=== PATIENT | female | born 1960 | race Caucasian/White ===

== ENCOUNTER 2016-04-23 07:37 | Inpatient (IN) | payer OTHER ==
[2016-04-17 15:25] VITALS: BMI 41.0
[2016-04-23] VITALS (10 sets, daily range): BP systolic 97–140; BP diastolic 61–83; PULSE 82–99; TEMP 36.5–37.1; O2SAT 93–97; Ht 167.6 cm; Wt 117.1 kg
[~2016-04-23] VITALS: Ht 167.6 cm; Wt 117.1 kg
[~2016-04-23 07:37] MED LIST: ALBINS NEB; ALBUAER19 INH; AMIT100T2 PO; BENZ-57 PO; CLINDAMYCIN IV 900 MG in DEXTROSE 5% ADD-VANTAGE 100ML 100 ML IV SCH; DEXAMETHASONE SOD INJ 4 MG/ML VIAL ONE; ESCI1TAB10 PO; FENTANYL CITRATE INJ 50 MCG/1 ML 2 ML VIAL ONE; GLYCOPYRROLATE INJ 0.2 MG/ML VIAL ONE; IPRASOL4 INH; LACTATED RINGER'S 1000ML 1,000 ML IV SCH; LIDOCAINE HCL 2% 2 ML VIAL (20MG/ML) ONE; LISI-788 PO; LORA-741 PO; MIDAZOLAM HCL 1 MG/ML 2ML VIAL ONE; NEOSTIGMINE METHYLSULFATE 5 MG/5 ML SYR ONE; ONDA8TAB6 PO; ONDANSETRON INJ 2 MG/ML 2 ML VIAL ONE; PROPOFOL IV EMULSION 10 MG/ML 20 ML VIAL IV ONE; ROCURONIUM BROMIDE 10 MG/ML 5 ML VIAL ONE; SULF800T23 PO; SYMIN160 INH
[2016-04-23] MEDS ORDERED: FENTANYL CITRATE INJ 50 MCG/1 ML 2 ML VIAL IV PRN (08:00)
[2016-04-23] MEDS ORDERED: SCOPOLAMINE 1.5 MG TDSY TD SCH (08:00)
[2016-04-23] MEDS ORDERED: ONDANSETRON INJ 2 MG/ML 2 ML VIAL IV PRN (08:00)
[2016-04-23] MEDS ORDERED: ATROPINE SULFATE 0.1 MG/ML 5ML SYR IV PRN (08:00)
[2016-04-23] MEDS ORDERED: HYDROmorphone INJ 1 MG/ML SYR IV PRN (08:00)
[2016-04-23] MEDS: CHECK SCOPOLAMINE PATCH PLACEMENT SCH ×2 (08:00→16:30)
[2016-04-23] MEDS ORDERED: EpHEDrine SULFATE INJ 50 MG/ML AMP IV PRN (08:00)
[2016-04-23] MEDS ORDERED: FENTANYL CITRATE INJ 50 MCG/1 ML 2 ML VIAL ONE ×2 (10:31→13:31)
[2016-04-23] MEDS ORDERED: MIDAZOLAM HCL 1 MG/ML 2ML VIAL ONE (10:31)
[2016-04-23] MEDS ORDERED: SCOPOLAMINE 1.5 MG TDSY TD ONE (10:38)
[2016-04-23] MEDS ORDERED: REMIFENTANIL 1 MG VIAL IV ONE (10:47)
[2016-04-23] MEDS ORDERED: ACETAMINOPHEN 1000 MG/100 ML IV IV ONE (10:47)
[2016-04-23] MEDS ORDERED: PROPOFOL IV EMULSION 10 MG/ML 100 ML VIAL IV ONE (10:47)
[2016-04-23] MEDS ORDERED: SUCCINYLCHOLINE CHLORIDE 20 MG/ML 10 ML VIAL IV ONE (11:59)
[2016-04-23] MEDS ORDERED: GLYCOPYRROLATE INJ 0.2 MG/ML VIAL ONE (11:59)
[2016-04-23] MEDS ORDERED: ALBUTEROL HFA INHALER 8.5 GM INH ONE (11:59)
[2016-04-23] MEDS ORDERED: NEOSTIGMINE METHYLSULFATE 5 MG/5 ML SYR ONE (11:59)
[2016-04-23] MEDS ORDERED: METOCLOPRAMIDE HCL INJ 5 MG/ML 2 ML VIAL ONE (11:59)
[2016-04-23] MEDS ORDERED: DiphenhydrAMINE HCL 50 MG/ML VIAL ONE (11:59)
[2016-04-23] MEDS ORDERED: ONDANSETRON INJ 2 MG/ML 2 ML VIAL ONE (11:59)
[2016-04-23] MEDS ORDERED: PHENYLEPHRINE HCL INJ 10 MG/ML VIAL ONE (12:09)
[2016-04-23] MEDS ORDERED: EpHEDrine SULFATE 50MG/5ML SYR ONE (12:13)
[2016-04-23] MEDS ORDERED: BUPIVACAINE 0.5 % 5 MG/1 ML MPF 30ML VIAL IV ONE (13:13)
[2016-04-23] MEDS ORDERED: LACTATED RINGER'S 1000ML 1,000 ML IV SCH (13:20)
--- NOTE | 2016-04-23 13:20 | [facility] Operative Report ---
Operative Report Operative Date Apr 23, 2016. Pre-Operative Diagnosis Left breast cancer Post-Operative Diagnosis same Procedure(s) Performed Left Mastectomy with sentinel LN bx Surgeon Dr Mccormick Hot Kettle Tender Surgeon(s) Chraly Brizuela PA-C Estimated Blood Loss 30 ML Findings SLN frozen sect negative Specimens A.Left breast -long silk tissue le lateral sent to lab fresh additional Lt breast tissue SLN Drains # 15 Rd SHAKEEL to bulb Anesthesia gen Complication(s) None Disposition Recovery Room / PACU I attest to the content of the Intraoperative Record and any orders documented therein. Any exceptions are noted below.
[2016-04-23] MEDS ORDERED: HYDROCODONE/ACETAMOPHEN 5/325MG TAB PO PRN (13:30)
[2016-04-23] MEDS ORDERED: ALBUTEROL HFA 8 GM INHALER INH PRN (13:30)
[2016-04-23] MEDS ORDERED: ALBUTEROL 0.083% NEBU SOLN 3 ML VIAL INH PRN (13:30)
[2016-04-23] MEDS ORDERED: LORAZEPAM INJ 0.5 MG in SYRINGE 0.25 ML IV PRN (13:30)
[2016-04-23] MEDS ORDERED: LORAZEPAM INJ 0.5 MG in SYRINGE 0.75 ML IV PRN (13:30)
[2016-04-23] MEDS ORDERED: CIPR-255 PO (13:34)
[2016-04-23] MEDS ORDERED: HYDR-5688 PO (13:34)
[2016-04-23] MEDS ORDERED: IV FLUIDS COMPLETED PRN (13:45)
--- NOTE | 2016-04-23 13:51 | DIAGNOSTIC IMAGING REPORT ---
LYMPHOSCINTIGRAPHY CLINICAL HISTORY: Left breast cancer. PROCEDURE: Using standard sterile technique, 4 intradermal periareolar and one deep injection of 0.5 mCi of Lymphoseek was placed in the left breast. The patient tolerated the procedure well. There were no immediate complications. The patient was subsequently transported to the surgical suite. No imaging was obtained at the referring physician's request. IMPRESSION: Injection of 0.5 mCi of Lymphoseek in the left breast. Electronically signed by: Kt Paulino M.D. 04/23/2016 1:49 PM Dictated Date/Time: 04/23/2016 1:49 PM
--- NOTE | 2016-04-23 13:54 | Anesthesiology Progress Note ---
Anesthesia Post Op Note Date & Time Apr 23, 2016 at 13:54 Vital Signs Pain Intensity: 5 Vital Signs Past 12 Hours Date Time Temp Pulse Resp B/P Pulse Ox O2 Delivery O2 Flow Rate FiO2 04/23/16 13:45 99 16 127/84 99 Nasal Cannula 2 04/23/16 13:35 92 16 122/73 99 Mask 10 04/23/16 13:25 99 16 131/62 99 Mask 10 04/23/16 13:24 36.4 101 16 103/76 98 Mask 10 04/23/16 08:03 36.5 99 18 140/83 97 Room Air Notes Mental Status: alert / awake / arousable, participated in evaluation Pt Amnestic to Procedure: Yes Nausea / Vomiting: adequately controlled Pain: adequately controlled Airway Patency, RR, SpO2: stable & adequate BP & HR: stable & adequate Hydration State: stable & adequate Anesthetic Complications: no major complications apparent
[2016-04-23] MEDS ORDERED: CLINDAMYCIN 600 MG/54 ML D5W IV SCH (14:00)
--- NOTE | 2016-04-23 14:33 | OPERATIVE REPORT ---
DATE OF OPERATION: 04/23/2016 NAME OF OPERATION: Left mastectomy with sentinel lymph node biopsy. PREOPERATIVE DIAGNOSIS: Left breast cancer. POSTOPERATIVE DIAGNOSIS: Same. STAFF SURGEON: Dr. Ean Mccormick. ANESTHESIA: General. MESSAGE BROKER DEVELOPER: Reid Jama PA-C DESCRIPTION OF PROCEDURE: The patient was brought into the operating room and placed on the operating table in the supine position. Her left arm was extended onto an arm board. A roll was placed beneath her shoulder. Her left breast and axilla were prepped and draped in the usual fashion. Using the Neoprobe, I was able to localize the area of activity in the left axilla. 0.5% plain Marcaine was used to anesthetize the skin incisions. An incision was made in the left axilla, carrying dissection down deeply into the axilla, identifying the nerve, sending it for frozen section. During the frozen section, we did perform the left mastectomy. Frozen section did come back negative. The mastectomy was performed by making an incision above and below the areola from medial to lateral from the sternum to the axilla and then the breast tissue was dissected away from the subcutaneous tissue both superiorly and inferiorly, creating superior and inferior chest wall skin flaps. The breast tissue was then dissected away from the pectoralis major muscle to the axilla, ligating vessels using 2-0 chromic catgut suture and 2-0 silk suture. The breast was then marked with a long silk suture lateral. The wounds were irrigated with saline solution. A 15 round Barron-Quintanilla drain placed into the axilla and secured using 3-0 nylon suture. The axilla was closed by reapproximating the deep tissue using 2-0 plain catgut suture and then the skin using 4-0 nylon suture. The chest wall incision was closed using subcutaneous 3-0 Vicryl suture and then medially a 4-0 subcuticular Monocryl and laterally 4-0 Prolene sutures. Steri-Strips and dressings were applied. The patient was transferred to recovery room in stable condition. I attest to the content of the Intraoperative Record and any orders documented therein. Any exceptio ns are noted below.
[2016-04-23] MEDS: HYDROmorphone INJ 1 MG/ML SYR IV PRN ×2 (15:04→18:24)
[2016-04-23] MEDS: CLINDAMYCIN IV 600 MG in DEXTROSE 5% ADD-VANTAGE 50ML 50 ML IV SCH (19:17)
[2016-04-23] MEDS: LORAZEPAM 0.5 MG TAB PO PRN (20:51)
[2016-04-23] MEDS: AMITRIPTYLINE HCL 100 MG TAB PO SCH (20:52)
[2016-04-23] MEDS: BUDESONIDE/FORMOTEROL FUMARATE 160/4.5 60 PUFFS/INHALER INH SCH (20:54)
[2016-04-24] VITALS (18 sets, daily range): BP systolic 94–147; BP diastolic 61–81; PULSE 96–120; TEMP 36.4–36.7; O2SAT 94–98
[2016-04-24] MEDS: CHECK SCOPOLAMINE PATCH PLACEMENT SCH ×3 (00:07→16:46)
[2016-04-24] MEDS: HYDROCODONE/ACETAMOPHEN 5/325MG TAB PO PRN ×2 (00:10→04:27)
[2016-04-24] MEDS: HYDROmorphone INJ 1 MG/ML SYR IV PRN ×2 (02:47→20:26)
[2016-04-24] MEDS: LORAZEPAM 0.5 MG TAB PO PRN ×2 (03:26→21:20)
[2016-04-24] MEDS: CLINDAMYCIN IV 600 MG in DEXTROSE 5% ADD-VANTAGE 50ML 50 ML IV SCH ×2 (03:55→12:59)
[2016-04-24] MEDS: ONDANSETRON INJ 2 MG/ML 2 ML VIAL IV PRN ×3 (05:52→17:33)
--- NOTE | 2016-04-24 06:12 | Surgery Progress Note ---
Surgery Progress Note Date of Service Apr 24, 2016. Subjective Post OP Day: 1 mild distress, nausea after pain med bloody drainage and Lt chest swelling Objective Vital Signs: Date Time Temp Pulse Resp B/P Pulse Ox O2 Delivery O2 Flow Rate FiO2 04/24/16 04:00 36.7 108 20 117/75 96 Nasal Cannula 2.0 04/24/16 00:05 Room Air 04/23/16 22:50 36.9 99 18 133/70 93 Nasal Cannula 2.0 04/23/16 20:50 37.1 98 18 110/68 94 Room Air 04/23/16 18:07 82 18 103/61 94 Nasal Cannula 2.0 04/23/16 16:36 82 18 114/71 94 Room Air 04/23/16 16:30 94 Room Air 04/23/16 15:35 82 18 97/63 04/23/16 15:01 36.8 82 16 104/66 94 2.0 04/23/16 14:46 Nasal Cannula 2.0 04/23/16 14:45 Nasal Cannula 2.0 04/23/16 14:28 36.8 87 20 123/81 04/23/16 14:10 Nasal Cannula 2.0 04/23/16 14:10 36.8 87 20 123/81 94 Nasal Cannula 2.0 04/23/16 13:55 36.5 86 16 112/81 99 Nasal Cannula 2 04/23/16 13:45 99 16 127/84 99 Nasal Cannula 2 04/23/16 13:35 92 16 122/73 99 Mask 10 04/23/16 13:25 99 16 131/62 99 Mask 10 04/23/16 13:24 36.4 101 16 103/76 98 Mask 10 04/23/16 08:03 36.5 99 18 140/83 97 Room Air Physical Exam: SHAKEEL drainage (85 cc bloody) General Appearance: + mild distress Respiratory/Chest: no respiratory distress Incision(s): drainage, hematoma, ecchymosis Laboratory Results: Results Past 24 Hours Test 04/23/16 08:19 04/24/16 05:33 Range/Units Bedside Glucose 107 70-90 mg/dl Assessment & Plan 04/24/16- s/p Lt mastectomy w/ sentinel lymph node bx- hematoma Lt chest wall w/ ecchymosis. will need to take pt to OR for evacuation of hematoma. Discussed with . check labs, Type and cross
[2016-04-24] MEDS ORDERED: NEOSTIGMINE METHYLSULFATE 5 MG/5 ML SYR ONE (06:20)
[2016-04-24] MEDS ORDERED: ONDANSETRON INJ 2 MG/ML 2 ML VIAL ONE (06:20)
[2016-04-24] MEDS ORDERED: SUCCINYLCHOLINE CHLORIDE 20 MG/ML 10 ML VIAL IV ONE (06:20)
[2016-04-24] MEDS ORDERED: EpHEDrine SULFATE INJ 50 MG/ML AMP ONE (06:20)
[2016-04-24] MEDS ORDERED: LIDOCAINE HCL 2% 2 ML VIAL (20MG/ML) ONE (06:20)
[2016-04-24] MEDS ORDERED: GLYCOPYRROLATE INJ 0.2 MG/ML VIAL ONE (06:20)
[2016-04-24] MEDS ORDERED: PROPOFOL IV EMULSION 10 MG/ML 20 ML VIAL IV ONE (06:20)
[2016-04-24] MEDS ORDERED: ROCURONIUM BROMIDE 10 MG/ML 5 ML VIAL ONE (06:20)
[2016-04-24] MEDS ORDERED: PHENYLEPHRINE HCL INJ 10 MG/ML VIAL ONE (06:20)
[2016-04-24] MEDS ORDERED: DEXAMETHASONE SOD INJ 4 MG/ML VIAL ONE (06:20)
[2016-04-24] MEDS ORDERED: FENTANYL CITRATE INJ 50 MCG/1 ML 2 ML VIAL ONE (06:21)
[2016-04-24] MEDS ORDERED: MIDAZOLAM HCL 1 MG/ML 2ML VIAL ONE (06:21)
[2016-04-24] MEDS ORDERED: PROPOFOL IV EMULSION 10 MG/ML 100 ML VIAL IV ONE (06:40)
[2016-04-24] MEDS ORDERED: METOCLOPRAMIDE HCL INJ 5 MG/ML 2 ML VIAL ONE (07:17)
[2016-04-24] MEDS ORDERED: CEFOXITIN 2 GM IRRIG ONE (07:49)
[2016-04-24] MEDS ORDERED: THROMBIN 20000 UNIT TOP ONE (07:51)
--- NOTE | 2016-04-24 08:15 | Anesthesiology Progress Note ---
Anesthesia Post Op Note Date & Time Apr 24, 2016 at 08:13 Vital Signs Pain Intensity: 9.0 Vital Signs Past 12 Hours Date Time Temp Pulse Resp B/P Pulse Ox O2 Delivery O2 Flow Rate FiO2 04/24/16 06:48 108 18 97 Nasal Cannula 2.0 04/24/16 06:09 36.6 120 24 102/71 98 Nasal Cannula 2.0 04/24/16 04:00 36.7 108 20 117/75 96 Nasal Cannula 2.0 04/24/16 00:05 Room Air 04/23/16 22:50 36.9 99 18 133/70 93 Nasal Cannula 2.0 04/23/16 20:50 37.1 98 18 110/68 94 Room Air Notes Mental Status: alert / awake / arousable, participated in evaluation Pt Amnestic to Procedure: Yes Nausea / Vomiting: adequately controlled Pain: adequately controlled Airway Patency, RR, SpO2: stable & adequate BP & HR: stable & adequate Hydration State: stable & adequate Anesthetic Complications: no major complications apparent Returning to OR today for surgical evacuation of chest wall hematoma.
--- NOTE | 2016-04-24 08:45 | [facility] Operative Report ---
Operative Report Operative Date Apr 24, 2016. Pre-Operative Diagnosis Left Chest Wound Hematoma Post-Operative Diagnosis same Procedure(s) Performed evacuation Lt chest wall hematoma, suture ligation bleeding sites Surgeon Dr. Ean Mccormick Veterinarian Surgeon(s) Reid Jama PA-c Estimated Blood Loss 750 ml of clot and EBL of 50 ml Findings no overt bleeding site- some slightly oozing sites- oversewn Specimens None per surgeon Drains # 15 Rd SHAKEEL to bulb, #19 Rd SHAKEEL to wound Anesthesia gen Complication(s) None Disposition Recovery Room / PACU I attest to the content of the Intraoperative Record and any orders documented therein. Any exceptions are noted below.
[2016-04-24] MEDS ORDERED: LABETALOL HCL IV 5 MG/ML 20ML ONE (08:54)
[2016-04-24] MEDS ORDERED: EpHEDrine SULFATE INJ 50 MG/ML AMP IV PRN (09:00)
[2016-04-24] MEDS ORDERED: LABETALOL HCL IV 5 MG/ML 20ML IV PRN (09:00)
[2016-04-24] MEDS ORDERED: FENTANYL CITRATE INJ 50 MCG/1 ML 2 ML VIAL IV PRN (09:00)
[2016-04-24] MEDS ORDERED: MEPERIDINE HCL 25 MG/ML CARP IV PRN (09:00)
[2016-04-24] MEDS ORDERED: ATROPINE SULFATE 0.1 MG/ML 5ML SYR IV PRN (09:00)
[2016-04-24] MEDS ORDERED: LISINOPRIL/HCTZ 20/25MG TAB PO SCH (09:00)
[2016-04-24] MEDS ORDERED: HYDROmorphone INJ 1 MG/ML SYR IV PRN (09:00)
[2016-04-24] MEDS ORDERED: ONDANSETRON INJ 2 MG/ML 2 ML VIAL IV PRN (09:00)
--- NOTE | 2016-04-24 09:02 | OPERATIVE REPORT ---
DATE OF OPERATION: 04/24/2016 PREOPERATIVE DIAGNOSIS: Left chest wound hematoma. POSTOPERATIVE DIAGNOSIS: Same. NAME OF OPERATION: Evacuation of left chest wound hematoma and suture ligation of bleeding sites. STAFF SURGEON: Dr. Mccormick. ENGRAVER TIRE MOLD: Parth Jama PA-C. PROCEDURE: The patient was brought in the operating room and placed on the operating table in supine position. Her left chest and axilla were prepped and draped in usual fashion. Steri-Strips and sutures were removed. The wounds were opened. The axillary wound and the chest wound were opened. The patient had a large hematoma approximately 750 mL of blood which was relatively easily evacuated and then the site irrigated and then we examined the tissue. We did not find any significantly actively bleeding sites, just some slightly oozing sites which were oversewn with suture. After careful evaluation we placed a 19 round Barron-Quintanilla drain and a 15 round Barron-Quintanilla drain into the chest wound, secured to the skin using 3-0 nylon suture. We did use some thrombin in the wound. We actually closed the wound with subcutaneous 3-0 Vicryl and then interrupted 4-0 nylon sutures. The one drain continue to have some slight oozing and accumulation, therefore I reopened the wound, examined for bleeding sites. There were really no significantly active bleeding sites. Two to 3 sites were again oversewn and then the wound closed again using subcutaneous 3-0 Vicryl suture and 4-0 nylon for the skin. Dressing applied and patient transferred to recovery room in stable condition. Estimated blood loss was probably 50 mL in addition to the 750 mL hematoma. I attest to the content of the Intraoperative Record and any orders documented therein. Any exceptio ns are noted below.
--- NOTE | 2016-04-24 09:37 | Anesthesiology Progress Note ---
Anesthesia Post Op Note Date & Time Apr 24, 2016 at 09:36 Vital Signs Pain Intensity: 0 Vital Signs Past 12 Hours Date Time Temp Pulse Resp B/P Pulse Ox O2 Delivery O2 Flow Rate FiO2 04/24/16 09:30 106 16 119/79 100 Mask 10 04/24/16 09:20 95 16 127/91 100 Mask 10 04/24/16 09:10 93 16 115/81 100 Mask 10 04/24/16 09:00 89 18 118/70 98 Mask 10 04/24/16 08:50 36.0 90 20 114/78 98 Mask 10 04/24/16 06:48 108 18 97 Nasal Cannula 2.0 04/24/16 06:09 36.6 120 24 102/71 98 Nasal Cannula 2.0 04/24/16 04:00 36.7 108 20 117/75 96 Nasal Cannula 2.0 04/24/16 00:05 Room Air 04/23/16 22:50 36.9 99 18 133/70 93 Nasal Cannula 2.0 Notes Mental Status: alert / awake / arousable, participated in evaluation Pt Amnestic to Procedure: Yes Nausea / Vomiting: adequately controlled Pain: adequately controlled Airway Patency, RR, SpO2: stable & adequate BP & HR: stable & adequate Hydration State: stable & adequate Anesthetic Complications: no major complications apparent
[2016-04-24] MEDS ORDERED: SODIUM CHLORIDE 0.9% IV SCH (09:45)
[2016-04-24] MEDS ORDERED: DESMOPRESSIN ACETATE IV SCH (09:45)
[2016-04-24 09:53] LABS: MEAN CELL VOLUME 88.4 fL (80-100); MEAN CORPUSCULAR HEMOGLOBIN 30.3 pg (25-34); MEAN PLATELET VOLUME 9.3 fL (7.4-10.4); PLATELET COUNT 269 K/uL (130-400); RED BLOOD COUNT 2.94 M/uL (4.2-5.4); WHITE BLOOD COUNT 11.58 K/uL (4.8-10.8)
[2016-04-24 09:56] LABS: MEAN CORPUSCULAR HGB CONC 34.2 g/dl (32-36)
[2016-04-24 10:06] LABS: PARTIAL THROMBOPLASTIN RATIO 0.7; PROTHROMBIN TIME (PATIENT) 10.6 SECONDS (9.0-12.0)
[2016-04-24 10:18] LABS: BUN/CREATININE RATIO 9.7 (10-20); CALCIUM 9.1 mg/dl (8.5-10.1); CREATININE 1.3 mg/dl (0.60-1.20); POTASSIUM 4.7 mmol/L (3.5-5.1)
[2016-04-24] MEDS ORDERED: LORAZEPAM INJ 0.5 MG in SYRINGE 0.25 ML IV PRN (10:45)
[2016-04-24] MEDS: LACTATED RINGER'S 1000ML 1,000 ML IV SCH ×2 (11:14→22:20)
[2016-04-24] MEDS: ESCITALOPRAM OXALATE 20 MG TAB PO SCH (12:03)
--- NOTE | 2016-04-24 14:11 | Medical Consult ---
Consultation Date of Consultation: Apr 24, 2016. Attending Physician: Ean Mccormick M.D. History of Present Illness Ms. Martinez is a 55 y/o female with PMHx of Asthma/COPD, IRVIN, HLD, and Breast CA S /P L Mastectomy with LN Bx who developed an hematoma and is S/P drainage. Hospitalists consulted for medical management. Does have Asthma/COPD and uses as needed inhalers and Symbicort. Denies home O2 needs. Also reports snoring but has not completed studies for confirmation of IRVIN and does not utilize CPAP/ BiPAP or O2. Quit smoking in September 2015. She is reporting minimal pain currently and is passing flatus. Past Medical/Surgical History Medical Problems: (1) Atypical chest pain Status: Acute (2) Effusion, left knee Status: Acute (3) Infected insect bite Status: Acute (4) Popliteal cyst Status: Acute Family History Patient reports no known family medical history. Social History Smoking Status: Former Smoker Smokeless Tobacco Use: No Alcohol Use: none Housing Status: lives with family Allergies Coded Allergies: Penicillins (Verified Allergy, Unknown, Hives, 04/23/16) Promethazine (Verified Allergy, Unknown, Shakiness, 04/23/16) Ranitidine (Verified Allergy, Unknown, Shakiness, 04/23/16) Current Inpatient Medications Current Inpatient Medications Medications (Trade) Dose Ordered Sig/Rob Route Start Time Stop Time Status Last Admin Dose Admin Miscellaneous (Remove Transderm-Scop Patch) 1.5 ea Q48H N/A 04/25/16 08:00 04/25/16 08:01 Miscellaneous Information (Check Scopolamine Patch Placement) 1 ea QS N/A 04/23/16 08:00 05/23/16 07:59 04/24/16 10:28 1 EA Albuterol (Ventolin Hfa Inhaler) 2 puffs Q4H PRN INH 04/23/16 13:30 05/23/16 13:29 Albuterol Sulfate (Ventolin 0.083% 2.5MG/3ML Neb) 2.5 mg Q6H PRN INH 04/23/16 13:30 05/23/16 13:29 Amitriptyline HCl (Elavil Tab) 100 mg HS PO 04/23/16 21:00 05/23/16 20:59 04/23/16 20:52 100 MG Budesonide/ Formoterol Fumarate (Symbicort 160/ 4.5 Inh) 2 puffs BID INH 04/23/16 21:00 05/23/16 20:59 Escitalopram Oxalate (Lexapro Tab) 20 mg QAM PO 04/24/16 09:00 05/24/16 08:59 04/24/16 12:03 20 MG HCTZ/Lisinopril (Prinzide 20-25MG Tab) 1 tab QAM PO 04/24/16 09:00 05/24/16 08:59 Future Hold Lorazepam (Ativan Tab) 0.5 mg TID PRN PO 04/23/16 13:30 05/23/16 13:29 04/24/16 03:26 0.5 MG Hydromorphone HCl (Dilaudid Inj) 0.5 mg Q3H PRN IV 04/23/16 13:30 05/07/16 13:29 Hydromorphone HCl (Dilaudid Inj) 1 mg Q3H PRN IV 04/23/16 13:30 05/07/16 13:29 04/24/16 02:47 1 MG Ondansetron HCl (Zofran Inj) 4 mg Q6H PRN IV 04/23/16 13:30 05/23/16 13:29 04/24/16 10:39 4 MG Miscellaneous 1 ea 1 ea PRN PRN N/A 04/23/16 13:45 04/23/17 13:44 Clindamycin Phosphate/Dextrose (Cleocin Iv/ Dextrose Add-[place] 50ML) 54 ml @ 108 mls/hr Q8H IV 04/23/16 20:00 04/24/16 19:59 04/24/16 03:55 108 MLS/HR Fentanyl Citrate (Fentanyl Inj) 50 mcg Q5M PRN IV 04/24/16 09:00 04/24/16 14:00 04/24/16 09:56 50 MCG Hydromorphone HCl (Dilaudid Inj) 0.5 mg Q5M PRN IV 04/24/16 09:00 04/24/16 14:00 Meperidine HCl (Demerol Inj) 25 mg Q5M PRN IV 04/24/16 09:00 04/24/16 14:00 Ondansetron HCl (Zofran Inj) 4 mg ONE PRN IV 04/24/16 09:00 04/24/16 14:00 Labetalol HCl (Normodyne IV) 5 mg Q5M PRN IV 04/24/16 09:00 04/24/16 14:00 Ephedrine Sulfate (EpHEDrine SULFATE INJ) 5 mg Q5M PRN IV 04/24/16 09:00 04/24/16 14:00 Atropine Sulfate 0.5 mg 0.5 mg Q1M PRN IV 04/24/16 09:00 04/24/16 14:00 Lactated Ringer's (Lr 1000ml) 1,000 ml @ 75 mls/hr [id number] IV 04/24/16 09:00 05/24/16 08:59 04/24/16 11:14 75 MLS/HR Oxycodone/ Acetaminophen (Percocet 5-325MG Tab) 1 tab Q4H PRN PO 04/24/16 09:00 05/08/16 08:59 Oxycodone/ Acetaminophen (Percocet 5-325MG Tab) 2 tab Q4H PRN PO 04/24/16 09:00 05/08/16 08:59 Ondansetron HCl 4 mg 4 mg Q3HWA PRN IV 04/24/16 10:45 05/24/16 10:44 Lorazepam 0.5 mg/ Syringe 0.5 ml @ 0.5 mls/min Q6 PRN IV 04/24/16 10:45 05/24/16 10:44 Lorazepam/Syringe (Ativan Inj/ Syringe) 0.5 ml @ 0.5 mls/min HS PRN IV 04/24/16 10:45 05/24/16 10:44 Review of Systems Constitutional: No chills, No fever Eyes: No worsening of vision ENT: No nasal symptoms, No sore throat Respiratory: No cough, No shortness of breath Cardiovascular: + chest pain (minimal at site of L Mastectomy) Abdomen: No constipation, No diarrhea, No nausea, No pain, No vomiting Musculoskeletal: No calf pain, No swelling Genitourinary - Female: No dysuria Neurologic: No weakness Integumentary: No rash Physical Exam Date Time Temp Pulse Resp B/P Pulse Ox O2 Delivery O2 Flow Rate FiO2 04/24/16 13:00 36.5 100 22 117/72 98 Nasal Cannula 2.0 04/24/16 13:00 100 22 117/72 98 Nasal Cannula 2.0 04/24/16 12:00 98 Room Air 2.0 04/24/16 12:00 108 17 134/74 98 Nasal Cannula 2.0 04/24/16 11:43 36.4 108 17 147/80 97 Nasal Cannula 2.0 04/24/16 11:30 105 22 96 04/24/16 11:15 103 20 94 Nasal Cannula 04/24/16 11:10 105/75 Nasal Cannula 04/24/16 11:00 Nasal Cannula 2.0 04/24/16 10:45 101 22 95 Nasal Cannula 04/24/16 10:44 102 21 101/61 96 Nasal Cannula 04/24/16 10:34 103 36 94/66 96 Nasal Cannula 04/24/16 10:30 36.5 101 17 106/71 97 Nasal Cannula 2.0 04/24/16 10:15 102 16 97/68 95 Nasal Cannula 2 04/24/16 10:00 97 16 95/75 97 Nasal Cannula 2 04/24/16 09:40 100 16 109/70 97 Nasal Cannula 2 04/24/16 09:30 36.4 106 16 119/79 100 Mask 10 04/24/16 09:20 95 16 127/91 100 Mask 10 04/24/16 09:10 93 16 115/81 100 Mask 10 04/24/16 09:00 89 18 118/70 98 Mask 10 04/24/16 08:50 36.0 90 20 114/78 98 Mask 10 04/24/16 06:48 108 18 97 Nasal Cannula 2.0 04/24/16 06:09 36.6 120 24 102/71 98 Nasal Cannula 2.0 04/24/16 04:00 36.7 108 20 117/75 96 Nasal Cannula 2.0 04/24/16 00:05 Room Air 04/23/16 22:50 36.9 99 18 133/70 93 Nasal Cannula 2.0 04/23/16 20:50 37.1 98 18 110/68 94 Room Air 04/23/16 18:07 82 18 103/61 94 Nasal Cannula 2.0 04/23/16 16:36 82 18 114/71 94 Room Air 04/23/16 16:30 94 Room Air 04/23/16 15:35 82 18 97/63 04/23/16 15:01 36.8 82 16 104/66 94 2.0 04/23/16 14:46 Nasal Cannula 2.0 04/23/16 14:45 Nasal Cannula 2.0 04/23/16 14:28 36.8 87 20 123/81 04/23/16 14:10 Nasal Cannula 2.0 04/23/16 14:10 36.8 87 20 123/81 94 Nasal Cannula 2.0 04/23/16 13:55 36.5 86 16 112/81 99 Nasal Cannula 2 04/23/16 13:45 99 16 127/84 99 Nasal Cannula 2 General Appearance: WD/WN, no apparent distress, + obese Head: normocephalic, atraumatic Eyes: sclerae normal ENT: hearing grossly normal Neck: supple, no JVD, trachea midline Respiratory/Chest: lungs clear, normal breath sounds, no respiratory distress, no accessory muscle use, + pertinent finding (L mastectomy dressing that is clean/dry/intact; SHAKEEL drains x 2 draining dark red blood) Cardiovascular: regular rate, rhythm, no gallop, no murmur Abdomen/GI: normal bowel sounds, non tender, soft Back: normal inspection, no CVA tenderness Extremities/Musculoskelatal: no calf tenderness Neurologic/Psych: alert, oriented x 3 Skin: normal color, warm/dry Laboratory Results Last 24 Hours Test 04/24/16 09:30 04/24/16 09:47 Bedside Glucose 156 mg/dl White Blood Count 11.58 K/uL Red Blood Count 2.94 M/uL Hemoglobin 8.9 g/dL Hematocrit 26.0 % Mean Corpuscular Volume 88.4 fL Mean Corpuscular Hemoglobin 30.3 pg Mean Corpuscular Hemoglobin Concent 34.2 g/dl RDW Standard Deviation 46.3 fL RDW Coefficient of Variation 14.3 % Platelet Count 269 K/uL Mean Platelet Volume 9.3 fL Prothrombin Time 10.6 SECONDS Prothromb Time International Ratio 1.0 Activated Partial Thromboplast Time 19.2 SECONDS Partial Thromboplastin Ratio 0.7 Sodium Level 132 mmol/L Potassium Level 4.7 mmol/L Chloride Level 99 mmol/L Carbon Dioxide Level 21 mmol/L Anion Gap 12.0 mmol/L Blood Urea Nitrogen 13 mg/dl Creatinine 1.30 mg/dl Est Creatinine Clear Calc Drug Dose 61.4 ml/min Estimated GFR () 52.7 Estimated GFR (Non- 45.5 BUN/Creatinine Ratio 9.7 Random Glucose 140 mg/dl Calcium Level 9.1 mg/dl Assessment & Plan Ms. Martinez is a 55 y/o female with PMHx of Asthma/COPD, IRVIN, HLD, and Breast CA S /P L Mastectomy with LN Bx who developed an hematoma and is S/P drainage. Breast CA S/P L Mastectomy with LN Bx with Hematoma: S/P Hematoma Evacuation - Per primary team - Dr. Mccormick Possible KALE: - Cr at 1.3 with recent labs reveal possible baseline however previous labs were WNL in October - Hydration Hyponatremia: - LR at 75 mL/hr daily Asthma/COPD: - Ventolin PRN - Symbicort 2 puffs BID HTN: - Will hold HCTZ/Lisinopril Disposition: - D/C per primary with possible HHS Attending Attestation: Pt seen/examined, chart reviewed, and care plan d/w NIALL [place]. I agree with the wilson components of her consultation documentation as outlined. 55yo female who underwent left mastectomy yesterday for breast ca by Dr. Mccormick and then developed hematoma at the operative site. Developed acute blood loss anemia 2nd to this and was taken back to the OR today for evacuation of the hematoma. I saw the patient post-op and she c/o pain at the operative site but denied sob , orthopnea, abd pain, chest pain. She denied any prior history of bleeding disorder. PMH, PSH, allergies, meds, sochx, famhx, ros - reviewed vitals - tachy but BP normal, O2 sats nl, RR nl gen - obese, NAD mouth - MMM neck - no JVD heart - tachy, s1, s2 lungs - CTA b/l, scant dry rales bases abd - soft, NT, ND, BS+ chest wall - large dressing in place on left; drain in place on left; swelling noted to left upper chest near the axillae ext - no edema labs - 04/24/16 15:22 04/24/16 09:47 Test 04/24/16 09:47 04/24/16 15:22 04/24/16 20:20 Prothrombin Time 10.6 SECONDS (9.0-12.0) Prothromb Time International Ratio 1.0 (0.9-1.1) Activated Partial Thromboplast Time 19.2 SECONDS (21.0-31.0) Partial Thromboplastin Ratio 0.7 Anion Gap 12.0 mmol/L (3-11) Est Creatinine Clear Calc Drug Dose 61.4 ml/min Estimated GFR () 52.7 Estimated GFR (Non- 45.5 BUN/Creatinine Ratio 9.7 (10-20) Calcium Level 9.1 mg/dl (8.5-10.1) Red Blood Count 2.67 M/uL (4.2-5.4) Mean Corpuscular Volume 90.3 fL (80-100) Mean Corpuscular Hemoglobin 30.7 pg (25-34) Mean Corpuscular Hemoglobin Concent 34.0 g/dl (32-36) RDW Standard Deviation 48.0 fL (36.4-46.3) RDW Coefficient of Variation 14.5 % (11.5-14.5) Mean Platelet Volume 9.0 fL (7.4-10.4) Bedside Glucose 143 mg/dl (70-90) Date/Time Source Procedure Growth Status 04/24/16 14:35 Nasal MRSA DNA Surveillance Screen - Final Specimen Negative for MRSA by DNA Probe Complete A/P: 1. acute blood loss anemia 2nd to chest wall hematoma / post-op hematoma in setting of mastectomy 2. hyponatremia 3. acute kidney injury vs CKD - to be determined 4. COPD 5. previous tobacco dependence recommend - recheck H/H tonight if Hb is <7.5 would Tx 2 units PRBCs in light of tachycardia and significant H/ H drop (baseline Hb 13.8) repeat BMP in am due to hyponatremia cont IVF Faye VIERA MD
[2016-04-24 15:34] LABS: HEMATOCRIT 24.1 % (37-47); MEAN CELL VOLUME 90.3 fL (80-100); MEAN CORPUSCULAR HEMOGLOBIN 30.7 pg (25-34); PLATELET COUNT 274 K/uL (130-400); RED BLOOD COUNT 2.67 M/uL (4.2-5.4); WHITE BLOOD COUNT 10.61 K/uL (4.8-10.8)
[2016-04-24] MEDS: HYDROmorphone INJ 0.5 MG/0.5 ML SYR IV PRN (15:39)
[2016-04-24] MEDS: BUDESONIDE/FORMOTEROL FUMARATE 160/4.5 60 PUFFS/INHALER INH SCH (21:17)
[2016-04-24] MEDS: AMITRIPTYLINE HCL 100 MG TAB PO SCH (21:17)
[2016-04-24 23:09] LABS: CALCIUM 8.5 mg/dl (8.5-10.1); POTASSIUM 4.1 mmol/L (3.5-5.1)
[2016-04-25] VITALS (17 sets, daily range): BP systolic 101–143; BP diastolic 65–95; PULSE 80–101; TEMP 36.4–36.9; O2SAT 95–100
[2016-04-25] MEDS: OXYCODONE/ACETAMINOPHEN 5-325 TAB PO PRN ×4 (00:14→23:40)
--- NOTE | 2016-04-25 00:14 | Progress Note ---
Progress Note RESIDENT NIGHT COVERAGE NOTE Called that Hb 7.6 Discussed w/Dr Madrid that if Hb was <7.5, would transfuse Discussed with patient, offered watching / waiting until AM to see or starting transfusion overnight, which may make her feel better as she felt tired anyway She elected to go ahead with transfusion Discussed risks/benefits/alternatives, all questions answered Consent form signed and placed on ICU paralegal secretary's desk Will repeat CBC/ BMP in AM
[2016-04-25] MEDS: ONDANSETRON INJ 2 MG/ML 2 ML VIAL IV PRN ×5 (00:17→23:41)
--- NOTE | 2016-04-25 06:08 | Surgery Progress Note ---
Surgery Progress Note Date of Service Apr 25, 2016. Subjective No nausea, No vomiting feeling better- RBCs transfusing, good urine output serosanguinous drainage vitals stable, HR normal Objective Vital Signs: Date Time Temp Pulse Resp B/P Pulse Ox O2 Delivery O2 Flow Rate FiO2 04/25/16 04:58 36.8 86 20 143/86 99 2.0 04/25/16 04:58 36.8 82 16 143/86 96 2.0 04/25/16 04:28 36.7 92 16 118/95 97 2.0 04/25/16 04:13 36.8 90 16 119/87 98 2.0 04/25/16 04:00 98 Nasal Cannula 2.0 04/25/16 03:18 36.8 82 16 122/76 96 2.0 04/25/16 03:18 36.8 86 16 114/85 99 2.0 04/25/16 02:18 36.8 93 20 131/81 96 2.0 04/25/16 01:48 36.6 92 20 129/83 97 3.0 04/25/16 01:33 36.9 96 16 107/76 96 2.0 04/24/16 23:59 98 Nasal Cannula 2.0 04/24/16 23:59 36.7 96 20 137/81 97 Nasal Cannula 2.0 04/24/16 20:20 36.6 98 16 122/77 97 Nasal Cannula 04/24/16 20:00 98 Nasal Cannula 2.0 04/24/16 16:07 98 Room Air 2.0 04/24/16 16:00 36.6 101 22 111/73 98 Nasal Cannula 2.0 04/24/16 16:00 36.6 100 24 111/73 98 Nasal Cannula 2.0 04/24/16 13:00 36.5 100 22 117/72 98 Nasal Cannula 2.0 04/24/16 13:00 100 22 117/72 98 Nasal Cannula 2.0 04/24/16 12:00 98 Room Air 2.0 04/24/16 12:00 108 17 134/74 98 Nasal Cannula 2.0 04/24/16 11:43 36.4 108 17 147/80 97 Nasal Cannula 2.0 04/24/16 11:30 105 22 96 04/24/16 11:15 103 20 94 Nasal Cannula 04/24/16 11:10 105/75 Nasal Cannula 04/24/16 11:00 Nasal Cannula 2.0 04/24/16 10:45 101 22 95 Nasal Cannula 04/24/16 10:44 102 21 101/61 96 Nasal Cannula 04/24/16 10:34 103 36 94/66 96 Nasal Cannula 04/24/16 10:30 36.5 101 17 106/71 97 Nasal Cannula 2.0 04/24/16 10:15 102 16 97/68 95 Nasal Cannula 2 04/24/16 10:00 97 16 95/75 97 Nasal Cannula 2 04/24/16 09:40 100 16 109/70 97 Nasal Cannula 2 04/24/16 09:30 36.4 106 16 119/79 100 Mask 10 04/24/16 09:20 95 16 127/91 100 Mask 10 04/24/16 09:10 93 16 115/81 100 Mask 10 04/24/16 09:00 89 18 118/70 98 Mask 10 04/24/16 08:50 36.0 90 20 114/78 98 Mask 10 04/24/16 06:48 108 18 97 Nasal Cannula 2.0 04/24/16 06:09 36.6 120 24 102/71 98 Nasal Cannula 2.0 General Appearance: no apparent distress Respiratory/Chest: no respiratory distress Cardiovascular: regular rate, rhythm Incision(s): dry, intact (dressing dry- no evidence of hematoma) Laboratory Results: Results Past 24 Hours Test 04/24/16 09:30 04/24/16 09:47 04/24/16 15:22 04/24/16 16:09 Range/Units Bedside Glucose 156 145 70-90 mg/dl White Blood Count 11.58 10.61 4.8-10.8 K/uL Red Blood Count 2.94 2.67 4.2-5.4 M/uL Hemoglobin 8.9 8.2 12.0-16.0 g/dL Hematocrit 26.0 24.1 37-47 % Mean Corpuscular Volume 88.4 90.3 80-100 fL Mean Corpuscular Hemoglobin 30.3 30.7 25-34 pg Mean Corpuscular Hemoglobin Concent 34.2 34.0 32-36 g/dl RDW Standard Deviation 46.3 48.0 36.4-46.3 fL RDW Coefficient of Variation 14.3 14.5 11.5-14.5 % Platelet Count 269 274 130-400 K/uL Mean Platelet Volume 9.3 9.0 7.4-10.4 fL Prothrombin Time 10.6 9.0-12.0 SECONDS Prothromb Time International Ratio 1.0 0.9-1.1 Activated Partial Thromboplast Time 19.2 21.0-31.0 SECONDS Partial Thromboplastin Ratio 0.7 Sodium Level 132 136-145 mmol/L Potassium Level 4.7 3.5-5.1 mmol/L Chloride Level 99 98-107 mmol/L Carbon Dioxide Level 21 21-32 mmol/L Anion Gap 12.0 3-11 mmol/L Blood Urea Nitrogen 13 7-18 mg/dl Creatinine 1.30 0.60-1.20 mg/dl Est Creatinine Clear Calc Drug Dose 61.4 ml/min Estimated GFR () 52.7 Estimated GFR (Non- 45.5 BUN/Creatinine Ratio 9.7 10-20 Random Glucose 140 70-99 mg/dl Calcium Level 9.1 8.5-10.1 mg/dl Test 04/24/16 20:20 04/24/16 22:28 04/25/16 04:44 Range/Units Bedside Glucose 143 70-90 mg/dl Hemoglobin 7.6 12.0-16.0 g/dL Sodium Level 130 136-145 mmol/L Potassium Level 4.1 3.5-5.1 mmol/L Chloride Level 93 98-107 mmol/L Carbon Dioxide Level 27 21-32 mmol/L Anion Gap 10.0 3-11 mmol/L Blood Urea Nitrogen 16 7-18 mg/dl Creatinine 1.00 0.60-1.20 mg/dl Est Creatinine Clear Calc Drug Dose 79.8 ml/min Estimated GFR () 72.4 Estimated GFR (Non- 62.5 BUN/Creatinine Ratio 16.0 10-20 Random Glucose 124 70-99 mg/dl Calcium Level 8.5 8.5-10.1 mg/dl Microbiology Results 04/24/16 MRSA DNA Surveillance Screen - Final, Complete Specimen Negative for MRSA by DNA Probe Assessment & Plan 04/25/16- evacuation of Lg hematoma yesterday, diffuse sites of oozing- some concern for platelet fn PT/PTT ok, gave dose of DDAVP yest- drainage more serous. Hb to 7.6 - rec 1 u RBCs monitor H/H- mobilize pt- stop LR IV and d/c laura. cont PCU status 04/24/16- s/p Lt mastectomy w/ sentinel lymph node bx- hematoma Lt chest wall w/ ecchymosis. will need to take pt to OR for evacuation of hematoma. Discussed with . check labs, Type and cross 04/24/16- s/p Lt mastectomy w/ sentinel lymph node bx- hematoma Lt chest wall w/ ecchymosis. will need to take pt to OR for evacuation of hematoma. Discussed with . check labs, Type and cross
[2016-04-25] MEDS ORDERED: DESMOPRESSIN ACETATE IV SCH (06:30)
[2016-04-25] MEDS ORDERED: SODIUM CHLORIDE 0.9% IV SCH (06:30)
[2016-04-25] MEDS: CHECK SCOPOLAMINE PATCH PLACEMENT SCH ×3 (08:43→16:00)
[2016-04-25] MEDS: BUDESONIDE/FORMOTEROL FUMARATE 160/4.5 60 PUFFS/INHALER INH SCH ×2 (08:44→20:42)
[2016-04-25] MEDS: ESCITALOPRAM OXALATE 20 MG TAB PO SCH (09:12)
[2016-04-25] MEDS ORDERED: DiphenhydrAMINE INJ 25 MG in SYRINGE 0 ML IV STA (09:28)
[2016-04-25] MEDS ORDERED: DiphenhydrAMINE HCL 50 MG/ML VIAL IV SCH (09:30)
[2016-04-25] MEDS ORDERED: DEXAMETHASONE INJ 8 MG in SYRINGE 0 ML IV ONE (09:45)
[2016-04-25] MEDS: ALBUT/IPRATROP 3MG/0.5MG NEB 3 ML VIAL INH SCH ×4 (10:02→19:24)
[2016-04-25] MEDS ORDERED: PANTOprazole SOD 40 MG TAB PO ONE (10:15)
[2016-04-25 10:35] LABS: BASO % 0.4 %; BASO ABS # 0.04 K/uL (0-0.2); COMPLETE YES; EOS % 0.2 %; HEMATOCRIT 26.6 % (37-47); IG% 0.9 %; LYMPH ABS # 3.14 K/uL (1.2-3.4); MEAN CELL VOLUME 88.1 fL (80-100); MEAN CORPUSCULAR HEMOGLOBIN 29.8 pg (25-34); MEAN CORPUSCULAR HGB CONC 33.8 g/dl (32-36); MONO % 8.7 %; NEUT % 59.8 %; PLATELET COUNT 198 K/uL (130-400); RED BLOOD COUNT 3.02 M/uL (4.2-5.4); WHITE BLOOD COUNT 10.46 K/uL (4.8-10.8)
[2016-04-25 11:05] LABS: BUN/CREATININE RATIO 17.3 (10-20); CALCIUM 8.2 mg/dl (8.5-10.1); CREATININE 0.88 mg/dl (0.60-1.20)
[2016-04-25] MEDS ORDERED: ALBUTEROL 0.083% NEBU SOLN 3 ML VIAL INH PRN (11:30)
[2016-04-25] MEDS: HYDROmorphone INJ 0.5 MG/0.5 ML SYR IV PRN (11:41)
--- NOTE | 2016-04-25 15:54 | Progress Note ---
Subjective Date of Service: Apr 25, 2016. (Moriah Carlisle PA-C) Subjective Pt evaluation today including: conversation w/ patient, physical exam, chart review, lab review, review of inpatient medication list Patient seen and evaluated. Transfused PRBCs. Reaction to DDVAP Had facial flushing and tongue swelling with wheezing. Reports pain at surgical site is well controlled. Denies SOB or weakness. Says she feels better since transfusion. Verbalizes no further complaints. (Moriah Carlisle PA-C) Problem List Medical Problems: (1) Atypical chest pain Status: Acute (2) Effusion, left knee Status: Acute (3) Infected insect bite Status: Acute (4) Popliteal cyst Status: Acute (Moriah Carlisle PA-C) Review of Systems Constitutional: No chills, No fever Respiratory: + wheezing, No shortness of breath Cardiac: No chest pain Abdomen: No nausea, No pain, No vomiting Musculoskeletal: + swelling (bilateral lower extremities), No calf pain Female : No dysuria Endo: No fatigue Skin: + problem reported (facial flushing (improving)) (Moriah Carlisle PA-C ) Medications Current Inpatient Medications Medications (Trade) Dose Ordered Sig/Rob Route Start Time Stop Time Status Last Admin Dose Admin Miscellaneous Information (Check Scopolamine Patch Placement) 1 ea QS N/A 04/23/16 08:00 05/23/16 07:59 04/25/16 08:43 1 EA Albuterol (Ventolin Hfa Inhaler) 2 puffs Q4H PRN INH 04/23/16 13:30 05/23/16 13:29 Amitriptyline HCl (Elavil Tab) 100 mg HS PO 04/23/16 21:00 05/23/16 20:59 04/24/16 21:17 100 MG Budesonide/ Formoterol Fumarate (Symbicort 160/ 4.5 Inh) 2 puffs BID INH 04/23/16 21:00 05/23/16 20:59 04/25/16 08:44 2 PUFFS Escitalopram Oxalate (Lexapro Tab) 20 mg QAM PO 04/24/16 09:00 05/24/16 08:59 04/25/16 09:12 20 MG HCTZ/Lisinopril (Prinzide 20-25MG Tab) 1 tab QAM PO 04/24/16 09:00 05/24/16 08:59 Future Hold Lorazepam (Ativan Tab) 0.5 mg TID PRN PO 04/23/16 13:30 05/23/16 13:29 04/24/16 21:20 0.5 MG Hydromorphone HCl (Dilaudid Inj) 0.5 mg Q3H PRN IV 04/23/16 13:30 05/07/16 13:29 04/25/16 11:41 0.5 MG Hydromorphone HCl (Dilaudid Inj) 1 mg Q3H PRN IV 04/23/16 13:30 05/07/16 13:29 04/24/16 20:26 1 MG Ondansetron HCl (Zofran Inj) 4 mg Q6H PRN IV 04/23/16 13:30 05/23/16 13:29 04/25/16 08:19 4 MG Miscellaneous (Iv Fluids Completed) 1 ea PRN PRN N/A 04/23/16 13:45 04/23/17 13:44 Oxycodone/ Acetaminophen (Percocet 5-325MG Tab) 1 tab Q4H PRN PO 04/24/16 09:00 05/08/16 08:59 04/25/16 08:19 1 TAB Oxycodone/ Acetaminophen (Percocet 5-325MG Tab) 2 tab Q4H PRN PO 04/24/16 09:00 05/08/16 08:59 04/25/16 12:53 2 TAB Ondansetron HCl 4 mg 4 mg Q3HWA PRN IV 04/24/16 10:45 05/24/16 10:44 04/25/16 11:40 4 MG Lorazepam 0.5 mg/ Syringe 0.5 ml @ 0.5 mls/min Q6 PRN IV 04/24/16 10:45 05/24/16 10:44 Lorazepam/Syringe (Ativan Inj/ Syringe) 0.5 ml @ 0.5 mls/min HS PRN IV 04/24/16 10:45 05/24/16 10:44 Albuterol Sulfate (Ventolin 0.083% 2.5MG/3ML Neb) 2.5 mg Q2H PRN INH 04/25/16 11:30 05/25/16 11:29 Albuterol/ Ipratropium 3 ml 3 ml QIDR INH 04/25/16 10:00 05/25/16 09:59 04/25/16 15:13 3 ML Dexamethasone Sodium Phosphate/ Syringe (Decadron Inj/ Syringe) 1.5 ml @ 1 mls/min Q6H IV 04/25/16 16:00 05/25/16 15:59 Pantoprazole Sodium (Protonix Tab) 40 mg QAM PO 04/26/16 09:00 05/26/16 08:59 Diphenhydramine HCl (Benadryl Cap) 25 mg Q6H PO 04/25/16 15:30 04/26/16 09:31 (Moriah Carlisle, APRIL) Objective Vital Signs Date Time Temp Pulse Resp B/P Pulse Ox O2 Delivery O2 Flow Rate FiO2 04/25/16 15:13 98 20 95 Nasal Cannula 2.0 04/25/16 12:00 36.5 101 22 117/73 100 Nasal Cannula 2.0 04/25/16 12:00 98 Nasal Cannula 2.0 04/25/16 10:03 97 17 98 Nasal Cannula 2.0 04/25/16 08:00 36.6 100 18 101/65 95 Nasal Cannula 2.0 04/25/16 08:00 98 Nasal Cannula 2.0 04/25/16 05:58 36.9 80 16 120/92 98 2.0 04/25/16 04:58 36.8 86 20 143/86 99 2.0 04/25/16 04:58 36.8 82 16 143/86 96 2.0 04/25/16 04:28 36.7 92 16 118/95 97 2.0 04/25/16 04:13 36.8 90 16 119/87 98 2.0 04/25/16 04:00 98 Nasal Cannula 2.0 04/25/16 03:18 36.8 82 16 122/76 96 2.0 04/25/16 03:18 36.8 86 16 114/85 99 2.0 04/25/16 02:18 36.8 93 20 131/81 96 2.0 04/25/16 01:48 36.6 92 20 129/83 97 3.0 04/25/16 01:33 36.9 96 16 107/76 96 2.0 04/24/16 23:59 98 Nasal Cannula 2.0 04/24/16 23:59 36.7 96 20 137/81 97 Nasal Cannula 2.0 04/24/16 20:20 36.6 98 16 122/77 97 Nasal Cannula 04/24/16 20:00 98 Nasal Cannula 2.0 04/24/16 16:07 98 Room Air 2.0 04/24/16 16:00 36.6 101 22 111/73 98 Nasal Cannula 2.0 04/24/16 16:00 36.6 100 24 111/73 98 Nasal Cannula 2.0 (Moriah Carlisle, PA-C) Physical Exam General Appearance: WD/WN, no apparent distress Eyes: sclerae normal ENT: hearing grossly normal, pharynx normal (no noted edema of tongue to airway ) Neck: supple, no JVD, trachea midline Respiratory/Chest: no respiratory distress, no accessory muscle use, + wheezing (scattered wheeze), + pertinent finding (surgical dressing to L anterior chest that is clean/dry/intact; SHAKEEL drain x 2 serosang drainage) Cardiovascular: regular rate, rhythm, no gallop, no murmur Abdomen: normal bowel sounds, non tender, soft Extremities: no calf tenderness Neurologic/Psychiatric: alert Skin: warm/dry, + pertinent finding (mild facial and neck flushing) (Moriah Carlisle, PA-C) Laboratory Results Last 24 Hours Test 04/24/16 16:09 04/24/16 20:20 04/24/16 22:28 04/25/16 10:27 Bedside Glucose 145 mg/dl 143 mg/dl Hemoglobin 7.6 g/dL 9.0 g/dL Sodium Level 130 mmol/L 129 mmol/L Potassium Level 4.1 mmol/L 4.0 mmol/L Chloride Level 93 mmol/L 94 mmol/L Carbon Dioxide Level 27 mmol/L 26 mmol/L Anion Gap 10.0 mmol/L 9.0 mmol/L Blood Urea Nitrogen 16 mg/dl 15 mg/dl Creatinine 1.00 mg/dl 0.88 mg/dl Est Creatinine Clear Calc Drug Dose 79.8 ml/min 90.6 ml/min Estimated GFR () 72.4 84.5 Estimated GFR (Non- 62.5 72.9 BUN/Creatinine Ratio 16.0 17.3 Random Glucose 124 mg/dl 129 mg/dl Calcium Level 8.5 mg/dl 8.2 mg/dl White Blood Count 10.46 K/uL Red Blood Count 3.02 M/uL Hematocrit 26.6 % Mean Corpuscular Volume 88.1 fL Mean Corpuscular Hemoglobin 29.8 pg Mean Corpuscular Hemoglobin Concent 33.8 g/dl Platelet Count 198 K/uL Mean Platelet Volume 9.0 fL Neutrophils (%) (Auto) 59.8 % Lymphocytes (%) (Auto) 30.0 % Monocytes (%) (Auto) 8.7 % Eosinophils (%) (Auto) 0.2 % Basophils (%) (Auto) 0.4 % Neutrophils # (Auto) 6.26 K/uL Lymphocytes # (Auto) 3.14 K/uL Monocytes # (Auto) 0.91 K/uL Eosinophils # (Auto) 0.02 K/uL Basophils # (Auto) 0.04 K/uL RDW Standard Deviation 47.7 fL RDW Coefficient of Variation 14.8 % Immature Granulocyte % (Auto) 0.9 % Immature Granulocyte # (Auto) 0.09 K/uL Test 04/25/16 11:24 Bedside Glucose 144 mg/dl (Moriah Carlisle, PA-C) Assessment and Plan Ms. Martinez is a 55 y/o female with PMHx of Asthma/COPD, IRVIN, HLD, and Breast CA S /P L Mastectomy with LN Bx who developed an hematoma and is S/P drainage. Breast CA S/P L Mastectomy with LN Bx with Hematoma: S/P Hematoma Evacuation - Per primary team - Dr. Mccormick Possible KALE: - Cr WNL on morning labs - may be element of dehydration Acute Blood Loss Anemia: Transfused PRBCs 04/25 - Repeat H&H at 9.0 & 26.6 - Continue to monitor Reaction to DDVAP: - Benadryl - Dexamethasone 6 mg IV Q6H - Duonebs for wheezing Hyponatremia: - IVFs have been D/C'd in hopes Na will correct itself - Repeat BMP this afternoon to further evaluate Na - Na at 127 - Fluid restriction of 1200 mLs - will evaluate in AM allowing 24 hours since fluids D/C'd will implement further intervention pending AM labs Asthma/COPD: - Ventolin PRN - Symbicort 2 puffs BID HTN: - Will hold HCTZ/Lisinopril - BPs have been adequate Disposition: - D/C per primary with possible HHS (Moriah Carlisle, PAYifanC) Attending Attestation: Pt seen/examined, chart reviewed, care plan d/w PA Moriah Carlisle. I agree w/ the wilson components of her documentation. Please see my separate note for additional information. John Madrid MD (John Madrid MD)
[2016-04-25 16:31] LABS: BUN/CREATININE RATIO 15.4 (10-20); CALCIUM 8.4 mg/dl (8.5-10.1); CREATININE 0.92 mg/dl (0.60-1.20); POTASSIUM 4.6 mmol/L (3.5-5.1)
[2016-04-25] MEDS: DEXAMETHASONE INJ 6 MG in SYRINGE 0 ML IV SCH ×2 (17:14→22:03)
[2016-04-25] MEDS: HYDROmorphone INJ 1 MG/ML SYR IV PRN ×2 (17:27→21:36)
[2016-04-25] MEDS: AMITRIPTYLINE HCL 100 MG TAB PO SCH (20:42)
[2016-04-25] MEDS ORDERED: NURSING VERBAL MED ORDER ONE (23:45)
[2016-04-26] VITALS (10 sets, daily range): BP systolic 101–141; BP diastolic 63–84; PULSE 62–93; TEMP 36.4–36.7; O2SAT 91–100
[2016-04-26] MEDS: HYDROmorphone INJ 1 MG/ML SYR IV PRN ×4 (02:26→18:51)
[2016-04-26] MEDS: DEXAMETHASONE INJ 6 MG in SYRINGE 0 ML IV SCH ×3 (04:36→20:51)
--- NOTE | 2016-04-26 05:32 | Progress Note ---
Subjective Date of Service: Apr 25, 2016. Subjective Pt evaluation today including: conversation w/ patient, physical exam, chart review, lab review, conversation w/ interventional sale consultant (surgery), review of inpatient medication list Pain: sore throat, throat swelling, left upper chest at op site PO Intake: tolerated breakfast despite throat issues Voiding: no voiding problems tele stable overnight received 2 units of PRBCs overnight without apparent incident she received 2 doses of DDAVP overnight/this am about 1 hour after receiving the 2nd dose of DDAVP she developed facial erythema /rash, tongue felt thick, and throat felt like it was swollen she mentions sore throat and mild dysphagia she now also has some shortness of breath and wheezing denies nausea, emesis, abd pain +flatus Problem List Medical Problems: (1) Atypical chest pain Status: Acute (2) Effusion, left knee Status: Acute (3) Infected insect bite Status: Acute (4) Popliteal cyst Status: Acute Review of Systems ENT: + see HPI, + sore throat Respiratory: + cough, + shortness of breath, + wheezing Cardiac: No chest pain Breast: + breast pain Abdomen: No GI bleeding, No nausea, No pain, No vomiting Objective Vital Signs Date Time Temp Pulse Resp B/P Pulse Ox O2 Delivery O2 Flow Rate FiO2 04/25/16 08:00 36.6 100 18 101/65 95 Nasal Cannula 2.0 04/25/16 05:58 36.9 80 16 120/92 98 2.0 04/25/16 04:58 36.8 86 20 143/86 99 2.0 04/25/16 04:58 36.8 82 16 143/86 96 2.0 04/25/16 04:28 36.7 92 16 118/95 97 2.0 04/25/16 04:13 36.8 90 16 119/87 98 2.0 04/25/16 04:00 98 Nasal Cannula 2.0 04/25/16 03:18 36.8 82 16 122/76 96 2.0 04/25/16 03:18 36.8 86 16 114/85 99 2.0 04/25/16 02:18 36.8 93 20 131/81 96 2.0 04/25/16 01:48 36.6 92 20 129/83 97 3.0 04/25/16 01:33 36.9 96 16 107/76 96 2.0 04/24/16 23:59 98 Nasal Cannula 2.0 04/24/16 23:59 36.7 96 20 137/81 97 Nasal Cannula 2.0 04/24/16 20:20 36.6 98 16 122/77 97 Nasal Cannula 04/24/16 20:00 98 Nasal Cannula 2.0 04/24/16 16:07 98 Room Air 2.0 04/24/16 16:00 36.6 101 22 111/73 98 Nasal Cannula 2.0 04/24/16 16:00 36.6 100 24 111/73 98 Nasal Cannula 2.0 04/24/16 13:00 36.5 100 22 117/72 98 Nasal Cannula 2.0 04/24/16 13:00 100 22 117/72 98 Nasal Cannula 2.0 04/24/16 12:00 98 Room Air 2.0 04/24/16 12:00 108 17 134/74 98 Nasal Cannula 2.0 04/24/16 11:43 36.4 108 17 147/80 97 Nasal Cannula 2.0 04/24/16 11:30 105 22 96 04/24/16 11:15 103 20 94 Nasal Cannula 04/24/16 11:10 105/75 Nasal Cannula 04/24/16 11:00 Nasal Cannula 2.0 04/24/16 10:45 101 22 95 Nasal Cannula 04/24/16 10:44 102 21 101/61 96 Nasal Cannula 04/24/16 10:34 103 36 94/66 96 Nasal Cannula 04/24/16 10:30 36.5 101 17 106/71 97 Nasal Cannula 2.0 04/24/16 10:15 102 16 97/68 95 Nasal Cannula 2 04/24/16 10:00 97 16 95/75 97 Nasal Cannula 2 Physical Exam General Appearance: no apparent distress ENT: + pertinent finding (mild posterior pharyngeal swelling; tongue appears relatively normal) Neck: no JVD Respiratory/Chest: no respiratory distress, no accessory muscle use, + wheezing (b/l) Cardiovascular: regular rate, rhythm, no gallop, no murmur Abdomen: normal bowel sounds, non tender, soft, no organomegaly Extremities: no pedal edema Neurologic/Psychiatric: alert, oriented x 3 Skin: + rash (erythema over face and upper back ), + pertinent finding (large dressing over left upper chest, drain in place; mild swelling of soft tissues noted) Laboratory Results Last 24 Hours Test 04/24/16 15:22 04/24/16 16:09 04/24/16 20:20 04/24/16 22:28 White Blood Count 10.61 K/uL Red Blood Count 2.67 M/uL Hemoglobin 8.2 g/dL 7.6 g/dL Hematocrit 24.1 % Mean Corpuscular Volume 90.3 fL Mean Corpuscular Hemoglobin 30.7 pg Mean Corpuscular Hemoglobin Concent 34.0 g/dl RDW Standard Deviation 48.0 fL RDW Coefficient of Variation 14.5 % Platelet Count 274 K/uL Mean Platelet Volume 9.0 fL Bedside Glucose 145 mg/dl 143 mg/dl Sodium Level 130 mmol/L Potassium Level 4.1 mmol/L Chloride Level 93 mmol/L Carbon Dioxide Level 27 mmol/L Anion Gap 10.0 mmol/L Blood Urea Nitrogen 16 mg/dl Creatinine 1.00 mg/dl Est Creatinine Clear Calc Drug Dose 79.8 ml/min Estimated GFR () 72.4 Estimated GFR (Non- 62.5 BUN/Creatinine Ratio 16.0 Random Glucose 124 mg/dl Calcium Level 8.5 mg/dl Test 04/25/16 04:44 Assessment and Plan 55yo female with: 1. acute blood loss anemia 2nd to chest wall hematoma / post-op hematoma in setting of mastectomy - s/p 2 units PRBCs overnight with improved H/H. Repeat CBC in am. I don't think her current respiratory issues is due to TRALI. I don't think she is in pulmonary edema from the blood either. 2. hyponatremia - worse, s/p DDAVP. Stop fluids. Fluid restrict to 1200cc/ day. Salt tab. Serial Na checks for stability. 3. acute kidney injury - resolved 4. COPD - with probable exacerbation; schedule nebs, incentive ezra, and decadron q6h. 5. previous tobacco dependence 6. suspected allergic reaction to DDAVP - decadron q6h, benadryl q6h, nebs q6h , follow carefully. 7. morbid obesity 8. DVT proph - SCDs 9. breast cancer on left s/p mastectomy - defer management to primary surgery team will continue to follow Continued [facility] stay due to: multiple IV medications needed, other (apparent allergic reaction, acute blood loss anemia )
[2016-04-26 06:14] LABS: BASO % 0.1 %; BASO ABS # 0.01 K/uL (0-0.2); COMPLETE YES; HEMATOCRIT 25.8 % (37-47); IG% 0.9 %; LYMPH % 13.6 %; LYMPH ABS # 1.51 K/uL (1.2-3.4); MEAN CELL VOLUME 87.2 fL (80-100); MEAN CORPUSCULAR HEMOGLOBIN 30.7 pg (25-34); MEAN CORPUSCULAR HGB CONC 35.3 g/dl (32-36); MEAN PLATELET VOLUME 9.2 fL (7.4-10.4); MONO % 3.4 %; PLATELET COUNT 244 K/uL (130-400); RED BLOOD COUNT 2.96 M/uL (4.2-5.4); WHITE BLOOD COUNT 11.07 K/uL (4.8-10.8)
[2016-04-26] MEDS ORDERED: MINERAL OIL 30 ML UDC PO ONE (06:15)
--- NOTE | 2016-04-26 06:16 | Surgery Progress Note ---
Surgery Progress Note Date of Service Apr 26, 2016. Subjective + flatus, No bowel movement, No nausea, No vomiting pt sleeping, comfortable- abd distention- rec Miralax drains serous fluid, has not walked except to bathroom Objective Vital Signs: Date Time Temp Pulse Resp B/P Pulse Ox O2 Delivery O2 Flow Rate FiO2 04/26/16 04:00 Nasal Cannula 2.0 04/26/16 03:54 36.7 85 18 102/72 95 2.0 04/26/16 00:00 Nasal Cannula 2.0 04/26/16 00:00 36.6 88 18 136/82 95 2.0 04/25/16 20:11 36.4 93 18 120/72 95 Room Air 04/25/16 20:00 97 Nasal Cannula 2.0 04/25/16 19:24 90 20 96 Nasal Cannula 2.0 04/25/16 16:00 36.6 97 17 129/69 97 Nasal Cannula 2.0 04/25/16 16:00 98 Nasal Cannula 2.0 04/25/16 15:13 98 20 95 Nasal Cannula 2.0 04/25/16 12:00 36.5 101 22 117/73 100 Nasal Cannula 2.0 04/25/16 12:00 98 Nasal Cannula 2.0 04/25/16 10:03 97 17 98 Nasal Cannula 2.0 04/25/16 08:00 36.6 100 18 101/65 95 Nasal Cannula 2.0 04/25/16 08:00 98 Nasal Cannula 2.0 Physical Exam: SHAKEEL drainage (serous) General Appearance: no apparent distress Respiratory/Chest: no respiratory distress Abdomen: + distended (some bowel sounds) Incision(s): intact (minimal drainage) Laboratory Results: Results Past 24 Hours Test 04/25/16 10:27 04/25/16 11:24 04/25/16 15:51 04/26/16 05:35 Range/Units White Blood Count 10.46 4.8-10.8 K/uL Red Blood Count 3.02 4.2-5.4 M/uL Hemoglobin 9.0 12.0-16.0 g/dL Hematocrit 26.6 37-47 % Mean Corpuscular Volume 88.1 80-100 fL Mean Corpuscular Hemoglobin 29.8 25-34 pg Mean Corpuscular Hemoglobin Concent 33.8 32-36 g/dl Platelet Count 198 130-400 K/uL Mean Platelet Volume 9.0 7.4-10.4 fL Neutrophils (%) (Auto) 59.8 % Lymphocytes (%) (Auto) 30.0 % Monocytes (%) (Auto) 8.7 % Eosinophils (%) (Auto) 0.2 % Basophils (%) (Auto) 0.4 % Neutrophils # (Auto) 6.26 1.4-6.5 K/uL Lymphocytes # (Auto) 3.14 1.2-3.4 K/uL Monocytes # (Auto) 0.91 0.11-0.59 K/uL Eosinophils # (Auto) 0.02 0-0.5 K/uL Basophils # (Auto) 0.04 0-0.2 K/uL RDW Standard Deviation 47.7 36.4-46.3 fL RDW Coefficient of Variation 14.8 11.5-14.5 % Immature Granulocyte % (Auto) 0.9 % Immature Granulocyte # (Auto) 0.09 0.00-0.02 K/uL Sodium Level 129 127 136-145 mmol/L Potassium Level 4.0 4.6 3.5-5.1 mmol/L Chloride Level 94 91 98-107 mmol/L Carbon Dioxide Level 26 26 21-32 mmol/L Anion Gap 9.0 10.0 3-11 mmol/L Blood Urea Nitrogen 15 14 7-18 mg/dl Creatinine 0.88 0.92 0.60-1.20 mg/dl Est Creatinine Clear Calc Drug Dose 90.6 86.7 ml/min Estimated GFR () 84.5 80.1 Estimated GFR (Non- 72.9 69.1 BUN/Creatinine Ratio 17.3 15.4 10-20 Random Glucose 129 151 70-99 mg/dl Calcium Level 8.2 8.4 8.5-10.1 mg/dl Bedside Glucose 144 70-90 mg/dl Assessment & Plan 04/26/16- poor mobility, PT consult- must walk, Miralax, Sen S ordered. Wound care continues. I think she will need 2-3 more days in hospital. To regular floor soon. check am labs 04/25/16- evacuation of Lg hematoma yesterday, diffuse sites of oozing- some concern for platelet fn PT/PTT ok, gave dose of DDAVP yest- drainage more serous. Hb to 7.6 - rec 1 u RBCs monitor H/H- mobilize pt- stop LR IV and d/c laura. cont PCU status 04/24/16- s/p Lt mastectomy w/ sentinel lymph node bx- hematoma Lt chest wall w/ ecchymosis. will need to take pt to OR for evacuation of hematoma. Discussed with . check labs, Type and cross 04/25/16- evacuation of Lg hematoma yesterday, diffuse sites of oozing- some concern for platelet fn PT/PTT ok, gave dose of DDAVP yest- drainage more serous. Hb to 7.6 - rec 1 u RBCs monitor H/H- mobilize pt- stop LR IV and d/c laura. cont PCU status 04/24/16- s/p Lt mastectomy w/ sentinel lymph node bx- hematoma Lt chest wall w/ ecchymosis. will need to take pt to OR for evacuation of hematoma. Discussed with . check labs, Type and cross
[2016-04-26 06:42] LABS: BUN/CREATININE RATIO 18.1 (10-20); CALCIUM 8.6 mg/dl (8.5-10.1); CREATININE 0.74 mg/dl (0.60-1.20); POTASSIUM 4.7 mmol/L (3.5-5.1)
--- NOTE | 2016-04-26 07:01 | DIAGNOSTIC IMAGING REPORT ---
ABDOMEN 2 VIEWS CLINICAL HISTORY: Abdominal distention COMPARISON STUDY: No previous studies for comparison. FINDINGS: There is scattered stool throughout the colon. No free air is visualized. There is no pathologic bowel dilatation. There are surgical clips within the right upper quadrant consistent with a prior cholecystectomy. The examination is limited due to the patient's large body habitus and portable technique. No free air is visualized on the decubitus view. IMPRESSION: No evidence of bowel obstruction. No evidence of free air. Electronically signed by: Jacob Welch M.D. 04/26/2016 6:59 AM Dictated Date/Time: 04/26/2016 6:58 AM
[2016-04-26] MEDS ORDERED: BISACODYL 10 MG SUPP PR ONE (07:15)
[2016-04-26] MEDS: ALBUT/IPRATROP 3MG/0.5MG NEB 3 ML VIAL INH SCH (07:22)
[2016-04-26] MEDS: BUDESONIDE/FORMOTEROL FUMARATE 160/4.5 60 PUFFS/INHALER INH SCH ×2 (07:54→20:50)
[2016-04-26] MEDS: ESCITALOPRAM OXALATE 20 MG TAB PO SCH (07:55)
[2016-04-26] MEDS: PANTOprazole SOD 40 MG TAB PO SCH (07:55)
[2016-04-26] MEDS: DOCUSATE SODIUM/SENNA 50/8.6MG TAB PO SCH ×2 (07:56→20:51)
[2016-04-26] MEDS: SODIUM CHLORIDE 1 GM TAB PO SCH ×2 (07:56→20:52)
[2016-04-26] MEDS ORDERED: POLYETHYLENE (MIRALAX) 17 GM PACK ONE (07:57)
[2016-04-26] MEDS: POLYETHYLENE (MIRALAX) 17 GM PACK PO SCH ×2 (08:00→20:52)
[2016-04-26 08:44] LABS: MAGNESIUM 2.1 mg/dl (1.8-2.4); PHOSPHORUS 2.7 mg/dl (2.5-4.9)
[2016-04-26] MEDS ORDERED: CLINDAMYCIN IV 600 MG in DEXTROSE 5% ADD-VANTAGE 50ML 50 ML IV ONE (09:00)
[2016-04-26] MEDS ORDERED: FUROSEMIDE 20 MG TAB PO STA (10:45)
--- NOTE | 2016-04-26 11:28 | Progress Note ---
Subjective Date of Service: Apr 26, 2016. (Moriah Carlisle PA-C) Subjective Pt evaluation today including: conversation w/ patient, physical exam, chart review, lab review, review of studies, review of inpatient medication list Patient seen and evaluated. Abdominal distention and discomfort overnight. Abd XR without evidence of obstruction but noted stool. No further wheezing noted per patient and no complaints of throat or tongue swelling. Na continues to stay low and will implement fluid restriction and use salt tablets C/O pruritus but given Benadryl during visit. C/O increased lower extremity swelling above baseline. (Moriah Carlisle PA-C) Problem List Medical Problems: (1) Atypical chest pain Status: Acute (2) Effusion, left knee Status: Acute (3) Infected insect bite Status: Acute (4) Popliteal cyst Status: Acute (Moriah Carlisle PA-C) Review of Systems Constitutional: No chills, No fever ENT: No sore throat, No trouble swallowing Respiratory: No shortness of breath, No wheezing Cardiac: + chest pain (surgical site - L chest) Abdomen: + problem reported (bloating), No nausea, No pain, No vomiting Musculoskeletal: + swelling (pedal edema), No calf pain Female : + problem reported (retention - resolved), No dysuria Endo: No fatigue Skin: + itch (back) (Moriah Carlisle PA-C) Medications Current Inpatient Medications Medications (Trade) Dose Ordered Sig/Rob Route Start Time Stop Time Status Last Admin Dose Admin Albuterol (Ventolin Hfa Inhaler) 2 puffs Q4H PRN INH 04/23/16 13:30 05/23/16 13:29 Amitriptyline HCl (Elavil Tab) 100 mg HS PO 04/23/16 21:00 05/23/16 20:59 04/25/16 20:42 100 MG Budesonide/ Formoterol Fumarate (Symbicort 160/ 4.5 Inh) 2 puffs BID INH 04/23/16 21:00 05/23/16 20:59 04/26/16 07:54 2 PUFFS Escitalopram Oxalate (Lexapro Tab) 20 mg QAM PO 04/24/16 09:00 05/24/16 08:59 04/26/16 07:55 20 MG HCTZ/Lisinopril (Prinzide 20-25MG Tab) 1 tab QAM PO 04/24/16 09:00 05/24/16 08:59 Future Hold Lorazepam (Ativan Tab) 0.5 mg TID PRN PO 04/23/16 13:30 05/23/16 13:29 04/24/16 21:20 0.5 MG Hydromorphone HCl (Dilaudid Inj) 0.5 mg Q3H PRN IV 04/23/16 13:30 05/07/16 13:29 04/25/16 11:41 0.5 MG Hydromorphone HCl (Dilaudid Inj) 1 mg Q3H PRN IV 04/23/16 13:30 05/07/16 13:29 04/26/16 07:50 1 MG Miscellaneous (Iv Fluids Completed) 1 ea PRN PRN N/A 04/23/16 13:45 04/23/17 13:44 Oxycodone/ Acetaminophen (Percocet 5-325MG Tab) 1 tab Q4H PRN PO 04/24/16 09:00 05/08/16 08:59 04/25/16 08:19 1 TAB Oxycodone/ Acetaminophen (Percocet 5-325MG Tab) 2 tab Q4H PRN PO 04/24/16 09:00 05/08/16 08:59 04/25/16 23:40 2 TAB Ondansetron HCl 4 mg 4 mg Q3HWA PRN IV 04/24/16 10:45 05/24/16 10:44 04/25/16 23:41 4 MG Lorazepam 0.5 mg/ Syringe 0.5 ml @ 0.5 mls/min Q6 PRN IV 04/24/16 10:45 05/24/16 10:44 Lorazepam/Syringe (Ativan Inj/ Syringe) 0.5 ml @ 0.5 mls/min HS PRN IV 04/24/16 10:45 05/24/16 10:44 Albuterol Sulfate (Ventolin 0.083% 2.5MG/3ML Neb) 2.5 mg Q2H PRN INH 04/25/16 11:30 05/25/16 11:29 Albuterol/ Ipratropium 3 ml 3 ml QIDR INH 04/25/16 10:00 05/25/16 09:59 04/26/16 07:22 3 ML Dexamethasone Sodium Phosphate/ Syringe (Decadron Inj/ Syringe) 1.5 ml @ 1 mls/min Q6H IV 04/25/16 16:00 05/25/16 15:59 04/26/16 10:21 1 MLS/MIN Pantoprazole Sodium (Protonix Tab) 40 mg QAM PO 04/26/16 09:00 05/26/16 08:59 04/26/16 07:55 40 MG Polyethylene (Miralax Powder Packet) 17 gm BID PO 04/26/16 09:00 05/26/16 08:59 04/26/16 08:00 17 GM Senna/Docusate Sodium (Senokot S Tab) 1 tab BID PO 04/26/16 09:00 05/26/16 08:59 04/26/16 07:56 1 TAB Sodium Chloride 1 gm 1 gm BID PO 04/26/16 09:00 05/26/16 08:59 04/26/16 07:56 1 GM Clindamycin Phosphate/Dextrose (Cleocin Iv/ Dextrose Add-Laurens 50ML) 54 ml @ 100 mls/hr Q8H IV 04/26/16 16:00 05/06/16 23:59 (Moriah Carlisle, YOSEPHC) Objective Vital Signs Date Time Temp Pulse Resp B/P Pulse Ox O2 Delivery O2 Flow Rate FiO2 04/26/16 04:00 Nasal Cannula 2.0 04/26/16 03:54 36.7 85 18 102/72 95 2.0 04/26/16 00:00 Nasal Cannula 2.0 04/26/16 00:00 36.6 88 18 136/82 95 2.0 04/25/16 20:11 36.4 93 18 120/72 95 Room Air 04/25/16 20:00 97 Nasal Cannula 2.0 04/25/16 19:24 90 20 96 Nasal Cannula 2.0 04/25/16 16:00 36.6 97 17 129/69 97 Nasal Cannula 2.0 04/25/16 16:00 98 Nasal Cannula 2.0 04/25/16 15:13 98 20 95 Nasal Cannula 2.0 04/25/16 12:00 36.5 101 22 117/73 100 Nasal Cannula 2.0 04/25/16 12:00 98 Nasal Cannula 2.0 04/25/16 10:03 97 17 98 Nasal Cannula 2.0 04/25/16 08:00 36.6 100 18 101/65 95 Nasal Cannula 2.0 04/25/16 08:00 98 Nasal Cannula 2.0 (Moriah Carlisle PA-C) Physical Exam General Appearance: WD/WN, no apparent distress, + obese Eyes: sclerae normal ENT: hearing grossly normal Neck: supple, no JVD, trachea midline Respiratory/Chest: lungs clear, normal breath sounds, no respiratory distress, no accessory muscle use Cardiovascular: regular rate, rhythm, no gallop, no murmur Abdomen: normal bowel sounds, non tender, soft Extremities: no calf tenderness, + pedal edema (bilateral non-pitting of dorsum of foot; trace non-pitting edema of lower extremities bilat) Neurologic/Psychiatric: alert, oriented x 3 Skin: normal color (Moriah Carlisle, NIALL-C) Laboratory Results Last 24 Hours Test 04/25/16 10:27 04/25/16 11:24 04/25/16 15:51 04/26/16 05:35 White Blood Count 10.46 K/uL 11.07 K/uL Red Blood Count 3.02 M/uL 2.96 M/uL Hemoglobin 9.0 g/dL 9.1 g/dL Hematocrit 26.6 % 25.8 % Mean Corpuscular Volume 88.1 fL 87.2 fL Mean Corpuscular Hemoglobin 29.8 pg 30.7 pg Mean Corpuscular Hemoglobin Concent 33.8 g/dl 35.3 g/dl Platelet Count 198 K/uL 244 K/uL Mean Platelet Volume 9.0 fL 9.2 fL Neutrophils (%) (Auto) 59.8 % 82.0 % Lymphocytes (%) (Auto) 30.0 % 13.6 % Monocytes (%) (Auto) 8.7 % 3.4 % Eosinophils (%) (Auto) 0.2 % 0.0 % Basophils (%) (Auto) 0.4 % 0.1 % Neutrophils # (Auto) 6.26 K/uL 9.07 K/uL Lymphocytes # (Auto) 3.14 K/uL 1.51 K/uL Monocytes # (Auto) 0.91 K/uL 0.38 K/uL Eosinophils # (Auto) 0.02 K/uL 0.00 K/uL Basophils # (Auto) 0.04 K/uL 0.01 K/uL RDW Standard Deviation 47.7 fL 46.5 fL RDW Coefficient of Variation 14.8 % 14.6 % Immature Granulocyte % (Auto) 0.9 % 0.9 % Immature Granulocyte # (Auto) 0.09 K/uL 0.10 K/uL Sodium Level 129 mmol/L 127 mmol/L 124 mmol/L Potassium Level 4.0 mmol/L 4.6 mmol/L 4.7 mmol/L Chloride Level 94 mmol/L 91 mmol/L 89 mmol/L Carbon Dioxide Level 26 mmol/L 26 mmol/L 25 mmol/L Anion Gap 9.0 mmol/L 10.0 mmol/L 10.0 mmol/L Blood Urea Nitrogen 15 mg/dl 14 mg/dl 13 mg/dl Creatinine 0.88 mg/dl 0.92 mg/dl 0.74 mg/dl Est Creatinine Clear Calc Drug Dose 90.6 ml/min 86.7 ml/min 107.8 ml/min Estimated GFR () 84.5 80.1 104.2 Estimated GFR (Non- 72.9 69.1 89.9 BUN/Creatinine Ratio 17.3 15.4 18.1 Random Glucose 129 mg/dl 151 mg/dl 125 mg/dl Calcium Level 8.2 mg/dl 8.4 mg/dl 8.6 mg/dl Bedside Glucose 144 mg/dl Test 04/26/16 07:07 (Moriah Carlisle, PAYifanC) Assessment and Plan Ms. Martinez is a 55 y/o female with PMHx of Asthma/COPD, IRVIN, HLD, and Breast CA S /P L Mastectomy with LN Bx who developed an hematoma and is S/P drainage. Breast CA S/P L Mastectomy with LN Bx with Hematoma: S/P Hematoma Evacuation - Per primary team - Dr. Mccormick - meets admission criteria and observation status needs adjusted Possible KALE: RESOLVED - Continue monitoring in setting of fluid restriction Acute Blood Loss Anemia: Transfused PRBCs 04/25 - Repeat H&Hs stable - Continue to monitor Reaction to DDVAP: - Benadryl - Dexamethasone 6 mg IV BID - Duonebs for wheezing PRN Hyponatremia: Serum Osm (259); Urine Osm (734); Random Urine Na (66) - Probable results of DDAVP - continue 1200 mL fluid restriction - Lasix 40 mg po x 1 dose and salt tabs BID - help remove free water and will expect Na to correct - BMP in afternoon - continue to monitor Asthma/COPD: - Ventolin PRN - Symbicort 2 puffs BID HTN: - Will hold HCTZ/Lisinopril - BPs have been adequate Disposition: - D/C per primary with [facility] - PT Evaluation Continued [facility] stay due to: multiple IV medications needed, other (apparent allergic reaction, acute blood loss anemia ) (Moriah Carlisle, PAYifanC) Attending Attestation: Pt seen/examined, chart reviewed, care plan d/w NIALL Carlisle. I agree w/ the wilson components of her documentation. Feels better today. Less sob. Less facial rash and sore throat. Swallowing is fine. Ambulating. VSS, afebrile, o2 sats nl in RA gen - NAD, looks better mouth - MMM neck - no JVD heart - RRR, s1, s2 lungs - scattered end-exp wheeze, no rales abd - soft, obese ext - 1+ edema b/l chest - left chest wall dressing intact; mild swelling of chest wall noted Na 124 Cr normal Hb ~9 A/P: 55yo female with: 1. acute blood loss anemia 2nd to chest wall hematoma / post-op hematoma in setting of mastectomy - s/p 2 units PRBCs; stable H/H since. Repeat CBC in am. 2. hyponatremia - iatrogenic "SIADH" like state due to DDAVP. Fluid restrict to 1200cc/day. Salt tabs BID. Serial Na checks for stability. 3. acute kidney injury - resolved 4. COPD - with probable exacerbation, but improving; incentive ezra, and decadron but wean to q12h. 5. previous tobacco dependence 6. suspected allergic reaction to DDAVP - improving w/ steroids. 7. morbid obesity - BMI 43 8. DVT proph - SCDs 9. breast cancer on left s/p mastectomy - defer management to primary surgery team PT, OT consults Meets criteria for admission status due to hyponatremia. Will make sure primary team is aware. John Madrid MD (John Madrid MD)
[2016-04-26] MEDS ORDERED: ALBUT/IPRATROP 3MG/0.5MG NEB 3 ML VIAL INH PRN (12:00)
[2016-04-26] MEDS: CLINDAMYCIN IV 600 MG in DEXTROSE 5% ADD-VANTAGE 50ML 50 ML IV SCH ×2 (16:13→23:23)
[2016-04-26] MEDS: LORAZEPAM 0.5 MG TAB PO PRN (16:19)
[2016-04-26 17:48] LABS: BUN/CREATININE RATIO 16.8 (10-20); CALCIUM 8.5 mg/dl (8.5-10.1); CREATININE 0.95 mg/dl (0.60-1.20); POTASSIUM 4.4 mmol/L (3.5-5.1)
[2016-04-26] MEDS ORDERED: FUROSEMIDE 40 MG TAB PO ONE (18:30)
[2016-04-26] MEDS: AMITRIPTYLINE HCL 100 MG TAB PO SCH (20:51)
[2016-04-27] VITALS (8 sets, daily range): BP systolic 101–143; BP diastolic 51–86; PULSE 84–99; TEMP 36.4–36.7; O2SAT 91–97
[2016-04-27] MEDS: HYDROmorphone INJ 1 MG/ML SYR IV PRN (02:35)
[2016-04-27] MEDS: ONDANSETRON INJ 2 MG/ML 2 ML VIAL IV PRN ×3 (02:35→17:39)
--- NOTE | 2016-04-27 06:18 | Surgery Progress Note ---
Surgery Progress Note Date of Service Apr 27, 2016. Subjective good response to lasix, resting comfortably walking some Objective Vital Signs: Date Time Temp Pulse Resp B/P Pulse Ox O2 Delivery O2 Flow Rate FiO2 04/27/16 04:00 Room Air 04/27/16 02:56 36.5 99 20 143/82 97 Room Air 04/27/16 00:00 Room Air 04/26/16 23:34 36.7 89 18 120/77 94 Room Air 04/26/16 20:00 Room Air 04/26/16 19:56 36.5 92 16 134/84 95 Room Air 04/26/16 16:00 36.4 93 16 123/78 91 Room Air 04/26/16 16:00 95 Room Air 04/26/16 12:00 36.4 92 20 101/63 91 Room Air 04/26/16 12:00 95 Room Air 04/26/16 10:51 92 100 04/26/16 08:00 95 Room Air 04/26/16 07:44 36.5 92 18 141/78 95 Nasal Cannula 2.0 04/26/16 07:22 62 20 96 Nasal Cannula 2.0 Physical Exam: SHAKEEL drainage (serous) General Appearance: no apparent distress Respiratory/Chest: no respiratory distress Incision(s): intact (minimal drainage) Laboratory Results: Results Past 24 Hours Test 04/26/16 07:30 04/26/16 07:55 04/26/16 12:06 04/26/16 16:25 Range/Units Bedside Glucose 134 166 145 70-90 mg/dl Osmolality 259 280-300 mOsm/kg Test 04/26/16 17:05 04/26/16 20:42 04/26/16 23:05 04/27/16 04:44 Range/Units Sodium Level 123 124 136-145 mmol/L Potassium Level 4.4 3.5-5.1 mmol/L Chloride Level 89 98-107 mmol/L Carbon Dioxide Level 25 21-32 mmol/L Anion Gap 9.0 3-11 mmol/L Blood Urea Nitrogen 16 7-18 mg/dl Creatinine 0.95 0.60-1.20 mg/dl Est Creatinine Clear Calc Drug Dose 87.1 ml/min Estimated GFR () 77.1 Estimated GFR (Non- 66.5 BUN/Creatinine Ratio 16.8 10-20 Random Glucose 133 70-99 mg/dl Calcium Level 8.5 8.5-10.1 mg/dl Bedside Glucose 166 70-90 mg/dl Assessment & Plan 04/27/16- mobility improving, low sodium, rec lasix w/ good response, drainage expected to reg floor if ok w/ medicine, 1-2 more days in hospital. cont stool softeners 04/26/16- poor mobility, PT consult- must walk, Miralax, Sen S ordered. Wound care continues. I think she will need 2-3 more days in hospital. To regular floor soon. check am labs 04/25/16- evacuation of Lg hematoma yesterday, diffuse sites of oozing- some concern for platelet fn PT/PTT ok, gave dose of DDAVP yest- drainage more serous. Hb to 7.6 - rec 1 u RBCs monitor H/H- mobilize pt- stop LR IV and d/c laura. cont PCU status 04/24/16- s/p Lt mastectomy w/ sentinel lymph node bx- hematoma Lt chest wall w/ ecchymosis. will need to take pt to OR for evacuation of hematoma. Discussed with . check labs, Type and cross 04/26/16- poor mobility, PT consult- must walk, Miralax, Sen S ordered. Wound care continues. I think she will need 2-3 more days in hospital. To regular floor soon. check am labs 04/25/16- evacuation of Lg hematoma yesterday, diffuse sites of oozing- some concern for platelet fn PT/PTT ok, gave dose of DDAVP yest- drainage more serous. Hb to 7.6 - rec 1 u RBCs monitor H/H- mobilize pt- stop LR IV and d/c laura. cont PCU status 04/24/16- s/p Lt mastectomy w/ sentinel lymph node bx- hematoma Lt chest wall w/ ecchymosis. will need to take pt to OR for evacuation of hematoma. Discussed with . check labs, Type and cross
[2016-04-27 07:44] LABS: HEMATOCRIT 27.8 % (37-47); MEAN CELL VOLUME 87.4 fL (80-100); MEAN CORPUSCULAR HEMOGLOBIN 30.2 pg (25-34); MEAN CORPUSCULAR HGB CONC 34.5 g/dl (32-36); PLATELET COUNT 288 K/uL (130-400); RED BLOOD COUNT 3.18 M/uL (4.2-5.4); WHITE BLOOD COUNT 11.36 K/uL (4.8-10.8)
[2016-04-27 08:14] LABS: CALCIUM 8.8 mg/dl (8.5-10.1); CREATININE 0.96 mg/dl (0.60-1.20); POTASSIUM 4.1 mmol/L (3.5-5.1)
[2016-04-27] MEDS: CLINDAMYCIN IV 600 MG in DEXTROSE 5% ADD-VANTAGE 50ML 50 ML IV SCH ×3 (08:43→23:40)
[2016-04-27] MEDS: BUDESONIDE/FORMOTEROL FUMARATE 160/4.5 60 PUFFS/INHALER INH SCH ×2 (08:43→20:51)
[2016-04-27] MEDS: DEXAMETHASONE INJ 6 MG in SYRINGE 0 ML IV SCH (08:50)
[2016-04-27] MEDS: DOCUSATE SODIUM/SENNA 50/8.6MG TAB PO SCH ×2 (08:51→20:52)
[2016-04-27] MEDS: OXYCODONE/ACETAMINOPHEN 5-325 TAB PO PRN ×3 (08:51→21:35)
[2016-04-27] MEDS: SODIUM CHLORIDE 1 GM TAB PO SCH ×2 (08:51→20:52)
[2016-04-27] MEDS: ESCITALOPRAM OXALATE 20 MG TAB PO SCH (08:52)
[2016-04-27] MEDS: POLYETHYLENE (MIRALAX) 17 GM PACK PO SCH ×2 (08:52→20:52)
[2016-04-27] MEDS: PANTOprazole SOD 40 MG TAB PO SCH (08:56)
[2016-04-27] MEDS ORDERED: OXYC-57 PO (10:54)
[2016-04-27] MEDS ORDERED: ONDA4TAB46 PO (10:54)
--- NOTE | 2016-04-27 11:01 | Discharge Instructions ---
Discharge Instructions Admission Reason for Admission: Left Breast Cancer W/Hosp Loc & Lymph Inj Discharge Discharge Diagnosis / Problem: lt breast cancer, hematoma Lt chest wound Discharge Goals Goal(s): Decrease discomfort, Improve function, Improve disease control Activity Recommendations Activity Limitations: as noted below Lifting Limitations: no more than 10 pounds Exercise/Sports Limitations: until after follow-up appointment May Resume Sexual Activity: when tolerated Shower/Bathe: tomorrow Driving or Machine Use: one week SPECIAL CARE INSTRUCTIONS: * Cover incisions and change daily for comfort/drainage. * Empty drain 2-3 times per day and record. avoid constipation- may use Senokot S and Miralax twice daily as directed on the package * May use ibuprofen for pain as tolerated. * Expect some swelling and bruising. Call your doctor if: * Temperature above 101 degrees * Pain not relieved by pain medicine ordered * There is increased drainage or redness from any incision * You have any unanswered questions or concerns [phone]. FOLLOW UP VISIT: If not already scheduled, please call the office for a follow-up visit. next - drain check/ removal and wound check OFFICE PHONE NUMBER: Dr. Mccormick Office . Current Hospital Diet Patient's current hospital diet: Diabetes Type 2 Diet Discharge Diet Recommended Diet: Regular Diet Procedures Procedures Performed: Evacuation of Left Chest Wound Hematoma Pending Studies Studies pending at discharge: no Laboratory Results Hemoglobin A1c Test 04/06/16 09:26 Range/Units Estimated Average Glucose 128 mg/dl Hemoglobin A1c 6.1 H 4.5-5.6 % Lipid Panel Test 04/06/16 09:26 Range/Units Triglycerides Level 235 H 0-150 mg/dl Cholesterol Level 222 H 0-200 mg/dl HDL Cholesterol 46 mg/dl Cholesterol/HDL Ratio 4.8 LDL Cholesterol, Calculated 129 mg/dl Medical Emergencies . Who to Call and When: Medical Emergencies: If at any time you feel your situation is an emergency, please call 911 immediately. . Non-Emergent Contact Non-Emergency issues call your: Surgeon . "Provider Documentation" section prepared by Ean Mccormick. VTE Core Measure Inpt VTE Proph given/why not?: SCD's
--- NOTE | 2016-04-27 11:54 | Hospitalist Progress Note ---
Hospitalist Progress Note Date of Service Apr 27, 2016. (Seda Mcneal ., APRIL) Subjective Pt evaluation today including: conversation w/ patient, physical exam, chart review, lab review, review of inpatient medication list Patient states she is feeling well. Pain is well controlled. She is eating and drinking OK. She admits to some dizziness when changing positions quickly. She has been out of bed and showered this morning without significant difficulty. SOB has improved. Patient denies any fever, chills, sweats, vision changes, CP, palpitations, edema, SOB, wheezing, cough, abdominal pain, nausea, vomiting, diarrhea, urinary symptoms, melena, numbness/tingling, weakness, muscle/joint pain, anxiety/depression, active bleeding, or new skin discoloration/changes. (Seda Mcneal ., YOSEPHC) Medications Current Inpatient Medications Medications (Trade) Dose Ordered Sig/Rob Route Start Time Stop Time Status Last Admin Dose Admin Albuterol (Ventolin Hfa Inhaler) 2 puffs Q4H PRN INH 04/23/16 13:30 05/23/16 13:29 Amitriptyline HCl (Elavil Tab) 100 mg HS PO 04/23/16 21:00 05/23/16 20:59 04/26/16 20:51 100 MG Budesonide/ Formoterol Fumarate (Symbicort 160/ 4.5 Inh) 2 puffs BID INH 04/23/16 21:00 05/23/16 20:59 04/27/16 08:43 2 PUFFS Escitalopram Oxalate (Lexapro Tab) 20 mg QAM PO 04/24/16 09:00 05/24/16 08:59 04/27/16 08:52 20 MG HCTZ/Lisinopril (Prinzide 20-25MG Tab) 1 tab QAM PO 04/24/16 09:00 05/24/16 08:59 Future Hold Lorazepam (Ativan Tab) 0.5 mg TID PRN PO 04/23/16 13:30 05/23/16 13:29 04/26/16 16:19 0.5 MG Hydromorphone HCl (Dilaudid Inj) 0.5 mg Q3H PRN IV 04/23/16 13:30 05/07/16 13:29 04/25/16 11:41 0.5 MG Miscellaneous (Iv Fluids Completed) 1 ea PRN PRN N/A 04/23/16 13:45 04/23/17 13:44 Oxycodone/ Acetaminophen (Percocet 5-325MG Tab) 1 tab Q4H PRN PO 04/24/16 09:00 05/08/16 08:59 04/25/16 08:19 1 TAB Oxycodone/ Acetaminophen (Percocet 5-325MG Tab) 2 tab Q4H PRN PO 04/24/16 09:00 05/08/16 08:59 04/27/16 08:51 2 TAB Ondansetron HCl 4 mg 4 mg Q3HWA PRN IV 04/24/16 10:45 05/24/16 10:44 04/27/16 08:50 4 MG Lorazepam 0.5 mg/ Syringe 0.5 ml @ 0.5 mls/min Q6 PRN IV 04/24/16 10:45 05/24/16 10:44 Lorazepam/Syringe (Ativan Inj/ Syringe) 0.5 ml @ 0.5 mls/min HS PRN IV 04/24/16 10:45 05/24/16 10:44 Albuterol Sulfate (Ventolin 0.083% 2.5MG/3ML Neb) 2.5 mg Q2H PRN INH 04/25/16 11:30 05/25/16 11:29 Pantoprazole Sodium (Protonix Tab) 40 mg QAM PO 04/26/16 09:00 05/26/16 08:59 04/27/16 08:56 40 MG Polyethylene (Miralax Powder Packet) 17 gm BID PO 04/26/16 09:00 05/26/16 08:59 04/27/16 08:52 17 GM Senna/Docusate Sodium (Senokot S Tab) 1 tab BID PO 04/26/16 09:00 05/26/16 08:59 04/27/16 08:51 1 TAB Sodium Chloride 1 gm 1 gm BID PO 04/26/16 09:00 05/26/16 08:59 04/27/16 08:51 1 GM Clindamycin Phosphate 600 mg/ Dextrose 54 ml @ 100 mls/hr Q8H IV 04/26/16 16:00 05/06/16 23:59 04/27/16 08:43 100 MLS/HR Dexamethasone Sodium Phosphate/ Syringe (Decadron Inj/ Syringe) 1.5 ml @ 1 mls/min BID IV 04/26/16 21:00 05/26/16 20:59 04/27/16 08:50 1 MLS/MIN Albuterol/ Ipratropium (Duoneb) 3 ml Q2H PRN INH 04/26/16 12:00 05/26/16 11:59 (Seda Mcneal, NIALL-C) Objective Vital Signs Date Time Temp Pulse Resp B/P Pulse Ox O2 Delivery O2 Flow Rate FiO2 04/27/16 07:08 36.4 84 19 129/85 91 Room Air 04/27/16 04:00 Room Air 04/27/16 02:56 36.5 99 20 143/82 97 Room Air 04/27/16 00:00 Room Air 04/26/16 23:34 36.7 89 18 120/77 94 Room Air 04/26/16 20:00 Room Air 04/26/16 19:56 36.5 92 16 134/84 95 Room Air 04/26/16 16:00 36.4 93 16 123/78 91 Room Air 04/26/16 16:00 95 Room Air 04/26/16 12:00 36.4 92 20 101/63 91 Room Air 04/26/16 12:00 95 Room Air 04/26/16 10:51 92 100 04/26/16 08:00 95 Room Air (Seda Mcneal, NIALL-C) Physical Exam General Appearance: no apparent distress, + obese Eyes: normal inspection, PERRL ENT: hearing grossly normal Neck: supple Respiratory/Chest: lungs clear, no respiratory distress, no accessory muscle use, + decreased breath sounds (throughout lung perez ), + pertinent finding ( drains present, patent ) Cardiovascular: regular rate, rhythm, no edema Abdomen: normal bowel sounds, non tender, soft Extremities: normal inspection Neurologic/Psychiatric: alert, normal mood/affect, oriented x 3 Skin: normal color, warm/dry, no rash (Seda Mcneal, NIALL-C) Laboratory Results Last 24 Hours Test 04/26/16 07:55 04/26/16 12:06 04/26/16 16:25 04/26/16 17:05 Osmolality 259 mOsm/kg Bedside Glucose 166 mg/dl 145 mg/dl Sodium Level 123 mmol/L Potassium Level 4.4 mmol/L Chloride Level 89 mmol/L Carbon Dioxide Level 25 mmol/L Anion Gap 9.0 mmol/L Blood Urea Nitrogen 16 mg/dl Creatinine 0.95 mg/dl Est Creatinine Clear Calc Drug Dose 87.1 ml/min Estimated GFR () 77.1 Estimated GFR (Non- 66.5 BUN/Creatinine Ratio 16.8 Random Glucose 133 mg/dl Calcium Level 8.5 mg/dl Test 04/26/16 20:42 04/26/16 23:05 04/27/16 07:08 04/27/16 07:24 Bedside Glucose 166 mg/dl 143 mg/dl Sodium Level 124 mmol/L White Blood Count 11.36 K/uL Red Blood Count 3.18 M/uL Hemoglobin 9.6 g/dL Hematocrit 27.8 % Mean Corpuscular Volume 87.4 fL Mean Corpuscular Hemoglobin 30.2 pg Mean Corpuscular Hemoglobin Concent 34.5 g/dl RDW Standard Deviation 46.7 fL RDW Coefficient of Variation 14.7 % Platelet Count 288 K/uL Mean Platelet Volume 9.0 fL Nucleated RBC Absolute Count (auto) 0.06 K/uL Nucleated Red Blood Cells % 0.5 % (Seda Mcneal, PA-C) Assessment and Plan Ms. Martinez is a 55 y/o female with PMHx of Asthma/COPD, IRVIN, HLD, and Breast CA S /P L Mastectomy with LN Bx who developed an hematoma and is S/P drainage. Breast CA S/P L Mastectomy with LN Bx with Hematoma: S/P Hematoma Evacuation - Per primary team - Dr. Mccormick Possible KALE: RESOLVED - Continue monitoring in setting of fluid restriction Acute Blood Loss Anemia: Transfused 2 units PRBCs 04/25 - Surgery evaluated and evacuated 800 ml hematoma on 04/24--> received DDAVP - H&Hs stable - Continue to monitor Reaction to DDVAP: - Benadryl - Dexamethasone 6 mg IV BID -- d/c on 04/27 - Duonebs for wheezing PRN Hyponatremia: Serum Osm (259); Urine Osm (734); Random Urine Na (66) - Probable results of DDAVP - continue 1200 mL fluid restriction - Lasix 40 mg po x 1 dose and salt tabs BID - help remove free water and will expect Na to correct -- Good result with IV Lasix, will give additional IV Lasix 40 mg x1 on 04/27 - BMP in afternoon - continue to monitor - Recheck urine osm and Na Asthma/COPD: - Ventolin PRN - Symbicort 2 puffs BID - Incentive spirometer - IV Decadron - d/c on 04/27. Start 40 mg Prednisone PO daily HTN: - Will hold HCTZ/Lisinopril - BPs have been adequate DVT prophylaxis: - SCDs Disposition: - D/C per primary with [facility] - PT Evaluation (Seda Mcneal ., PALisa) Attending Attestation: Pt seen/examined, chart reviewed, care plan d/w NIALL Mcneal. I agree w/ the wilson components of her documentation. Pt feeling very good today. +flatus and stool. Denies sob/payton. Ambulating and eating well. VSS, afebrile, o2 sats nl gen - NAD mouth - MMM neck - no JVD heart - RRR, s1, s2 lungs - scattered end-exp wheeze once again, no rales, minimally decreased BS bases abd - soft, obese ext - trace edema b/l chest - left chest wall dressing intact; mild swelling of chest wall noted Na 127 Cr normal Hb 9.6 A/P: 55yo female with: 1. acute blood loss anemia 2nd to chest wall hematoma / post-op hematoma in setting of mastectomy - s/p 2 units PRBCs; stable H/H since. 2. hyponatremia - iatrogenic "SIADH" like state due to DDAVP. Improved. Cont to fluid restrict to 1200cc/day. Salt tabs BID. Serial Na checks for stability. Lasix 40mg x 1 again today to induce free water diuresis. 3. acute kidney injury - resolved 4. COPD - with probable exacerbation, but improving. stop IV decadron. place on prednisone and wean. 5. previous tobacco dependence 6. suspected allergic reaction to DDAVP - resolved. 7. morbid obesity - BMI 43 8. DVT proph - SCDs 9. breast cancer on left s/p mastectomy - defer management to primary surgery team progressing nicely defer dispo planning to Dr. Jace Madrid MD (John Madrid MD)
[2016-04-27] MEDS: AMITRIPTYLINE HCL 100 MG TAB PO SCH (20:51)
[2016-04-27] MEDS: LORAZEPAM 0.5 MG TAB PO PRN (21:01)
[2016-04-28 03:35] VITALS: BP 123/77; PULSE 91; TEMP 36.5; O2SAT 95
[2016-04-28 06:21] LABS: HEMATOCRIT 29.6 % (37-47); MEAN CELL VOLUME 89.7 fL (80-100); MEAN CORPUSCULAR HEMOGLOBIN 30.3 pg (25-34); MEAN CORPUSCULAR HGB CONC 33.8 g/dl (32-36); PLATELET COUNT 317 K/uL (130-400); WHITE BLOOD COUNT 10.86 K/uL (4.8-10.8)
[2016-04-28 07:08] LABS: BUN/CREATININE RATIO 15.1 (10-20); CALCIUM 9.1 mg/dl (8.5-10.1); CREATININE 0.95 mg/dl (0.60-1.20); MAGNESIUM 2.6 mg/dl (1.8-2.4); POTASSIUM 3.8 mmol/L (3.5-5.1)
[2016-04-28 07:59] VITALS: BP 118/78; PULSE 97; TEMP 36.5; O2SAT 92
[2016-04-28] MEDS: CLINDAMYCIN IV 600 MG in DEXTROSE 5% ADD-VANTAGE 50ML 50 ML IV SCH (08:07)
[2016-04-28] MEDS: OXYCODONE/ACETAMINOPHEN 5-325 TAB PO PRN (08:16)
[2016-04-28] MEDS: LORAZEPAM 0.5 MG TAB PO PRN (08:16)
[2016-04-28] MEDS: ONDANSETRON INJ 2 MG/ML 2 ML VIAL IV PRN (08:17)
--- NOTE | 2016-04-28 08:20 | DISCHARGE SUMMARY ---
PRINCIPAL DIAGNOSIS: Left breast cancer. OTHER DIAGNOSIS: Left chest wound hematoma. PROCEDURES: The patient underwent left mastectomy with sentinel lymph node biopsy and also evacuation of hematoma from left chest wound. HISTORY OF PRESENT ILLNESS: The patient is a 55-year-old female with a biopsy proven left breast cancer, brought into the hospital for mastectomy with sentinel lymph node biopsy. The patient was brought into the hospital on 04/23/2016 where she underwent left mastectomy with sentinel lymph node biopsy which she did tolerate very well. Postoperatively, initially she did well but overnight did develop a relatively large hematoma which was felt necessary to be evacuated. She was taken urgently to the operating room on 04/24/2016 where she underwent evacuation of left chest wound hematoma with drain placement. The patient was kept in the PCU postoperatively for monitoring and IV medication. She did progress relatively well, although her mobility was somewhat limited and she did have somewhat of an ileus postoperatively. She did slowly progress and was felt stable for discharge on 04/28/2016 to be followed in the surgical clinic within 1 week. She was followed very closely by the hospitalist team during her hospitalization.
[2016-04-28] MEDS ORDERED: FUROSEMIDE 40 MG TAB PO ONE (09:00)
[2016-04-28] MEDS ORDERED: POTASSIUM CHLORIDE 10 MEQ TABCR PO ONE (09:00)
[2016-04-28] MEDS ORDERED: FUROSEMIDE INJ 40 MG in SYRINGE 0 ML IV ONE (09:00)
[2016-04-28] MEDS ORDERED: PRED10TA PO (09:45)
[2016-04-28] MEDS ORDERED: FURO-85 PO (09:45)
[2016-04-28] MEDS ORDERED: MCRK20 PO (09:46)
[2016-04-28] MEDS: BUDESONIDE/FORMOTEROL FUMARATE 160/4.5 60 PUFFS/INHALER INH SCH (09:47)
[2016-04-28] MEDS ORDERED: FRRS300 PO (09:47)
[2016-04-28] MEDS: ESCITALOPRAM OXALATE 20 MG TAB PO SCH (09:48)
[2016-04-28] MEDS: PANTOprazole SOD 40 MG TAB PO SCH (09:48)
[2016-04-28] MEDS: POLYETHYLENE (MIRALAX) 17 GM PACK PO SCH (09:48)
[2016-04-28] MEDS: DOCUSATE SODIUM/SENNA 50/8.6MG TAB PO SCH (09:49)
[2016-04-28 10:37] VITALS: BP 118/78; PULSE 97; TEMP 36.5; O2SAT 92
--- NOTE | 2016-04-28 19:41 | Progress Note ---
Subjective Date of Service: Apr 28, 2016. Subjective Pt evaluation today including: conversation w/ patient, physical exam, chart review, lab review, conversation w/ weight loss sales consultant (gen surg), review of inpatient medication list Pain: denies PO Intake: normal Voiding: no voiding problems Pt feels very good. Has been readied for discharge by gen surgery. Minimal cough. Denies dyspnea on exertion. LE Edema is improved. Eating well. +flatus +stool no chest pain Problem List Medical Problems: (1) Atypical chest pain Status: Acute (2) Effusion, left knee Status: Acute (3) Infected insect bite Status: Acute (4) Popliteal cyst Status: Acute Objective Vital Signs Date Time Temp Pulse Resp B/P Pulse Ox O2 Delivery O2 Flow Rate FiO2 04/28/16 10:37 36.5 97 16 92 Room Air 04/28/16 08:10 Room Air 04/28/16 07:59 36.5 97 16 118/78 92 Room Air 04/28/16 03:35 36.5 91 18 123/77 95 Room Air 04/27/16 23:51 36.7 92 18 133/85 93 Room Air 04/27/16 20:00 94 Room Air 04/27/16 19:49 36.7 97 18 101/51 94 Room Air Physical Exam General Appearance: no apparent distress ENT: pharynx normal Neck: no JVD Respiratory/Chest: no respiratory distress, no accessory muscle use, + wheezing (scant end-exp wheeze) Cardiovascular: regular rate, rhythm, no gallop, no murmur Abdomen: normal bowel sounds, non tender, soft, no organomegaly Extremities: no pedal edema Neurologic/Psychiatric: alert, oriented x 3 Skin: + pertinent finding (swelling over left upper chest is much better; dressing in place ) Laboratory Results Last 24 Hours Test 04/27/16 20:07 04/28/16 06:03 04/28/16 07:38 Bedside Glucose 178 mg/dl 96 mg/dl White Blood Count 10.86 K/uL Red Blood Count 3.30 M/uL Hemoglobin 10.0 g/dL Hematocrit 29.6 % Mean Corpuscular Volume 89.7 fL Mean Corpuscular Hemoglobin 30.3 pg Mean Corpuscular Hemoglobin Concent 33.8 g/dl RDW Standard Deviation 49.3 fL RDW Coefficient of Variation 15.3 % Platelet Count 317 K/uL Mean Platelet Volume 9.0 fL Nucleated RBC Absolute Count (auto) 0.12 K/uL Nucleated Red Blood Cells % 1.1 % Sodium Level 137 mmol/L Potassium Level 3.8 mmol/L Chloride Level 101 mmol/L Carbon Dioxide Level 28 mmol/L Anion Gap 8.0 mmol/L Blood Urea Nitrogen 14 mg/dl Creatinine 0.95 mg/dl Est Creatinine Clear Calc Drug Dose 86.8 ml/min Estimated GFR () 77.1 Estimated GFR (Non- 66.5 BUN/Creatinine Ratio 15.1 Random Glucose 90 mg/dl Calcium Level 9.1 mg/dl Magnesium Level 2.6 mg/dl Assessment and Plan 55yo female with: 1. acute blood loss anemia 2nd to chest wall hematoma / post-op hematoma in setting of mastectomy - s/p 2 units PRBCs; stable H/H since. H/H again today stable. Recommend - ferrous sulfate 325mg BID x 1 month, possibly slightly longer. 2. hyponatremia - resolved. Lasix 20mg daily for a few more days as she is still fluid balance +. She follows up with her PCP on Saturday; BMP can be rechecked, and whether to cont lasix at that time can be decided. 3. acute kidney injury - resolved 4. COPD with mild exacerbation - 3 more days of prednisone wean then stop. B- agonist prn. 5. previous tobacco dependence 6. suspected allergic reaction to DDAVP - resolved. DDAVP added to allergy list. 7. morbid obesity - BMI 43 8. DVT proph - SCDs 9. breast cancer on left s/p mastectomy - defer management to surgery & heme/ onc 10. HTN - stop the HCTZ given her normal BP without it and the fact we are sending her on lasix. f/u on Saturday with PCP for BP, etc ok for d/c home from medical standpoint Thank you for allowing us to be a part of her medical care. Discharge planning: home
[2016-05-17] MEDS ORDERED: MOME200A INH (11:21)
[2016-05-17] MEDS ORDERED: IPRA1AER2 INH (11:21)
[2016-05-17] MEDS ORDERED: OXYC-57 PO (11:22)
== END 2016-04-28 11:03 | disposition home or self-care (01) | DRG 580 ==
LOC: ENRESERVDT → ENRESERVTM → C.ACU 07:37 → C.MSW 13:26 → C.MSICU 04-24 08:47 → C.MED 04-25 16:30 → OBSVTOIN 04-26 11:21
PROVIDERS: ADMIT Surgery; ATTEND Surgery
PROC: 07B60ZX Excision of Left Axillary Lymphatic, Open Approach, Diagnostic (ICD-10-PCS; principal; 2016-04-23 11:00)
PROC: 0HTU0ZZ Resection of Left Breast, Open Approach (ICD-10-PCS; principal; 2016-04-23 11:00)
PROC: 0H95X0Z Drainage of Chest Skin with Drainage Device, External Approach (ICD-10-PCS; 2016-04-24)
DX: C50.912 Malignant neoplasm of unspecified site of left female breast (principal); L76.22 Postprocedural hemorrhage of skin and subcutaneous tissue following other procedure; D62 Acute posthemorrhagic anemia; E87.1 Hypo-osmolality and hyponatremia; N17.9 Acute kidney failure, unspecified; J44.1 Chronic obstructive pulmonary disease with (acute) exacerbation; Z68.41 Body mass index [BMI] 40.0-44.9, adult; Y83.8 Other surgical procedures as the cause of abnormal reaction of the patient, or of later complication, without mention of misadventure at the time of the procedure; T38.895A Adverse effect of other hormones and synthetic substitutes, initial encounter; I10 Essential (primary) hypertension; F32.9 Major depressive disorder, single episode, unspecified; E66.01 Morbid (severe) obesity due to excess calories; Z87.891 Personal history of nicotine dependence; Z79.899 Other long term (current) drug therapy; Z88.0 Allergy status to penicillin; Z88.8 Allergy status to other drugs, medicaments and biological substances; Z80.3 Family history of malignant neoplasm of breast; Z82.49 Family history of ischemic heart disease and other diseases of the circulatory system; Z83.79 Family history of other diseases of the digestive system; Z84.1 Family history of disorders of kidney and ureter

== ENCOUNTER → 2016-05-02 | Outpatient (CLI) | payer OTHER ==
[~2016-05-02] MED LIST changes: +CIPR-255 PO; -CLINDAMYCIN IV 900 MG in DEXTROSE 5% ADD-VANTAGE 100ML 100 ML IV SCH; -DEXAMETHASONE SOD INJ 4 MG/ML VIAL ONE; -FENTANYL CITRATE INJ 50 MCG/1 ML 2 ML VIAL ONE; +FRRS300 PO; +FURO-85 PO; -GLYCOPYRROLATE INJ 0.2 MG/ML VIAL ONE; +IPRA1AER2 INH; -IPRASOL4 INH; -LACTATED RINGER'S 1000ML 1,000 ML IV SCH; -LIDOCAINE HCL 2% 2 ML VIAL (20MG/ML) ONE; -LISI-788 PO; +MCRK20 PO; -MIDAZOLAM HCL 1 MG/ML 2ML VIAL ONE; +MOME200A INH; -NEOSTIGMINE METHYLSULFATE 5 MG/5 ML SYR ONE; +ONDA4TAB46 PO; -ONDANSETRON INJ 2 MG/ML 2 ML VIAL ONE; +OXYC-57 PO; +OXYC1TAB3 PO; +PRED10TA PO; -PROPOFOL IV EMULSION 10 MG/ML 20 ML VIAL IV ONE; -ROCURONIUM BROMIDE 10 MG/ML 5 ML VIAL ONE
--- NOTE | 2016-05-02 09:46 | DIAGNOSTIC IMAGING REPORT ---
PET/CT SKULL-THIGH CLINICAL HISTORY: BREAST CANCER COMPARISON STUDY: No previous studies for comparison. FINDINGS: The patient was injected with 14.3 mCi of F 18 labeled FDG. Uptake within the neck is felt to be physiologic. Uptake within the thorax is felt to be physiologic. Increased activity in the region the right shoulder is felt to be related to muscular activity. There is no pathologic axillary, mediastinal, or hilar activity. Minimal increased activity within the left chest wall is felt to be postsurgical. There is no pathologic lung activity. Within the abdomen and pelvis, there is no pathologic hepatic or adrenal activity. There is no pathologic belinda activity. There is physiologic urinary tract and bowel activity. There is air within the bladder. This may be iatrogenic. Clinical correlation in this regard is advocated. There is mild hepatic steatosis. There is no pathologic skeletal activity. There is a non-FDG avid 4 mm sclerotic lesion within the T6 vertebra. This statistically represents a bone island. The gallbladder surgically absent. IMPRESSION: 1. No evidence of FDG avid metastatic disease 2. 4 mm sclerotic lesion within the T6 vertebra. This is not FDG avid, and likely represents a bone island Electronically signed by: Jacob Welch M.D. 05/02/2016 9:44 AM Dictated Date/Time: 05/02/2016 9:36 AM
== END | disposition home or self-care (01) ==
LOC: C.PET 07:26
PROVIDERS: ATTEND Internal Medicine Hematology & Oncology
DX: C50.919 Malignant neoplasm of unspecified site of unspecified female breast (principal)

== ENCOUNTER 2016-05-12 19:47 | Emergency (ER) | payer OTHER ==
[~2016-05-12] VITALS: Ht 167.6 cm; Wt 114.0 kg
[~2016-05-12 19:47] MED LIST changes: -IPRA1AER2 INH; -MOME200A INH; -OXYC1TAB3 PO
[2016-05-12 19:53] VITALS: TEMP 37; Ht 167.6 cm; Wt 114.0 kg
[2016-05-12] MEDS ORDERED: SODIUM CHLORIDE 0.9% 1000ML 1,000 ML IV STA ×2 (20:41)
[2016-05-12] MEDS ORDERED: ONDANSETRON 8 MG/54 ML D5W IV STA (20:41)
[2016-05-12] MEDS: HYDROmorphone INJ 1 MG/ML SYR IV PRN ×2 (20:50→21:44)
[2016-05-12 20:57] LABS: BUN/CREATININE RATIO 5.8 (10-20); CALCIUM 9.1 mg/dl (8.5-10.1); CREATININE 1.2 mg/dl (0.60-1.20); POTASSIUM 4.3 mmol/L (3.5-5.1)
[2016-05-12] MEDS ORDERED: OPTIRAY 320 IV PRN (21:00)
[2016-05-12 21:15] LABS: ALKALINE PHOSPHATASE 79 U/L (45-117); ALT/SGPT 55 U/L (12-78); AST/SGOT 36 U/L (15-37)
[2016-05-12 21:27] LABS: BASO % 0.7 %; BASO ABS # 0.03 K/uL (0-0.2); COMPLETE YES; EOS % 0.5 %; HEMATOCRIT 33.9 % (37-47); IG% 0.2 %; LYMPH ABS # 1.02 K/uL (1.2-3.4); MEAN CELL VOLUME 93.4 fL (80-100); MEAN CORPUSCULAR HEMOGLOBIN 31.1 pg (25-34); MEAN CORPUSCULAR HGB CONC 33.3 g/dl (32-36); MEAN PLATELET VOLUME 8.8 fL (7.4-10.4); MONO % 8.5 %; NEUT % 66.1 %; PLATELET COUNT 266 K/uL (130-400); RED BLOOD COUNT 3.63 M/uL (4.2-5.4); WHITE BLOOD COUNT 4.25 K/uL (4.8-10.8)
--- NOTE | 2016-05-12 21:35 | DIAGNOSTIC IMAGING REPORT ---
CHEST ONE VIEW PORTABLE CLINICAL HISTORY: left chest pain, recent mastectomy dyspnea COMPARISON STUDY: 10/31/2015 FINDINGS: The bones soft tissues and hemidiaphragms are normal. The cardiomediastinal silhouette is normal. The lungs are clear. The pulmonary vasculature is normal. IMPRESSION: Negative chest. Electronically signed by: Ronan Esteban M.D. 05/12/2016 9:34 PM Dictated Date/Time: 05/12/2016 9:33 PM
--- NOTE | 2016-05-12 22:20 | DIAGNOSTIC IMAGING REPORT ---
CHEST CTA for PULMONARY ARTERIES CT DOSE: 620.65 mGy.cm HISTORY: Chest pain left chest pain TECHNIQUE: Multiaxial CT images of the chest were performed following the intravenous administration of contrast to evaluate the pulmonary arteries. Maximal intensity projection images were also obtained. COMPARISON STUDY: None. FINDINGS: No evidence for cardiac enlargement. Pulmonary vasculature enhances appropriately. There are no filling defects. The thoracic aorta is normal in course and caliber. There has been a left mastectomy. A circumferential breast expansion device is present. There is a trace amount of surrounding infiltrative change within the subcutaneous fat postprocedural. Limited evaluation the upper abdomen is unremarkable. His although is made of a fracture of the left 10th rib left midaxillary line showing evidence for nonunion. There are moderate degenerative changes of the thoracic spine. IMPRESSION: 1. Study is negative for pulmonary embolus. 2. Operative changes consistent with a left mastectomy and placement of a left breast expansion device. 3. Lungs are considered clear. 4. 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 Moderate degenerative changes thoracic spine. Electronically signed by: Ronan Esteban M.D. 05/12/2016 10:19 PM Dictated Date/Time: 05/12/2016 10:14 PM
[2016-05-12] MEDS ORDERED: PROCHLORPERAZINE 5 MG/ML 2 ML VIAL IV STA (22:36)
[2016-05-12] MEDS ORDERED: HYDROmorphone INJ 0.5 MG/0.5 ML SYR IV STA (22:36)
[2016-05-12] MEDS ORDERED: KETOROLAC TROMETHAMINE 30 MG/ML VIAL IV STA (22:36)
[2016-05-13] MEDS ORDERED: OXYCODONE IR HOME PACK PO ONE
[2016-05-13] MEDS ORDERED: OXYC1TAB3 PO (00:10)
[2016-05-13 00:21] VITALS: BP 117/84; PULSE 98; O2SAT 93
--- NOTE | 2016-05-13 02:57 | EMERGENCY ROOM VISIT NOTE ---
History Report prepared by Jim: Damaris Muir Under the Supervision of: Dr. Ervin Turk M.D. First contact with patient: 20:31 Chief Complaint: PAIN (GENERALIZED) Stated Complaint: MASECTOMY WEEKS AGO,SWOLLEN L SIDE, PAIN History of Present Illness The patient is a 55 year old female who presents to the Emergency Room with complaints of worsening left sided pain at surgical site beginning a few days prior to arrival. The patient states that April 23, 2015 she had a mastectomy performed by Dr. Mccormick. She ran out of pain medication two days ago. Today the patient began to experience vomiting episodes and shortness of breath. She states that this pain does not feel related to the surgery. The patient still has her drain in place. Pt denies LOC, headache, fevers, chills, diaphoresis, visual changes, neck pain, breathing difficulties, abdominal pain, back pain, melena, hematochezia, urinary symptoms, numbness, weakness, lymphadenopathy, rash, or other complaints. 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 A total of ten systems were reviewed and were otherwise negative. Past Medical & Surgical Medical Problems: (1) Breast cancer (2) Syncope Family History Patient reports no known family medical history. Social History Smoking Status: Former Smoker Housing Status: lives with family Current/Historical Medications Scheduled Amitriptyline Hcl (Elavil), 100 MG PO HS Budesonide/Formoterol Fumarate (Symbicort 160/4.5 Inhaler ), 2 PUFFS INH BID Ciprofloxacin Hcl (Cipro), 1 TAB PO BID Escitalopram Oxalate (Lexapro), 20 MG PO QAM Ferrous Sulfate (Ferrous Sulfate), 325 MG PO BID Furosemide (Lasix), 20 MG PO QAM Potassium Chloride (Klor-Con M20), 20 MEQ PO QAM Scheduled PRN Albuterol Inhaler (Ventolin Inhaler), 1 PUFF INH Q4H PRN for Asthma Symptoms Albuterol Sulf (Albuterol Sulfate), 1 VIAL NEB Q6H PRN for SOB/Wheezing Benzonatate (Tessalon Perles), 200 MG PO TID PRN for Cough Lorazepam (Ativan), 0.5 MG PO TID PRN for Anxiety Ondansetron Hcl (Zofran), 8 MG PO Q8 PRN for Nausea Oxycodone Ir (Roxicodone Ir), 1-2 TAB PO Q4H PRN for Pain Allergies Coded Allergies: Penicillins (Verified Allergy, Unknown, Hives, 05/12/16) Promethazine (Verified Allergy, Unknown, Shakiness, 05/12/16) Ranitidine (Verified Allergy, Unknown, Shakiness, 05/12/16) Uncoded Allergies: ddvap (Allergy, Severe, SHORTNESS OF BREATH, 04/25/16) Thoat/tongue swelling, facial flushing Physical Exam Vital Signs Date Time Temp Pulse Resp B/P Pulse Ox O2 Delivery O2 Flow Rate FiO2 05/13/16 00:21 98 20 117/84 93 05/12/16 23:33 96 16 104/84 96 Room Air 05/12/16 22:14 98 16 137/83 97 Nasal Cannula 2.0 05/12/16 21:44 99 20 146/82 96 Nasal Cannula 2.0 05/12/16 19:53 37.0 116 24 159/104 98 Room Air Physical Exam GENERAL: Awake, alert, well-appearing, in no distress HENT: Normocephalic, atraumatic. Oropharynx unremarkable. EYES: Normal conjunctiva. Sclera non-icteric. NECK: Supple. No nuchal rigidity. FROM. No JVD. RESPIRATORY: Clear to auscultation. CARDIAC: Regular rate, normal rhythm. Extremities warm and well perfused. Pulses equal. ABDOMEN: Soft, non-distended. No tenderness to palpation. No rebound or guarding. No masses. RECTAL: Deferred. MUSCULOSKELETAL: Surgical line on left chest appears intact, dry, no redness or drainage. Zero drainage in SHAKEEL drain. The back is symmetrical on inspection without obvious abnormality. There is no CVA tenderness to palpation. No joint edema. LOWER EXTREMITIES: Calves are equal size bilaterally and non-tender. No edema. No discoloration. NEURO: Normal sensorium. No sensory or motor deficits noted. SKIN: No rash or jaundice noted. Medical Decision & Procedures ER Provider Diagnostic Interpretation: X ray results as stated below per my interpretation and radiologist interpretation. Other radiology results as stated below per my review and radiologist interpretation CHEST ONE VIEW PORTABLE CLINICAL HISTORY: left chest pain, recent mastectomy dyspnea COMPARISON STUDY: 10/31/2015 FINDINGS: The bones soft tissues and hemidiaphragms are normal. The cardiomediastinal silhouette is normal. The lungs are clear. The pulmonary vasculature is normal. IMPRESSION: Negative chest. Electronically signed by: Ronan Esteban M.D. 05/12/2016 9:34 PM Dictated Date/Time: 05/12/2016 9:33 PM CHEST CTA for PULMONARY ARTERIES CT DOSE: 620.65 mGy.cm HISTORY: Chest pain left chest pain TECHNIQUE: Multiaxial CT images of the chest were performed following the intravenous administration of contrast to evaluate the pulmonary arteries. Maximal intensity projection images were also obtained. COMPARISON STUDY: None. FINDINGS: No evidence for cardiac enlargement. Pulmonary vasculature enhances appropriately. There are no filling defects. The thoracic aorta is normal in course and caliber. There has been a left mastectomy. A circumferential breast expansion device is present. There is a trace amount of surrounding infiltrative change within the subcutaneous fat postprocedural. Limited evaluation the upper abdomen is unremarkable. His although is made of a fracture of the left 10th rib left midaxillary line showing evidence for nonunion. There are moderate degenerative changes of the thoracic spine. IMPRESSION: 1. Study is negative for pulmonary embolus. 2. Operative changes consistent with a left mastectomy and placement of a left breast expansion device. 3. Lungs are considered clear. 4. 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 Moderate degenerative changes thoracic spine. Electronically signed by: Ronan Esteban M.D. 05/12/2016 10:19 PM Dictated Date/Time: 05/12/2016 10:14 PM Laboratory Results 05/12/16 21:16 Red Blood Count 3.63, Mean Corpuscular Volume 93.4, Mean Corpuscular Hemoglobin 31.1, Mean Corpuscular Hemoglobin Concent 33.3, Mean Platelet Volume 8.8, Neutrophils (%) (Auto) 66.1, Lymphocytes (%) (Auto) 24.0, Monocytes (%) (Auto) 8.5, Eosinophils (%) (Auto) 0.5, Basophils (%) (Auto) 0.7, Neutrophils # (Auto) 2.81, Lymphocytes # (Auto) 1.02, Monocytes # (Auto) 0.36, Eosinophils # (Auto) 0.02, Basophils # (Auto) 0.03 05/12/16 20:26 Test 05/12/16 20:26 05/12/16 21:16 05/12/16 23:04 Anion Gap 8.0 mmol/L (3-11) Est Creatinine Clear Calc Drug Dose 66.3 ml/min Estimated GFR () 58.1 Estimated GFR (Non- 50.1 BUN/Creatinine Ratio 5.8 (10-20) Calcium Level 9.1 mg/dl (8.5-10.1) Total Bilirubin 0.4 mg/dl (0.2-1) Direct Bilirubin mg/dl (0-0.2) Aspartate Amino Transf (AST/SGOT) 36 U/L (15-37) Alanine Aminotransferase (ALT/SGPT) 55 U/L (12-78) Alkaline Phosphatase 79 U/L (45-117) Total Creatine Kinase 94 U/L (26-192) Creatine Kinase MB 0.9 ng/ml (0.5-3.6) Creatine Kinase MB Ratio 1.0 (0-3.0) Total Protein 7.4 gm/dl (6.4-8.2) Albumin 3.4 gm/dl (3.4-5.0) Lipase 359 U/L (73-393) Chemistry Specimen Hemolysis White Blood Count 4.25 K/uL (4.8-10.8) Red Blood Count 3.63 M/uL (4.2-5.4) Hemoglobin 11.3 g/dL (12.0-16.0) Hematocrit 33.9 % (37-47) Mean Corpuscular Volume 93.4 fL (80-100) Mean Corpuscular Hemoglobin 31.1 pg (25-34) Mean Corpuscular Hemoglobin Concent 33.3 g/dl (32-36) Platelet Count 266 K/uL (130-400) Mean Platelet Volume 8.8 fL (7.4-10.4) Neutrophils (%) (Auto) 66.1 % Lymphocytes (%) (Auto) 24.0 % Monocytes (%) (Auto) 8.5 % Eosinophils (%) (Auto) 0.5 % Basophils (%) (Auto) 0.7 % Neutrophils # (Auto) 2.81 K/uL (1.4-6.5) Lymphocytes # (Auto) 1.02 K/uL (1.2-3.4) Monocytes # (Auto) 0.36 K/uL (0.11-0.59) Eosinophils # (Auto) 0.02 K/uL (0-0.5) Basophils # (Auto) 0.03 K/uL (0-0.2) RDW Standard Deviation 54.8 fL (36.4-46.3) RDW Coefficient of Variation 16.0 % (11.5-14.5) Immature Granulocyte % (Auto) 0.2 % Immature Granulocyte # (Auto) 0.01 K/uL (0.00-0.02) Troponin I < 0.015 ng/ml (0-0.045) Laboratory results reviewed by me Medications Administered Medications (Trade) Dose Ordered Sig/Rob Route Start Time Stop Time Status Last Admin Dose Admin Sodium Chloride 1,000 ml @ 999 mls/hr Q1H1M STAT IV 05/12/16 20:41 05/12/16 21:41 DC 05/12/16 20:56 999 MLS/HR Sodium Chloride (Nss 1000ml) 1,000 ml @ 125 mls/hr Q8H STAT IV 05/12/16 20:41 05/13/16 01:15 DC 05/12/16 20:57 125 MLS/HR Hydromorphone HCl (Dilaudid Inj) 1 mg Q15M PRN IV 05/12/16 20:45 05/12/16 22:39 DC 05/12/16 21:44 1 MG Ondansetron HCl (Zofran 8mg Iv) 8 mg NOW STAT IV 05/12/16 20:41 05/12/16 20:43 DC 05/12/16 20:49 8 MG Ketorolac Tromethamine (Toradol Inj) 10 mg NOW STAT IV 05/12/16 22:36 05/12/16 22:39 DC 05/12/16 22:56 10 MG Prochlorperazine Edisylate (Compazine Inj) 5 mg NOW STAT IV 05/12/16 22:36 05/12/16 22:39 DC 05/12/16 23:09 5 MG Hydromorphone HCl (Dilaudid Inj) 0.5 mg NOW STAT IV 05/12/16 22:36 05/12/16 22:39 DC 05/12/16 22:55 0.5 MG Oxycodone HCl (Roxicodone Immediate Rel 5MG Home Pack) 1 homepack UD ONCE PO 05/13/16 00:00 05/13/16 00:01 DC 05/13/16 00:20 1 HOMEPACK ECG Indication: other (significant pain) Rate (beats per minute): 102 Rhythm: sinus tachycardia Findings: no acute ischemic change, no ectopy Change: ECG #2: NSR, 97, no ectopy, no acute ischemic changes. ED Course 2039: The patient was evaluated in room B11. A complete history and physical exam was performed. 2040: Zofran 8 mg IV, Sodium Chloride 1,000 ml @ 125 mls/hr IV, Sodium Chloride 1,000 ml @ 999 mls/hr IV, Dilaudid Inj 1 mg IV. 2233: I reevaluated the patient. She is feeling better but still has some nausea and pain. She would like more pain medication. I discussed her rib fracture results. She admits to falling off a chair the other day. 2235: Dilaudid Inj 0.5 mg IV, Compazine Inj 5 mg IV, Toradol Inj 10 mg IV. 5: I reevaluated the patient. She is feeling much better. I discussed her going home with pain medication. 0000: Roxicodone Immediate Rel 5 mg Home Pack 1 homepack PO. 0002: I reevaluated the patient. Discussed results and discharge instructions: she verbalized understanding and agreement. The patient is ready for discharge. Medical Decision Triage Nursing notes reviewed. The patient's presentation and history were concerning for chest pain post surgery. Etiologies such as wound problem, infection, cardiac ischemia, aortic dissection , pulmonary embolism, pneumonia, pneumothorax, musculoskeletal, infections, gastrointestinal, as well as others were entertained. The patient was evaluated. She was uncomfortable. She had nausea and vomiting. The patient was hydrated. She was given Zofran and Dilaudid. On reassessment she was feeling better with this. She still had some pain and requested additional medication and nausea medicine. Patient was given Compazine and Toradol. She was also given a half dose of Dilaudid. The patient felt much better on reassessment. Her CBC showed a mild anemia. No leukocytosis. Chemistry panel, LFTs, lipase and cardiac markers were negative. Her ECG was negative. On CT imaging there was no PE or pneumonia. The patient had a 10th rib fracture. When I discussed this with her she noted that she had fallen onto that side while standing on a chair. She neglected to mention this on the initial history. The patient had a repeat troponin and ECG that were performed. These were negative. Given the type of pain further evaluation and management was felt to be appropriate as an outpatient. She has an appointment the day after tomorrow with her surgeon. I did ask her to follow -up with her PCP as well. If she worsens in any way she will come back to the Emergency Room. I did give her a home pack of oxycodone as well as a small prescription for the same to get her through until she can see her surgeon on Saturday. She worsens in any way she will be brought back to the Emergency Room for reevaluation.I gave my usual and customary discussion regarding this issue. By the evaluation outlined above other emergent etiologies such as those listed in the differential, as well as others, were deemed relatively unlikely. The patient and were informed about the findings as listed above. All questions were answered and they were pleased with the treatment. Return instructions were outlined and the patient was discharged in stable condition. The patient was referred to her surgeon and PCP for follow-up this week for a recheck of the current condition. The chart was completed utilizing [employer] Speech voice recognition software. Grammatical errors, random word insertions, pronoun errors, and incomplete sentences are an occasional consequence of this system due to software limitations, ambient noise, and hardware issues. Any formal questions or concerns about the content, text, or information contained within the body of this dictation should be directly addressed to the physician for clarification. [place] Drug Monitoring Program Search Results: patient reviewed within database, no issues identified Drug Monitoring Findings: Scripts noted. Impression Primary Impression: Left sided chest pain Additional Impressions: Left rib fracture Vomiting Breast cancer Departure Information Dispostion Home / Self-Care Prescriptions Oxycodone Ir (Roxicodone Ir) 5 Mg Tab 1-2 TAB PO Q4H Y for Pain, #15 TAB Prov: Ervin Turk MD 05/13/16 Referrals Perla Carmen DO (PCP) Forms HOME CARE DOCUMENTATION FORM, IMPORTANT VISIT INFORMATION, WORK / SCHOOL INSTRUCTIONS Patient Instructions My [facility] [employer] Additional Instructions CHEST PAIN INSTRUCTIONS: DO NOT drive, drink alcohol, operate machinery, or perform dangerous activities today. You were given medications in the ER that can affect your ability to safely function or operate a vehicle. Oxycodone (OxyIR) 5mg: Take 1-2 pills every four hours for breakthrough pain. Avoid alcohol, operating machinery or dangerous equipment, working on ladders or roofs, DRIVING, or situations where being under the influence may be dangerous. It is recommended to use an [id number] stool softener such as Colace, 100mg twice daily while taking this medication to avoid constipation. Ibuprofen(Motrin, Advil) may be used for fever or pain. Use 600mg every six hours as needed. Take with food. Avoid using more than 2400mg in a 24 hour period. Do not use 2400mg per day for more than three consecutive days without physician direction. Prolonged inappropriate use can lead to stomach upset or ulcers. (AND/OR) Acetaminophen(Tylenol) may be used for fever or pain. Use 1000mg every six hours as needed. Avoid using more than 4000mg in a 24 hour period. Rest and drink plenty of fluids as tolerated. Continue current medications. Avoid strenuous activities and anything that worsens your pain. Resume normal activities once your symptoms resolve. Return to the ER immediately for worsening or persistent chest pain, wound problems, redness of the skin, abdominal pain, vomiting, fevers, chest pains, difficulty breathing, worsening of your condition, or as needed. Follow up with your surgeon on Saturday as scheduled for a recheck of your current condition. Problem Qualifiers
[2016-05-17] MEDS ORDERED: IPRA1AER2 INH (11:21)
[2016-05-17] MEDS ORDERED: MOME200A INH (11:21)
[2016-05-17] MEDS ORDERED: OXYC-57 PO (11:22)
== END 2016-05-13 00:24 | disposition home or self-care (01) ==
LOC: C.EDB 19:49
DX: S22.32XA Fracture of one rib, left side, initial encounter for closed fracture (principal); W07.XXXA Fall from chair, initial encounter; R07.89 Other chest pain; R11.10 Vomiting, unspecified; Z85.3 Personal history of malignant neoplasm of breast; Z90.12 Acquired absence of left breast and nipple; Z87.891 Personal history of nicotine dependence; Z79.899 Other long term (current) drug therapy; Z88.0 Allergy status to penicillin; Z88.8 Allergy status to other drugs, medicaments and biological substances

== ENCOUNTER → 2016-08-29 | Outpatient (CLI) | payer OTHER ==
[~2016-08-29] MED LIST changes: -BENZ-57 PO; -CIPR-255 PO; -FRRS300 PO; +IPRA1AER2 INH; +MOME200A INH; -ONDA4TAB46 PO; -PRED10TA PO; -SULF800T23 PO; -SYMIN160 INH
[2016-08-29 17:44] LABS: BASO % 0.4 %; BASO ABS # 0.03 K/uL (0-0.2); COMPLETE YES; EOS % 0.6 %; HEMATOCRIT 44.9 % (37-47); IG% 0.1 %; LYMPH % 31.3 %; LYMPH ABS # 2.24 K/uL (1.2-3.4); MEAN CELL VOLUME 88.6 fL (80-100); MEAN CORPUSCULAR HGB CONC 32.7 g/dl (32-36); MEAN PLATELET VOLUME 9.8 fL (7.4-10.4); MONO % 8.1 %; NEUT % 59.5 %; PLATELET COUNT 332 K/uL (130-400); RED BLOOD COUNT 5.07 M/uL (4.2-5.4); WHITE BLOOD COUNT 7.15 K/uL (4.8-10.8)
[2016-08-29 18:14] LABS: ALT/SGPT 52 U/L (12-78); AST/SGOT 36 U/L (15-37); BLOOD UREA NITROGEN 9 mg/dl (7-18); BUN/CREATININE RATIO 9.1 (10-20); CALCIUM 9.7 mg/dl (8.5-10.1); CARBON DIOXIDE 30 mmol/L (21-32); CHLORIDE 104 mmol/L (98-107); GLUCOSE 85 mg/dl (70-99); POTASSIUM 4.3 mmol/L (3.5-5.1); SODIUM 140 mmol/L (136-145)
[2016-08-29 18:16] LABS: ALKALINE PHOSPHATASE 97 U/L (45-117)
[2016-08-30 06:27] LABS: ESTIMATED AVERAGE GLUCOSE 143 mg/dl; HA1C FLAG Normal (Normal)
== END | disposition home or self-care (01) ==
LOC: C.LABPBG 16:01
PROVIDERS: ATTEND Physician Assistant
DX: C50.912 Malignant neoplasm of unspecified site of left female breast (principal); R73.03 Prediabetes; R21 Rash and other nonspecific skin eruption

== ENCOUNTER → 2016-11-14 | Outpatient (CLI) | payer OTHER ==
[2016-11-14 12:17] LABS: BASO % 0.7 %; BASO ABS # 0.05 K/uL (0-0.2); COMPLETE YES; EOS % 1.7 %; HEMATOCRIT 45.5 % (37-47); IG% 0.1 %; LYMPH % 30.4 %; LYMPH ABS # 2.18 K/uL (1.2-3.4); MEAN CELL VOLUME 90.6 fL (80-100); MEAN CORPUSCULAR HEMOGLOBIN 30.3 pg (25-34); MEAN CORPUSCULAR HGB CONC 33.4 g/dl (32-36); MEAN PLATELET VOLUME 10.4 fL (7.4-10.4); NEUT % 60.1 %; PLATELET COUNT 303 K/uL (130-400); RED BLOOD COUNT 5.02 M/uL (4.2-5.4); WHITE BLOOD COUNT 7.18 K/uL (4.8-10.8)
[2016-11-14 12:26] LABS: ESTIMATED AVERAGE GLUCOSE 126 mg/dl; HA1C FLAG Normal (Normal)
[2016-11-14 12:31] LABS: ALT/SGPT 67 U/L (12-78); AST/SGOT 51 U/L (15-37); BLOOD UREA NITROGEN 10 mg/dl (7-18); BUN/CREATININE RATIO 8.3 (10-20); CARBON DIOXIDE 30 mmol/L (21-32); CHLORIDE 104 mmol/L (98-107); GLUCOSE 114 mg/dl (70-99); POTASSIUM 4.2 mmol/L (3.5-5.1); SODIUM 139 mmol/L (136-145)
[2016-11-14 12:38] LABS: ALB/GLOB RATIO 0.9 (0.9-2); ALKALINE PHOSPHATASE 93 U/L (45-117); CHOLESTEROL 213 mg/dl (0-200); CHOLESTEROL/HDL RATIO 4.8; HDL CHOLESTEROL 44 mg/dl; LDL CHOLESTEROL CALCULATED 126 mg/dl; TRIGLYCERIDES 213 mg/dl (0-150); VERY LOW DENSITY LIPOPROT CALC 43 mg/dl
== END | disposition home or self-care (01) ==
LOC: C.LABPBG 09:11
PROVIDERS: ATTEND Family Medicine
DX: C50.912 Malignant neoplasm of unspecified site of left female breast (principal); I10 Essential (primary) hypertension; F32.9 Major depressive disorder, single episode, unspecified; E78.5 Hyperlipidemia, unspecified; R73.03 Prediabetes; R00.0 Tachycardia, unspecified

== ENCOUNTER → 2017-04-04 | Outpatient (CLI) | payer OTHER ==
--- NOTE | 2017-04-04 13:47 | MAMMOGRAPHY REPORT ---
UNILATERAL RIGHT DIGITAL DIAGNOSTIC MAMMOGRAM TOMOSYNTHESIS WITH CAD AND TARGETED RIGHT ULTRASOUND: 1 06/05/2016 CLINICAL HISTORY: History of left breast cancer status post mastectomy. The patient reports a possib le new right breast lump for approximately 1-2 months. She has not noticed a change in the size over the lump over that time. TECHNIQUE: Breast tomosynthesis in addition to standard 2D mammography was performed. Current study was also evaluated with a Computer Aided Detection (CAD) system. Right CC and MLO 2-D and tomosynthe sis images were obtained. COMPARISON: Comparison is made to exams dated: 03/07/2016 mammogram - [facility], 10/26/2009 mammogram - [facility], 04/06/2016 ultrasound biopsy, 04/06/2016 mammogram, and mammogram - [facility]. BREAST COMPOSITION: There are scattered areas of fibroglandular density in the right breast. FINDINGS: A triangle marker le the site of the palpable lump in the right superior anterior breast . There are no suspicious masses or other suspicious mammographic abnormalities noted in this region . The remainder of the right breast is stable compared to prior exams, without suspicious masses, ca lcifications, or areas of architectural distortion noted. A few scattered benign-appearing calcifica tions are again noted. Targeted ultrasound was performed of the area of the palpable lump pointed out by the patient, in the right breast at approximately 3:00, centered around 3 cm from the nipple. No suspicious masses or o ther suspicious sonographic abnormalities are noted in this region. Incidentally noted in the right breast at 2:00 approximately 3 cm from the nipple is an oval anechoic benign simple cyst measuring 9 x 7 mm. IMPRESSION: ACR BI-RADS CATEGORY 2: BENIGN, TARGETED ULTRASOUND ACR BI-RADS CATEGORY 2: BENIGN No suspicious mammographic or sonographic abnormality at the site of the palpable right breast lump p ointed out by the patient. There is no mammographic or targeted sonographic evidence of malignancy. Recommend clinical follow-up for the palpable right breast lump; any decision to biopsy should be ba sed on clinical grounds. Also recommend routine screening mammograms of the right breast in one year . The patient has been verbally notified of the results. Approximately 10% of breast cancers are not detected with mammography. A negative mammographic report should not delay biopsy if a clinically suggestive mass is present. Andreea Rea M.D. ah/:04/04/2017 12:07:19 Financial Assistance Specialist: Jerad MILLER(Fely)([place]), [facility] letter sent: Normal 1/2 BI-RADS Code: ACR BI-RADS Category 2: Benign Ultrasound BI-RADS: ACR BI-RADS Category 2: Benign
== END | disposition home or self-care (01) ==
LOC: C.MAMM 11:24
PROVIDERS: ATTEND Internal Medicine Hematology & Oncology
DX: Z85.3 Personal history of malignant neoplasm of breast (principal); Z90.12 Acquired absence of left breast and nipple; N63.10 Unspecified lump in the right breast, unspecified quadrant

== ENCOUNTER 2017-06-07 12:58 | Emergency (ER) | payer OTHER ==
[~2017-06-07] VITALS: Ht 167.6 cm; Wt 121.3 kg
[2017-06-07 13:00] VITALS: TEMP 36.5; Ht 167.6 cm; Wt 121.3 kg
[2017-06-07 13:10] VITALS: O2SAT 97
[2017-06-07] MEDS ORDERED: SODIUM CHLORIDE 0.9% 500ML 500 ML IV STA (13:29)
[2017-06-07] MEDS ORDERED: ONDANSETRON INJ 2 MG/ML 2 ML VIAL IV STA ×2 (13:29→15:37)
[2017-06-07] MEDS ORDERED: FENTANYL CITRATE INJ 50 MCG/1 ML 2 ML VIAL IV STA ×2 (13:29→14:49)
--- NOTE | 2017-06-07 13:42 | EMERGENCY ROOM VISIT NOTE ---
History Report prepared by Jim: Doug Silver Under the Supervision of: Dr. Jon Flores M.D. First contact with patient: 13:09 Chief Complaint: ABDOMINAL PAIN Stated Complaint: LEFT SIDED STOMACH SWELLING,LIGHT HEADED History of Present Illness The patient is a 56 year old female who presents to the Emergency Room with complaints of worsening left sided abdominal pain for the past couple of months which is worse with palpation. She notes that she is also having some swelling in her left abdomen which has gotten worse over the last couple of months. The patient also note that she has been having some left chest pain as well. She has a history of breast cancer, and she had a left mastectomy in April 2016, and she is still on chemotherapy pills. The patient notes that she is having nausea, vomiting, and diarrhea for the past couple of day. She states that she is a smoker. She denies hematuria. Source of History: patient Onset: a couple months ago Position: abdomen (left sided) Timing: worsening Modifying Factors (Worsening): other (palpation) Associated Symptoms: + nausea, + vomiting, + diarrhea Note: Associated symptoms: Swelling Review of Systems See HPI for pertinent positives and negatives. A total of ten systems were reviewed and were otherwise negative. Past Medical & Surgical Medical Problems: (1) Breast cancer (2) Syncope Family History Patient reports no known family medical history. Social History Smoking Status: Current Every Day Smoker Housing Status: lives with family Current/Historical Medications Scheduled Amitriptyline HCl (Amitriptyline HCl), 100 MG PO HS Anastrozole (Anastrozole), 1 MG PO DAILY Betamethasone Valerate (Betamethasone Valerate), 1 APPLN TP BID Bupropion Hcl (Wellbutrin Xl), 150 MG PO DAILY Doxycycline Monohydrate (Monodox), 100 MG PO DAILY Escitalopram Oxalate (Lexapro), 20 MG PO DAILY Furosemide (Lasix), 20 MG PO DAILY Meloxicam (Mobic), 15 MG PO DAILY Metformin HCl (Metformin HCl ER), 500 MG PO QPM Mometasone Furoate-Formoterol (Dulera 200/5 Mcg), 2 PUFFS INH BID Potassium Ext Rel (Klor-Con), 20 MEQ PO DAILY Scheduled PRN Albuterol Hfa (Ventolin Hfa), 1 PUFF INH Q4 PRN for SOB/Wheezing Albuterol Sulf (Albuterol Sulfate), 2.5 MG INH Q6 PRN for SOB/Wheezing Benzonatate (Tessalon Perles), 200 MG PO TID PRN for Cough Lorazepam (Ativan), 0.5 MG PO TID PRN for Anxiety Ondansetron Hcl (Zofran), 8 MG PO Q8 PRN for Nausea Allergies Coded Allergies: Penicillins (Verified Allergy, Unknown, Hives, 06/07/17) Promethazine (Verified Allergy, Unknown, Shakiness, 05/12/16) Ranitidine (Verified Allergy, Unknown, Shakiness, 06/07/17) Uncoded Allergies: ddvap (Allergy, Severe, SHORTNESS OF BREATH, 04/25/16) Thoat/tongue swelling, facial flushing Physical Exam Vital Signs Date Time Temp Pulse Resp B/P (MAP) Pulse Ox O2 Delivery O2 Flow Rate FiO2 06/07/17 17:44 95 18 135/102 93 06/07/17 17:03 91 18 155/93 95 Room Air 06/07/17 15:19 83 18 113/97 96 Room Air 06/07/17 14:42 89 18 161/105 97 Room Air 06/07/17 13:17 96 06/07/17 13:10 97 Room Air 06/07/17 13:00 36.5 100 19 172/113 94 Room Air Physical Exam GENERAL: Awake, alert, uncomfortable-appearing, in no distress HENT: Normocephalic, atraumatic. Oropharynx unremarkable. Dry mucous membranes. EYES: Normal conjunctiva. Sclera non-icteric. NECK: Supple. No nuchal rigidity. FROM. No JVD. RESPIRATORY: Clear to auscultation. CARDIAC: Regular rate, normal rhythm. Extremities warm and well perfused. Pulses equal. ABDOMEN: Obese abdomen. Tenderness to the left abdominal area and flank. No peritoneal signs. Soft, non-distended. No rebound or guarding. RECTAL: Deferred. MUSCULOSKELETAL: Chest examination reveals no tenderness. The back is symmetrical on inspection without obvious abnormality. There is no CVA tenderness to palpation. No joint edema. LOWER EXTREMITIES: Scant lower extremity edema. Calves are equal size bilaterally and non-tender. No discoloration. NEURO: Normal sensorium. No sensory or motor deficits noted. SKIN: No rash or jaundice noted. Medical Decision & Procedures ER Provider Diagnostic Interpretation: Radiology results as stated below per my review and radiologist interpretation: ABDOMEN AND PELVIS CT WITH IV AND ORAL CONTRAST CT DOSE: 1132.59 mGycm HISTORY: Acute left lower abdominal pain. History of breast cancer and prior left-sided mastectomy. left abdominal pain/mass h/o breast ca TECHNIQUE: Multiaxial CT images of the abdomen and pelvis were performed following the use of intravenous and oral contrast. A dose lowering technique was utilized adhering to the principles of ALARA. COMPARISON STUDY: PET CT 05/02/2016, CTA chest 05/12/2016. FINDINGS: Minimal subsegmental bibasilar atelectasis. There is no pneumatosis or pneumoperitoneum identified. The imaged inferior cardiac chambers are unremarkable. Decreased attenuation of the liver suggests probable fatty infiltration. No focal hepatic mass lesions or intrahepatic biliary ductal dilation. Prior cholecystectomy. Spleen and adrenal glands are within normal limits. Mild to moderate generalized pancreatic atrophy. Cortical thinning and remote appearing scarring involves the superior and interpolar portions of the left kidney. Low attenuating lesions of the bilateral kidneys are noted measuring up to 1.5 cm on the right suggesting renal cysts. There is no renal calculi or obstructive uropathy. Air is noted within the vagina. Uterus and adnexa are unremarkable. Aorta is normal in course and caliber. There are a few nonspecific nonenlarged periaortic lymph nodes present which may be physiologic. Nonspecific 8 mm periesophageal lymph node is seen on image 77 series 3, previously 6 mm. No bulky adenopathy identified. There is no bowel obstruction or focal bowel wall thickening identified. There is moderate stool volume throughout the colon suggesting constipation. The appendix is not seen and is likely surgically absent. No ascites identified. Soft tissues are unremarkable. The bones appear to be intact. No suspicious lytic or blastic bony lesions are identified. Mostly mild degenerative changes are noted throughout the spine. Postsurgical changes of the left lower chest wall are noted compatible with prior mastectomy. IMPRESSION: 1. No acute intra-abdominal or intrapelvic abnormality identified. No bowel obstruction or focal bowel wall thickening. 2. Prior appendectomy and cholecystectomy. 3. Moderate stool volume throughout the colon suggests constipation. 4. Hepatic steatosis. Electronically signed by: Matt Turner M.D. 06/07/2017 4:43 PM Dictated Date/Time: 06/07/2017 4:35 PM Laboratory Results 06/07/17 13:15 Red Blood Count 4.81, Mean Corpuscular Volume 91.1, Mean Corpuscular Hemoglobin 30.1, Mean Corpuscular Hemoglobin Concent 33.1, Mean Platelet Volume 9.8, Neutrophils (%) (Auto) 57.7, Lymphocytes (%) (Auto) 33.4, Monocytes (%) (Auto) 7.7, Eosinophils (%) (Auto) 0.7, Basophils (%) (Auto) 0.4, Neutrophils # (Auto) 3.87, Lymphocytes # (Auto) 2.25, Monocytes # (Auto) 0.52, Eosinophils # (Auto) 0.05, Basophils # (Auto) 0.03 06/07/17 13:15 Test 06/07/17 13:10 06/07/17 13:15 06/07/17 13:55 Urine Color YELLOW Urine Appearance CLEAR (CLEAR) Urine pH 8.5 (4.5-7.5) Urine Specific [place] 1.007 (1.000-1.030) Urine Protein NEG (NEG) Urine Glucose (UA) NEG (NEG) Urine Ketones NEG (NEG) Urine Occult Blood NEG (NEG) Urine Nitrite NEG (NEG) Urine Bilirubin NEG (NEG) Urine Urobilinogen NEG (NEG) Urine Leukocyte Esterase NEG (NEG) White Blood Count 6.73 K/uL (4.8-10.8) Red Blood Count 4.81 M/uL (4.2-5.4) Hemoglobin 14.5 g/dL (12.0-16.0) Hematocrit 43.8 % (37-47) Mean Corpuscular Volume 91.1 fL (80-100) Mean Corpuscular Hemoglobin 30.1 pg (25-34) Mean Corpuscular Hemoglobin Concent 33.1 g/dl (32-36) Platelet Count 294 K/uL (130-400) Mean Platelet Volume 9.8 fL (7.4-10.4) Neutrophils (%) (Auto) 57.7 % Lymphocytes (%) (Auto) 33.4 % Monocytes (%) (Auto) 7.7 % Eosinophils (%) (Auto) 0.7 % Basophils (%) (Auto) 0.4 % Neutrophils # (Auto) 3.87 K/uL (1.4-6.5) Lymphocytes # (Auto) 2.25 K/uL (1.2-3.4) Monocytes # (Auto) 0.52 K/uL (0.11-0.59) Eosinophils # (Auto) 0.05 K/uL (0-0.5) Basophils # (Auto) 0.03 K/uL (0-0.2) RDW Standard Deviation 45.0 fL (36.4-46.3) RDW Coefficient of Variation 13.6 % (11.5-14.5) Immature Granulocyte % (Auto) 0.1 % Immature Granulocyte # (Auto) 0.01 K/uL (0.00-0.02) Anion Gap 6.0 mmol/L (3-11) Est Creatinine Clear Calc Drug Dose 72.7 ml/min Estimated GFR () 62.7 Estimated GFR (Non- 54.1 BUN/Creatinine Ratio 10.8 (10-20) Calcium Level 10.0 mg/dl (8.5-10.1) Total Bilirubin 0.2 mg/dl (0.2-1) Direct Bilirubin < 0.1 mg/dl (0-0.2) Aspartate Amino Transf (AST/SGOT) 66 U/L (15-37) Alanine Aminotransferase (ALT/SGPT) 61 U/L (12-78) Alkaline Phosphatase 115 U/L (45-117) Total Protein 8.0 gm/dl (6.4-8.2) Albumin 3.8 gm/dl (3.4-5.0) Lipase 288 U/L (73-393) Lactic Acid Level 1.7 mmol/L (0.4-2.0) Laboratory results reviewed by me Medications Administered Medications (Trade) Dose Ordered Sig/Rob Route Start Time Stop Time Status Last Admin Dose Admin Sodium Chloride 500 ml @ 999 mls/hr Q31M STAT IV 06/07/17 13:29 06/07/17 13:59 DC 06/07/17 13:47 999 MLS/HR Ondansetron HCl (Zofran Inj) 4 mg NOW STAT IV 06/07/17 13:29 06/07/17 13:33 DC 06/07/17 13:45 4 MG Fentanyl Citrate (Fentanyl Inj) 50 mcg NOW STAT IV 06/07/17 13:29 06/07/17 13:33 DC 06/07/17 13:47 50 MCG Fentanyl Citrate (Fentanyl Inj) 100 mcg NOW STAT IV 06/07/17 14:49 06/07/17 14:50 DC 06/07/17 15:05 100 MCG Ondansetron HCl (Zofran Inj) 4 mg NOW STAT IV 06/07/17 15:37 06/07/17 15:38 DC 06/07/17 15:42 4 MG ED Course 1309: The patient was evaluated in room C1. A complete history and physical exam was performed. 1730: I reevaluated the patient. Discussed results and discharge instructions: she verbalized understanding and agreement. The patient is ready for discharge. Medical Decision I reviewed the patient's past medical history, medications, and the nursing notes as described above. Differential diagnosis: Etiologies such as appendicitis, diverticulitis, PUD, biliary pathology, UTI, pancreatitis, obstruction, mesenteric ischemia, aortic pathology, infections, inflammatory bowel disease, renal colic, as well as others were entertained. The patient is a 56-year-old woman with a past medical history of breast cancer who presents emergency department with left-sided abdominal pain/flank pain for the past 2 months per hpi. On arrival patient is uncomfortable but in no acute distress, afebrile stable vital signs. On exam the patient has mild left abdominal left flank tenderness to palpation with no peritoneal signs. Labs unremarkable including WBC and lactate within normal limits. UA negative. CT scan negative for acute findings. There is evidence of constipation however patient reports daily bowel movement without straining or hard stool. I did recommend a bowel regimen should the patient feel she is experiencing any constipation. She feeling improved after IV fluid hydration and analgesia, antiemetics. Findings and plan for follow-up reviewed with patient. Patient agreeable and d/c'd per discharge instructions. Medication Reconcilliation Current Medication List: was personally reviewed by me Blood Pressure Screening Patient's blood pressure: Elevated blood pressure Blood pressure disposition: Elevated BP felt to be situational Impression Primary Impression: Left flank pain Scribe Attestation The scribe's documentation has been prepared under my direction and personally reviewed by me in its entirety. I confirm that the note above accurately reflects all work, treatment, procedures, and medical decision making performed by me. Departure Information Dispostion Home / Self-Care Referrals Perla Carmen DO (PCP) Forms Call Back Authorization, HOME CARE DOCUMENTATION FORM, IMPORTANT VISIT INFORMATION Patient Instructions ED Abdominal Pain Unkn Cause, ED Flank Pain Uncertain Cause, My [facility] Additional Instructions Please follow up with your primary care physician next week for re-evaluation. The cause of your symptoms is unclear at this time. However your symptoms resolved. Otherwise, your exam, lab results, and CT scan did not show signs of an emergent condition at this time. Stool softener for constipation as needed. Drink plenty of fluids to ensure hydration. Return to the emergency department for worsening symptoms as described in the accompanying instructions.
[2017-06-07] MEDS ORDERED: OPTIRAY 320 IV PRN ×2 (13:45)
[2017-06-07] MEDS ORDERED: ONDA8TAB6 PO (13:58)
[2017-06-07] MEDS ORDERED: POTA20TA16 PO (13:58)
[2017-06-07] MEDS ORDERED: MELO-84 PO (13:58)
[2017-06-07] MEDS ORDERED: BETA0.1L2 TP (13:58)
[2017-06-07] MEDS ORDERED: LORA-741 PO (13:58)
[2017-06-07] MEDS ORDERED: VNTHFA/IN INH (13:58)
[2017-06-07] MEDS ORDERED: ALBINSX INH (13:58)
[2017-06-07] MEDS ORDERED: AMT100 PO (13:58)
[2017-06-07] MEDS ORDERED: FRS/40 PO (13:58)
[2017-06-07] MEDS ORDERED: DOXY100C76 PO (13:58)
[2017-06-07] MEDS ORDERED: BUPRTAB PO (13:58)
[2017-06-07] MEDS ORDERED: ESCI1TAB10 PO (13:58)
[2017-06-07] MEDS ORDERED: ARM1 PO (13:58)
[2017-06-07] MEDS ORDERED: BENZ1CAP90 PO (13:58)
[2017-06-07] MEDS ORDERED: MOME200A INH (13:58)
[2017-06-07] MEDS ORDERED: GLCSR500 PO (13:58)
[2017-06-07 14:01] LABS: BASO % 0.4 %; BASO ABS # 0.03 K/uL (0-0.2); EOS % 0.7 %; EOS ABS # 0.05 K/uL (0-0.5); HEMATOCRIT 43.8 % (37-47); HEMOGLOBIN 14.5 g/dL (12.0-16.0); IG# 0.01 K/uL (0.00-0.02); LYMPH % 33.4 %; LYMPH ABS # 2.25 K/uL (1.2-3.4); MEAN CELL VOLUME 91.1 fL (80-100); MEAN CORPUSCULAR HEMOGLOBIN 30.1 pg (25-34); MEAN CORPUSCULAR HGB CONC 33.1 g/dl (32-36); MEAN PLATELET VOLUME 9.8 fL (7.4-10.4); MONO % 7.7 %; MONO ABS # 0.52 K/uL (0.11-0.59); NEUT % 57.7 %; NEUT ABS # 3.87 K/uL (1.4-6.5); PLATELET COUNT 294 K/uL (130-400); RED CELL DISTRIBUTION WIDTH CV 13.6 % (11.5-14.5); WHITE BLOOD COUNT 6.73 K/uL (4.8-10.8)
[2017-06-07 14:09] LABS: ALBUMIN 3.8 gm/dl (3.4-5.0); ALT/SGPT 61 U/L (12-78); BLOOD UREA NITROGEN 12 mg/dl (7-18); CARBON DIOXIDE 28 mmol/L (21-32); CREATININE 1.12 mg/dl (0.60-1.20); GLUCOSE 103 mg/dl (70-99); LIPASE 288 U/L (73-393); POTASSIUM 4.4 mmol/L (3.5-5.1); SODIUM 137 mmol/L (136-145)
[2017-06-07 14:12] LABS: ALKALINE PHOSPHATASE 115 U/L (45-117); AST/SGOT 66 U/L (15-37)
[2017-06-07] MEDS ORDERED: NURSING DECISION MEDICATION ORDER SCH (14:45)
--- NOTE | 2017-06-07 16:44 | DIAGNOSTIC IMAGING REPORT ---
ABDOMEN AND PELVIS CT WITH IV AND ORAL CONTRAST CT DOSE: 1132.59 mGycm HISTORY: Acute left lower abdominal pain. History of breast cancer and prior left-sided mastectomy. left abdominal pain/mass h/o breast ca TECHNIQUE: Multiaxial CT images of the abdomen and pelvis were performed following the use of intravenous and oral contrast. A dose lowering technique was utilized adhering to the principles of ALARA. COMPARISON STUDY: PET CT 05/02/2016, CTA chest 05/12/2016. FINDINGS: Minimal subsegmental bibasilar atelectasis. There is no pneumatosis or pneumoperitoneum identified. The imaged inferior cardiac chambers are unremarkable. Decreased attenuation of the liver suggests probable fatty infiltration. No focal hepatic mass lesions or intrahepatic biliary ductal dilation. Prior cholecystectomy. Spleen and adrenal glands are within normal limits. Mild to moderate generalized pancreatic atrophy. Cortical thinning and remote appearing scarring involves the superior and interpolar portions of the left kidney. Low attenuating lesions of the bilateral kidneys are noted measuring up to 1.5 cm on the right suggesting renal cysts. There is no renal calculi or obstructive uropathy. Air is noted within the vagina. Uterus and adnexa are unremarkable. Aorta is normal in course and caliber. There are a few nonspecific nonenlarged periaortic lymph nodes present which may be physiologic. Nonspecific 8 mm periesophageal lymph node is seen on image 77 series 3, previously 6 mm. No bulky adenopathy identified. There is no bowel obstruction or focal bowel wall thickening identified. There is moderate stool volume throughout the colon suggesting constipation. The appendix is not seen and is likely surgically absent. No ascites identified. Soft tissues are unremarkable. The bones appear to be intact. No suspicious lytic or blastic bony lesions are identified. Mostly mild degenerative changes are noted throughout the spine. Postsurgical changes of the left lower chest wall are noted compatible with prior mastectomy. IMPRESSION: 1. No acute intra-abdominal or intrapelvic abnormality identified. No bowel obstruction or focal bowel wall thickening. 2. Prior appendectomy and cholecystectomy. 3. Moderate stool volume throughout the colon suggests constipation. 4. Hepatic steatosis. Electronically signed by: Matt Turner M.D. 06/07/2017 4:43 PM Dictated Date/Time: 06/07/2017 4:35 PM
[2017-06-07 17:44] VITALS: BP 135/102; PULSE 95; O2SAT 93
== END 2017-06-07 17:41 | disposition home or self-care (01) ==
LOC: C.EDC 13:19
DX: R10.9 Unspecified abdominal pain (principal); Z85.3 Personal history of malignant neoplasm of breast; Z90.12 Acquired absence of left breast and nipple; F17.210 Nicotine dependence, cigarettes, uncomplicated; Z79.899 Other long term (current) drug therapy; Z88.0 Allergy status to penicillin; Z88.8 Allergy status to other drugs, medicaments and biological substances

== ENCOUNTER → 2017-07-03 | Outpatient (CLI) | payer OTHER ==
[~2017-07-03] MED LIST changes: -ALBINS NEB; +ALBINSX INH; -ALBUAER19 INH; -AMIT100T2 PO; +AMT100 PO; +ARM1 PO; +BENZ1CAP90 PO; +BETA0.1L2 TP; +BUPRTAB PO; +DOXY100C76 PO; +FRS/40 PO; -FURO-85 PO; +GLCSR500 PO; -IPRA1AER2 INH; -MCRK20 PO; +MELO-84 PO; +ONDA-170 PO; -ONDA8TAB6 PO; -OXYC-57 PO; +POTA20TA16 PO; +VNTHFA/IN INH
[2017-07-03 15:28] LABS: HEMOGLOBIN A1C 6.1 % (4.5-5.6)
== END | disposition home or self-care (01) ==
LOC: C.LABPBG 10:03
PROVIDERS: ATTEND Family Medicine
DX: R10.9 Unspecified abdominal pain (principal); R19.8 Other specified symptoms and signs involving the digestive system and abdomen; R63.5 Abnormal weight gain; E11.9 Type 2 diabetes mellitus without complications

== ENCOUNTER → 2017-10-23 | Outpatient (CLI) | payer OTHER ==
[~2017-10-23] MED LIST changes: +POTA-639 PO; -POTA20TA16 PO
[2017-10-23 13:05] LABS: BASO ABS # 0.07 K/uL (0-0.2); EOS % 2.1 %; EOS ABS # 0.14 K/uL (0-0.5); HEMATOCRIT 44.9 % (37-47); HEMOGLOBIN 14.5 g/dL (12.0-16.0); IG# 0.01 K/uL (0.00-0.02); LYMPH % 31.6 %; LYMPH ABS # 2.11 K/uL (1.2-3.4); MEAN CORPUSCULAR HEMOGLOBIN 29.1 pg (25-34); MEAN CORPUSCULAR HGB CONC 32.3 g/dl (32-36); MEAN PLATELET VOLUME 10.2 fL (7.4-10.4); MONO % 8.5 %; MONO ABS # 0.57 K/uL (0.11-0.59); NEUT % 56.7 %; NEUT ABS # 3.78 K/uL (1.4-6.5); PLATELET COUNT 283 K/uL (130-400); RED CELL DISTRIBUTION WIDTH CV 13.9 % (11.5-14.5); RED CELL DISTRIBUTION WIDTH SD 45.3 fL (36.4-46.3); WHITE BLOOD COUNT 6.68 K/uL (4.8-10.8)
[2017-10-23 13:40] LABS: HEMOGLOBIN A1C 6.4 % (4.5-5.6)
[2017-10-23 13:45] LABS: ALBUMIN 3.7 gm/dl (3.4-5.0); ALKALINE PHOSPHATASE 136 U/L (45-117); ALT/SGPT 87 U/L (12-78); AST/SGOT 74 U/L (15-37); BLOOD UREA NITROGEN 10 mg/dl (7-18); CALCIUM 9.7 mg/dl (8.5-10.1); CARBON DIOXIDE 27 mmol/L (21-32); CHOLESTEROL 209 mg/dl (0-200); CREATININE 0.98 mg/dl (0.60-1.20); GLUCOSE 121 mg/dl (70-99); LDL CHOLESTEROL CALCULATED 125 mg/dl; POTASSIUM 4.3 mmol/L (3.5-5.1); SODIUM 136 mmol/L (136-145); TOTAL PROTEIN 7.7 gm/dl (6.4-8.2)
== END | disposition home or self-care (01) ==
LOC: C.LABPBG 08:55
PROVIDERS: ATTEND Family Medicine
DX: I10 Essential (primary) hypertension (principal); E78.5 Hyperlipidemia, unspecified; J44.9 Chronic obstructive pulmonary disease, unspecified; E11.9 Type 2 diabetes mellitus without complications; E03.9 Hypothyroidism, unspecified

== ENCOUNTER 2024-12-08 16:58 | Inpatient (IN) ==
[2024-12-08 17:26] LABS: Hematocrit (blood only) 39.8 % (37.0-47.0); Hemoglobin 13.4 g/dl (12.0-16.0); Immature Granulocytes # (auto) 0.01 K/uL (0.01-0.20); Immature Granulocytes % (auto) 0.2 %; Mean Corpuscular Hemoglobin 29.2 pg (25.0-34.0); Mean Corpuscular Volume 86.7 fL (80.0-100.0); Platelet Count 248 K/uL (130-400); RDW Standard Deviation 41.9 fL (36.4-46.3); Red Blood Count 4.59 M/uL (4.20-5.40); White Blood Count 5.07 K/ul (4.8-10.8)
[2024-12-08] MEDS: NITROGLYCERIN 2% OINTMENT 30GM TUBE EXT ONE (17:33)
--- NOTE | 2024-12-08 17:45 | Emergency Department Note ---
Impression & Plan Chest pain, Dyspnea, Pleural effusion on left, Hypoxia ED Provider Note ED Provider Note NAME: JM CUEVAS AGE:64 SEX: Female : 1960 ARRIVES VIA: EMS INFORMANT: Patient ED PROVIDER(s): Palak Daugherty DO CHIEF COMPLAINT: chest pain, shortness of breath HPI: This is a 64-year-old female who presents to the emergency department complaining of chest pain and increased shortness of breath. Patient states she has had intermittent symptoms over the course of the last 2 weeks. She states she cannot identify any particular triggers or exacerbating symptoms. She states it does not seem tied to position or exertion. She denies any increased heartburn or reflux recently. Patient states she does have asthma/COPD but does not wear home oxygen. She does use MDIs at home. She states when she feels the symptoms she has tried using her inhaler but it does not seem to help. Patient presented to doctors office this morning and due to her concerning symptoms they contacted EMS and request that she be brought here for further urgent evaluation. She states the chest pain is a heaviness or pressure that radiates into her back and left shoulder. She states she feels lightheaded and short of breath when the heaviness starts. She states if she lays down for 30 minutes the symptoms seem to go away. She denies any recent leg swelling. No recent change in cough or sputum production. No change in bowel or bladder function. Patient states she has had intermittent chills as well as some nasal congestion recently but denies any known sick contacts. She denies any prior cardiac history. Patient given aspirin in the PCPs office. She was given an additional baby aspirin and DuoNeb treatment en route by EMS. Patient states these did not help. She states she still has some mild chest pressure at this time. PAST MEDICAL HISTORY:See Below PAST SURGICAL HISTORY:See Below FAMILY HISTORY:See Below SOCIAL HISTORY:See Below HOME MEDICATIONS:See Below ALLERGIES:See Below VITALS:See Below PHYSICAL EXAMINATION: GENERAL: alert, well appearing, well nourished, no distress, non-toxic EYE EXAM: normal conjunctiva, PERRL and EOM's grossly intact OROPHARYNX: no exudate, no erythema, lips, buccal mucosa, and tongue normal and mucous membranes are moist NECK: supple, no nuchal rigidity, no adenopathy, non-tender LUNGS: Clear to auscultation. Normal chest wall mechanics, no w/r/r HEART: no murmurs, S1 normal and S2 normal ABDOMEN: abdomen soft, non-tender, normo-active bowel sounds, no masses, no rebound or guarding. BACK: Back is symmetrical on inspection and there is no deformity SKIN: no rashes, petechiae, orbruising UPPER EXTREMITIES: upper extremities are grossly normal. FROM, nml pulses b/l. LOWER EXTREMITIES: No pitting edema. FROM, nml pulses b/l. NEURO EXAM: Normal sensorium, cranial nerves II-XII grossly intact, normal speech, no facial droop,nogross weakness of arms, no gross weakness of legs. Gross sensation intact. No ataxia. Vital Signs: reviewed and remarkable Differential Diagnosis: pneumonia, bronchitis, COPD/Asthma exacerbation, pneumothorax, pulmonary embolism, congestive heart failure, acute coronary syndrome, as well as others were considered MEDICAL DECISION MAKING: This is a 64-year-old female who presents emergency department due to 2 weeks of intermittent chest pain and increased shortness of breath. Patient was afebrile and hemodynamically stable on arrival. She had been noted to be 89% on room air and so was kept on oxygen via nasal cannula 2 L/min. Labs drawn and sent, IV established, EKG and CXR performed and interpreted at bedside, and patient placed on telemetry. Nasal swab obtained and sent for viral respiratory panel additionally. VBG and BNP also checked with basic labs. Patient's labs are reassuring with exception of mild hypomagnesemia which was repleted at bedside via IV. The nasal swab for bio fire was negative. Patient's chest x-ray revealed a large left pleural effusion which is new compared to prior. She denied any history of congestive heart failure or recent upper respiratory infections. Due to concerning findings and prior history of malignancy. CT angiography of the chest was also added. Due to oxygen requirements and ongoing symptoms, case discussed with the hospitalist team for additional evaluation and management. CTA of the chest was still pending at that time. Consultation(s): 2219: Discussed with Dr. Altamirano, [place] hospitalist team, for additional evaluation and mgmt. ER Treatment Provided: See below Diagnostics Interpreted By Me: -ECG: Normal sinus at 84, normal axis, normal intervals, no acute ST/T wave changes -Cardiac Monitoring: An order was placed for continuous cardiac monitoring. The monitor shows a rate of 88 with normal sinus rhythm. -Laboratory studies: As stated above and show below. -Imaging studies: cxr: no cm, left pleural effusion, no wide mediastinum Triage Nursing Note Reviewed Prior/Outside Records Reviewed Past Med/Surg History Problem List (Updated 12/09/24 @ 00:06 by Irene Altamirano DO) Mediastinal mass Hypoxia (Acute) Pleural effusion on left (Acute) Dyspnea (Acute) Chest pain (Acute) Fatty liver Diabetic neuropathy Vitamin D deficiency History of left breast cancer Hypercalcemia Mediastinal lymphadenopathy T2DM (type 2 diabetes mellitus) Osteopenia Irritable bowel syndrome Hypothyroidism Hypertension Dyslipidemia Anxiety and depression Chronic obstructive pulmonary disease Asthma well controlled w/ daily inhaler use; rarely uses rescue inhaler Arthritis Apnea, sleep no device Acid reflux Medical History Right facial swelling Colon cancer screening Breast cancer (04/06/16) "Self detected left breast mass Status post ultrasound-guided biopsy of the breast and axilla Invasive lobular carcinoma grade 1 biopsy of the node benign Estrogen receptor positive, progesterone receptor positive, and HER-2/abdelrahman negative Status post left mastectomy and sentinel lymph node biopsy 04/23/2016 Stage pT2 pN1mi M0" Surgical History Hx of colonoscopy Hx of tonsillectomy S/P wrist surgery (05/06/19) R wrist and thumb Status post evacuation of hematoma (04/2016) 09/[address] Mccormick; L chest wound hematoma S/P cardiac cath Jun 2014-no stents- [facility]- does not follow w/ cardio History of right salpingo-oophorectomy S/P left mastectomy (04/2016) w/ SLNB 04/23/[address] Mccormick S/P cholecystectomy S/P appendectomy Family History Father Kidney disease Kidney stones Congestive heart failure Myocardial infarction Mother Gallbladder disease Hypertension Aunt Breast cancer Denies family history of Ovarian cancer Prostate cancer Colorectal cancer Social History Smoking Status: Never smoker Tobacco Type: Cigarettes Age Started Using Tobacco: 29; Age Quit Using Tobacco: 59; packs per day: 1; Second Hand Exposure: No; Do You Dip or Chew Tobacco: No; Hx Alcohol Use: No Hx Substance Use: No Preferred Language: Vietnamese Communication Ability: Effective Visual Impairment: No Limitations 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: Normal Substation Technician Required: No Beliefs That Will Affect Care: None marital status: Current Living Situation: Spouse current occupational status: disabled Feels Safe at Home: Yes Childhood Exposure to Second-Hand Smoke: No Diet: regular Diet Comment: regular caffeine: Yes (coffee) during the past year weight has: remained stable Dental Care, Regularly: Yes Physical Activity Frequency: Daily Physical Activity Frequency Comment: walking, house work Seatbelt Use: always Sunscreen Use: No Assistive Devices: Cane Allergies Allergies Allergy/AdvReac Type Severity Reaction Status Date / Time empagliflozin Allergy Severe Rash Verified 12/08/24 15:41 [From Jardiance] Penicillins Allergy Unknown Hives Verified 12/08/24 15:41 ranitidine Allergy Unknown Shakiness Verified 12/08/24 15:41 ddvap Allergy Severe SHORTNESS Uncoded 12/08/24 15:41 OF BREATH Home Meds Home Medications Medication Instructions Recorded Confirmed cholecalciferol (vitamin D3) 50 2,000 units PO HS 09/20/20 12/08/24 mcg (2,000 unit) tablet calcium carbonate (Calcium 600) 600 mg PO QDL 01/17/23 12/08/24 albuterol sulfate 90 mcg/actuation 1 puff inhalation Q4H PRN Other 09/26/23 12/08/24 aerosol inhaler (Ventolin HFA) furosemide 20 mg tablet 20 mg PO QAM 12/08/24 12/08/24 pantoprazole 40 mg tablet,delayed 40 mg PO QAM 12/08/24 12/08/24 release semaglutide 0.25 mg or 0.5 mg (2 0.5 mg subcut WK 12/08/24 12/08/24 mg/3 mL) subcutaneous pen injector (Ozempic) Previous Rx's Medication Instructions Recorded albuterol sulfate 2.5 mg/3 mL 2.5 mg (3 mL) inhalation Q6H PRN 09/05/18 (0.083 %) solution for nebulization shortness of breath or wheezing #150 mL ipratropium 0.5 mg-albuterol 3 mg 3 ml inhalation QID PRN shortness 12/15/19 (2.5 mg base)/3 mL nebulization of breath or wheezing Dx: J44.9 soln #360 mL blood-glucose meter (OneTouch #1 ea 10/20/20 Verio Meter) fluticasone furoate 200 1 inh inhalation QAM #60 ea 11/22/20 mcg-vilanterol 25 mcg/dose inhalation powder (Breo Ellipta) metoprolol succinate 25 mg 25 mg PO QAM #90 tabs 01/15/24 tablet,extended release 24 hr potassium chloride 20 mEq 20 meq PO HS #90 tabs 01/15/24 tablet,extended release(part/cryst) (Klor-Con M) blood sugar diagnostic (OneTouch #200 ea 01/20/24 Verio test strips) ondansetron 8 mg disintegrating 8 mg PO Q8H PRN nausea and 03/15/24 tablet vomiting #30 tabs lorazepam 0.5 mg tablet 0.5 mg PO DAILY PRN anxiety #10 07/13/24 tabs hydrocodone 5 mg-acetaminophen 325 1 tab PO Q8H PRN pain #30 tabs 09/01/24 mg tablet levothyroxine 50 mcg tablet 100 mcg (2 x 50 mcg) PO DAILYBB 09/01/24 #180 tabs venlafaxine 150 mg 150 mg PO QAM #90 caps 09/07/24 capsule,extended release 24 hr amitriptyline 100 mg tablet 100 mg PO HS #90 tabs 09/30/24 atorvastatin 20 mg tablet 20 mg PO HS #90 tabs 09/30/24 Results & Data (ED) Vital Signs Vital Signs - 24 hr 12/08/24 23:04 Pulse Rate [Finger] 85 Respiratory Rate 19 Blood Pressure [Right Arm] 105/71 Blood Pressure Mean [Right Arm] 82 Pulse Oximetry 97 Laboratory Data 12/09/24 01:55 12/09/24 01:55 Lab Results 12/08/24 12/08/24 12/08/24 Range/Units 17:09 17:37 18:28 WBC 5.07 (4.8-10.8) K/ul RBC 4.59 (4.20-5.40) M/uL Hgb 13.4 (12.0-16.0) g/dl Hct 39.8 (37.0-47.0) % MCV 86.7 (80.0-100.0) fL MCH 29.2 (25.0-34.0) pg MCHC 33.7 (32.0-36.0) g/dL RDW Std Deviation 41.9 (36.4-46.3) fL RDW Coeff of Ronen 13.4 (11.5-14.5) % Plt Count 248 (130-400) K/uL MPV 10.5 (9.4-12.4) fL Immature Gran % (Auto) 0.2 % Neut % (Auto) 62.7 % Lymph % (Auto) 29.8 % [place] % (Auto) 6.9 % Eos % (Auto) 0.0 % Baso % (Auto) 0.4 % Neut # (Auto) 3.18 (1.40-6.50) K/uL Lymph # (Auto) 1.51 (1.20-3.40) K/uL [place] # (Auto) 0.35 (0.11-0.59) K/uL Eos # (Auto) 0.00 (0.00-0.50) K/uL Baso # (Auto) 0.02 (0.00-0.20) K/uL Immature Gran # (Auto) 0.01 (0.01-0.20) K/uL PT Cancelled 11.4 INR Cancelled 1.1 Sodium Cancelled 135 L Potassium Cancelled 4.2 Chloride Cancelled 100 Carbon Dioxide Cancelled 28 Anion Gap Cancelled 7 BUN Cancelled 9 Creatinine Cancelled 0.79 Est Cr Clr Drug Dosing Cancelled 76.2 eGFR Cancelled 82.45 BUN/Creatinine Ratio Cancelled 11.4 Glucose Cancelled 108 H Calcium Cancelled 10.3 Magnesium Cancelled 1.6 L Total Bilirubin Cancelled 0.6 AST Cancelled 24 ALT Cancelled 16 Alkaline Phosphatase Cancelled 120 H Troponin I High Sens 2.5 (0-14) pg/ml B-Natriuretic Peptide 12 (0-100) pg/ml Total Protein Cancelled 7.9 Albumin Cancelled 3.9 Globulin Cancelled 4.0 Albumin/Globulin Ratio Cancelled 1.0 Lipase 80 (11-82) U/L Adenovirus (PCR) Not Detected (NotDetected) B. pertussis DNA (PCR) Not Detected (NotDetected) B.parapertussis DNA PCR Not Detected (NotDetected) C. pneumoniae DNA (PCR) Not Detected (NotDetected) Coronavirus OC43 (PCR) Not Detected (NotDetected) Coronavirus HKU1 (PCR) Not Detected (NotDetected) Coronavirus 229E (PCR) Not Detected (NotDetected) SARS-CoV-2 (PCR) Not Detected (NotDetected) Coronavirus NL63 (PCR) Not Detected (NotDetected) Human Metapneumovir PCR Not Detected (NotDetected) Influenza Type A (PCR) Not Detected (NotDetected) Influenza Type B (PCR) Not Detected (NotDetected) M. pneumoniae (PCR) Not Detected (NotDetected) Parainfluenza 1 (PCR) Not Detected (NotDetected) Parainfluenza 2 (PCR) Not Detected (NotDetected) Parainfluenza 3 (PCR) Not Detected (NotDetected) Parainfluenza 4 (PCR) Not Detected (NotDetected) RSV (PCR) Not Detected (NotDetected) Entero/Rhino (PCR) Not Detected (NotDetected) Administered Medications Acetaminophen (Acetaminophen 500 Mg Tab) 1,000 mg PO TID CORNELIUS Stop: 01/08/25 08:59 Last Admin: 12/09/24 22:38 Dose: Not Given Documented By: Admin: 12/09/24 14:31 Dose: 1,000 mg Documented By: Admin: 12/09/24 08:40 Dose: 1,000 mg Documented By: MONI Amitriptyline HCl (Amitriptyline Hcl 100 Mg Tab) 100 mg PO CORNELIUS Stop: 01/08/25 20:59 Last Admin: 12/09/24 22:37 Dose: 100 mg Documented By: FABRIZIO Atorvastatin Calcium (Atorvastatin 20 Mg Tab) 20 mg PO [facility] Stop: 01/08/25 20:59 Last Admin: 12/09/24 22:37 Dose: 20 mg Documented By: FABRIZIO Fluticasone/Vilanterol (Fluticasone/Vilanterol 200/25mcg 14 Puffs/Inhaler) 1 puffs INH QAM CORNELIUS Stop: 01/08/25 08:59 Last Admin: 12/09/24 08:38 Dose: 1 puffs Documented By: MONI Levothyroxine Sodium (Levothyroxine Sodium 100 Mcg Tablet) [facility] Stop: 01/08/25 06:29 Last Admin: 12/09/24 05:56 Dose: 100 mcg Documented By: LEONOR Lorazepam (Lorazepam 0.5 Mg Tab) 0.5 mg PO DAILY PRN PRN Reason: anxiety Stop: 01/08/25 01:11 Last Admin: 12/09/24 03:42 Dose: 0.5 mg Documented By: LEONOR Metoprolol Succinate (Metoprolol Succ 25mg Ext Rel Tab) 25 mg PO [facility] Stop: 01/08/25 08:59 Last Admin: 12/09/24 08:40 Dose: 25 mg Documented By: MONI Morphine Sulfate (Morphine Sulfate 2 Mg/Ml Carp) 2 mg IV Q3H PRN PRN Reason: Pain (1,2,3,4,5) & Pre PT Stop: 12/23/24 01:11 Last Admin: 12/09/24 20:13 Dose: 2 mg Documented By: FABRIZIO Ondansetron HCl (Ondansetron Inj 2 Mg/Ml 2 Ml Vial) 4 mg IV Q6H PRN PRN Reason: Nausea Stop: 01/08/25 01:11 Last Admin: 12/09/24 22:17 Dose: 4 mg Documented By: Admin: 12/09/24 08:39 Dose: 4 mg Documented By: MONI Oxycodone HCl (Oxycodone Hcl Ir 5 Mg Tab (Immediate Release)) 10 mg PO Q4H PRN PRN Reason: SEVERE Pain (7,8,9,10) Stop: 12/23/24 17:33 Last Admin: 12/09/24 17:43 Dose: 10 mg Documented By: RICHARD Pantoprazole Sodium (Pantoprazole 40 Mg Tab) 40 mg PO [facility] Stop: 01/08/25 08:59 Last Admin: 12/09/24 08:40 Dose: 40 mg Documented By: MONI Venlafaxine HCl (Venlafaxine Hcl Xr 150 Mg Capxr) 150 mg PO [facility] Stop: 01/08/25 08:59 Last Admin: 12/09/24 08:40 Dose: 150 mg Documented By: MONI Discontinued Medications Hydrocodone Bitart/Acetaminophen (Hydrocodone/Acetamophen 5/325mg Tab) 1 tab PO Q8H PRN PRN Reason: pain Stop: 12/23/24 01:11 Last Admin: 12/09/24 10:02 Dose: 1 tab Documented By: MONI Gadobutrol (Gadobutrol 65ml Vial) 8.5 ml IV ONCE ONE Stop: 12/09/24 09:40 Last Admin: 12/09/24 09:40 Dose: 8.5 ml Documented By: NAVYA Sodium Chloride (Nss) 500 mls @ 80 mls/hr IV .Q6H15M CORNELIUS Stop: 12/09/24 00:14 Last Infusion: 12/08/24 23:37 Dose: Infused Documented By: Admin: 12/08/24 18:18 Dose: 80 mls/hr Documented By: LEONARDO Acetaminophen (Ofirmev) 1,000 mg in 100 mls @ 400 mls/hr IV NOW STA Stop: 12/08/24 18:26 Last Infusion: 12/08/24 18:39 Dose: Infused Documented By: Admin: 12/08/24 18:18 Dose: 400 mls/hr Documented By: LEONARDO Magnesium Sulfate/Dextrose (Magnesium Sulfate / D5w) 1 gm in 100 mls @ 50 mls/hr IV ONE ONE Stop: 12/09/24 03:11 Last Infusion: 12/09/24 04:31 Dose: Infused Documented By: Admin: 12/09/24 02:27 Dose: 50 mls/hr Documented By: ANTONIO Ioversol (Optiray 320 125ml) 118 ml IV ONCE ONE Stop: 12/08/24 21:38 Last Admin: 12/08/24 21:38 Dose: 118 ml Documented By: EUGENE Lidocaine (Lidocaine 5% 1 Patch) 1 patch TD NOW STA Stop: 12/09/24 01:13 Last Admin: 12/09/24 02:28 Dose: 1 patch Documented By: ANTONIO Miscellaneous (Remove Lidoderm Patch) 1 each N/A DAILY@1400 ONE Stop: 12/09/24 14:01 Last Admin: 12/09/24 14:12 Dose: 1 each Documented By: RICHARD Morphine Sulfate (Morphine Sulfate 4 Mg/Ml 1 Ml Carp\\Vial) 4 mg IV NOW STA Stop: 12/08/24 22:34 Last Admin: 12/08/24 22:37 Dose: 4 mg Documented By: LEONARDO Morphine Sulfate (Morphine Sulfate 2 Mg/Ml Carp) 2 mg IV NOW STA Stop: 12/09/24 00:03 Last Admin: 12/09/24 00:12 Dose: 2 mg Documented By: ASW Nitroglycerin (Nitroglycerin 2% Ointment 30gm Tube) 1 inch EXT NOW ONE Stop: 12/08/24 17:18 Last Admin: 12/08/24 17:33 Dose: 1 inch Documented By: SW Imaging Data Radiologist's Impression: Chest X-Ray 12/08/24 17:16 Clinical History: Chest pain and dyspnea Technique: A frontal view of the chest was obtained Comparison is made to the prior examination dated 05/30/2021 Findings: There is left mid and lower lung opacification that could be due to either atelectasis or pneumonia. The heart is mildly enlarged. No right pleural effusion or pneumothorax is seen. There is a large left pleural effusion No fracture is noted. There is thoracic degenerative disc disease Impression: 1. Large left pleural effusion 2. Left lung opacification which could be due to either atelectasis or pneumonia. Underlying neoplasm cannot be excluded 3. Cardiomegaly ACT 112: Positive. There are findings on this exam that require communication between the performing entity and the patient following Patient Test Result Information Act ([place] ACT 112) guidelines. Electronically signed by Cricket Sharma 12-08-2024 5:45 PM Discharge Plan Visit Data Chief Complaint: Chest Pain ED Provider: Palak Daugherty Discharge Problem: Chest pain, Dyspnea, Pleural effusion on left, Hypoxia Patient Disposition: Admitted As Inpatient Condition: Fair Discharge Instructions Interventions: ED Discharge Assessment Last Done: 12/09/24 01:13
[2024-12-08 18:02] LABS: Lipase 80.0 U/L (11-82)
[2024-12-08] MEDS: SODIUM CHLORIDE 0.9% 500 ML IV SCH (18:18)
[2024-12-08] MEDS: ACETAMINOPHEN 1,000 MG/100 ML VIAL IV STA (18:18)
[2024-12-08 18:37] LABS: Chlamydia pneumoniae PCR Not Detected (NotDetected); Coronavirus 229E PCR Not Detected (NotDetected); Coronavirus CoV-2 (COVID19)PCR Not Detected (NotDetected); Coronavirus HKU1 PCR Not Detected (NotDetected); Coronavirus NL63 PCR Not Detected (NotDetected); Coronavirus OC43PCR Not Detected (NotDetected); Human Metapneumovirus PCR Not Detected (NotDetected); Parainfluenza Virus 1 PCR Not Detected (NotDetected); Parainfluenza Virus 2 PCR Not Detected (NotDetected); Parainfluenza Virus 3 PCR Not Detected (NotDetected); Parainfluenza Virus 4 PCR Not Detected (NotDetected); Respiratory Syncytial VirusPCR Not Detected (NotDetected); Rhinovirus/Enterovirus PCR Not Detected (NotDetected)
[2024-12-08 19:19] LABS: Alanine Aminotransferase 16.0 U/L (7-52); Albumin Globulin Ratio 1.0 (0.9-2); Alkaline Phosphatase 120.0 U/L (34-104); Anion Gap 7.0 (3-11); Bilirubin,Total 0.6 mg/dl (0.2-1.0); Blood Urea Nitrogen 9.0 mg/dl (6-23); Calcium 10.3 mg/dl (8.6-10.3); Carbon Dioxide 28.0 mmol/L (21-32); Chloride 100.0 mmol/L (98-107); Creatinine Clr Calc Pharmacy 76.2 ml/min; Globulin 4.0 gm/dl (2.5-4.0); Glucose 108.0 mg/dl (70-99(Fasting)); Magnesium 1.6 mg/dl (1.7-2.4); Potassium 4.2 mmol/L (3.5-5.1); Sodium 135.0 mmol/L (136-145); Total Protein 7.9 gm/dl (6.0-8.3)
[2024-12-08 19:34] LABS: INR 1.1 (0.9-1.1); Prothrombin Time 11.4 Seconds (9.0-12.0)
[2024-12-08] MEDS: OPTIRAY 320 125ml IV ONE (21:38)
[2024-12-08] MEDS: MoRPHine SULFATE 4 MG/ML 1 ML CARP\\VIAL IV STA (22:37)
--- NOTE | 2024-12-08 23:06 | History & Physical Report ---
Date of Service December 08, 2024 Assessment & Plan (1) Mediastinal mass: (2) Pleural effusion on left: (3) Hypertension: (4) Dyslipidemia: (5) Chronic obstructive pulmonary disease: (6) Apnea, sleep: (7) Acid reflux: (8) T2DM (type 2 diabetes mellitus): (9) Hypothyroidism: Plan 64yo female with multiple medical comorbidities, remote history of left sided breast cancer s/p mastectomy presenting with several weeks of progressive left sided chest pain, SOB and DANGELO. Unfortunately, CTA of the chest reveals a new large mass in the left chest encasing the left hilum and extending into the mediastinum. This measures at least 8.2 x 7.5 x 7.2 cm. The mass markedly narrows the left upper lobe and left lower lobe segmental pulmonary artery branches. The mass occludes the left main bronchus. Also with new moderate to large left pleural effusion and extensive atelectasis on the left. Findings most concerning for malignancy - return of breast cancer versus new primary malignancy (mediastinal mass raises concern for thymoma, teratoma, lymphoma or thyroid mass). Patient is presently hemodynamically stable. Adequate oxygenation on 4L/min NC. #Mediastinal mass - due to location of mediastinal mass with extensive involvement of vascular structures, patient would most benefit from transfer to a tertiary care center for a multidisciplinary approach. Will likely need Cardiothoracic Surgery, Interventional Pulmonology as well as Oncology/Radiation Oncology. Patient is agreeable to transfer. -For now, will admit to medical with telemetry -Check TSH -Pulmonary consultation appreciated - possible diagnostic thoracentesis in AM -Pain control with Lidoderm patch -Tylenol 1gm PO TID scheduled -Morphine 2-4mg IV q 3 hours as needed #Left sided pleural effusion - likely secondary to mass/likely malignancy. Patient 89% on room air on arrival - now on 4L NC breathing comfortably with adequate oxygenation 97% -Check TSH -Check 2D echo - no history of heart failure #Chest pain - likely secondary to left chest mass, pleural effusion. EKG with some non-specific T wave findings. Troponin x 1 negative -Telemetry monitoring -Trend troponin to peak -Check 2D echo #Hypertension - blood pressure well controlled -Continue Metoprolol 25mg po qAM -Monitor #Hyperlipidemia - chronic -Continue Atorvastatin #Asthma/COPD - no cough or wheeze -Continue Breo Ellipta daily -Continue Duoneb PRN -Albuterol PRN #GERD -Continue Protonix 40mg po qAM #Hypothyroidism -Check TSH -Continue Synthroid 100mcg po daily #Anxiety/Mental Health -Continue Venlafaxine 150mg po qAM -Ativan 0.5mg po daily PRN anxiety -Continue Amitriptyline 100mg po qHS F/E/N - 500mL NSS in the ER, encourage PO intake for now, Mg x 1gm ordered, electrolytes otherwise acceptable,Heart Healthy diet as tolerated Ppx - SCDs for now, holding chemoprophylaxis for possible thoracentesis in AM Code- Full per discussion with patient at time of admission Dispo - Admit to medical telemetry - actively seeking acceptance to [facility] History of Present Illness Chief Complaint: Chest pain, shortness of breath Primary Care Provider: DO Shaan Sonicarmelita Martinez is a pleasant 64yo female presenting with 1 week of progressive left-sided chest discomfort, shortness of breath and dyspnea on exertion. Patient with multiple medical comorbiditieshistory of Hypertension, hyperlipidemia, hypothyroidism, diabetes, asthma, COPD, IRVIN (no CPAP). History of left breast cancer status post left mastectomy 04/23/2016 with hematoma evacuation 04/24/2016. Patient did not require radiation or chemotherapy. She completed 5 years of anastrozole. Was seen by [facility] - no longer follows. She presents today with 1 week of progressive left-sided chest pain. She reports the pain is sharp in nature, occurs randomly at rest or with exertion. Is typically located in the left anterior chest but at times radiates to between her shoulder blades. She does have some diaphoresis at times as well. She rep orts shortness of breath at rest as well as dyspnea on exertion. States that she is having difficulty taking deep breaths. No peripheral edema, orthopnea, increased abdominal girth. No fevers, cough, congestion. No trauma. She did fall several days ago but did not sustain trauma to the chest. No history of CHF. In the ER patient is afebrile, HD stable, saturation 89% on room air - now on 4L NC, no respiratory distress ER Course: Nitroglycerine 1 inch NSS x 500mL Acetaminophen Morphine Allergies Allergy/AdvReac Type Severity Reaction Status Date / Time empagliflozin Allergy Severe Rash Verified 12/08/24 15:41 [From Jardiance] Penicillins Allergy Unknown Hives Verified 12/08/24 15:41 ranitidine Allergy Unknown Shakiness Verified 12/08/24 15:41 ddvap Allergy Severe SHORTNESS Uncoded 12/08/24 15:41 OF BREATH Home Medications Medication Instructions Recorded Confirmed Type albuterol sulfate 2.5 mg/3 mL 2.5 mg (3 mL) inhalation Q6H PRN 09/05/18 12/08/24 Rx (0.083 %) solution for nebulization shortness of breath or wheezing #150 mL ipratropium 0.5 mg-albuterol 3 mg 3 ml inhalation QID PRN shortness 12/15/19 12/08/24 Rx (2.5 mg base)/3 mL nebulization of breath or wheezing Dx: J44.9 soln #360 mL cholecalciferol (vitamin D3) 50 2,000 units PO HS 09/20/20 12/08/24 History mcg (2,000 unit) tablet blood-glucose meter (OneTouch #1 ea 10/20/20 12/08/24 Rx Verio Meter) fluticasone furoate 200 1 inh inhalation QAM #60 ea 11/22/20 12/08/24 Rx mcg-vilanterol 25 mcg/dose inhalation powder (Breo Ellipta) calcium carbonate (Calcium 600) 600 mg PO QDL 01/17/23 12/08/24 History albuterol sulfate 90 mcg/actuation 1 puff inhalation Q4H PRN Other 09/26/23 12/08/24 History aerosol inhaler (Ventolin HFA) metoprolol succinate 25 mg 25 mg PO QAM #90 tabs 01/15/24 12/08/24 Rx tablet,extended release 24 hr potassium chloride 20 mEq 20 meq PO HS #90 tabs 01/15/24 12/08/24 Rx tablet,extended release(part/cryst) (Klor-Con M) blood sugar diagnostic (OneTouch #200 ea 01/20/24 12/08/24 Rx Verio test strips) ondansetron 8 mg disintegrating 8 mg PO Q8H PRN nausea and 03/15/24 12/08/24 Rx tablet vomiting #30 tabs lorazepam 0.5 mg tablet 0.5 mg PO DAILY PRN anxiety #10 07/13/24 12/08/24 Rx tabs hydrocodone 5 mg-acetaminophen 325 1 tab PO Q8H PRN pain #30 tabs 09/01/24 12/08/24 Rx mg tablet levothyroxine 50 mcg tablet 100 mcg (2 x 50 mcg) PO DAILYBB 09/01/24 12/08/24 Rx #180 tabs venlafaxine 150 mg 150 mg PO QAM #90 caps 09/07/24 12/08/24 Rx capsule,extended release 24 hr amitriptyline 100 mg tablet 100 mg PO HS #90 tabs 09/30/24 12/08/24 Rx atorvastatin 20 mg tablet 20 mg PO HS #90 tabs 09/30/24 12/08/24 Rx furosemide 20 mg tablet 20 mg PO QAM 12/08/24 12/08/24 History pantoprazole 40 mg tablet,delayed 40 mg PO QAM 12/08/24 12/08/24 History release semaglutide 0.25 mg or 0.5 mg (2 0.5 mg subcut WK 12/08/24 12/08/24 History mg/3 mL) subcutaneous pen injector (Ozempic) Past Med/Surg History Problem List (Updated 12/09/24 @ 00:06 by Irene Altamirano DO) Mediastinal mass Hypoxia (Acute) Pleural effusion on left (Acute) Dyspnea (Acute) Chest pain (Acute) Fatty liver Diabetic neuropathy Vitamin D deficiency History of left breast cancer Hypercalcemia Mediastinal lymphadenopathy T2DM (type 2 diabetes mellitus) Osteopenia Irritable bowel syndrome Hypothyroidism Hypertension Dyslipidemia Anxiety and depression Chronic obstructive pulmonary disease Asthma well controlled w/ daily inhaler use; rarely uses rescue inhaler Arthritis Apnea, sleep no device Acid reflux Medical History Right facial swelling Colon cancer screening Breast cancer (04/06/16) "Self detected left breast mass Status post ultrasound-guided biopsy of the breast and axilla Invasive lobular carcinoma grade 1 biopsy of the node benign Estrogen receptor positive, progesterone receptor positive, and HER-2/abdelrahman negative Status post left mastectomy and sentinel lymph node biopsy 04/23/2016 Stage pT2 pN1mi M0" Surgical History Hx of colonoscopy Hx of tonsillectomy S/P wrist surgery (05/06/19) R wrist and thumb Status post evacuation of hematoma (04/2016) 09/[address] Mccormick; L chest wound hematoma S/P cardiac cath Jun 2014-no stents- [facility]- does not follow w/ cardio History of right salpingo-oophorectomy S/P left mastectomy (04/2016) w/ [facility] 04/23/[address] Mccormick S/P cholecystectomy S/P appendectomy Family History Father Kidney disease Kidney stones Congestive heart failure Myocardial infarction Mother Gallbladder disease Hypertension Aunt Breast cancer Denies family history of Ovarian cancer Prostate cancer Colorectal cancer Social History Smoking Status: Current some day smoker Tobacco Type: Cigarettes Age Started Using Tobacco: 29; Age Quit Using Tobacco: 59; packs per day: 1; Second Hand Exposure: Yes; Do You Dip or Chew Tobacco: No; Hx Alcohol Use: No Hx Substance Use: No Preferred Language: Armenian Communication Ability: Effective Visual Impairment: No Limitations 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: Normal [employer] Required: No Beliefs That Will Affect Care: None marital status: Current Living Situation: Spouse current occupational status: disabled Feels Safe at Home: Yes Childhood Exposure to Second-Hand Smoke: No Diet: regular Diet Comment: regular caffeine: Yes (coffee) during the past year weight has: remained stable Dental Care, Regularly: Yes Physical Activity Frequency: Daily Physical Activity Frequency Comment: walking, house work Seatbelt Use: always Sunscreen Use: No Assistive Devices: Cane, Denture - Upper, Denture - Lower and Nebulizer Review of Systems Review of Systems: All systems reviewed & are unremarkable except as noted in HPI & below Physical Exam Physical Exam: General: patient anxious and tearful, NAD, resting comfortably Skin: warm, dry, intact, no rashes or lesions HEENT: NC/AT, PERRL, EOMI, anicteric sclera, conjunctiva without injection, external ear normal to inspection and nontender, nares patent, moist mucus membranes, dentition intact, no oropharyngeal lesions, neck supple, trachea midline, no LAD, no thyromegaly, no JVD Heart: +S1/S2, regular, no m/r/g Lungs: diminished breath sounds in left hemithorax, no rhonchi or wheeze Abd: +BS, soft, NT/ND, no masses/organomegaly/ascites Ext: warm, 2+ pulses in UE/LE bilaterally, no clubbing/cyanosis or edema Neuro: nonfocal, patient AA&O x 4, speech intact, no facial droop, moving all e xtremities on command with equal strength 5/5 Results & Data Results & Data Vital Signs (Past 12 Hours) Vital Signs Temp Pulse Pulse Resp BP BP Pulse Ox 12/08/24 23:04 85 19 105/71 97 12/08/24 22:00 79 20 106/75 95 12/08/24 20:30 85 18 122/92 96 12/08/24 18:32 83 24 114/77 97 12/08/24 17:28 75 12/08/24 17:04 36.7 C 87 24 124/89 96 12/08/24 17:04 89 L O2 Del Method O2 Flow Rate 12/08/24 23:04 12/08/24 22:00 Nasal Cannula 4 12/08/24 20:30 Nasal Cannula 4 12/08/24 18:32 Room Air 12/08/24 17:28 12/08/24 17:04 Nasal Cannula 4 12/08/24 17:04 Room Air, Nasal Cannula 0 Laboratory Results Laboratory Results WBC 5.07 K/ul (4.8-10.8) 12/08/24 17:09 RBC 4.59 M/uL (4.20-5.40) 12/08/24 17:09 Hgb 13.4 g/dl (12.0-16.0) 12/08/24 17:09 Hct 39.8 % (37.0-47.0) 12/08/24 17:09 MCV 86.7 fL (80.0-100.0) 12/08/24 17:09 MCH 29.2 pg (25.0-34.0) 12/08/24 17:09 MCHC 33.7 g/dL (32.0-36.0) 12/08/24 17:09 RDW Std Deviation 41.9 fL (36.4-46.3) 12/08/24 17:09 RDW Coeff of Ronen 13.4 % (11.5-14.5) 12/08/24 17:09 Plt Count 248 K/uL (130-400) 12/08/24 17:09 MPV 10.5 fL (9.4-12.4) 12/08/24 17:09 Immature Gran % (Auto) 0.2 % 12/08/24 17:09 Neut % (Auto) 62.7 % 12/08/24 17:09 Lymph % (Auto) 29.8 % 12/08/24 17:09 [place] % (Auto) 6.9 % 12/08/24 17:09 Eos % (Auto) 0.0 % 12/08/24 17:09 Baso % (Auto) 0.4 % 12/08/24 17:09 Neut # (Auto) 3.18 K/uL (1.40-6.50) 12/08/24 17:09 Lymph # (Auto) 1.51 K/uL (1.20-3.40) 12/08/24 17:09 [place] # (Auto) 0.35 K/uL (0.11-0.59) 12/08/24 17:09 Eos # (Auto) 0.00 K/uL (0.00-0.50) 12/08/24 17:09 Baso # (Auto) 0.02 K/uL (0.00-0.20) 12/08/24 17:09 Immature Gran # (Auto) 0.01 K/uL (0.01-0.20) 12/08/24 17:09 PT 11.4 Seconds (9.0-12.0) 12/08/24 18:28 INR 1.1 (0.9-1.1) 12/08/24 18:28 Sodium 135 mmol/L (136-145) L 12/08/24 18:28 Potassium 4.2 mmol/L (3.5-5.1) 12/08/24 18:28 Chloride 100 mmol/L (98-107) 12/08/24 18:28 Carbon Dioxide 28 mmol/L (21-32) 12/08/24 18:28 Anion Gap 7 (3-11) 12/08/24 18:28 BUN 9 mg/dl (6-23) 12/08/24 18:28 Creatinine 0.79 mg/dl (0.6-1.2) 12/08/24 18:28 Est Cr Clr Drug Dosing 76.2 ml/min 12/08/24 18:28 eGFR 82.45 12/08/24 18:28 BUN/Creatinine Ratio 11.4 (10-20) 12/08/24 18:28 Glucose 108 mg/dl (70-99(Fasting)) H 12/08/24 18:28 Calcium 10.3 mg/dl (8.6-10.3) 12/08/24 18:28 Magnesium 1.6 mg/dl (1.7-2.4) L 12/08/24 18:28 Total Bilirubin 0.6 mg/dl (0.2-1.0) 12/08/24 18:28 AST 24 U/L (13-39) 12/08/24 18:28 ALT 16 U/L (7-52) 12/08/24 18:28 Alkaline Phosphatase 120 U/L (34-104) H 12/08/24 18:28 Troponin I High Sens 2.5 pg/ml (0-14) 12/08/24 17:09 B-Natriuretic Peptide 12 pg/ml (0-100) 12/08/24 17:09 Total Protein 7.9 gm/dl (6.0-8.3) 12/08/24 18:28 Albumin 3.9 gm/dl (3.4-5.0) 12/08/24 18:28 Globulin 4.0 gm/dl (2.5-4.0) 12/08/24 18:28 Albumin/Globulin Ratio 1.0 (0.9-2) 12/08/24 18:28 Lipase 80 U/L (11-82) 12/08/24 17:09 Adenovirus (PCR) Not Detected (NotDetected) 12/08/24 17:37 B. pertussis DNA (PCR) Not Detected (NotDetected) 12/08/24 17:37 B.parapertussis DNA PCR Not Detected (NotDetected) 12/08/24 17:37 C. pneumoniae DNA (PCR) Not Detected (NotDetected) 12/08/24 17:37 Coronavirus OC43 (PCR) Not Detected (NotDetected) 12/08/24 17:37 Coronavirus HKU1 (PCR) Not Detected (NotDetected) 12/08/24 17:37 Coronavirus 229E (PCR) Not Detected (NotDetected) 12/08/24 17:37 SARS-CoV-2 (PCR) Not Detected (NotDetected) 12/08/24 17:37 Coronavirus NL63 (PCR) Not Detected (NotDetected) 12/08/24 17:37 Human Metapneumovir PCR Not Detected (NotDetected) 12/08/24 17:37 Influenza Type A (PCR) Not Detected (NotDetected) 12/08/24 17:37 Influenza Type B (PCR) Not Detected (NotDetected) 12/08/24 17:37 M. pneumoniae (PCR) Not Detected (NotDetected) 12/08/24 17:37 Parainfluenza 1 (PCR) Not Detected (NotDetected) 12/08/24 17:37 Parainfluenza 2 (PCR) Not Detected (NotDetected) 12/08/24 17:37 Parainfluenza 3 (PCR) Not Detected (NotDetected) 12/08/24 17:37 Parainfluenza 4 (PCR) Not Detected (NotDetected) 12/08/24 17:37 RSV (PCR) Not Detected (NotDetected) 12/08/24 17:37 Entero/Rhino (PCR) Not Detected (NotDetected) 12/08/24 17:37 Impressions Chest X-Ray 12/08/24 17:16 Clinical History: Chest pain and dyspnea Technique: A frontal view of the chest was obtained Comparison is made to the prior examination dated 05/30/2021 Findings: There is left mid and lower lung opacification that could be due to either atelectasis or pneumonia. The heart is mildly enlarged. No right pleural effusion or pneumothorax is seen. There is a large left pleural effusion No fracture is noted. There is thoracic degenerative disc disease Impression: 1. Large left pleural effusion 2. Left lung opacification which could be due to either atelectasis or pneumonia. Underlying neoplasm cannot be excluded 3. Cardiomegaly ACT 112: Positive. There are findings on this exam that require communication between the performing entity and the patient following Patient Test Result Information Act ([place] ACT 112) guidelines. Electronically signed by Cricket Sharma 12-08-2024 5:45 PM Chest CTA 12/08/24 18:00 Exam(s): CTA CHEST IV Amt: 118 cc opti 320 EXAM: CT Angiography Chest With Intravenous Contrast CLINICAL HISTORY: Reason for exam: PE, left pleural effusion, hx breast ca. TECHNIQUE: Axial computed tomographic angiography images of the chest with intravenous contrast. CTDI is 37 mGy and DLP is 881.7 mGy-cm. Automated exposure control was utilized for the study. A dose lowering technique was utilized adhering to the principles of ALARA. MIP reconstructed images were created and reviewed. COMPARISON: No relevant prior studies available. FINDINGS: Pulmonary arteries: Unremarkable. No pulmonary embolism. Aorta: No acute findings. No thoracic aortic aneurysm. Lungs: There is extensive atelectasis on the left, particularly in the left lower lobe and anterior segment of the left upper lobe. No mass. Pleural space: There is a moderate to large left pleural effusion. No pneumothorax. Heart: Unremarkable. No cardiomegaly. No significant pericardial effusion. No evidence of RV dysfunction. Mediastinum: There is a large mass in the left chest encasing the left hilum and extending into the mediastinum. This measures at least 8.2 x 7. 5 x 7.2 cm. The mass markedly narrows the left upper lobe and left lower lobe segmental pulmonary artery branches. The mass occludes the left main bronchus This is new. Bones/joints: No acute fracture. No dislocation. Soft tissues: Unremarkable. Lymph nodes: Unremarkable. No enlarged lymph nodes. IMPRESSION: There is a large mass in the left chest encasing the left hilum and extending into the mediastinum. This measures at least 8.2 x 7.5 x 7.2 cm. The mass markedly narrows the left upper lobe and left lower lobe segmental pulmonary artery branches. The mass occludes the left main bronchus This is new. New moderate to large left pleural effusion. Extensive atelectasis on the left, particularly in the left lower lobe and anterior and lingular segments of the left upper lobe. Electronically signed by: Ean Echeverria MD 12/08/24 23:36 PM ECG Additional Comments: EKG with NSR at 84bpm, nonspecific T wave abnormality in inferior leads Code Status & VTE Plan VTE Prophylaxis Plan VTE Prophylaxis will be ordered: Yes PG Care Time/CCT Total # of Minutes Spent Total Time Spent with Patient: Total time spent is greater than 50% in coordination of care (as documented) at patient's floor/unit and/or counseling patient: Coding Level of Care Code 82498 INT INP/OBS CARE MIN Diagnoses Mediastinal mass J98.59 Pleural effusion on left J90 Essential hypertension I10 Hypertension type: essential hypertension Dyslipidemia E78.5 Chronic obstructive pulmonary disease J44.9 COPD type: unspecified COPD Apnea, sleep G47.30 Acid reflux K21.9 T2DM (type 2 diabetes mellitus) E11.9 Diabetes mellitus complication status: without complication Diabetes mellitus assisted insulin use: without assisted use Hypothyroidism, unspecified type E03.9 Hypothyroidism type: unspecified (3) Hypertension Hypertension type: essential hypertension Qualified Code(s): I10 - Essential (primary) hypertension (5) Chronic obstructive pulmonary disease COPD type: unspecified COPD Qualified Code(s): J44.9 - Chronic obstructive pulmonary disease, unspecified (8) T2DM (type 2 diabetes mellitus) Diabetes mellitus complication status: without complication Diabetes mellitus assisted insulin use: without assisted use Qualified Code(s): E11.9 - Type 2 diabetes mellitus without complications (9) Hypothyroidism Hypothyroidism type: unspecified Qualified Code(s): E03.9 - Hypothyroidism, unspecified
--- NOTE | 2024-12-08 23:37 | CT Scan Report ---
Exam(s): CTA CHEST IV Amt: 118 cc opti 320 EXAM: CT Angiography Chest With Intravenous Contrast CLINICAL HISTORY: Reason for exam: PE, left pleural effusion, hx breast ca. TECHNIQUE: Axial computed tomographic angiography images of the chest with intravenous contrast. CTDI is 37 mGy and DLP is 881.7 mGy-cm. Automated exposure control was utilized for the study. A dose lowering technique was utilized adhering to the principles of ALARA. MIP reconstructed images were created and reviewed. COMPARISON: No relevant prior studies available. FINDINGS: Pulmonary arteries: Unremarkable. No pulmonary embolism. Aorta: No acute findings. No thoracic aortic aneurysm. Lungs: There is extensive atelectasis on the left, particularly in the left lower lobe and anterior segment of the left upper lobe. No mass. Pleural space: There is a moderate to large left pleural effusion. No pneumothorax. Heart: Unremarkable. No cardiomegaly. No significant pericardial effusion. No evidence of RV dysfunction. Mediastinum: There is a large mass in the left chest encasing the left hilum and extending into the mediastinum. This measures at least 8.2 x 7. 5 x 7.2 cm. The mass markedly narrows the left upper lobe and left lower lobe segmental pulmonary artery branches. The mass occludes the left main bronchus This is new. Bones/joints: No acute fracture. No dislocation. Soft tissues: Unremarkable. Lymph nodes: Unremarkable. No enlarged lymph nodes. IMPRESSION: There is a large mass in the left chest encasing the left hilum and extending into the mediastinum. This measures at least 8.2 x 7.5 x 7.2 cm. The mass markedly narrows the left upper lobe and left lower lobe segmental pulmonary artery branches. The mass occludes the left main bronchus This is new. New moderate to large left pleural effusion. Extensive atelectasis on the left, particularly in the left lower lobe and anterior and lingular segments of the left upper lobe. Electronically signed by: Ean Echeverria MD 12/08/24 23:36 PM
[2024-12-09] MEDS: MoRPHine SULFATE 2 MG/ML CARP IV STA (00:12)
[2024-12-09] MEDS ORDERED: ALBUT/IPRATROP 3MG/0.5MG NEB 3 ML VIAL INH PRN (01:12)
[2024-12-09] MEDS ORDERED: DOCUSATE SODIUM 100 MG CAP PO PRN (01:12)
[2024-12-09] MEDS ORDERED: ALBUTEROL HFA 8 GM INHALER INH PRN (01:12)
[2024-12-09 02:12] LABS: Hematocrit (blood only) 36.5 % (37.0-47.0); Hemoglobin 12.2 g/dl (12.0-16.0); Mean Corpuscular Hemoglobin 29.2 pg (25.0-34.0); Mean Corpuscular Volume 87.3 fL (80.0-100.0); Platelet Count 209 K/uL (130-400); RDW Standard Deviation 42.6 fL (36.4-46.3); Red Blood Count 4.18 M/uL (4.20-5.40); White Blood Count 4.87 K/ul (4.8-10.8)
[2024-12-09] MEDS: MAGNESIUM SULFATE / D5W 1 GM/100 ML BAG IV ONE (02:27)
[2024-12-09] MEDS: LIDOCAINE 5% 1 PATCH TD STA (02:28)
[2024-12-09 02:32] LABS: Alanine Aminotransferase 16.0 U/L (7-52); Alkaline Phosphatase 112.0 U/L (34-104); Anion Gap 7.0 (3-11); Bilirubin,Total 0.5 mg/dl (0.2-1.0); Blood Urea Nitrogen 10.0 mg/dl (6-23); Calcium 9.9 mg/dl (8.6-10.3); Carbon Dioxide 26.0 mmol/L (21-32); Chloride 103.0 mmol/L (98-107); Creatinine Clr Calc Pharmacy 77.2 ml/min; Glucose 122.0 mg/dl (70-99(Fasting)); Potassium 3.8 mmol/L (3.5-5.1); Sodium 136.0 mmol/L (136-145); Total Protein 7.4 gm/dl (6.0-8.3)
[2024-12-09 02:45] LABS: Thyroid Stimulating Hormone 0.276 uIu/ml (0.300-4.500)
[2024-12-09] MEDS: LORazepam 0.5 MG TAB PO PRN (03:42)
[2024-12-09] MEDS: LEVOTHYROXINE SODIUM 100 MCG TABLET PO SCH (05:56)
[2024-12-09 07:50] LABS: Magnesium 2.0 mg/dl (1.7-2.4)
--- NOTE | 2024-12-09 07:52 | Pulmonary Consultation ---
Date of Consultation December 09, 2024 Assessment & Plan (1) Mediastinal mass: (2) Hypoxia: (3) Pleural effusion on left: Plan Impression: 64-year-old prior smoker with prior history of breast cancer with large left hilar mass encasing the left pulmonary artery and obliterating the left lower lobe bronchus. She has an effusion however in the setting of bronchial obstruction, would not pursue thoracentesis currently. She is hemodynamically stable and oxygenating reasonably well currently. Recommendations: 1. Advised the patient of these findings are highly concerning for malignant process. Small cell lung cancer would be high on the differential given the location and apparently rapid growth. Will pursue MRI of the brain with contrast. Advised the patient that I think we can pursue a tissue diagnosis here and therapies for this would primarily involve radiation therapy and medical oncology which are both available here as well. She would like to remain locally and I think we can safely manage her here. No indication for cardiothoracic surgical intervention currently. 2. N.p.o. for bronchoscopy. Unfortunately the patient just had breakfast so bronchoscopy will try to be scheduled for tomorrow morning. Once the tissue diagnosis is made, will consider involvement with medical oncology and/or radiation oncology as appropriate. 3. Pleural effusion: Likely secondary to bronchial obstruction and atelectasis. No indication for drainage at this point in time as the lung is unable to expand and would result in pneumo ex vacuo. 4. Will check LDH. 5. Outpatient PET scanning will be required. 6. Hypoxemia: Continue supplemental oxygen titrated to keep saturations at or above 90%. The above recommendations and plan were extensively discussed with the patient. Questions were answered to the best my ability. She expressed understanding and is in agreement with the plan. She expressed a desire to remain [facility] locally if possible which I think is reasonable. Total time for todays visit is 76 minutes which includes reviewing records, the face to face visit, as well as time to record documentation including coordination of care with other specialists and providers. History of Present Illness Attending Physician: John Major MD History of Present Illness Asked by hospitalist to assist in evaluation management of this patient with abnormal CT scan. History is obtained from discussion with the patient as well as review of the electronic medical record. Patient is a 64-year-old female with a remote history of breast cancer and a [id number] history of tobacco abuse who quit smoking in 2006. She presented to the emergency room after being evaluated by her primary care provider with complaints of chest tightness and some shortness of breath for about a 2-week period of time. Chest x-ray and CT scan were abnormal and the patient was referred for admission. There was initial concern that given the findings on her CT scan, we would be unable to manage her here locally and initially decision was made to potentially transfer her to [facility]. The patient denies fevers chills night sweats or unintentional weight loss. She has had some weakness. No nausea or vomiting. No syncope or presyncope. She denies lower extremity edema. She denies any significant family history of lung disease or lung cancer. Allergies Allergy/AdvReac Type Severity Reaction Status Date / Time empagliflozin Allergy Severe Rash Verified 12/08/24 15:41 [From Jardiance] Penicillins Allergy Unknown Hives Verified 12/08/24 15:41 ranitidine Allergy Unknown Shakiness Verified 12/08/24 15:41 ddvap Allergy Severe SHORTNESS Uncoded 12/08/24 15:41 OF BREATH Home Medications Medication Instructions Recorded Confirmed Type albuterol sulfate 2.5 mg/3 mL 2.5 mg (3 mL) inhalation Q6H PRN 09/05/18 12/08/24 Rx (0.083 %) solution for nebulization shortness of breath or wheezing #150 mL ipratropium 0.5 mg-albuterol 3 mg 3 ml inhalation QID PRN shortness 12/15/19 12/08/24 Rx (2.5 mg base)/3 mL nebulization of breath or wheezing Dx: J44.9 soln #360 mL cholecalciferol (vitamin D3) 50 2,000 units PO HS 09/20/20 12/08/24 History mcg (2,000 unit) tablet blood-glucose meter (OneTouch #1 ea 10/20/20 12/08/24 Rx Verio Meter) fluticasone furoate 200 1 inh inhalation QAM #60 ea 11/22/20 12/08/24 Rx mcg-vilanterol 25 mcg/dose inhalation powder (Breo Ellipta) calcium carbonate (Calcium 600) 600 mg PO QDL 01/17/23 12/08/24 History albuterol sulfate 90 mcg/actuation 1 puff inhalation Q4H PRN Other 09/26/23 12/08/24 History aerosol inhaler (Ventolin HFA) metoprolol succinate 25 mg 25 mg PO QAM #90 tabs 01/15/24 12/08/24 Rx tablet,extended release 24 hr potassium chloride 20 mEq 20 meq PO HS #90 tabs 01/15/24 12/08/24 Rx tablet,extended release(part/cryst) (Klor-Con M) blood sugar diagnostic (OneTouch #200 ea 01/20/24 12/08/24 Rx Verio test strips) ondansetron 8 mg disintegrating 8 mg PO Q8H PRN nausea and 03/15/24 12/08/24 Rx tablet vomiting #30 tabs lorazepam 0.5 mg tablet 0.5 mg PO DAILY PRN anxiety #10 07/13/24 12/08/24 Rx tabs hydrocodone 5 mg-acetaminophen 325 1 tab PO Q8H PRN pain #30 tabs 09/01/24 12/08/24 Rx mg tablet levothyroxine 50 mcg tablet 100 mcg (2 x 50 mcg) PO DAILYBB 09/01/24 12/08/24 Rx #180 tabs venlafaxine 150 mg 150 mg PO QAM #90 caps 09/07/24 12/08/24 Rx capsule,extended release 24 hr amitriptyline 100 mg tablet 100 mg PO HS #90 tabs 09/30/24 12/08/24 Rx atorvastatin 20 mg tablet 20 mg PO HS #90 tabs 09/30/24 12/08/24 Rx furosemide 20 mg tablet 20 mg PO QAM 12/08/24 12/08/24 History pantoprazole 40 mg tablet,delayed 40 mg PO QAM 12/08/24 12/08/24 History release semaglutide 0.25 mg or 0.5 mg (2 0.5 mg subcut WK 12/08/24 12/08/24 History mg/3 mL) subcutaneous pen injector (Ozempic) Patient History Medical History Right facial swelling Colon cancer screening Breast cancer (04/06/16) "Self detected left breast mass Status post ultrasound-guided biopsy of the breast and axilla Invasive lobular carcinoma grade 1 biopsy of the node benign Estrogen receptor positive, progesterone receptor positive, and HER-2/abdelrahman negative Status post left mastectomy and sentinel lymph node biopsy 04/23/2016 Stage pT2 pN1mi M0" Surgical History Hx of colonoscopy Hx of tonsillectomy S/P wrist surgery (05/06/19) R wrist and thumb Status post evacuation of hematoma (04/2016) 09/[address] Mccormick; L chest wound hematoma S/P cardiac cath Jun 2014-no stents- [facility]- does not follow w/ cardio History of right salpingo-oophorectomy S/P left mastectomy (04/2016) w/ [facility] 04/23/[address] Mccormick S/P cholecystectomy S/P appendectomy Family History Father Kidney disease Kidney stones Congestive heart failure Myocardial infarction Mother Gallbladder disease Hypertension Aunt Breast cancer Denies family history of Ovarian cancer Prostate cancer Colorectal cancer Social History Smoking Status: Never smoker Tobacco Type: Cigarettes Age Started Using Tobacco: 29; Age Quit Using Tobacco: 59; packs per day: 1; Second Hand Exposure: No; Do You Dip or Chew Tobacco: No; Tobacco Cessation Education Requested by Patient: No Hx Alcohol Use: No Hx Substance Use: No Preferred Language: Azeri Communication Ability: Effective Visual Impairment: No Limitations 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: Normal [employer] 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 Beliefs That Will Affect Care: None marital status: Current Living Situation: Spouse current occupational status: disabled Other Information That Helps Us Care for You: No Feels Safe at Home: Yes Safety Concerns: Feels Safe At This Time Childhood Exposure to Second-Hand Smoke: No Diet: regular Diet Comment: regular caffeine: Yes (coffee) during the past year weight has: remained stable Dental Care, Regularly: Yes Physical Activity Frequency: Daily Physical Activity Frequency Comment: walking, house work Seatbelt Use: always Sunscreen Use: No Assistive Devices: None Review of Systems Review of Systems: Please refer to admission H&P. No additions or deletions Physical Exam Constitutional: WD/WN, vitals as above Neck: trachea midline, no thyromegaly Respiratory: normal respiratory effort, lungs clear to auscultation Cardiovascular: RRR, no murmur, no edema Gastrointestinal (Abdomen): normal bowel sounds, soft, nontender, no hepatosplenomegaly Musculoskeletal: Extremities: extremities normal to inspection Skin: no rashes, warm and dry Neurologic: Nonfocal exam Lymphatic: no cervical lymphadenopathy Results & Data Results & Data Vital Signs (Past 12 Hours) Vital Signs Pulse Pulse Resp BP BP Pulse Ox O2 Del Method 12/09/24 07:00 84 12/09/24 05:41 84 12/09/24 03:43 91 H 20 118/78 96 Nasal Cannula 12/09/24 03:29 Nasal Cannula 12/09/24 03:29 95 Nasal Cannula 12/09/24 03:29 Nasal Cannula 12/09/24 02:30 21 116/72 95 Nasal Cannula 12/09/24 01:39 84 12/09/24 00:45 89 19 113/78 98 Room Air 12/08/24 23:04 85 19 105/71 97 12/08/24 22:00 79 20 106/75 95 Nasal Cannula 12/08/24 20:30 85 18 122/92 96 Nasal Cannula O2 Flow Rate 12/09/24 07:00 12/09/24 05:41 12/09/24 03:43 4 12/09/24 03:29 4 12/09/24 03:29 4 12/09/24 03:29 4 12/09/24 02:30 4 12/09/24 01:39 12/09/24 00:45 12/08/24 23:04 12/08/24 22:00 4 12/08/24 20:30 4 Critical Care Results & Data Vital Signs (Past 12 Hours) Vital Signs Pulse Pulse Resp BP BP Pulse Ox O2 Del Method 12/09/24 07:00 84 12/09/24 05:41 84 12/09/24 03:43 91 H 20 118/78 96 Nasal Cannula 12/09/24 03:29 Nasal Cannula 12/09/24 03:29 95 Nasal Cannula 12/09/24 03:29 Nasal Cannula 12/09/24 02:30 21 116/72 95 Nasal Cannula 12/09/24 01:39 84 12/09/24 00:45 89 19 113/78 98 Room Air 12/08/24 23:04 85 19 105/71 97 12/08/24 22:00 79 20 106/75 95 Nasal Cannula 12/08/24 20:30 85 18 122/92 96 Nasal Cannula O2 Flow Rate 12/09/24 07:00 12/09/24 05:41 12/09/24 03:43 4 12/09/24 03:29 4 12/09/24 03:29 4 12/09/24 03:29 4 12/09/24 02:30 4 12/09/24 01:39 12/09/24 00:45 12/08/24 23:04 12/08/24 22:00 4 12/08/24 20:30 4 Lab & Micro Results (Past 24 Hours) RBC 4.18 M/uL (4.20-5.40) L 12/09/24 WBC 4.87 K/ul (4.8-10.8) 12/09/24 Hgb 12.2 g/dl (12.0-16.0) 12/09/24 Hct 36.5 % (37.0-47.0) L 12/09/24 MCV 87.3 fL (80.0-100.0) 12/09/24 MCH 29.2 pg (25.0-34.0) 12/09/24 MCHC 33.4 g/dL (32.0-36.0) 12/09/24 RDW Standard Deviation 42.6 fL (36.4-46.3) 12/09/24 RDW Coefficient of Variation 13.4 % (11.5-14.5) 12/09/24 Plt Count 209 K/uL (130-400) 12/09/24 MPV 9.7 fL (9.4-12.4) 12/09/24 Neutrophils (%) (Auto) 62.7 % 12/08/24 Lymphocytes (%) (Auto) 29.8 % 12/08/24 Monocytes # (Auto) 0.35 K/uL (0.11-0.59) 12/08/24 Eosinophils # (Auto) 0.00 K/uL (0.00-0.50) 12/08/24 Immature Granulocyte % (Auto) 0.2 % 12/08/24 Neutrophils # (Auto) 3.18 K/uL (1.40-6.50) 12/08/24 Lymphocytes # (Auto) 1.51 K/uL (1.20-3.40) 12/08/24 Monocytes # (Auto) 0.35 K/uL (0.11-0.59) 12/08/24 Eosinophils # (Auto) 0.00 K/uL (0.00-0.50) 12/08/24 Basophils # (Auto) 0.02 K/uL (0.00-0.20) 12/08/24 Immature Granulocyte # (Auto) 0.01 K/uL (0.01-0.20) 5 Na 136 mmol/L (136-145) 12/09/24 K 3.8 mmol/L (3.5-5.1) 12/09/24 Cl 103 mmol/L (98-107) 12/09/24 CO2 26 mmol/L (21-32) 12/09/24 Anion Gap 7 (3-11) 12/09/24 BUN 10 mg/dl (6-23) 12/09/24 Creatinine 0.78 mg/dl (0.6-1.2) 12/09/24 BUN/Creatinine Ratio 12.8 (10-20) 12/09/24 Glu 122 mg/dl (70-99(Fasting)) H 12/09/24 Ca 9.9 mg/dl (8.6-10.3) 12/09/24 Total Bilirubin 0.5 mg/dl (0.2-1.0) 12/09/24 Direct Bilirubin 0.1 mg/dl (0-0.2) 12/09/24 AST 24 U/L (13-39) 12/09/24 ALT 16 U/L (7-52) 12/09/24 Alkaline Phosphatase 112 U/L (34-104) H 12/09/24 TP 7.4 gm/dl (6.0-8.3) 12/09/24 Albumin 3.6 gm/dl (3.4-5.0) 12/09/24 Globulin 4.0 gm/dl (2.5-4.0) 12/08/24 Albumin/Globulin Ratio 1.0 (0.9-2) 12/08/24 Mg 1.6 mg/dl (1.7-2.4) L 12/08/24 18:28 Calcium Level 9.9 mg/dl (8.6-10.3) 12/09/24 01:55 Prothromb Time International Ratio 1.1 (0.9-1.1) 12/08/24 18:2 8 Diagnostic Findings (Past 24 Hours) Chest X-Ray 12/08/24 17:16 Clinical History: Chest pain and dyspnea Technique: A frontal view of the chest was obtained Comparison is made to the prior examination dated 05/30/2021 Findings: There is left mid and lower lung opacification that could be due to either atelectasis or pneumonia. The heart is mildly enlarged. No right pleural effusion or pneumothorax is seen. There is a large left pleural effusion No fracture is noted. There is thoracic degenerative disc disease Impression: 1. Large left pleural effusion 2. Left lung opacification which could be due to either atelectasis or pneumonia. Underlying neoplasm cannot be excluded 3. Cardiomegaly ACT 112: Positive. There are findings on this exam that require communication between the performing entity and the patient following Patient Test Result Information Act ([place] ACT 112) guidelines. Electronically signed by Cricket Sharma 12-08-2024 5:45 PM Chest CTA 12/08/24 18:00 Exam(s): CTA CHEST IV Amt: 118 cc opti 320 EXAM: CT Angiography Chest With Intravenous Contrast CLINICAL HISTORY: Reason for exam: PE, left pleural effusion, hx breast ca. TECHNIQUE: Axial computed tomographic angiography images of the chest with intravenous contrast. CTDI is 37 mGy and DLP is 881.7 mGy-cm. Automated exposure control was utilized for the study. A dose lowering technique was utilized adhering to the principles of ALARA. MIP reconstructed images were created and reviewed. COMPARISON: No relevant prior studies available. FINDINGS: Pulmonary arteries: Unremarkable. No pulmonary embolism. Aorta: No acute findings. No thoracic aortic aneurysm. Lungs: There is extensive atelectasis on the left, particularly in the left lower lobe and anterior segment of the left upper lobe. No mass. Pleural space: There is a moderate to large left pleural effusion. No pneumothorax. Heart: Unremarkable. No cardiomegaly. No significant pericardial effusion. No evidence of RV dysfunction. Mediastinum: There is a large mass in the left chest encasing the left hilum and extending into the mediastinum. This measures at least 8.2 x 7. 5 x 7.2 cm. The mass markedly narrows the left upper lobe and left lower lobe segmental pulmonary artery branches. The mass occludes the left main bronchus This is new. Bones/joints: No acute fracture. No dislocation. Soft tissues: Unremarkable. Lymph nodes: Unremarkable. No enlarged lymph nodes. IMPRESSION: There is a large mass in the left chest encasing the left hilum and extending into the mediastinum. This measures at least 8.2 x 7.5 x 7.2 cm. The mass markedly narrows the left upper lobe and left lower lobe segmental pulmonary artery branches. The mass occludes the left main bronchus This is new. New moderate to large left pleural effusion. Extensive atelectasis on the left, particularly in the left lower lobe and anterior and lingular segments of the left upper lobe. Electronically signed by: Ean Echeverria MD 12/08/24 23:36 PM I & O Totals 24 Hours 12/08/24 12/09/24 12/10/24 06:59 06:59 06:59 Intake Total 700 / 700 Balance 700 / 700 Cumulative 12/08/24 16:50 thru 12/09/24 04:31 Intake Total 700 Balance 700 RT Ventilator Mngmt (Last Documented) Ventilator Ordered Settings Respiratory Rate 20 12/09/24 03:43 Ventilator - PT Measurements Respiratory Rate 20 PG Care Time/CCT Total # of Minutes Spent Total Time Spent with Patient: Total time spent is greater than 50% in coordination of care (as documented) at patient's floor/unit and/or counseling patient: Coding Level of Care Code 89719 INT INP/OBS CARE 3/75MIN Diagnoses Mediastinal mass J98.59 Hypoxia R09.02 Pleural effusion on left J90
[2024-12-09] MEDS: FLUTICASONE/VILANTEROL 200/25MCG 14 PUFFS/INHALER INH SCH (08:38)
[2024-12-09] MEDS: ONDANSETRON INJ 2 MG/ML 2 ML VIAL IV PRN (08:39)
[2024-12-09] MEDS: VENLAFAXINE HCL XR 150 MG CAPXR PO SCH (08:40)
[2024-12-09] MEDS: METOPROLOL SUCC 25MG EXT REL TAB PO SCH (08:40)
[2024-12-09] MEDS: ACETAMINOPHEN 500 MG TAB PO SCH (08:40)
[2024-12-09] MEDS: GADOBUTROL 65ML VIAL IV ONE (09:40)
[2024-12-09] MEDS: HYDROCODONE/ACETAMOPHEN 5/325MG TAB PO PRN (10:02)
--- NOTE | 2024-12-09 10:07 | Magnetic Resonance Report ---
MRI OF THE BRAIN COMBO CLINICAL HISTORY: Lung cancer COMPARISON STUDY: MRI of the brain dated 07/21/2020 TECHNIQUE: MRI of the brain was performed utilizing various T1 and T2-weighted sequences in the axial , sagittal, and coronal planes. Contrast-enhanced sequences were acquired following the administratio n of 8.5 cc of Gadavist. FINDINGS: Brain parenchyma: There is age-related involutional change noting mild subcortical and periventricula r microangiopathic disease. There is a 9 x 8 mm round enhancing lesion in the right posterior fossa s een peripherally along the inferior right cerebellar hemisphere on high resolution post contrast axia l image #47 of 272. A second 6 mm lesion is seen along the left superior cerebellar hemisphere on axi al image #96. No supratentorial lesion is seen. There is no hemorrhage or midline shift. There is no restricted diffusion to suggest acute ischemia. Harris-white matter differentiation is preserved. No ex tra-axial fluid collection is seen. The cerebellar tonsils are normal in configuration. Ventricles, sulci, and cisterns: Prominent secondary to involutional change. Pituitary and sella: Unremarkable. Intracranial vasculature: Normal flow voids are maintained at the skull base. Orbits: The bony orbits are grossly intact. Orbital contents are normal in appearance noting bilatera l ocular lens implants. Sinuses and mastoids: There is trace dependent mucosal thickening within the maxillary antra. Trace m ucosal thickening is also seen in the ethmoid sinuses. The mastoid air cells are clear. Calvarium: Unremarkable. Cervical cord: Partially visualized cervical spinal cord is normal in morphology and signal intensity . Soft tissues: Prominent cervical chain lymph nodes are partially imaged. IMPRESSION: 1. There is no hemorrhage, midline shift, or evidence of acute ischemia. 2. There are 2 subcentimeter enhancing cerebellar lesions. These were not clearly seen on the 2020 ex amination, but this was not well assessed as IV contrast was not administered on the prior study. The se are pathologically indeterminant, and metastatic disease is the diagnosis of exclusion. There is n o associated mass effect. 3. No enhancing supratentorial lesion is identified. 4. Prominent cervical chain lymph nodes are pathologically indeterminate and only partially visualize d. ACT 112: Positive. There are findings on this exam that require communication between the performing entity and the patient following Patient Test Result Information Act ([place] Act 112) guidelines. Electronically signed by: Kt Paulino M.D. 12/09/2024 10:06 AM
--- NOTE | 2024-12-09 10:48 | XCELERA ---
[id number]
--- NOTE | 2024-12-09 12:45 | Electrocardiogram Report ---
Test Reason : Blood Pressure : */* mmHG Vent. Rate : 84 BPM Atrial Rate : 84 BPM P-R Int : 188 ms QRS Dur : 92 ms QT Int : 386 ms P-R-T Axes : -2 -14 -17 degrees QTcB Int : 456 ms Normal sinus rhythm possible Inferior infarct , age undetermined Abnormal ECG When compared with ECG of 30-May-2021 09:33, Nonspecific T wave abnormality now evident in Inferior leads Confirmed by Florin Andrew ([id number]) on 12/09/2024 12:45:23 PM Referred By: REFERRED SELF Confirmed By: Florin Andrew
--- NOTE | 2024-12-09 13:13 | Ultrasound Report ---
ULTRASOUND-GUIDED LEFT AXILLARY LYMPH NODE CORE BIOPSY CLINICAL HISTORY: 3.2 cm left axillary lymph node; history of breast carcinoma/tobacco abuse COMPARISON STUDY: CT chest 12/08/2024. PROCEDURE: Procedure and risks were complained. Informed consent was obtained. A final timeout was co mpleted. The left axilla was prepped and draped in sterile fashion. 1% lidocaine was utilized for ski n anesthesia. Utilizing ultrasound guidance, an 18-gauge core biopsy needle was advanced into the 3.2 cm left axill delon lymph node. Ultrasound images were obtained. 3 cores were obtained and given to the pathologist f or review. The patient tolerated the procedure well. IMPRESSION: Left axillary lymph node core biopsy as detailed above. Performed, dictated, and signed by Ralf Avendano PA-C; to be co-signed by Dr. Kt Paulino. Electronically signed by: Kt Paulino M.D. 12/09/2024 1:24 PM
--- NOTE | 2024-12-09 13:16 | Oncology Consultation ---
Date of Consultation December 09, 2024 Assessment & Plan (1) Mediastinal mass: (2) Pleural effusion on left: Plan -Imaging and preliminary pathology review suggestive of possible small cell lung cancer. Given imaging findings of significant mass, pleural effusion which I suspect is likely malignant and small cerebellar brain lesions she likely has extensive stage disease. Recommend CT abdomen and pelvis to evaluate for Staging purposes. She will also need outpatient PET/CT upon discharge. -If pathology results confirm small cell lung cancer, we will plan to initiate chemotherapy while inpatient with carboplatin AUC 5-day 1, etoposide 100 mg/m day 1-3. Will add immunotherapy with atezolizumab with cycle 2 of treatment outpatient for extensive stage disease. Patient will need a total of 4 cycles of chemotherapy treatment followed by consolidation radiation treatment to the chest If she has good response to treatment. Patient agreed with plan for inpatient chemotherapy if pathology confirms small cell lung cancer. If pathology is not consistent with small cell lung cancer, we will discuss treatment option at that time. History of Present Illness Reason for Consultation: Small cell lung cancer Attending Physician: John Major MD History of Present Illness 64-year-old female with history of stage IIa ER/PA positive invasive lobular carcinoma of the left breast for which she is s/p mastectomy on 04/23/2016 followed by adjuvant endocrine therapy with anastrozole x 5 years. She pr esented to the ER with chest pain and shortness of breath. Chest x-ray on 12/08/2024 showed large left pleural effusion, left lung opacification and cardiomegaly. CTA chest revealed large mass in the left chest encasing the left hilum and extending to the mediastinum measuring 8.2 x 7.5 x 7.2 cm with mass markedly narrowing the left upper lobe and left lower lobe segmental pulmonary artery branches as well as occluding the left main bronchus, new moderate to large left pleural effusion. Brain MRI on 12/09/2024 showed 2 subcentimeter enhancing cerebellar lesions. She underwent ultrasound-guided left axillary lymph node core biopsy earlier today with preliminary review by pathology concerning for possible small cell lung cancer. She has significant smoking history. Allergies Allergy/AdvReac Type Severity Reaction Status Date / Time empagliflozin Allergy Severe Rash Verified 12/08/24 15:41 [From Jardiance] Penicillins Allergy Unknown Hives Verified 12/08/24 15:41 ranitidine Allergy Unknown Shakiness Verified 12/08/24 15:41 ddvap Allergy Severe SHORTNESS Uncoded 12/08/24 15:41 OF BREATH Home Medications Medication Instructions Recorded Confirmed Type albuterol sulfate 2.5 mg/3 mL 2.5 mg (3 mL) inhalation Q6H PRN 09/05/18 12/08/24 Rx (0.083 %) solution for nebulization shortness of breath or wheezing #150 mL ipratropium 0.5 mg-albuterol 3 mg 3 ml inhalation QID PRN shortness 12/15/19 12/08/24 Rx (2.5 mg base)/3 mL nebulization of breath or wheezing Dx: J44.9 soln #360 mL cholecalciferol (vitamin D3) 50 2,000 units PO HS 09/20/20 12/08/24 History mcg (2,000 unit) tablet blood-glucose meter (OneTouch #1 ea 10/20/20 12/08/24 Rx Verio Meter) fluticasone furoate 200 1 inh inhalation QAM #60 ea 11/22/20 12/08/24 Rx mcg-vilanterol 25 mcg/dose inhalation powder (Breo Ellipta) calcium carbonate (Calcium 600) 600 mg PO QDL 01/17/23 12/08/24 History albuterol sulfate 90 mcg/actuation 1 puff inhalation Q4H PRN Other 09/26/23 12/08/24 History aerosol inhaler (Ventolin HFA) metoprolol succinate 25 mg 25 mg PO QAM #90 tabs 01/15/24 12/08/24 Rx tablet,extended release 24 hr potassium chloride 20 mEq 20 meq PO HS #90 tabs 01/15/24 12/08/24 Rx tablet,extended release(part/cryst) (Klor-Con M) blood sugar diagnostic (OneTouch #200 ea 01/20/24 12/08/24 Rx Verio test strips) ondansetron 8 mg disintegrating 8 mg PO Q8H PRN nausea and 03/15/24 12/08/24 Rx tablet vomiting #30 tabs lorazepam 0.5 mg tablet 0.5 mg PO DAILY PRN anxiety #10 07/13/24 12/08/24 Rx tabs hydrocodone 5 mg-acetaminophen 325 1 tab PO Q8H PRN pain #30 tabs 09/01/24 Rx mg tablet levothyroxine 50 mcg tablet 100 mcg (2 x 50 mcg) PO DAILYBB 09/01/24 12/08/24 Rx #180 tabs venlafaxine 150 mg 150 mg PO QAM #90 caps 09/07/24 12/08/24 Rx capsule,extended release 24 hr amitriptyline 100 mg tablet 100 mg PO HS #90 tabs 09/30/24 12/08/24 Rx atorvastatin 20 mg tablet 20 mg PO HS #90 tabs 09/30/24 12/08/24 Rx furosemide 20 mg tablet 20 mg PO QAM 12/08/24 12/08/24 History pantoprazole 40 mg tablet,delayed 40 mg PO QAM 12/08/24 12/08/24 History release semaglutide 0.25 mg or 0.5 mg (2 0.5 mg subcut WK 12/08/24 12/08/24 History mg/3 mL) subcutaneous pen injector (Ozempic) Patient History Medical History Right facial swelling Colon cancer screening Breast cancer (04/06/16) "Self detected left breast mass Status post ultrasound-guided biopsy of the breast and axilla Invasive lobular carcinoma grade 1 biopsy of the node benign Estrogen receptor positive, progesterone receptor positive, and HER-2/abdelrahman negative Status post left mastectomy and sentinel lymph node biopsy 04/23/2016 Stage pT2 pN1mi M0" Surgical History Hx of colonoscopy Hx of tonsillectomy S/P wrist surgery (05/06/19) R wrist and thumb Status post evacuation of hematoma (04/2016) 09/[address] Mccormick; L chest wound hematoma S/P cardiac cath Jun 2014-no stents- [facility]- does not follow w/ cardio History of right salpingo-oophorectomy S/P left mastectomy (04/2016) w/ [facility] 04/23/[address] Mccormick S/P cholecystectomy S/P appendectomy Family History Father Kidney disease Kidney stones Congestive heart failure Myocardial infarction Mother Gallbladder disease Hypertension Aunt Breast cancer Denies family history of Ovarian cancer Prostate cancer Colorectal cancer Social History Smoking Status: Never smoker Tobacco Type: Cigarettes Age Started Using Tobacco: 29; Age Quit Using Tobacco: 59; packs per day: 1; Second Hand Exposure: No; Do You Dip or Chew Tobacco: No; Hx Alcohol Use: No Hx Substance Use: No Preferred Language: Irish Communication Ability: Effective Visual Impairment: No Limitations 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: Normal Window Machine Operator Required: No Beliefs That Will Affect Care: None marital status: Current Living Situation: Spouse current occupational status: disabled Feels Safe at Home: Yes Childhood Exposure to Second-Hand Smoke: No Diet: regular Diet Comment: regular caffeine: Yes (coffee) during the past year weight has: remained stable Dental Care, Regularly: Yes Physical Activity Frequency: Daily Physical Activity Frequency Comment: walking, house work Seatbelt Use: always Sunscreen Use: No Assistive Devices: Cane Results & Data Vital Signs (Past 12 Hours) Vital Signs Pulse Pulse Resp BP BP Pulse Ox O2 Del Method 12/09/24 12:03 88 22 97 Nasal Cannula 12/09/24 11:30 92 H 22 96 Nasal Cannula 12/09/24 10:45 80 21 96 Nasal Cannula 12/09/24 08:38 87 18 127/75 97 Nasal Cannula 12/09/24 07:00 84 12/09/24 05:41 84 12/09/24 03:43 91 H 20 118/78 96 Nasal Cannula 12/09/24 03:29 Nasal Cannula 12/09/24 03:29 95 Nasal Cannula 12/09/24 03:29 Nasal Cannula 12/09/24 02:30 21 116/72 95 Nasal Cannula 12/09/24 01:39 84 O2 Flow Rate 12/09/24 12:03 4 12/09/24 11:30 4 12/09/24 10:45 4 12/09/24 08:38 4 12/09/24 07:00 12/09/24 05:41 12/09/24 03:43 4 12/09/24 03:29 4 12/09/24 03:29 4 12/09/24 03:29 4 12/09/24 02:30 4 12/09/24 01:39
[2024-12-09] MEDS: REMOVE LIDODERM PATCH ONE (14:12)
--- NOTE | 2024-12-09 17:03 | Hospitalist Progress Note ---
Date of Service December 09, 2024 Assessment & Plan (1) Mediastinal mass: (2) Pleural effusion on left: (3) Hypertension: (4) Dyslipidemia: (5) Chronic obstructive pulmonary disease: (6) Apnea, sleep: (7) Acid reflux: (8) T2DM (type 2 diabetes mellitus): (9) Hypothyroidism: Plan 64yo female with multiple medical comorbidities, remote history of left sided breast cancer s/p mastectomy presenting with several weeks of progressive left sided chest pain, SOB and DANGELO. 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) / chest pain / left pleural effusion ACS ruled out - essentially unremarkable TTE with trace pericardial effusion Switch norco for oxycodone as unable to take norco with regular acetaminophen use MRI brain concerning for possible metastatic lesions, patient aware Pleural effusion suspected malignant s/p US guided lymph node biopsy 12/09, full pathology results pending, will defer if bronchoscopy still required to pulmonology Appreciate pulm and oncology consults #Hypertension - blood pressure well controlled -Continue Metoprolol 25mg po qAM -Monitor #Hyperlipidemia - chronic -Continue Atorvastatin #Asthma/COPD - no cough or wheeze -Continue Breo Ellipta daily -Continue Duoneb PRN -Albuterol PRN #GERD -Continue Protonix 40mg po qAM #Hypothyroidism -Check TSH mildly low but free T4 normal (NT -Continue Synthroid 100mcg po daily #Anxiety/Mental Health -Continue Venlafaxine 150mg po qAM -Ativan 0.5mg po daily PRN anxiety -Continue Amitriptyline 100mg po qHS VTE Prophylaxis - holding due to biopsy Dispo - Continue on medical telemetry Admission and Anticipated Discharge Date Admission Date: December 08, 2024 Subjective No significant change from patient symptoms overnight, still having some mild chest pain not reproducible on exam. Seen in the morning and discussed with Dr Jessica - no need for transfer at this time, bronchoscopy tomorrow. Oncology consulted and planning on inpatient chemotherapy potentially. Patient seen after lymph node biopsy and pain medication changed as unable to take norco with regular acetaminophen being given. Physical Exam Respiratory: normal respiratory effort; no respiratory distress Auscultation: + breath sounds absent (left base); no crackles and no wheezes Cardiovascular: Rate/Rhythm: regular rate and regular rhythm Gastrointestinal (Abdomen): normal bowel sounds, soft, nontender, no hepatosplenomegaly Skin: no rashes, warm and dry Neurologic: moves all extremities and awake; not confused Psychiatric: A+Ox3, euthymic affect Results & Data Results & Data Vital Signs (Past 12 Hours) Vital Signs Temp Pulse Pulse Resp BP Pulse Ox O2 Del Method 12/09/24 15:42 36.6 C 76 20 121/78 97 Nasal Cannula 12/09/24 14:45 77 12/09/24 14:25 Nasal Cannula 12/09/24 14:21 36.3 C L 79 22 109/76 97 Nasal Cannula 12/09/24 12:03 88 22 97 Nasal Cannula 12/09/24 11:30 92 H 22 96 Nasal Cannula 12/09/24 10:45 80 21 96 Nasal Cannula 12/09/24 08:38 87 18 127/75 97 Nasal Cannula 12/09/24 07:00 84 12/09/24 05:41 84 O2 Flow Rate 12/09/24 15:42 4 12/09/24 14:45 12/09/24 14:25 4 12/09/24 14:21 4 12/09/24 12:03 4 12/09/24 11:30 4 12/09/24 10:45 4 12/09/24 08:38 4 12/09/24 07:00 12/09/24 05:41 PG Care Time/CCT Total # of Minutes Spent Total Time Spent with Patient: Total time spent is greater than 50% in coordination of care (as documented) at patient's floor/unit and/or counseling patient: Coding Level of Care Code 17796 SUB INP/OBS CARE 3/50MIN Diagnoses Mediastinal mass J98.59 Pleural effusion on left J90 Essential hypertension I10 Hypertension type: essential hypertension Dyslipidemia E78.5 Chronic obstructive pulmonary disease J44.9 COPD type: unspecified COPD Apnea, sleep G47.30 Acid reflux K21.9 T2DM (type 2 diabetes mellitus) E11.9 Diabetes mellitus complication status: without complication Diabetes mellitus halfway insulin use: without middle or intermediate school principal use Hypothyroidism, unspecified type E03.9 Hypothyroidism type: unspecified (3) Hypertension Hypertension type: essential hypertension Qualified Code(s): I10 - Essential (primary) hypertension (5) Chronic obstructive pulmonary disease COPD type: unspecified COPD Qualified Code(s): J44.9 - Chronic obstructive pulmonary disease, unspecified (8) T2DM (type 2 diabetes mellitus) Diabetes mellitus complication status: without complication Diabetes mellitus halfway insulin use: without middle or intermediate school principal use Qualified Code(s): E11.9 - Type 2 diabetes mellitus without complications (9) Hypothyroidism Hypothyroidism type: unspecified Qualified Code(s): E03.9 - Hypothyroidism, unspecified
[2024-12-09] MEDS: MoRPHine SULFATE 2 MG/ML CARP IV PRN (20:13)
[2024-12-09] MEDS: ATORVASTATIN 20 MG TAB PO SCH (22:37)
[2024-12-09] MEDS: AMITRIPTYLINE HCL 100 MG TAB PO SCH (22:37)
--- NOTE | 2024-12-10 08:22 | Pulmonology Progress Note ---
Date of Service December 10, 2024 Assessment & Plan (1) Mediastinal mass: (2) Hypoxia: (3) Pleural effusion on left: Plan Impression: 64-year-old prior smoker with prior history of breast cancer with large left hilar mass encasing the left pulmonary artery and obliterating the left lower lobe bronchus. She is status post FNA of a left axillary lymph node with preliminary pathology showing small cell carcinoma. She has been seen by medical oncology. Recommendations: 1. Will extensive stage small cell carcinoma with cerebellar mets and mets to the axillary lymph nodes. Await final path. Per oncology discussion, plans to initiate systemic chemotherapy today once path available. May require consolidative chemotherapy as well as radiation therapy to the cerebellar region in the outpatient setting. Would make sense given the extensive nature of her disease to have the patient meet with palliative care and establish goals of therapy. 2. Intertriginous rash, will start Mycolog 3. Pleural effusion: Likely secondary to bronchial obstruction and atelectasis. No indication for drainage at this point in time as the lung is unable to expand and would result in pneumo ex vacuo. 4. Outpatient PET scanning will be required. 5. Hypoxemia: Continue supplemental oxygen titrated to keep saturations at or above 90%. At this point in time the patient is established with medical oncology. Will need radiation oncology follow-up in the outpatient setting. No additional pulmonary procedures or interventions anticipated at this time. Pulmonary will sign off. Feel free to contact us with questions or concerns Admission and Anticipated Discharge Date Admission Date: December 08, 2024 Subjective Patient seen and examined. EMR reviewed. The patient reports that she is doing okay. She is having some intermittent chest discomfort which appears to be reasonably well-controlled with oxycodone although she states it does not last as long as she would like. She is not having any respiratory problems. No cough or sputum production. Review of Systems Review of Systems: All systems reviewed & are unremarkable except as noted in Subjective Physical Exam Constitutional: WD/WN, vitals as above Neck: trachea midline, no thyromegaly Respiratory: no respiratory distress, no labored breathing, no cough and not tachypneic Auscultation: + diminished lung sounds; no crackles and no wheezes Decreased breath sounds on the left Cardiovascular: RRR, no murmur, no edema Gastrointestinal (Abdomen): normal bowel sounds, soft, nontender, no hepatosplenomegaly Musculoskeletal: Extremities: extremities normal to inspection Skin: Slight rash in the left inframammary region Lymphatic: no cervical lymphadenopathy Results & Data Results & Data Vital Signs (Past 12 Hours) Vital Signs Temp Pulse Pulse Resp BP Pulse Ox O2 Del Method 12/10/24 08:09 36.6 C 76 18 105/71 96 Nasal Cannula 12/10/24 07:11 72 12/10/24 04:16 36.5 C 80 18 111/73 94 Nasal Cannula 12/09/24 22:40 36.5 C 83 18 122/71 96 Nasal Cannula 12/09/24 21:54 74 O2 Flow Rate 12/10/24 08:09 3 12/10/24 07:11 12/10/24 04:16 4 12/09/24 22:40 4 12/09/24 21:54 PG Care Time/CCT Total # of Minutes Spent Total Time Spent with Patient: Total time spent is greater than 50% in coordination of care (as documented) at patient's floor/unit and/or counseling patient: Coding Level of Care Code 99487 SUB INP/OBS CARE 235MIN Diagnoses Mediastinal mass J98.59 Hypoxia R09.02 Pleural effusion on left J90
[2024-12-10] MEDS: NYSTATIN/TRIAMCIN OINT 15 GM TUBE EXT SCH (09:32)
--- NOTE | 2024-12-10 11:21 | Hospitalist Progress Note ---
Date of Service December 10, 2024 Assessment & Plan (1) Mediastinal mass: (2) Pleural effusion on left: (3) Hypertension: (4) Dyslipidemia: (5) Chronic obstructive pulmonary disease: (6) Apnea, sleep: (7) Acid reflux: (8) T2DM (type 2 diabetes mellitus): (9) Hypothyroidism: (10) Hypoxia: Plan 64yo female with multiple medical comorbidities, remote history of left sided breast cancer s/p mastectomy presenting with several weeks of progressive left sided chest pain, SOB and DANGELO. 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) / chest pain / left pleural effusion / hypoxia ACS ruled out - essentially unremarkable TTE with trace pericardial effusion Continue acetaminophen 1st line, oxycodone 2nd line for pain Incentive spirometer q1hwa MRI brain concerning for possible metastatic lesions, patient aware Pleural effusion suspected malignant - no indication to drain this with bronchus compression lung will not re-expand s/p US guided lymph node biopsy 12/09, full pathology results pending - preliminary planning on inpatient induction chemotherapy presuming it is small cell CT A/P with oral and IV contrast pending Appreciate pulm (now signed off) and oncology consults #Hypertension - blood pressure well controlled -Continue Metoprolol 25mg po qAM -Monitor #Hyperlipidemia - chronic -Continue Atorvastatin #Asthma/COPD - no cough or wheeze -Continue Breo Ellipta daily -Continue Duoneb PRN -Albuterol PRN #GERD -Continue Protonix 40mg po qAM #Hypothyroidism -Check TSH mildly low but free T4 normal (NTIS) -Continue Synthroid 100mcg po daily #Anxiety/Mental Health -Continue Venlafaxine 150mg po qAM -Ativan 0.5mg po daily PRN anxiety -Continue Amitriptyline 100mg po qHS VTE Prophylaxis - start Lovenox 40mg SQ daily, encourage ambulation Dispo - Continue on medical telemetry Admission and Anticipated Discharge Date Admission Date: December 08, 2024 Subjective Intermittent chest pain continues but under control with oxycodone. No significant shortness of breath or cough but remains on 3LPM O2. Declined CT last night as the oral contrast made her nauseous and she refused to have it done at 10pm therefore I have re-ordered this for today. Discussed care with Dr Jessica and Dr Summers. No indication for bronchoscopy with good sample of lymph node therefore regular diet ordered. Planning on inpatient induction chemo once full pathology is back. Physical Exam Constitutional: WD/WN, vitals as above Respiratory: normal respiratory effort; no respiratory distress Auscultation: + breath sounds absent (right base); no crackles and no wheezes Cardiovascular: RRR, no murmur, no edema Results & Data Results & Data Vital Signs (Past 12 Hours) Vital Signs Temp Pulse Pulse Resp BP Pulse Ox O2 Del Method 12/10/24 08:09 36.6 C 76 18 105/71 96 Nasal Cannula 12/10/24 07:11 72 12/10/24 04:16 36.5 C 80 18 111/73 94 Nasal Cannula O2 Flow Rate 12/10/24 08:09 3 12/10/24 07:11 12/10/24 04:16 4 PG Care Time/CCT Total # of Minutes Spent Total Time Spent with Patient: Total time spent is greater than 50% in coordination of care (as documented) at patient's floor/unit and/or counseling patient: Coding Level of Care Code 64771 SUB INP/OBS CARE 3/50MIN Diagnoses Mediastinal mass J98.59 Pleural effusion on left J90 Essential hypertension I10 Hypertension type: essential hypertension Dyslipidemia E78.5 Chronic obstructive pulmonary disease J44.9 COPD type: unspecified COPD Apnea, sleep G47.30 Acid reflux K21.9 T2DM (type 2 diabetes mellitus) E11.9 Diabetes mellitus complication status: without complication Diabetes mellitus chcf insulin use: without chcf use Hypothyroidism, unspecified type E03.9 Hypothyroidism type: unspecified Hypoxia R09.02 (3) Hypertension Hypertension type: essential hypertension Qualified Code(s): I10 - Essential (primary) hypertension (5) Chronic obstructive pulmonary disease COPD type: unspecified COPD Qualified Code(s): J44.9 - Chronic obstructive pulmonary disease, unspecified (8) T2DM (type 2 diabetes mellitus) Diabetes mellitus complication status: without complication Diabetes mellitus terminal gauger insulin use: without terminal gauger use Qualified Code(s): E11.9 - Type 2 diabetes mellitus without complications (9) Hypothyroidism Hypothyroidism type: unspecified Qualified Code(s): E03.9 - Hypothyroidism, unspecified
[2024-12-10] MEDS: OPTIRAY 320 100ml IV ONE (12:38)
--- NOTE | 2024-12-10 15:26 | CT Scan Report ---
CT SCAN OF THE ABDOMEN AND PELVIS WITH IV CONTRAST CLINICAL HISTORY: Breast carcinoma. Staging procedure. COMPARISON STUDY: June 2021 TECHNIQUE: Following the IV administration of 93 cc of Optiray 320, CT scan of the abdomen and pelvi s is performed from the lung bases to the proximal femora. Images are reviewed in the axial, sagittal , and coronal planes. IV contrast was administered without complication. A dose lowering technique wa s utilized adhering to the principles of ALARA. CT DOSE: 1546.96 mGy.cm FINDINGS: The visualized portions the lung bases reveal a left pleural effusion with associated left lower lobe atelectasis/consolidation. There is a small pericardial effusion. There is a 61 x 22 mm soft tissue lesion abutting the left pericardium. This is only partially visualized and incompletely evaluated. T here is an 11 mm nodule abutting the pericardium is visualized image #1. There are prominent tangenti al pericardial lymph nodes as visualized image #37/413. These drain tile press operator 12 mm in aggregate. The liver has a somewhat serrated contour. Underlying cirrhosis cannot be excluded. The portal and hepatic veins appear patent. There is a subtle 9 mm hypodense nodule within the right hepatic dome. Gallbladder surgically absent. No splenic masses are visualized. No pancreatic masses are visualized. There is no pancreatic ductal dilatation. There are bilateral adrenal gland nodules, the largest of which measures 15 mm. There is no hydronephrosis. There are bilateral renal cortical cysts. There are 2 fat-containing left renal lesions the largest of which measures 9 mm. These are consistent with angiomyolipomas. There is no evidence of abdominal aortic dilatation. There are no transition zones indicate bowel obstruction. There is no free air. There is a 12 mm soft tissue nodule adjacent to the sigmoid colon. There are small fat-containing right groin hernia. There is no ascites. There is no free intraperitoneal air. No uterine masses are visualized. There are no abnormal adnexal masses. No bladder abnormalities are visualized. There is are 141/413 there is a 12 mm soft tissue nodule within the retroareolar peritoneum. On image #1 6/413 there is an enlarged 22 mm aortocaval lymph node. There are also prominent distal p araesophageal lymph nodes. Aortocaval lymph nodes inferior to the level of the renal arteries are bor derline enlarged. No destructive bony lesions are visualized. IMPRESSION: 1. Left pleural effusion 2. Small pericardial effusion with mild nodular pericardial thickening 3. Partially visualized 60 x 22 mm lesion abutting the left posterior pericardium. Neoplasm not exclu ded 4. Subtle indeterminate 9 mm hypodense density within the right hepatic dome 5. Enlarged pericardial lymph nodes, paraesophageal lymph nodes, and aortocaval lymph nodes. 6. Bilateral adrenal gland nodules. 7. 12 mm solid retroperitoneal soft tissue nodule posterior lateral to the right kidney. 8. The above-mentioned findings are viewed as highly suspicious for metastatic disease. ACT 112: Negative or not required by law. Electronically signed by: Jacob Welch M.D. 12/10/2024 3:24 PM
[2024-12-10] MEDS: dexAMETHasone 12 MG, PALONOSETRON 0.25 MG in SODIUM CHLORIDE 0.9% 50 ML IV ONE (15:27)
[2024-12-10] MEDS: FOSAPREPITANT DIMEGLUMINE 150 MG in SODIUM CHLORIDE 0.9% 145 ML IV SCH (15:44)
[2024-12-10] MEDS: ETOPOSIDE IV SCH (16:13)
[2024-12-10] MEDS: POLYOLEFIN IV SCH (16:13)
[2024-12-10] MEDS: SOD CHL IV SCH (16:13)
[2024-12-10] MEDS: CARBOPLATIN IV SCH (17:19)
[2024-12-10] MEDS: SODIUM CHLORIDE 0.9% IV SCH (17:19)
[2024-12-10] MEDS: MoRPHine SULFATE 4 MG/ML 1 ML CARP\\VIAL IV PRN (19:36)
[2024-12-10] MEDS: ENOXAPARIN INJ 40 MG/0.4 ML SYR SQ SCH (20:24)
[2024-12-10] MEDS: ALBUT/IPRATROP 3MG/0.5MG NEB 3 ML VIAL NEB SCH (20:30)
[2024-12-11] MEDS: POLYOLEFIN IV SCH (15:30)
[2024-12-11] MEDS: ETOPOSIDE IV SCH (15:30)
[2024-12-11] MEDS: SOD CHL IV SCH (15:30)
--- NOTE | 2024-12-11 17:38 | Electrocardiogram Report ---
Test Reason : Blood Pressure : */* mmHG Vent. Rate : 86 BPM Atrial Rate : 86 BPM P-R Int : 190 ms QRS Dur : 96 ms QT Int : 388 ms P-R-T Axes : 44 11 79 degrees QTcB Int : 464 ms Normal sinus rhythm Normal ECG When compared with ECG of 08-Dec-2024 17:13, Criteria for Inferior infarct are no longer Present Nonspecific T wave abnormality no longer evident in Inferior leads Confirmed by Florin Andrew ([id number]) on 12/11/2024 5:37:56 PM Referred By: REFERRED SELF Confirmed By: Florin Andrew
--- NOTE | 2024-12-11 17:43 | Electrocardiogram Report ---
Test Reason : Blood Pressure : */* mmHG Vent. Rate : 90 BPM Atrial Rate : 90 BPM P-R Int : 176 ms QRS Dur : 88 ms QT Int : 364 ms P-R-T Axes : 22 4 66 degrees QTcB Int : 445 ms Normal sinus rhythm Nonspecific ST abnormality When compared with ECG of 09-Dec-2024 09:59, (unconfirmed) No significant change was found Confirmed by Florin Andrew ([id number]) on 12/11/2024 5:42:52 PM Referred By: REFERRED SELF Confirmed By: Florin Andrew
--- NOTE | 2024-12-11 22:10 | Hospitalist Progress Note ---
Date of Service December 11, 2024 Assessment & Plan (1) Mediastinal mass: (2) Pleural effusion on left: (3) Hypertension: (4) Dyslipidemia: (5) Chronic obstructive pulmonary disease: (6) Apnea, sleep: (7) Acid reflux: (8) T2DM (type 2 diabetes mellitus): (9) Hypothyroidism: (10) Hypoxia: Plan 64yo female with multiple medical comorbidities, remote history of left sided breast cancer s/p mastectomy presenting with several weeks of progressive left sided chest pain, SOB and DANGELO. #Metastatic small cell lung cancer / chest pain / left pleural effusion / hypoxia ACS ruled out - essentially unremarkable TTE with trace pericardial effusion Continue acetaminophen 1st line, oxycodone 2nd line for pain Incentive spirometer q1hwa MRI brain concerning for possible metastatic lesions, patient aware Pleural effusion suspected malignant - no indication to drain this with bronchus compression lung will not re-expand s/p US guided lymph node biopsy 12/09, pathology showing small cell carcinoma CT A/P with oral and IV contrast with metastatic deposits Appreciate pulm (now signed off) and oncology consults Started chemotherapy carboplatin/etoposide yesterday 12/10 - planning three days of treatment ?followed by filgrastim therapy #Hypertension - blood pressure well controlled -Continue Metoprolol 25mg po qAM -Monitor #Hyperlipidemia - chronic -Continue Atorvastatin #Asthma/COPD - no cough or wheeze -Continue Breo Ellipta daily -Continue Duoneb PRN -Albuterol PRN #GERD -Continue Protonix 40mg po qAM #Hypothyroidism -Check TSH mildly low but free T4 normal (NTIS) -Continue Synthroid 100mcg po daily #Anxiety/Mental Health -Continue Venlafaxine 150mg po qAM -Ativan 0.5mg po daily PRN anxiety -Continue Amitriptyline 100mg po qHS VTE Prophylaxis - continue Lovenox 40mg SQ daily, encourage ambulation Dispo - Continue on medical telemetry Admission and Anticipated Discharge Date Admission Date: December 08, 2024 Subjective Very short of breath this morning after walking back from bathroom although she did not have her oxygen on. O2 sats 88% on RA and placed back on 2LPM O2. Extensively discussed her diagnosis at bedside and link to smoking which she previously quit. Physical Exam Respiratory: normal respiratory effort; no respiratory distress Auscultation: + breath sounds absent (right base improved from yesterday); no wheezes Cardiovascular: RRR, no murmur, no edema Gastrointestinal (Abdomen): normal bowel sounds, soft, nontender, no hepatosplenomegaly Results & Data Results & Data Vital Signs (Past 12 Hours) Vital Signs Temp Pulse Pulse Resp BP Pulse Ox O2 Del Method 12/11/24 19:08 36.7 C 83 16 128/81 98 Nasal Cannula 12/11/24 15:59 36.8 C 89 20 103/64 93 Nasal Cannula 12/11/24 14:42 96 H 12/11/24 12:37 87 131/75 96 Nasal Cannula 12/11/24 11:42 36.6 C 90 20 97/64 L 92 Nasal Cannula O2 Flow Rate 12/11/24 19:08 4 12/11/24 15:59 2 12/11/24 14:42 12/11/24 12:37 4 12/11/24 11:42 2 PG Care Time/CCT Total # of Minutes Spent Total Time Spent with Patient: Total time spent is greater than 50% in coordination of care (as documented) at patient's floor/unit and/or counseling patient: Coding Level of Care Code 63567 SUB INP/OBS CARE 235MIN Diagnoses Mediastinal mass J98.59 Pleural effusion on left J90 Essential hypertension I10 Hypertension type: essential hypertension Dyslipidemia E78.5 Chronic obstructive pulmonary disease J44.9 COPD type: unspecified COPD Apnea, sleep G47.30 Acid reflux K21.9 T2DM (type 2 diabetes mellitus) E11.9 Diabetes mellitus complication status: without complication 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: without group home use Hypothyroidism, unspecified type E03.9 Hypothyroidism type: unspecified Hypoxia R09.02 (3) Hypertension Hypertension type: essential hypertension Qualified Code(s): I10 - Essential (primary) hypertension (5) Chronic obstructive pulmonary disease COPD type: unspecified COPD Qualified Code(s): J44.9 - Chronic obstructive pulmonary disease, unspecified (8) T2DM (type 2 diabetes mellitus) Diabetes mellitus complication status: without complication Diabetes mellitus group home insulin use: without superintendent [employer] use Qualified Code(s): E11.9 - Type 2 diabetes mellitus without complications (9) Hypothyroidism Hypothyroidism type: unspecified Qualified Code(s): E03.9 - Hypothyroidism, unspecified
[2024-12-12] MEDS: ALBUT/IPRATROP 3MG/0.5MG NEB 3 ML VIAL NEB PRN (00:32)
[2024-12-12 08:19] LABS: Hematocrit (blood only) 35.7 % (37.0-47.0); Hemoglobin 12.0 g/dl (12.0-16.0); Immature Granulocytes # (auto) 0.03 K/uL (0.01-0.20); Immature Granulocytes % (auto) 0.3 %; Mean Corpuscular Hemoglobin 29.3 pg (25.0-34.0); Mean Corpuscular Volume 87.1 fL (80.0-100.0); Platelet Count 231 K/uL (130-400); RDW Standard Deviation 41.6 fL (36.4-46.3); Red Blood Count 4.10 M/uL (4.20-5.40); White Blood Count 9.36 K/ul (4.8-10.8)
--- NOTE | 2024-12-12 08:30 | Hematology/Oncology Prog Note ---
Date of Service December 12, 2024 Assessment & Plan (1) Small cell lung cancer in adult: Plan Extensive stage small cell lung cancer. Started chemotherapy with carboplatin/etoposide on 12/10/2024. Will receive cycle 1, day 3 of treatment today with etoposide. Plan to give G-CSF tomorrow morning and Saturday morning after which she can go home. Will plan for outpatient PET/CT She will return to see me in clinic in about 3 weeks for continuation of treatment with cycle 2 of treatment. Admission and Anticipated Discharge Date Admission Date: December 08, 2024 Subjective Had an episode of hypoxia yesterday which she states has not resolved. Scheduled to receive day 3 of chemotherapy today with etoposide. Results & Data Vital Signs (Past 12 Hours) Vital Signs Temp Pulse Pulse Resp BP Pulse Ox O2 Del Method 12/12/24 07:28 36.6 C 93 H 18 122/73 93 Nasal Cannula 12/12/24 07:28 83 12/12/24 02:01 36.8 C 92 H 18 154/87 H 95 Nasal Cannula 12/12/24 00:36 95 H 24 97 Nasal Cannula 12/11/24 22:40 36.7 C 84 18 122/78 96 Nasal Cannula 12/11/24 21:57 83 O2 Flow Rate 12/12/24 07:28 2 12/12/24 07:28 12/12/24 02:01 2 12/12/24 00:36 6 12/11/24 22:40 4 12/11/24 21:57
[2024-12-12 08:37] LABS: Alanine Aminotransferase 62.0 U/L (7-52); Albumin Globulin Ratio 1.0 (0.9-2); Alkaline Phosphatase 121.0 U/L (34-104); Anion Gap 5.0 (3-11); Bilirubin,Total 0.4 mg/dl (0.2-1.0); Blood Urea Nitrogen 14.0 mg/dl (6-23); Calcium 10.2 mg/dl (8.6-10.3); Carbon Dioxide 26.0 mmol/L (21-32); Chloride 102.0 mmol/L (98-107); Creatinine Clr Calc Pharmacy 98.0 ml/min; Globulin 3.8 gm/dl (2.5-4.0); Glucose 162.0 mg/dl (70-99(Fasting)); Magnesium 2.1 mg/dl (1.7-2.4); Potassium 4.6 mmol/L (3.5-5.1); Sodium 133.0 mmol/L (136-145); Total Protein 7.6 gm/dl (6.0-8.3)
--- NOTE | 2024-12-12 13:14 | Hospitalist Progress Note ---
Date of Service December 12, 2024 Assessment & Plan (1) Mediastinal mass: (2) Pleural effusion on left: (3) Hypertension: (4) Dyslipidemia: (5) Chronic obstructive pulmonary disease: (6) Apnea, sleep: (7) Acid reflux: (8) T2DM (type 2 diabetes mellitus): (9) Hypothyroidism: (10) Hypoxia: Plan 64yo female with multiple medical comorbidities, remote history of left sided breast cancer s/p mastectomy presenting with several weeks of progressive left sided chest pain, SOB and DANGELO. #Metastatic small cell lung cancer / chest pain / left pleural effusion / hypoxia ACS ruled out - essentially unremarkable TTE with trace pericardial effusion Continue acetaminophen 1st line PRN, oxycodone 2nd line for pain PRN Incentive spirometer q1hwa MRI brain concerning for possible metastatic lesions, patient aware CT A/P with oral and IV contrast with metastatic deposits s/p US guided lymph node biopsy 12/09, pathology showing small cell carcinoma Appreciate pulm (now signed off) and oncology management Started chemotherapy carboplatin/etoposide yesterday 12/10 - planning three days of treatment followed by 2 days filgrastim, planned discharge on Saturday Will need 2 step on Saturday if still on oxygen Will need nebulizer equipment and hospital bed ordered prior to discharge #Elevated AST/ALT Suspect this is chemotherapy induced, not using acetaminophen regularly enough to cause this but will make PRN regardless. Can be monitored as outpatient #Hypertension - blood pressure well controlled -Continue Metoprolol 25mg po qAM -Monitor #Hyperlipidemia - chronic -Continue Atorvastatin #Asthma/COPD - no cough or wheeze -Continue Breo Ellipta daily -Continue Duoneb PRN -Albuterol PRN #GERD -Continue Protonix 40mg po qAM #Hypothyroidism -Check TSH mildly low but free T4 normal (NTIS) -Continue Synthroid 100mcg po daily #Anxiety/Mental Health -Continue Venlafaxine 150mg po qAM -Ativan 0.5mg po daily PRN anxiety -Continue Amitriptyline 100mg po qHS VTE Prophylaxis - continue Lovenox 40mg SQ daily, encourage ambulation Dispo - Continue on medical telemetry Admission and Anticipated Discharge Date Admission Date: December 08, 2024 Subjective Episode of sudden shortness of breath overnight. She reports having head of bed slightly elevated. Improved with nebulizer and increased oxygen requirement up to 4LPm O2 but doing fine on 2LPM O2 today. Physical Exam Respiratory: normal respiratory effort; no respiratory distress Auscultation: + diminished lung sounds (right base improved air entry) and + crackles (right base) Cardiovascular: RRR, no murmur, no edema Results & Data Results & Data Vital Signs (Past 12 Hours) Vital Signs Temp Pulse Pulse Resp BP Pulse Ox O2 Del Method 12/12/24 11:58 36.6 C 85 18 117/71 94 Nasal Cannula 12/12/24 10:43 Nasal Cannula 12/12/24 07:28 36.6 C 93 H 18 122/73 93 Nasal Cannula 12/12/24 07:28 83 12/12/24 02:01 36.8 C 92 H 18 154/87 H 95 Nasal Cannula O2 Flow Rate 12/12/24 11:58 2 12/12/24 10:43 1 12/12/24 07:28 2 12/12/24 07:28 12/12/24 02:01 2 PG Care Time/CCT Total # of Minutes Spent Total Time Spent with Patient: Total time spent is greater than 50% in coordination of care (as documented) at patient's floor/unit and/or counseling patient: Coding Level of Care Code 67688 SUB INP/OBS CARE 2/35MIN Diagnoses Mediastinal mass J98.59 Pleural effusion on left J90 Essential hypertension I10 Hypertension type: essential hypertension Dyslipidemia E78.5 Chronic obstructive pulmonary disease J44.9 COPD type: unspecified COPD Apnea, sleep G47.30 Acid reflux K21.9 T2DM (type 2 diabetes mellitus) E11.9 Diabetes mellitus complication status: without complication Diabetes mellitus mcc insulin use: without mcc use Hypothyroidism, unspecified type E03.9 Hypothyroidism type: unspecified Hypoxia R09.02 (3) Hypertension Hypertension type: essential hypertension Qualified Code(s): I10 - Essential (primary) hypertension (5) Chronic obstructive pulmonary disease COPD type: unspecified COPD Qualified Code(s): J44.9 - Chronic obstructive pulmonary disease, unspecified (8) T2DM (type 2 diabetes mellitus) Diabetes mellitus complication status: without complication 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
[2024-12-12] MEDS: PALONOSETRON 0.25 MG in SYRINGE 0 ML IV SCH (14:05)
--- NOTE | 2024-12-12 18:24 | XRay Report ---
Chest radiograph, one view History: Chest pain Comparison: 12/08/2024 Findings: Single AP view of the chest performed. Moderate to large left pleural effusion with subjacent atelectasis, appears increased. No pneumothorax. No visualized bony or soft tissue abnormality. Impression: Increased left pleural effusion Electronically signed by Florin Lundberg 12-12-2024 6:24 PM
[2024-12-13 06:36] LABS: Hematocrit (blood only) 34.8 % (37.0-47.0); Hemoglobin 11.8 g/dl (12.0-16.0); Immature Granulocytes # (auto) 0.03 K/uL (0.01-0.20); Immature Granulocytes % (auto) 0.4 %; Mean Corpuscular Hemoglobin 29.3 pg (25.0-34.0); Mean Corpuscular Volume 86.4 fL (80.0-100.0); Platelet Count 234 K/uL (130-400); RDW Standard Deviation 41.1 fL (36.4-46.3); Red Blood Count 4.03 M/uL (4.20-5.40); White Blood Count 8.15 K/ul (4.8-10.8)
[2024-12-13 07:00] LABS: Alanine Aminotransferase 58.0 U/L (7-52); Albumin Globulin Ratio 1.1 (0.9-2); Alkaline Phosphatase 110.0 U/L (34-104); Anion Gap 4.0 (3-11); Bilirubin,Total 0.4 mg/dl (0.2-1.0); Blood Urea Nitrogen 14.0 mg/dl (6-23); Calcium 10.0 mg/dl (8.6-10.3); Carbon Dioxide 29.0 mmol/L (21-32); Chloride 101.0 mmol/L (98-107); Creatinine Clr Calc Pharmacy 112.2 ml/min; Globulin 3.3 gm/dl (2.5-4.0); Glucose 156.0 mg/dl (70-99(Fasting)); Potassium 4.5 mmol/L (3.5-5.1); Sodium 134.0 mmol/L (136-145); Total Protein 7.0 gm/dl (6.0-8.3)
--- NOTE | 2024-12-13 10:39 | Hospitalist Progress Note ---
Date of Service December 13, 2024 Assessment & Plan (1) Mediastinal mass: (2) Pleural effusion on left: (3) Hypertension: (4) Dyslipidemia: (5) Chronic obstructive pulmonary disease: (6) Apnea, sleep: (7) Acid reflux: (8) T2DM (type 2 diabetes mellitus): (9) Hypothyroidism: (10) Hypoxia: Plan 64yo female with multiple medical comorbidities, remote history of left sided breast cancer s/p mastectomy presenting with several weeks of progressive left sided chest pain, SOB and DANGELO. #Metastatic small cell lung cancer / chest pain / left pleural effusion / hypoxia ACS ruled out - essentially unremarkable TTE with trace pericardial effusion Continue acetaminophen 1st line PRN, oxycodone 2nd line for pain PRN Incentive spirometer q1hwa MRI brain concerning for possible metastatic lesions, patient aware CT A/P with oral and IV contrast with metastatic deposits s/p US guided lymph node biopsy 12/09, pathology showing small cell carcinoma Appreciate pulm (now signed off) and oncology management Started chemotherapy carboplatin/etoposide 12/10 - 12/12, Filgrastim today and tomorrow, planning on discharge Saturday Will need 2 step on Saturday if still on oxygen Needs hospital bed on discharge due to need for elevation head of bed not possible with an ordinary bed due to malignant pleural effusion and mass causing shortness of breath and pain while lying flat, due to pain this is not possible with a wedge given need for ongoing adjustments required. Will need nebulizer equipment ordered prior to discharge #Elevated AST/ALT Suspect this is chemotherapy induced, not using acetaminophen regularly enough to cause this but will make PRN regardless. Can be monitored as outpatient #Hypertension - blood pressure well controlled -Continue Metoprolol 25mg po qAM -Monitor #Hyperlipidemia - chronic -Continue Atorvastatin #Asthma/COPD - no cough or wheeze -Continue Breo Ellipta daily -Continue Duoneb PRN -Albuterol PRN #GERD -Continue Protonix 40mg po qAM #Hypothyroidism -TSH mildly low but free T4 normal (NTIS) -Continue Synthroid 100mcg po daily #Anxiety/Mental Health -Continue Venlafaxine 150mg po qAM -Ativan 0.5mg po daily PRN anxiety -Continue Amitriptyline 100mg po qHS VTE Prophylaxis - continue Lovenox 40mg SQ daily, encourage ambulation Dispo - Continue on medical telemetry Admission and Anticipated Discharge Date Admission Date: December 08, 2024 Subjective Had some chest pain yesterday evening but CXR showed larger pleural effusion only and EKG unremarkable. Vital signs were stable. Morphine improved pain. Doing much better this morning and chest pain minimal. Questions regarding thoracentesis answered. Physical Exam 2 Constitutional: WD/WN, vitals as above Respiratory: normal respiratory effort; no respiratory distress Auscultation: + diminished lung sounds (left base improved air entry) and + crackles (left base) Cardiovascular: RRR, no murmur, no edema Rate/Rhythm: regular rate and regular rhythm Gastrointestinal (Abdomen): normal bowel sounds, soft, nontender, no hepatosplenomegaly Skin: no rashes, warm and dry Neurologic: moves all extremities and awake; not confused Psychiatric: A+Ox3, euthymic affect Results & Data Results & Data Vital Signs (Past 12 Hours) Vital Signs Temp Pulse Pulse Resp BP Pulse Ox O2 Del Method 12/13/24 08:04 36.7 C 83 20 141/88 H 96 Nasal Cannula 12/13/24 07:22 80 12/13/24 02:56 36.8 C 85 18 144/84 H 96 Nasal Cannula 12/12/24 23:10 36.9 C 85 16 150/88 H 95 Nasal Cannula O2 Flow Rate 12/13/24 08:04 12/13/24 07:22 12/13/24 02:56 2 12/12/24 23:10 2 PG Care Time/CCT Total # of Minutes Spent Total Time Spent with Patient: Total time spent is greater than 50% in coordination of care (as documented) at patient's floor/unit and/or counseling patient: Coding Level of Care Code 83721 SUB INP/OBS CARE 2/35MIN Diagnoses Mediastinal mass J98.59 Pleural effusion on left J90 Essential hypertension I10 Hypertension type: essential hypertension Dyslipidemia E78.5 Chronic obstructive pulmonary disease J44.9 COPD type: unspecified COPD Apnea, sleep G47.30 Acid reflux K21.9 T2DM (type 2 diabetes mellitus) E11.9 Diabetes mellitus complication status: without complication 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: without terminal carman use Hypothyroidism, unspecified type E03.9 Hypothyroidism type: unspecified Hypoxia R09.02 (3) Hypertension Hypertension type: essential hypertension Qualified Code(s): I10 - Essential (primary) hypertension (5) Chronic obstructive pulmonary disease COPD type: unspecified COPD Qualified Code(s): J44.9 - Chronic obstructive pulmonary disease, unspecified (8) T2DM (type 2 diabetes mellitus) Diabetes mellitus complication status: without complication 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
--- NOTE | 2024-12-13 10:43 | Electrocardiogram Report ---
Test Reason : Blood Pressure : */* mmHG Vent. Rate : 83 BPM Atrial Rate : 83 BPM P-R Int : 188 ms QRS Dur : 102 ms QT Int : 354 ms P-R-T Axes : 61 7 56 degrees QTcB Int : 415 ms Normal sinus rhythm Normal ECG When compared with ECG of 10-Dec-2024 20:15, No significant change was found Confirmed by Tomy Zhou ([id number]) on 12/13/2024 10:42:50 AM Referred By: REFERRED SELF Confirmed By: Tomy Zhou
[2024-12-13] MEDS: ACETAMINOPHEN 500 MG TAB PO PRN (12:08)
[2024-12-13] MEDS: FILGRASTIM 480 MCG/1.6 ML VIAL SQ SCH (15:36)
[2024-12-14 08:49] VITALS: RESP 16
--- NOTE | 2024-12-14 11:15 | Discharge Summary ---
Discharge Summary Date of Service December 14, 2024 Principal Dx & Hospital Course #1 = Principal Diagnosis (1) Mediastinal mass: (2) Pleural effusion on left: (3) Hypertension: (4) Dyslipidemia: (5) Chronic obstructive pulmonary disease: (6) Apnea, sleep: (7) Acid reflux: (8) T2DM (type 2 diabetes mellitus): (9) Hypothyroidism: (10) Hypoxia: Plan Naomi Martinez is a 64 year old female admitted to [facility] from December 08 - 2024 due to hypoxia, left sided chest discomfort and shortness of breath. CT chest angiogram showed mediastinal mass concerning for cancer. She was seen by oncology and pulmonology and underwent left axillary lymph node biopsy on December 09 which confirmed small cell lung cancer. Additional imaging was performed which was concerning for metastatic spread with 2 subcentimeter enhancing cerebellar lesions, 9mm liver lesion, 12 mm solid retroperitoneal soft tissue nodule posterior lateral to the right kidney and multiple enlarged lymph nodes. She was started on induction chemotherapy with carboplatin/etoposide for three days followed by two days of filgrastim. She will follow up with Dr Summers (oncologist) as an outpatient for continuation of treatment and further staging scans. She was weaned off oxygen prior to discharge and passed her 2 step. Hospital bed and nebulizer equipment have been ordered but hospital bed eligibility has not been confirmed at this time. Notes For Next Care Provider Follow up oncology for ongoing treatment Medication Changes From Visit Oxycodone has been prescribed for cancer related pain Ondansetron for nausea Duonebs have been re-prescribed Admission HPI Per Admitting Provider Naomi Martinez is a pleasant 64yo female presenting with 1 week of progressive left-sided chest discomfort, shortness of breath and dyspnea on exertion. Patient with multiple medical comorbiditieshistory of Hypertension, hyperlipidemia, hypothyroidism, diabetes, asthma, COPD, IRVIN (no CPAP). History of left breast cancer status post left mastectomy 04/23/2016 with hematoma evacuation 04/24/2016. Patient did not require radiation or chemotherapy. She completed 5 years of anastrozole. Was seen by [facility] - no longer follows. She presents today with 1 week of progressive left-sided chest pain. She reports the pain is sharp in nature, occurs randomly at rest or with exertion. Is typically located in the left anterior chest but at times radiates to between her shoulder blades. She does have some diaphoresis at times as well. She reports shortness of breath at rest as well as dyspnea on exertion. States that she is having difficulty taking deep breaths. No peripheral edema, orthopnea, increased abdominal girth. No fevers, cough, congestion. No trauma. She did fall several days ago but did not sustain trauma to the chest. No history of CHF. In the ER patient is afebrile, HD stable, saturation 89% on room air - now on 4L NC, no respiratory distress ER Course: Nitroglycerine 1 inch NSS x 500mL Acetaminophen Morphine Discharge Exam Constitutional WD/WN, vitals as above Respiratory normal respiratory effort; no respiratory distress Auscultation: + diminished lung sounds (left base improved air entry) Cardiovascular RRR, no murmur, no edema Discharge Plan Discharge Items Patient Disposition: Home - Self-Care Reason For Visit: CHEST PAIN, SOB, PLEURAL EFFUSION Discharge Diagnosis: Metastatic small cell lung cancer Condition on Discharge: Fair Activity: Resume your previous activity Non-emergency contact: Oncologist Call non-emergency contact if: you have any medication questions and your symptoms worsen Follow-up/Referrals: Perla Carmen DO [Primary Care Provider] - 12/22/24 8:20 am Sil uSmmers MD [Physician] - 01/04/25 () Diet: Regular Addtl Attending Provider Instructions: You were admitted to [facility] from December 08 - 2024 due to hypoxia, left sided chest discomfort and shortness of breath. CT chest angiogram showed mediastinal mass concerning for cancer. You were seen by oncology and pulmonology and underwent left axillary lymph node biopsy on December 09 which confirmed small cell lung cancer. Additional imaging was performed which was concerning for metastatic spread to your brain (cerebellar lesions) and liver and behind the right kidney. You were started on induction chemotherapy with carboplatin/etoposide. You will follow up with Dr Summers (oncologist) as an outpatient for continuation of treatment and further staging scans. You were weaned off oxygen prior to discharge and are not requiring oxygen at this time. Oxycodone has been prescribed for cancer related pain. Ondansetron for nausea and your duonebs have been re-prescribed. Pending Studies at Discharge: No Stand-Alone Forms: My [facility], Smoking Cessation Medications and DC Order Prescriptions: New ipratropium-albuterol 0.5 mg-3 mg(2.5 mg base)/3 mL solution for nebulization 3 ml inhalation Q4H PRN (Reason: wheezing) Qty: 90 0RF oxycodone 5 mg tablet 5 mg PO Q6H PRN (Reason: pain) Qty: 30 0RF ondansetron 4 mg tablet,disintegrating 4 mg PO Q8H PRN (Reason: nausea and vomiting) Qty: 10 0RF Continued (DME) blood-glucose meter [OneTouch Verio Meter] Misc See Rx Instructions .Route Qty: 1 0RF Rx Instructions: As directed Breo Ellipta 200-25 mcg/dose blister with device 1 inh INH QAM Qty: 60 5RF metoprolol succinate 25 mg tablet extended release 24 hr 25 mg PO QAM Qty: 90 1RF potassium chloride [Klor-Con M20] 20 mEq tablet,ER particles/crystals 20 meq PO HS Qty: 90 1RF (DME) OneTouch Verio test strips Strip See Rx Instructions .Route Qty: 200 5RF Rx Instructions: testing once per day lorazepam 0.5 mg tablet 0.5 mg PO DAILY PRN (Reason: anxiety) Qty: 10 0RF levothyroxine 50 mcg tablet 100 mcg PO DAILYBB Qty: 180 1RF venlafaxine 150 mg capsule,extended release 24hr 150 mg PO QAM Qty: 90 1RF amitriptyline 100 mg tablet 100 mg PO HS Qty: 90 1RF atorvastatin 20 mg tablet 20 mg PO HS Qty: 90 1RF cholecalciferol (vitamin D3) 2,000 unit tablet 2,000 units PO HS calcium carbonate [Calcium 600] 600 mg calcium (1,500 mg) tablet 600 mg PO QDL albuterol sulfate [Ventolin HFA] 90 mcg/actuation HFA aerosol inhaler 1 puff inhalation Q4H PRN (Reason: Other) Rx Instructions: INHALE 1 PUFF BY MOUTH EVERY 4 HOURS NEEDED. pantoprazole 40 mg tablet,delayed release (DR/EC) 40 mg PO QAM furosemide 20 mg tablet 20 mg PO QAM Ozempic 0.25 mg or 0.5 mg (2 mg/3 mL) pen injector 0.5 mg subcut WK Discontinued ipratropium-albuterol 0.5 mg-3 mg(2.5 mg base)/3 mL solution for nebulization 3 ml INH QID PRN (Reason: shortness of breath or wheezing Dx: J44.9) Qty: 360 2RF ondansetron 8 mg tablet,disintegrating 8 mg PO Q8H PRN (Reason: nausea and vomiting) Qty: 30 0RF albuterol sulfate 2.5 mg /3 mL (0.083 %) solution for nebulization 2.5 mg INH Q6H PRN (Reason: shortness of breath or wheezing) Qty: 150 0RF hydrocodone-acetaminophen 5-325 mg tablet 1 tab PO Q8H PRN (Reason: pain) Qty: 30 0RF Discharge Orders: Discharge Order (Routine); Ordered 12/14/24 Ordered By: John Conway/Other Patient Handouts: Communicating About Pain Admission Data Admit Date/Time: 12/08/24 23:05 Attending Provider: John Major Admit Provider: Irene Altamirano Primary Care Provider: Peral Carmen Other Providers: Krishna Jessica; Sil Summers Other Interventions: Discharge Summary Assessment (RN) Last Done: 12/14/24 14:12 Hospital Stay Data Consultations 12/08/24 22:33 ED Decision to Admit Stat 12/08/24 23:05 Consult Pulmonology Routine 12/09/24 13:17 Consult Oncology Routine Procedures Performed Operation Date: 12/10/24 07:00 <No data on this case meets the specified criteria> Diagnostic Imagining Performed 12/08/24 18:00 CT angio chest PE protocol Stat IMPRESSION: There is a large mass in the left chest encasing the left hilum and extending into the mediastinum. This measures at least 8.2 x 7.5 x 7.2 cm. The mass markedly narrows the left upper lobe and left lower lobe segmental pulmonary artery branches. The mass occludes the left main bronchus This is new. New moderate to large left pleural effusion. Extensive atelectasis on the left, particularly in the left lower lobe and anterior and lingular segments of the left upper lobe. 12/09/24 07:44 MRI Brain [MR brain wo/w con] Routine IMPRESSION: 1. There is no hemorrhage, midline shift, or evidence of acute ischemia. 2. There are 2 subcentimeter enhancing cerebellar lesions. These were not clearly seen on the 2020 examination, but this was not well assessed as IV contrast was not administered on the prior study. These are pathologically indeterminant, and metastatic disease is the diagnosis of exclusion. There is no associated mass effect. 3. No enhancing supratentorial lesion is identified. 4. Prominent cervical chain lymph nodes are pathologically indeterminate and only partially visualized. 12/09/24 12:14 IR biopsy lymph US Urgent 12/10/24 09:40 CT Abd and Pelvis [CT abd pelvis oral and IV con] Routine IMPRESSION: 1. Left pleural effusion 2. Small pericardial effusion with mild nodular pericardial thickening 3. Partially visualized 60 x 22 mm lesion abutting the left posterior pericardium. Neoplasm not excluded 4. Subtle indeterminate 9 mm hypodense density within the right hepatic dome 5. Enlarged pericardial lymph nodes, paraesophageal lymph nodes, and aortocaval lymph nodes. 6. Bilateral adrenal gland nodules. 7. 12 mm solid retroperitoneal soft tissue nodule posterior lateral to the right kidney. 8. The above-mentioned findings are viewed as highly suspicious for metastatic disease. Pending Results Patient Have Any Pending Studies at Discharge: No Discharge Instructions Given to Patient (Per Discharging Provider) You were admitted to [facility] from December 08 - 2024 due to hypoxia, left sided chest discomfort and shortness of breath. CT chest angiogram showed mediastinal mass concerning for cancer. You were seen by oncology and pulmonology and underwent left axillary lymph node biopsy on December 09 which confirmed small cell lung cancer. Additional imaging was performed which was concerning for metastatic spread to your brain (cerebellar lesions) and liver and behind the right kidney. You were started on induction chemotherapy with carboplatin/etoposide. You will follow up with Dr Summers (oncologist) as an outpatient for continuation of treatment and further staging scans. You were weaned off oxygen prior to discharge and are not requiring oxygen at this time. Oxycodone has been prescribed for cancer related pain. Ondansetron for nausea and your duonebs have been re-prescribed. Total Time Total Time Spent Total Time Spent (In Minutes): 50 Total Time Includes: Examination of the Patient, Discharge Planning, Medication Reconciliation and Communication With Other Providers Coding Level of Care Code 59106 INP/OBS DISCH >30 MIN Diagnoses Mediastinal mass J98.59 Pleural effusion on left J90 Essential hypertension I10 Hypertension type: essential hypertension Dyslipidemia E78.5 Chronic obstructive pulmonary disease J44.9 COPD type: unspecified COPD Apnea, sleep G47.30 Acid reflux K21.9 T2DM (type 2 diabetes mellitus) E11.9 Diabetes mellitus complication status: without complication Diabetes mellitus custodial insulin use: without tank terminal gauger use Hypothyroidism, unspecified type E03.9 Hypothyroidism type: unspecified Hypoxia R09.02
[2024-12-14 11:47] VITALS: BP 101/64; TEMP 97.9; O2SAT 92
[2024-12-14 15:08] VITALS: PULSE 88
== END 2024-12-14 15:07 | disposition home or self-care (01) | DRG 167 ==
LOC: ED 16:58 → SUATTDRO 23:05 → EDINP 23:05 → 2W 12-09 01:13

== ENCOUNTER 2024-12-26 08:38 | Inpatient (IN) ==
--- NOTE | 2024-12-26 08:41 | Emergency Department Note ---
Impression & Plan Acute hypoxic respiratory failure, Small cell lung cancer ED Provider Note NAME: JM CUEVAS AGE: 64 SEX: F : 1960 ARRIVES VIA: Ambulance INFORMANT: Patient, ED PROVIDER(S): Margarito Beck MD CHIEF COMPLAINT: Chest pain, nausea vomiting MEDICAL DECISION MAKING: Patient presents with the above. Patient's chest pain likely secondary to the patient's known history of mediastinal mass/chest mass. EKG initially is unremarkable. Patient was continued on supplemental oxygen. The patient did receive aspirin and nitro and route the patient's symptoms do not sound cardiac in nature. PE is still a possibility although not noted on most recent CT angiography of the chest. No leg swelling. IV was established and blood work was obtained. I did speak with the on-call hospital service Dr. Major and the patient was admitted to the medicine service. Critical Care: I have personally spent 45 minutes of critical care time in direct management of this patient. This includes bedside care, interpretation of diagnostic studies, and testing, discussion with consultants, patient, and family members, and other require inpatient management activities. This 45 minutes is in excess of all separately billable procedures. Discussion w/ other healthcare providers: Dr. Major inpatient medicine service Prior /Outside records reviewed: I did review part of a primary care visit from Dr. Tinoco. Patient does have a known history of cancer related pain does have small cell lung cancer. Patient was placed on steroids and doxycycline at that time. I did review part of her discharge summary from Dr. Major from December 14. Known history of mediastinal mass patient did have a left axillary lymph node biopsy on December 09. Patient also with cerebellar liver and retroperitoneal lesions. Patient was started on chemo followed by full gastrum. Patient is to follow-up with Dr. Summers. Differential diagnosis: Reactive airway disease, pneumonia, pneumothorax, COPD, CHF, ACS, pulmonary embolism, musculoskeletal, GERD as well as other pathologies were considered. Diagnostics, as interpreted by me: ECG: Normal sinus rhythm, rate of 93, normal intervals, normal axis no ST elevations. Cardiac monitoring: An order was placed for continuous cardiac monitoring. The monitor shows a rate of 95 with sinus rhythm. Patient was placed on pulse oximetry Medical decision rules: None Imaging studies: I informally interpreted the patient's chest x-ray shows improvement in aeration of the left lung with formal report to follow. HPI: Patient presents due to concern for nausea vomiting chest pain. The patient states that she developed this in the middle of the night. The patient does still complain of nausea. Did receive aspirin nitro and Zofran and route. Patient reportedly does have a recent diagnosis of mediastinal mass confirmed metastatic small cell lung cancer. Patient did undergo initiation of chemotherapy. The patient was noted to be hypoxic at home at 86% on room air and was placed on 4 L. Patient states the chest pain is centralized nonradiating. No falls or trauma no leg swelling or calf pain. Patient denies any recent surgeries. PAST MEDICAL HISTORY: See Below PAST SURGICAL HISTORY: See Below SOCIAL HISTORY: See Below HOME MEDICATIONS: See Below ALLERGIES: See Below VITALS: See Below PHYSICAL EXAMINATION: GENERAL: Mildly ill in appearance. EYE EXAM: Normal conjunctiva. PERRL, no anisocoria and EOM's grossly intact w/o pain. OROPHARYNX: Dry mucus membranes, grossly normal dentition. NECK: Trachea midline, no stridor. LUNGS: Decreased breath sounds left chest. Normal chest wall mechanics. HEART: NSR, no MRG. ABDOMEN: Abdomen soft, non-tender, no masses, no rebound or guarding. BACK: No CVA TTP. SKIN: No rashes and no bruising. UPPER EXTREMITIES: Upper extremities are grossly normal. LOWER EXTREMITIES: Grossly normal, no edema. Negative Homans' sign bilaterally. NEURO EXAM: Awake and alert, follows commands, no obvious facial asymmetry, normal speech, moves all 4 extremities. Past Med/Surg History Problem List (Updated 12/26/24 @ 16:08 by Margarito Beck MD) Small cell lung cancer (Acute) Acute hypoxic respiratory failure (Acute) Cancer related pain Small cell lung cancer in adult Mediastinal mass Hypoxia (Acute) Pleural effusion on left (Acute) Dyspnea (Acute) Chest pain (Acute) Fatty liver Diabetic neuropathy Vitamin D deficiency History of left breast cancer Hypercalcemia Mediastinal lymphadenopathy T2DM (type 2 diabetes mellitus) Osteopenia Irritable bowel syndrome Hypothyroidism Hypertension Dyslipidemia Anxiety and depression Chronic obstructive pulmonary disease Asthma well controlled w/ daily inhaler use; rarely uses rescue inhaler Arthritis Apnea, sleep no device Acid reflux Medical History Right facial swelling Colon cancer screening Breast cancer (04/06/16) "Self detected left breast mass Status post ultrasound-guided biopsy of the breast and axilla Invasive lobular carcinoma grade 1 biopsy of the node benign Estrogen receptor positive, progesterone receptor positive, and HER-2/abdelrahman negative Status post left mastectomy and sentinel lymph node biopsy 04/23/2016 Stage pT2 pN1mi M0" Surgical History Hx of colonoscopy Hx of tonsillectomy S/P wrist surgery (05/06/19) R wrist and thumb Status post evacuation of hematoma (04/2016) 09/[address] Mccormick; L chest wound hematoma S/P cardiac cath Jun 2014-no stents- [facility]- does not follow w/ cardio History of right salpingo-oophorectomy S/P left mastectomy (04/2016) w/ [facility] 04/23/[address] Mccormick S/P cholecystectomy S/P appendectomy Family History Father Kidney disease Kidney stones Congestive heart failure Myocardial infarction Mother Gallbladder disease Hypertension Aunt Breast cancer Denies family history of Ovarian cancer Prostate cancer Colorectal cancer Social History Smoking Status: Former smoker Tobacco Type: Cigarettes Age Started Using Tobacco: 29; Age Quit Using Tobacco: 59; packs per day: 1; Second Hand Exposure: No; Do You Dip or Chew Tobacco: No; Hx Alcohol Use: No Hx Substance Use: No Preferred Language: Bulgarian Communication Ability: Effective Visual Impairment: No Limitations 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: Normal Electric Refrigerator Servicer Required: No Beliefs That Will Affect Care: None marital status: Current Living Situation: Spouse current occupational status: disabled Feels Safe at Home: Yes Safety Concerns: Feels Safe At This Time, Afraid for Self and Afraid for Child/Children Childhood Exposure to Second-Hand Smoke: No Diet: regular Diet Comment: regular caffeine: Yes (coffee) during the past year weight has: remained stable Dental Care, Regularly: Yes Physical Activity Frequency: Daily Physical Activity Frequency Comment: walking, house work Seatbelt Use: always Sunscreen Use: No Assistive Devices: Cane, Denture - Upper and Denture - Lower Allergies Allergies Allergy/AdvReac Type Severity Reaction Status Date / Time empagliflozin Allergy Severe Rash Verified 12/24/24 14:16 [From Jardiance] Penicillins Allergy Unknown Hives Verified 12/24/24 14:16 ranitidine Allergy Unknown Shakiness Verified 12/24/24 14:16 ddvap Allergy Severe SHORTNESS Uncoded 12/24/24 14:16 OF BREATH Home Meds Home Medications Medication Instructions Recorded Confirmed cholecalciferol (vitamin D3) 50 2,000 units PO HS 09/20/20 12/26/24 mcg (2,000 unit) tablet calcium carbonate (Calcium 600) 600 mg PO QDL 01/17/23 12/26/24 albuterol sulfate 90 mcg/actuation 1 puff inhalation Q4H PRN Other 09/26/23 12/26/24 aerosol inhaler (Ventolin HFA) furosemide 20 mg tablet 20 mg PO QAM 12/08/24 12/26/24 pantoprazole 40 mg tablet,delayed 40 mg PO QAM 12/08/24 12/26/24 release semaglutide 0.25 mg or 0.5 mg (2 0.5 mg subcut WK 12/08/24 12/26/24 mg/3 mL) subcutaneous pen injector (Ozempic) olanzapine 2.5 mg tablet 2.5 mg PO DAILY 12/24/24 12/26/24 ondansetron 8 mg disintegrating 8 mg translingual Q8H PRN Nausea 12/24/24 12/26/24 tablet And Vomiting prochlorperazine maleate 10 mg 10 mg PO Q6H PRN Nausea And 12/24/24 12/26/24 tablet Vomiting prednisone 10 mg tablet 10 mg PO DIRECTED 12/26/24 12/26/24 Previous Rx's Medication Instructions Recorded blood-glucose meter (OneTouch #1 ea 10/20/20 Verio Meter) fluticasone furoate 200 1 inh inhalation QAM #60 ea 11/22/20 mcg-vilanterol 25 mcg/dose inhalation powder (Breo Ellipta) potassium chloride 20 mEq 20 meq PO HS #90 tabs 01/15/24 tablet,extended release(part/cryst) (Klor-Con M) blood sugar diagnostic (OneTouch #200 ea 01/20/24 Verio test strips) lorazepam 0.5 mg tablet 0.5 mg PO DAILY PRN anxiety #10 07/13/24 tabs levothyroxine 50 mcg tablet 100 mcg (2 x 50 mcg) PO DAILYBB 09/01/24 #180 tabs venlafaxine 150 mg 150 mg PO QAM #90 caps 09/07/24 capsule,extended release 24 hr amitriptyline 100 mg tablet 100 mg PO HS #90 tabs 09/30/24 atorvastatin 20 mg tablet 20 mg PO HS #90 tabs 09/30/24 ipratropium 0.5 mg-albuterol 3 mg 3 ml inhalation Q4H PRN wheezing 12/14/24 (2.5 mg base)/3 mL nebulization #90 mL soln ondansetron 4 mg disintegrating 4 mg PO Q8H PRN nausea and 12/14/24 tablet vomiting #10 tabs metoprolol succinate 25 mg 25 mg PO QAM #90 tabs 12/21/24 tablet,extended release 24 hr doxycycline hyclate 100 mg capsule 100 mg PO BID 7 days #14 caps 12/24/24 oxycodone 5 mg tablet 5 mg PO Q6H PRN pain #30 tabs 12/24/24 Results & Data (ED) Vital Signs Vital Signs - 24 hr 12/26/24 08:45 12/26/24 08:45 12/26/24 08:53 Temperature 36.4 C L Temperature Source Oral Pulse Rate 89 90 Respiratory Rate 20 Respiratory Effort / Characteristics Non-Labored Spontaneous Non-Labored Spontaneous Respiratory Depth Normal Respiratory Pattern Regular Blood Pressure 149/85 H Blood Pressure Mean 106 Pulse Oximetry 88 L Oxygen Delivery Method Room Air Room Air Oxygen Flow Rate Sepsis Recent Fever Within 48 Hours No Sepsis New/Unexplained Change in Mental Status No Sepsis Action Taken by Nursing No Action Required 12/26/24 09:02 Temperature Temperature Source Pulse Rate Respiratory Rate Respiratory Effort / Characteristics Respiratory Depth Respiratory Pattern Blood Pressure Blood Pressure Mean Pulse Oximetry 98 Oxygen Delivery Method Nasal Cannula Oxygen Flow Rate 3 Sepsis Recent Fever Within 48 Hours Sepsis New/Unexplained Change in Mental Status Sepsis Action Taken by [facility] Medications Current Medication List: was personally reviewed by me Laboratory Data Attestation: I reviewed the patient's lab results. 12/26/24 08:56 12/26/24 08:56 Lab Results 12/26/24 Range/Units 08:56 WBC 5.16 (4.8-10.8) K/ul RBC 3.50 L (4.20-5.40) M/uL Hgb 9.8 L (12.0-16.0) g/dl Hct 30.3 L (37.0-47.0) % MCV 86.6 (80.0-100.0) fL MCH 28.0 (25.0-34.0) pg MCHC 32.3 (32.0-36.0) g/dL RDW Std Deviation 41.7 (36.4-46.3) fL RDW Coeff of Ronen 13.3 (11.5-14.5) % Plt Count 228 (130-400) K/uL MPV 9.7 (9.4-12.4) fL Neutrophils % (Manual) 23 % Lymphocytes % (Manual) 50 % Monocytes % (Manual) 17 % Metamyelocytes % (Man) 5 % Myelocytes % (Man) 5 % Neutrophils # (Manual) 1.19 L (1.40-6.50) K/uL Total Absolute Neuts 1.19 L (1.4-6.5) K/uL Lymphocytes # (Manual) 2.58 (1.2-3.4) K/uL Total Abs Lymphocytes 2.58 (1.2-3.4) K/uL Monocytes # (Manual) 0.88 H (0.11-0.59) K/uL Metamyelocytes # (Man) 0.26 H (0-0) K/uL Myelocytes # (Manual) 0.26 H (0-0) K/uL Toxic Granulation 1+ PT 10.8 (9.0-12.0) Seconds INR 1.0 (0.9-1.1) APTT 28 (21-31) Seconds PTT Ratio 1.0 Sodium 134 L (136-145) mmol/L Potassium 3.8 (3.5-5.1) mmol/L Chloride 97 L (98-107) mmol/L Carbon Dioxide 30 (21-32) mmol/L Anion Gap 7 (3-11) BUN 11 (6-23) mg/dl Creatinine 0.70 (0.6-1.2) mg/dl Est Cr Clr Drug Dosing 100.1 ml/min eGFR 95.32 BUN/Creatinine Ratio 15.7 (10-20) Glucose 147 H (70-99(Fasting)) mg/dl Calcium 10.0 (8.6-10.3) mg/dl Magnesium 1.7 (1.7-2.4) mg/dl Total Bilirubin 0.3 (0.2-1.0) mg/dl AST 36 (13-39) U/L ALT 69 H (7-52) U/L Alkaline Phosphatase 176 H (34-104) U/L Troponin I High Sens 5.4 (0-14) pg/ml Total Protein 7.4 (6.0-8.3) gm/dl Albumin 3.6 (3.4-5.0) gm/dl Globulin 3.8 (2.5-4.0) gm/dl Albumin/Globulin Ratio 0.9 (0.9-2) Lipase 22 (11-82) U/L Procalcitonin 0.28 (0-0.5) ng/ml Administered Medications Albuterol (Albut/Ipratrop 3mg/0.5mg Neb 3 Ml Vial) 3 ml NEB Q6R CORNELIUS; Protocol Stop: 01/25/25 12:59 Last Admin: 12/26/24 12:46 Dose: 3 ml Documented By: DOMINICK Ondansetron HCl (Ondansetron Inj 2 Mg/Ml 2 Ml Vial) 4 mg IV Q4H PRN PRN Reason: Nausea Stop: 01/25/25 13:07 Last Admin: 12/26/24 13:24 Dose: 4 mg Documented By: CA Discontinued Medications Albuterol (Albut/Ipratrop 3mg/0.5mg Neb 3 Ml Vial) 3 ml NEB NOW STA; Protocol Stop: 12/26/24 09:30 Last Admin: 12/26/24 10:02 Dose: 3 ml Documented By: TDM Sodium Chloride (Nss) 1,000 mls @ 999 mls/hr IV .Q1H1M STA Stop: 12/26/24 09:45 Last Infusion: 12/26/24 10:17 Dose: Infused Documented By: Admin: 12/26/24 09:00 Dose: 999 mls/hr Documented By: TDRosa Maria Sodium Chloride (Nss) 500 mls @ 999 mls/hr IV .Q31M ONE Stop: 12/26/24 09:59 Last Infusion: 12/26/24 13:03 Dose: Infused Documented By: Admin: 12/26/24 09:57 Dose: 999 mls/hr Documented By: TDM Acetaminophen (Ofirmev) 1,000 mg in 100 mls @ 400 mls/hr IV NOW STA Stop: 12/26/24 09:48 Last Infusion: 12/26/24 10:17 Dose: Infused Documented By: Admin: 12/26/24 09:56 Dose: 400 mls/hr Documented By: CRUZ Ceftriaxone Sodium (Rocephin) 2,000 mg in 50 mls @ 100 mls/hr IV NOW STA Stop: 12/26/24 13:42 Last Admin: 12/26/24 14:57 Dose: 100 mls/hr Documented By: RICKIE Ioversol (Optiray 320 125ml) 118 ml IV ONCE ONE Stop: 12/26/24 11:25 Last Admin: 12/26/24 11:25 Dose: 118 ml Documented By: YASMIN Ketorolac Tromethamine (Ketorolac Tromethamine 15 Mg/Ml Vial) 15 mg IV NOW ONE Stop: 12/26/24 12:29 Last Admin: 12/26/24 13:24 Dose: 15 mg Documented By: RICKIE Methylprednisolone (Methylprednisolone 125 Mg/2 Ml Vial) 125 mg IV NOW STA Stop: 12/26/24 09:30 Last Admin: 12/26/24 09:56 Dose: 125 mg Documented By: CRUZ Morphine Sulfate (Morphine Sulfate 2 Mg/Ml Carp) 2 mg IV NOW STA Stop: 12/26/24 10:54 Last Admin: 12/26/24 11:00 Dose: 2 mg Documented By: GIOVANNI Morphine Sulfate (Morphine Sulfate 2 Mg/Ml Carp) 2 mg IV NOW STA Stop: 12/26/24 11:08 Last Admin: 12/26/24 11:20 Dose: 2 mg Documented By: GIOVANNI Ondansetron HCl (Ondansetron Inj 2 Mg/Ml 2 Ml Vial) 4 mg IV NOW STA Stop: 12/26/24 08:46 Last Admin: 12/26/24 09:01 Dose: 4 mg Documented By: CRUZ Imaging Data Radiologist's Impression: Chest X-Ray 12/26/24 08:45 Clinical History: Chest pain Technique: A frontal view of the chest was obtained Comparison is made to the prior examination dated 12/12/2024 Findings: There is opacification of the medial left lung. The heart size is at the upper limit of normal. No definite pleural effusion or pneumothorax is seen. The right lung appears clear No fracture is noted. No foreign body is seen Impression: 1. Apparent resolution of the previously seen left pleural effusion 2. Opacification of the medial aspect of the left lung that could be due to atypical appearing pneumonia or mass. Contrast-enhanced chest CT could be considered for further evaluation ACT 112: Positive. There are findings on this exam that require communication between the performing entity and the patient following Patient Test Result Information Act ([place] ACT 112) guidelines. Electronically signed by Cricket Sharma 12-26-2024 09:13 AM Chest CTA 12/26/24 10:01 CT pulmonary angiogram with IV contrast History: Chest pain COMPARISON: 12/08/2024 TECHNIQUE: CT angiography of the chest was performed without IV contrast followed by IV contrast, including 3D post processing CTA image reconstruction. Dose reduction techniques were achieved by using automatic exposure control and/or adjustment of mA and/or kV according to patient size and/or use of iterative reconstruction technique. FINDINGS: Diagnostic quality: Adequate There is no evidence for pulmonary embolism. The heart is not enlarged. There is no pericardial effusion. Since the prior CT, there is evidence of posttreatment change, with confluent soft tissue density throughout the left mediastinum and left hilar region, which is significantly decreased in size. There continues to be severe stenosis of the left upper lobe segmental bronchus, however with increased patency of several of the subsegmental airways of the left upper lobe. Confluent left upper lobe atelectasis is decreased, and appears likely mixed with scar. There is a trace left pleural effusion, significantly decreased from prior. A pathologic lymph node in the left axilla from prior, is significantly decreased, measuring 1.8 cm, previously 3.0 cm. New area of small, infiltrative nodular density in the right lower lobe on image 47 seen, measuring 1.3 cm in diameter. Mild scattered nodular densities mixed with some ground glass is seen in the central portion of the left lower lobe. Limited visualized upper abdomen. No destructive osseous changes are seen. IMPRESSION: No evidence for pulmonary embolism. Posttreatment changes, with decreased mass of the left mediastinum and left hilum, as well as the left axilla. Decreased left pleural effusion. New small area of nodular density in the right lower lobe focally, as well as within the region of the medial left lower lobe, is favored infectious/inflammatory, however attention on short-term follow-up is recommended. Electronically signed by Florin Lundberg 12-26-2024 2:16 PM Discharge Plan Visit Data Chief Complaint: Chest Pain Stated Complaint: CHEST PAIN ED Provider: Margarito Beck Discharge Problem: Acute hypoxic respiratory failure, Small cell lung cancer Patient Disposition: Admitted As Inpatient Condition: Good Discharge Instructions Interventions: ED Discharge Assessment Last Done: 12/26/24 11:44 Discharge Problem: Small cell lung cancer Qualifiers: Laterality: left Lung location: unspecified part of lung Qualified Code(s): C 34.92 - Malignant neoplasm of unspecified part of left bronchus or lung
[2024-12-26] MEDS: SODIUM CHLORIDE 0.9% 1,000 ML IV STA (09:00)
[2024-12-26] MEDS: ONDANSETRON INJ 2 MG/ML 2 ML VIAL IV STA (09:01)
[2024-12-26 09:08] LABS: Hematocrit (blood only) 30.3 % (37.0-47.0); Hemoglobin 9.8 g/dl (12.0-16.0); Mean Corpuscular Hemoglobin 28.0 pg (25.0-34.0); Mean Corpuscular Volume 86.6 fL (80.0-100.0); Platelet Count 228 K/uL (130-400); RDW Standard Deviation 41.7 fL (36.4-46.3); Red Blood Count 3.50 M/uL (4.20-5.40); White Blood Count 5.16 K/ul (4.8-10.8)
--- NOTE | 2024-12-26 09:13 | XRay Report ---
Clinical History: Chest pain Technique: A frontal view of the chest was obtained Comparison is made to the prior examination dated 12/12/2024 Findings: There is opacification of the medial left lung. The heart size is at the upper limit of normal. No definite pleural effusion or pneumothorax is seen. The right lung appears clear No fracture is noted. No foreign body is seen Impression: 1. Apparent resolution of the previously seen left pleural effusion 2. Opacification of the medial aspect of the left lung that could be due to atypical appearing pneumonia or mass. Contrast-enhanced chest CT could be considered for further evaluation ACT 112: Positive. There are findings on this exam that require communication between the performing entity and the patient following Patient Test Result Information Act ([place] ACT 112) guidelines. Electronically signed by Cricket Sharma 12-26-2024 09:13 AM
[2024-12-26 09:35] LABS: Alanine Aminotransferase 69.0 U/L (7-52); Albumin Globulin Ratio 0.9 (0.9-2); Alkaline Phosphatase 176.0 U/L (34-104); Anion Gap 7.0 (3-11); Bilirubin,Total 0.3 mg/dl (0.2-1.0); Blood Urea Nitrogen 11.0 mg/dl (6-23); Calcium 10.0 mg/dl (8.6-10.3); Carbon Dioxide 30.0 mmol/L (21-32); Chloride 97.0 mmol/L (98-107); Creatinine Clr Calc Pharmacy 100.1 ml/min; Globulin 3.8 gm/dl (2.5-4.0); Glucose 147.0 mg/dl (70-99(Fasting)); Lipase 22.0 U/L (11-82); Magnesium 1.7 mg/dl (1.7-2.4); Potassium 3.8 mmol/L (3.5-5.1); Sodium 134.0 mmol/L (136-145); Total Protein 7.4 gm/dl (6.0-8.3)
[2024-12-26 09:36] LABS: INR 1.0 (0.9-1.1); Partial Thromboplastin Time 28 Seconds (21-31); Prothrombin Time 10.8 Seconds (9.0-12.0)
[2024-12-26] MEDS: ACETAMINOPHEN 1,000 MG/100 ML VIAL IV STA (09:56)
[2024-12-26] MEDS: SODIUM CHLORIDE 0.9% 500 ML IV ONE (09:57)
[2024-12-26] MEDS: ALBUT/IPRATROP 3MG/0.5MG NEB 3 ML VIAL NEB STA (10:02)
[2024-12-26 10:07] LABS: ALC (manual) 2.58 K/uL (1.2-3.4); ANC (manual) 1.19 K/uL (1.4-6.5); Toxic Granulation 1+
--- NOTE | 2024-12-26 10:27 | History & Physical Report ---
Date of Service December 26, 2024 Assessment & Plan (1) Small cell lung cancer in adult: (2) Acute hypoxic respiratory failure: (3) Cancer related pain: (4) Cellulitis: (5) T2DM (type 2 diabetes mellitus): Plan 64 year old female with recent diagnosis of metastatic small cell lung cancer presents to the ER with chest pain and shortness of breath #Acute hypoxic respiratory failure / possible pneumonia / mucus plugging / COPD without exacerbation No significant wheeze to suspect COPD exacerbation and fortunately no PE on imaging Suspect most likely just mucus plugging as this was happening last admission intermittently as her lung is opening up and may happen during the night - she usually gets suddenly hypoxic, responds well to duonebs and is fine by the following morning. Difficult to rule out pneumonia but suspect residual consolidative changes on CT is mainly her lung just opening up with normal procalcitonin, however will be covered with antibiotics (ceftriaxone) regardless but no need for atypical coverage Certainly chest wall pain from skin lesions isn't helping - see below Incentive spirometer Switch inhaler to formoterol/budesonide nebs Pulmonary toilet with duonebs q6h and hypertonic saline BID Acetaminophen 1st line, Toradol 2nd line, morphine 3rd line for pain On room air at baseline, aim O2 sats around 90% #Multiple skin lesions with possible cellulitis No one skin lesion overly concerning but certainly underneath left breast. Rather than multiple areas using topoical antibiotics will utilize ceftriaxone especially with her immunosuppressed state and suspect the chest wall lesions are effecting her ability to take deep breaths #Metastatic small cell lung cancer Induction chemotherapy started 12/10 with great response and left main bronchus now opened up with reduction in pleural effusion Planning on PET/CT next week per patient #T2DM HbA1C with AM labs Insulin as needed #Hypertension -Continue Metoprolol 25mg po qAM -Monitor #Hyperlipidemia -Continue Atorvastatin #GERD -Continue Protonix 40mg po qAM #Hypothyroidism -Check TSH mildly low but free T4 normal last admission ([facility]) -Continue Synthroid 100mcg po daily #Anxiety/Mental Health -Continue Venlafaxine 150mg po qAM -Ativan 0.5mg po daily PRN anxiety -Continue Amitriptyline 100mg po qHS VTE Prophylaxis - Lovenox 40mg SQ daily Disposition - admit to PCU Admission and Anticipated Discharge Date Admission Date: December 26, 2024 History of Present Illness Chief Complaint: Chest pain Shortness of breath Primary Care Provider: DO Shaan Sonicarmelita Martinez is a 64 year old female with recent diagnosis of metastatic small cell lung cancer s/p induction chemotherapy on 12/10-12/12 who presents to the ER with chest pain and shortness of breath. Initially she was doing well after recent discharge on December 14 however and was not needing any oxygen on discharge. On December 24 she started feeling very week and needing more help to get around the house. No fever, chills, cough or increasing shortness of b reath at that time. This morning around 4am she suddenly woke up feeling with severe chest pain 10/10 severity radiating throughout her body with whole body tingling and severe headache. This pain has been constant since that time. Similar place to her ongoing pain since her cancer diagnosis however it has never been this severe. Current pain 8.5/10 with associated pressure like headache, shortness of breath and increased clear sputum cough. No fever, chills, urinary or gastrointestinal symptoms. She reports starting doxycycline and prednisone for skin rash which was present last admission but getting worse as an outpatient and now has lesions on both arms. She has been using cream under her breast but not helping. For her T2DM she takes Ozempic on Sundays so is due for this tomorrow. Allergies Allergy/AdvReac Type Severity Reaction Status Date / Time empagliflozin Allergy Severe Rash Verified 12/24/24 14:16 [From Jardiance] Penicillins Allergy Unknown Hives Verified 12/24/24 14:16 ranitidine Allergy Unknown Shakiness Verified 12/24/24 14:16 ddvap Allergy Severe SHORTNESS Uncoded 12/24/24 14:16 OF BREATH Home Medications Medication Instructions Recorded Confirmed Type cholecalciferol (vitamin D3) 50 2,000 units PO HS 09/20/20 12/26/24 History mcg (2,000 unit) tablet blood-glucose meter (OneTouch #1 ea 10/20/20 12/24/24 Rx Verio Meter) fluticasone furoate 200 1 inh inhalation QAM #60 ea 11/22/20 12/26/24 Rx mcg-vilanterol 25 mcg/dose inhalation powder (Breo Ellipta) calcium carbonate (Calcium 600) 600 mg PO QDL 01/17/23 12/26/24 History albuterol sulfate 90 mcg/actuation 1 puff inhalation Q4H PRN Other 09/26/23 12/26/24 History aerosol inhaler (Ventolin HFA) potassium chloride 20 mEq 20 meq PO HS #90 tabs 01/15/24 12/26/24 Rx tablet,extended release(part/cryst) (Klor-Con M) blood sugar diagnostic (OneTouch #200 ea 01/20/24 12/24/24 Rx Verio test strips) lorazepam 0.5 mg tablet 0.5 mg PO DAILY PRN anxiety #10 07/13/24 12/26/24 Rx tabs levothyroxine 50 mcg tablet 100 mcg (2 x 50 mcg) PO DAILYBB 09/01/24 12/26/24 Rx #180 tabs venlafaxine 150 mg 150 mg PO QAM #90 caps 09/07/24 12/26/24 Rx capsule,extended release 24 hr amitriptyline 100 mg tablet 100 mg PO HS #90 tabs 09/30/24 12/26/24 Rx atorvastatin 20 mg tablet 20 mg PO HS #90 tabs 09/30/24 12/26/24 Rx furosemide 20 mg tablet 20 mg PO QAM 12/08/24 12/26/24 History pantoprazole 40 mg tablet,delayed 40 mg PO QAM 12/08/24 12/26/24 History release semaglutide 0.25 mg or 0.5 mg (2 0.5 mg subcut WK 12/08/24 12/26/24 History mg/3 mL) subcutaneous pen injector (Ozempic) ipratropium 0.5 mg-albuterol 3 mg 3 ml inhalation Q4H PRN wheezing 12/14/24 12/26/24 Rx (2.5 mg base)/3 mL nebulization #90 mL soln ondansetron 4 mg disintegrating 4 mg PO Q8H PRN nausea and 12/14/24 12/26/24 Rx tablet vomiting #10 tabs metoprolol succinate 25 mg 25 mg PO QAM #90 tabs 12/21/24 12/26/24 Rx tablet,extended release 24 hr doxycycline hyclate 100 mg capsule 100 mg PO BID 7 days #14 caps 12/24/24 12/26/24 Rx olanzapine 2.5 mg tablet 2.5 mg PO DAILY 12/24/24 12/26/24 History ondansetron 8 mg disintegrating 8 mg translingual Q8H PRN Nausea 12/24/24 12/26/24 History tablet And Vomiting oxycodone 5 mg tablet 5 mg PO Q6H PRN pain #30 tabs 12/24/24 12/26/24 Rx prochlorperazine maleate 10 mg 10 mg PO Q6H PRN Nausea And 12/24/24 12/26/24 His tory tablet Vomiting prednisone 10 mg tablet 10 mg PO DIRECTED 12/26/24 12/26/24 History Past Med/Surg History Problem List (Updated 12/26/24 @ 18:34 by John Major MD) Cellulitis Small cell lung cancer (Acute) Acute hypoxic respiratory failure (Acute) Cancer related pain Small cell lung cancer in adult Mediastinal mass Hypoxia (Acute) Pleural effusion on left (Acute) Dyspnea (Acute) Chest pain (Acute) Fatty liver Diabetic neuropathy Vitamin D deficiency History of left breast cancer Hypercalcemia Mediastinal lymphadenopathy T2DM (type 2 diabetes mellitus) Osteopenia Irritable bowel syndrome Hypothyroidism Hypertension Dyslipidemia Anxiety and depression Chronic obstructive pulmonary disease Asthma well controlled w/ daily inhaler use; rarely uses rescue inhaler Arthritis Apnea, sleep no device Acid reflux Medical History Right facial swelling Colon cancer screening Breast cancer (04/06/16) "Self detected left breast mass Status post ultrasound-guided biopsy of the breast and axilla Invasive lobular carcinoma grade 1 biopsy of the node benign Estrogen receptor positive, progesterone receptor positive, and HER-2/abdelrahman negative Status post left mastectomy and sentinel lymph node biopsy 04/23/2016 Stage pT2 pN1mi M0" Surgical History Hx of colonoscopy Hx of tonsillectomy S/P wrist surgery (05/06/19) R wrist and thumb Status post evacuation of hematoma (04/2016) 09/[address] Mccormick; L chest wound hematoma S/P cardiac cath Jun 2014-no stents- [facility]- does not follow w/ cardio History of right salpingo-oophorectomy S/P left mastectomy (04/2016) w/ [facility] 04/23/[address] Mccormick S/P cholecystectomy S/P appendectomy Family History Father Kidney disease Kidney stones Congestive heart failure Myocardial infarction Mother Gallbladder disease Hypertension Aunt Breast cancer Denies family history of Ovarian cancer Prostate cancer Colorectal cancer Social History Smoking Status: Former smoker Tobacco Type: Cigarettes Age Started Using Tobacco: 29; Age Quit Using Tobacco: 59; packs per day: 1; Second Hand Exposure: No; Do You Dip or Chew Tobacco: No; Hx Alcohol Use: No Hx Substance Use: No Preferred Language: Lebanese Communication Ability: Effective Visual Impairment: No Limitations 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: Normal Shift Boss Required: No Beliefs That Will Affect Care: None marital status: Current Living Situation: Spouse current occupational status: disabled Feels Safe at Home: Yes Safety Concerns: Feels Safe At This Time, Afraid for Self and Afraid for Child/Children Childhood Exposure to Second-Hand Smoke: No Diet: regular Diet Comment: regular caffeine: Yes (coffee) during the past year weight has: remained stable Dental Care, Regularly: Yes Physical Activity Frequency: Daily Physical Activity Frequency Comment: walking, house work Seatbelt Use: always Sunscreen Use: No Assistive Devices: Cane, Denture - Upper and Denture - Lower Review of Systems Review of Systems: All systems reviewed & are unremarkable except as noted in HPI & below Physical Exam Constitutional: well developed, well nourished and + acute distress (shaking all 4 limbs) Respiratory: + labored breathing, + uses accessory mu scles and able to speak in complete sentences; expiratory phase not prolonged Auscultation: + crackles (left base); breath sounds present, no diminished lung sounds and no wheezes Cardiovascular: RRR, no murmur, no edema Gastrointestinal (Abdomen): normal bowel sounds, soft, nontender, no hepatosplenomegaly Musculoskeletal: no cyanosis or clubbing, extremities motor strength 5/5 Skin: Multiple skin lesions with surrounding erythema on both arms and under left breast Neurologic: moves all extremities and awake; not confused Psychiatric: A+Ox3, euthymic affect Results & Data Results & Data Vital Signs (Past 12 Hours) Vital Signs Temp Pulse Resp BP Pulse Ox O2 Del Method O2 Flow Rate 12/26/24 09:02 98 Nasal Cannula 3 12/26/24 08:53 90 12/26/24 08:45 Room Air 12/26/24 08:45 36.4 C L 89 20 149/85 H 88 L Room Air Laboratory Results Abnormal lab results 12/26/24 Range/Units 08:45 RBC 3.50 L (4.20-5.40) M/uL Hgb 9.8 L (12.0-16.0) g/dl Hct 30.3 L (37.0-47.0) % Neutrophils # (Manual) 1.19 L (1.40-6.50) K/uL Total Absolute Neuts 1.19 L (1.4-6.5) K/uL Monocytes # (Manual) 0.88 H (0.11-0.59) K/uL Metamyelocytes # (Man) 0.26 H (0-0) K/uL Myelocytes # (Manual) 0.26 H (0-0) K/uL Sodium 134 L (136-145) mmol/L Chloride 97 L (98-107) mmol/L Glucose 147 H (70-99(Fasting)) mg/dl ALT 69 H (7-52) U/L Alkaline Phosphatase 176 H (34-104) U/L Diagnostic Findings CXR Clinical History: Chest pain Technique: A frontal view of the chest was obtained Comparison is made to the prior examination dated 12/12/2024 Findings: There is opacification of the medial left lung. The heart size is at the upper limit of normal. No definite pleural effusion or pneumothorax is seen. The right lung appears clear No fracture is noted. No foreign body is seen Impression: 1. Apparent resolution of the previously seen left pleural effusion 2. Opacification of the medial aspect of the left lung that could be due to atypical appearing pneumonia or mass. Contrast-enhanced chest CT could be considered for further evaluation Medications Administered ER Medications Given: Normal saline 1000ml bolus Ondansetron 4mg IV Solu-Medrol 125mg IV Duoneb 3ml Normal saline 500ml bolus Acetaminophen 1000mg IV ECG Rate (beats per minute): 93 Rhythm: normal sinus Findings: no acute ischemic change Comparison ECG Date: from (December 12, 2024) Change: no significant change Code Status & VTE Plan Code Status Full VTE Prophylaxis Plan VTE Prophylaxis will be ordered: Yes PG Care Time/CCT Total # of Minutes Spent Total Time Spent with Patient: Total time spent is greater than 50% in coordination of care (as documented) at patient's floor/unit and/or counseling patient: Coding Level of Care Code 14049 INT INP/OBS CARE MIN Diagnoses Small cell lung cancer in adult C34.90 Acute hypoxic respiratory failure J96.01 Cancer related pain G89.3 Cellulitis L03.90 T2DM (type 2 diabetes mellitus) E11.9 Diabetes mellitus complication status: without complication Diabetes mellitus extermination inspector insulin use: without longterm use (5) T2DM (type 2 diabetes mellitus) Diabetes mellitus complication status: without complication Diabetes mellitus extermination inspector insulin use: without longterm use Qualified Code(s): E11.9 - Type 2 diabetes mellitus without complications
[2024-12-26] MEDS: MoRPHine SULFATE 2 MG/ML CARP IV STA ×2 (11:00→11:20)
[2024-12-26] MEDS ORDERED: cefTRIAXone SODIUM 2,000 MG/50 ML BAG IV STA (11:09)
[2024-12-26] MEDS: OPTIRAY 320 125ml IV ONE (11:25)
--- NOTE | 2024-12-26 11:57 | CT Scan Report ---
Clinical History: Headache Technique: Axial computed tomography images were obtained of the brain without intravenous contrast. Findings: There is diffuse cerebral atrophy, within expected limits for the patient's age. Areas of decreased attenuation are seen within the periventricular white matter, likely representing chronic small vessel ischemic disease. There is no definite sign of acute or old infarction. No intracranial hemorrhage is evident. No definite mass lesion is seen on this noncontrast examination. There is no midline shift or other form of herniation. No hydrocephalus is seen. No fracture is identified. The orbits and the visualized paranasal sinuses appear unremarkable. The mastoid air cells appear clear. Impression: 1. Cerebral atrophy and chronic small vessel ischemic disease 2. Otherwise unremarkable noncontrast CT of the brain Electronically signed by Cricket Sharma 12-26-2024 11:56 AM
[2024-12-26] MEDS: ALBUT/IPRATROP 3MG/0.5MG NEB 3 ML VIAL NEB SCH (12:46)
[2024-12-26] MEDS: ONDANSETRON INJ 2 MG/ML 2 ML VIAL IV PRN (13:24)
[2024-12-26] MEDS: KETOROLAC TROMETHAMINE 15 MG/ML VIAL IV ONE (13:24)
--- NOTE | 2024-12-26 14:16 | CT Scan Report ---
CT pulmonary angiogram with IV contrast History: Chest pain COMPARISON: 12/08/2024 TECHNIQUE: CT angiography of the chest was performed without IV contrast followed by IV contrast, including 3D post processing CTA image reconstruction. Dose reduction techniques were achieved by using automatic exposure control and/or adjustment of mA and/or kV according to patient size and/or use of iterative reconstruction technique. FINDINGS: Diagnostic quality: Adequate There is no evidence for pulmonary embolism. The heart is not enlarged. There is no pericardial effusion. Since the prior CT, there is evidence of posttreatment change, with confluent soft tissue density throughout the left mediastinum and left hilar region, which is significantly decreased in size. There continues to be severe stenosis of the left upper lobe segmental bronchus, however with increased patency of several of the subsegmental airways of the left upper lobe. Confluent left upper lobe atelectasis is decreased, and appears likely mixed with scar. There is a trace left pleural effusion, significantly decreased from prior. A pathologic lymph node in the left axilla from prior, is significantly decreased, measuring 1.8 cm, previously 3.0 cm. New area of small, infiltrative nodular density in the right lower lobe on image 47 seen, measuring 1.3 cm in diameter. Mild scattered nodular densities mixed with some ground glass is seen in the central portion of the left lower lobe. Limited visualized upper abdomen. No destructive osseous changes are seen. IMPRESSION: No evidence for pulmonary embolism. Posttreatment changes, with decreased mass of the left mediastinum and left hilum, as well as the left axilla. Decreased left pleural effusion. New small area of nodular density in the right lower lobe focally, as well as within the region of the medial left lower lobe, is favored infectious/inflammatory, however attention on short-term follow-up is recommended. Electronically signed by Florin Lundberg 12-26-2024 2:16 PM
[2024-12-26] MEDS: cefTRIAXone SODIUM 2,000 MG/50 ML BAG IV STA (14:57)
[2024-12-26] MEDS: MoRPHine SULFATE 2 MG/ML CARP IV PRN (16:05)
[2024-12-26] MEDS ORDERED: ALBUT/IPRATROP 3MG/0.5MG NEB 3 ML VIAL INH PRN (18:29)
[2024-12-26] MEDS ORDERED: LORazepam 0.5 MG TAB PO PRN (18:29)
[2024-12-26] MEDS ORDERED: GLUCOSE 10 TAB/TUBE PO PRN (18:34)
[2024-12-26] MEDS ORDERED: GLUCOSE 40% GEL 15 GM TUBE PO PRN (18:34)
[2024-12-26] MEDS ORDERED: DEXTROSE 50% 50 ML SYRINGE IV PRN (18:34)
[2024-12-26] MEDS ORDERED: CARBOHYDRATES FOR HYPOGLYCEMIA PO PRN (18:34)
[2024-12-26] MEDS ORDERED: GLUCAGON FOR INJ 1 MG VIAL SQ PRN (18:34)
[2024-12-26] MEDS: KETOROLAC TROMETHAMINE 15 MG/ML VIAL IV PRN (19:26)
[2024-12-26] MEDS: SODIUM CHLOR 7% 4 ML NEB NEB SCH (19:35)
[2024-12-26] MEDS: FORMOTEROL 20 MCG/2 ML VIAL NEB SCH (19:35)
[2024-12-26] MEDS: BUDESONIDE 0.5 MG/2 ML VIAL (PULMICORT) NEB SCH (19:35)
[2024-12-26] MEDS: MoRPHine SULFATE 4 MG/ML 1 ML CARP\\VIAL IV PRN (20:48)
[2024-12-26] MEDS: POTASSIUM CHLORIDE CRTAB 20 MEQ TABCR PO SCH (20:50)
[2024-12-26] MEDS: ENOXAPARIN INJ 40 MG/0.4 ML SYR SQ SCH (20:51)
[2024-12-26] MEDS: AMITRIPTYLINE HCL 100 MG TAB PO SCH (20:51)
[2024-12-26] MEDS: ATORVASTATIN 20 MG TAB PO SCH (20:51)
[2024-12-26] MEDS: CHOLECALCIFEROL 25 MCG (1000 UNITS) TAB PO SCH (20:51)
[2024-12-26] MEDS: LANTUS PER UNIT CHARGE SQ SCH (21:00)
[2024-12-26] MEDS: INSULIN ASPART PER UNIT CHARGE SC SCH (21:00)
[2024-12-26 21:27] LABS: Appearance Urine Clear (Clear); Bacteria Urine Automated None Seen (None Seen); Cast Urine Automated 0-2 /lpf (0-2); Epithelial Cell Urine Auto 0-2 /hpf (0-2); Glucose Urine UA Trace (Negative); RBC Urine Automated 0-2 /hpf (0-2); WBC Urine Automated 0-5 /hpf (0-5)
[2024-12-26] MEDS: ACETAMINOPHEN 325 MG TAB PO PRN (22:37)
[2024-12-26] MEDS: MELATONIN 3 MG TAB PO PRN (23:43)
[2024-12-27] MEDS: LEVOTHYROXINE SODIUM 100 MCG TABLET PO SCH (05:19)
[2024-12-27 06:19] LABS: Hematocrit (blood only) 27.3 % (37.0-47.0); Hemoglobin 9.1 g/dl (12.0-16.0); Mean Corpuscular Hemoglobin 29.2 pg (25.0-34.0); Mean Corpuscular Volume 87.5 fL (80.0-100.0); Platelet Count 237 K/uL (130-400); RDW Standard Deviation 41.6 fL (36.4-46.3); Red Blood Count 3.12 M/uL (4.20-5.40); White Blood Count 5.83 K/ul (4.8-10.8)
[2024-12-27 06:36] LABS: Anion Gap 4.0 (3-11); Blood Urea Nitrogen 12.0 mg/dl (6-23); Calcium 9.9 mg/dl (8.6-10.3); Carbon Dioxide 30.0 mmol/L (21-32); Chloride 100.0 mmol/L (98-107); Creatinine Clr Calc Pharmacy 113.0 ml/min; Glucose 143.0 mg/dl (70-99(Fasting)); Potassium 4.6 mmol/L (3.5-5.1); Sodium 134.0 mmol/L (136-145)
[2024-12-27 07:04] LABS: ALC (manual) 2.62 K/uL (1.2-3.4); ANC (manual) 2.33 K/uL (1.4-6.5); Polychromasia 1+; Toxic Granulation 1+
[2024-12-27 07:25] LABS: Hemoglobin A1C 6.9 % (4.5-5.6)
--- NOTE | 2024-12-27 07:45 | Hospitalist Progress Note ---
Date of Service December 27, 2024 Assessment & Plan (1) Small cell lung cancer in adult: (2) Acute hypoxic respiratory failure: (3) Cancer related pain: (4) Cellulitis: (5) T2DM (type 2 diabetes mellitus): Plan 64 year old female with recent diagnosis of metastatic small cell lung cancer presents to the ER with chest pain and shortness of breath #Acute hypoxic respiratory failure / possible pneumonia / mucus plugging / COPD without exacerbation No significant wheeze to suspect COPD exacerbation and fortunately no PE on imaging Suspect most likely just mucus plugging as this was happening last admission intermittently as her lung is opening up and may happen during the night - she usually gets suddenly hypoxic, responds well to duonebs and is fine by the following morning. Difficult to rule out pneumonia but suspect residual consolidative changes on CT is mainly her lung just opening up with normal procalcitonin, however will be covered with antibiotics (ceftriaxone) regardless but no need for atypical coverage Certainly chest wall pain from skin lesions isn't helping - see below Incentive spirometer Switch inhaler to formoterol/budesonide nebs Pulmonary toilet with duonebs q6h and hypertonic saline BID Acetaminophen 1st line, Toradol 2nd line, morphine 3rd line for pain On room air at baseline, aim O2 sats around 90%, will put in for 2 step tomorrow morning #Anemia suspect secondary to chemotherapy, will get basic workup with AM labs and repeat tomorrow, fecal occult blood ordered but no melena noticed by patient #Multiple skin lesions with possible cellulitis Improved overnight with ceftriaxone (likely only needs short course of 5 days and can switch o Keflex on discharge), can use nystatin powder under left breast #Metastatic small cell lung cancer Induction chemotherapy started 12/10 with great response and left main bronchus now opened up with reduction in pleural effusion Planning on PET/CT on Saturday #T2DM HbA1C 6.9, can prescribe Ozempic if her brings this in Insulin as needed, given Lantus last night, will continue just as needed with presumably getting Ozempic today #Hypertension -Continue Metoprolol 25mg po qAM #Hyperlipidemia -Continue Atorvastatin #GERD -Continue Protonix 40mg po qAM #Hypothyroidism -Check TSH mildly low but free T4 normal last admission (NTIS) -Continue Synthroid 100mcg po daily #Anxiety/Mental Health -Continue Venlafaxine 150mg po qAM -Ativan 0.5mg po daily PRN anxiety -Continue Amitriptyline 100mg po qHS VTE Prophylaxis - Lovenox 40mg SQ daily Disposition - continue on PCU due to risk of deterioration, suspect discharge tomorrow if she is still doing well after seen by wound care, 2 step in AM Admission and Anticipated Discharge Date Admission Date: December 26, 2024 Anticipated date of discharge: 12/28/24 Subjective Fells back to her normal self although still requiring oxygen. Discussed imaging significant improved with left bronchus open on CT, mass significantly decreased in size. Physical Exam Constitutional: WD/WN, vitals as above Respiratory: normal respiratory effort; no respiratory distress Auscultation: no crackles and no wheezes Cardiovascular: Rate/Rhythm: regular rhythm and + tachycardic Heart Sounds: no murmur Extremities: no pedal edema Results & Data Results & Data Vital Signs (Past 12 Hours) Vital Signs Temp Pulse Pulse Resp BP Pulse Ox O2 Del Method 12/27/24 07:23 94 H 22 156/103 H 99 Nasal Cannula 12/27/24 07:17 93 H 16 93 Room Air 12/27/24 07:00 54 L 12/27/24 02:46 36.6 C 89 19 137/87 94 Nasal Cannula 12/26/24 22:55 96 H 12/26/24 22:31 36.5 C 97 H 22 149/82 H 96 Nasal Cannula O2 Flow Rate 12/27/24 07:23 3 12/27/24 07:17 12/27/24 07:00 12/27/24 02:46 3 12/26/24 22:55 12/26/24 22:31 3 PG Care Time/CCT Total # of Minutes Spent Total Time Spent with Patient: Total time spent is greater than 50% in coordination of care (as documented) at patient's floor/unit and/or counseling patient: Coding Level of Care Code 48807 SUB INP/OBS CARE 2/35MIN Diagnoses Small cell lung cancer in adult C34.90 Acute hypoxic respiratory failure J96.01 Cancer related pain G89.3 Cellulitis L03.90 T2DM (type 2 diabetes mellitus) E11.9 Diabetes mellitus complication status: without complication Diabetes mellitus manager long term care insulin use: without manager long term care use (5) T2DM (type 2 diabetes mellitus) Diabetes mellitus complication status: without complication Diabetes mellitus intermediate insulin use: without manager long term care use Qualified Code(s): E11.9 - Type 2 diabetes mellitus without complications
[2024-12-27] MEDS: VENLAFAXINE HCL XR 150 MG CAPXR PO SCH (09:34)
[2024-12-27] MEDS: FUROSEMIDE 20 MG TAB PO SCH (09:34)
[2024-12-27] MEDS: METOPROLOL SUCC 25MG EXT REL TAB PO SCH (09:34)
[2024-12-27] MEDS: NYSTATIN POWDER 15GM BTL EXT SCH (12:18)
[2024-12-27] MEDS: CALCIUM CARBONATE 1250MG TAB PO SCH (12:18)
--- NOTE | 2024-12-27 12:26 | Electrocardiogram Report ---
Test Reason : Blood Pressure : */* mmHG Vent. Rate : 93 BPM Atrial Rate : 93 BPM P-R Int : 188 ms QRS Dur : 96 ms QT Int : 386 ms P-R-T Axes : 72 11 68 degrees QTcB Int : 479 ms Normal sinus rhythm Normal ECG When compared with ECG of 12-Dec-2024 16:57, QT has lengthened Confirmed by Robina Odom ([place]) on 12/27/2024 12:26:44 PM Referred By: REFERRED SELF Confirmed By: Robina Odom
[2024-12-27] MEDS: cefTRIAXone SODIUM 2,000 MG/50 ML BAG IV SCH (14:23)
[2024-12-27 15:13] VITALS: TEMP 98.1
[2024-12-27 15:54] LABS: Influenza A virus by PCR Negative (Neg); Influenza B virus by PCR Negative (Neg); SARS CoV2 RNA(COVID-19) Ceph NEGATIVE (Negative)
[2024-12-28 06:07] LABS: Hematocrit (blood only) 29.0 % (37.0-47.0); Hemoglobin 9.7 g/dl (12.0-16.0); Mean Corpuscular Hemoglobin 29.3 pg (25.0-34.0); Mean Corpuscular Volume 87.6 fL (80.0-100.0); Platelet Count 306 K/uL (130-400); RDW Standard Deviation 42.0 fL (36.4-46.3); Red Blood Count 3.31 M/uL (4.20-5.40); Reticulocytes # 0.050 10^6/uL (0.020-0.100); White Blood Count 7.04 K/ul (4.8-10.8)
[2024-12-28 06:39] LABS: Dohle Bodies 1+; Ovalocytes 1+; Polychromasia 1+; Toxic Granulation 1+
[2024-12-28 06:44] LABS: Iron 50.0 mcg/dl (35-150); Total Iron Binding Cap Calc 288.0 mcg/dl (250-450); Transferrin 206.0 mg/dl (200-360); Transferrin (FE) Percent Satur 17.0 % (15-50)
[2024-12-28 07:03] LABS: Ferritin 236.1 ng/ml (8-388)
[2024-12-28 07:05] LABS: Folate (Folic Acid),Ser orPlas 5.86 ng/ml (>5.38)
[2024-12-28 07:06] LABS: Vitamin B12 330.0 pg/ml (180-914)
[2024-12-28 08:12] LABS: ALC (manual) 3.31 K/uL (1.2-3.4); ANC (manual) 2.82 K/uL (1.4-6.5)
[2024-12-28 08:25] VITALS: BP 132/70
--- NOTE | 2024-12-28 10:20 | Discharge Summary ---
Discharge Summary Date of Service December 28, 2024 Principal Dx & Hospital Course #1 = Principal Diagnosis (1) Small cell lung cancer in adult: (2) Acute hypoxic respiratory failure: (3) Cancer related pain: (4) Cellulitis: (5) T2DM (type 2 diabetes mellitus): Plan 64 year old female with recent diagnosis of metastatic small cell lung cancer presents to the ER with chest pain and shortness of breath #Acute hypoxic respiratory failure / possible pneumonia / mucus plugging / COPD without exacerbation No significant wheeze to suspect COPD exacerbation and fortunately no PE on imaging Suspect most likely just mucus plugging as this was happening last admission intermittently as her lung is opening up and may happen during the night - she usually gets suddenly hypoxic, responds well to duonebs and is fine by the following morning. Difficult to rule out pneumonia but suspect residual consolidative changes on CT is mainly her lung just opening up with normal procalcitonin, however will be co delta with antibiotics (ceftriaxone) regardless but no need for atypical coverage Certainly chest wall pain from skin lesions isn't helping - see below Incentive spirometer Switch inhaler to formoterol/budesonide nebs Pulmonary toilet with duonebs q6h and hypertonic saline BID Acetaminophen 1st line, Toradol 2nd line, morphine 3rd line for pain On room air at baseline, aim O2 sats around 90% #Multiple skin lesions with possible cellulitis No one skin lesion overly concerning but certainly underneath left breast. Rather than multiple areas using topoical antibiotics will utilize ceftriaxone especially with her immunosuppressed state and suspect the chest wall lesions are effecting her ability to take deep breaths #Metastatic small cell lung cancer Induction chemotherapy started 12/10 with great response and left main bronchus now opened up with reduction in pleural effusion Planning on PET/CT next week per patient #T2DM HbA1C with AM labs Insulin as needed #Hypertension -Continue Metoprolol 25mg po qAM -Monitor #Hyperlipidemia -Continue Atorvastatin #GERD -Continue Protonix 40mg po qAM #Hypothyroidism -Check TSH mildly low but free T4 normal last admission ([facility]) -Continue Synthroid 100mcg po daily #Anxiety/Mental Health -Continue Venlafaxine 150mg po qAM -Ativan 0.5mg po daily PRN anxiety -Continue Amitriptyline 100mg po qHS VTE Prophylaxis - Lovenox 40mg SQ daily Disposition - admit to PCU Notes For Next Care Provider Routine follow up Patient reports PET/CT tomorrow Medication Changes From Visit Keflex started for cellulitis under breast Admission HPI Per Admitting Provider Naomi Martinez is a 64 year old female with recent diagnosis of metastatic small cell lung cancer s/p induction chemotherapy on 12/10-12/12 who presents to the ER with chest pain and shortness of breath. Initially she was doing well after recent discharge on December 14 however and was not needing any oxygen on discharge. On December 24 she started feeling very week and needing more help to get around the house. No fever, chills, cough or increasing shortness of breath at that time. This morning around 4am she suddenly woke up feeling with severe chest pain 10/10 severity radiating throughout her body with whole body tingling and severe headache. This pain has been constant since that time. Similar place to her ongoing pain since her cancer diagnosis however it has never been this severe. Current pain 8.5/10 with associated pressure like headache, shortness of breath and increased clear sputum cough. No fever, chills, urinary or gastrointestinal symptoms. She reports starting doxycycline and prednisone for skin rash which was present last admission but getting worse as an outpatient and now has lesions on both arms. She has been using cream under her breast but not helping. For her T2DM she takes Ozempic on Sundays so is due for this tomorrow. Discharge Plan Discharge Items Patient Disposition: Home - Self-Care Reason For Visit: CHEST PAIN, HYPOXIA Discharge Diagnosis: Cancer related pain Hypoxia Condition on Discharge: Good Activity: Resume your previous activity Non-emergency contact: Primary Care Provider Call non-emergency contact if: you have any medication questions and your symptoms worsen Follow-up/Referrals: Perla Carmen DO [Primary Care Provider] - 01/05/25 10:30 am (Primary care hospital follow up scheduled on at 10:30 with Seda Blanchard) Diet: Regular Addtl Attending Provider Instructions: You were admitted to [facility] from December 26 - 2024 due to hypoxia and chest pain. Suspect your pain was due to the cancer as your bronchus was opening up and hypoxia (low oxygen) due to mucus plugging. Use duonebs 4 times a day for the next few days to stop this happening. You were also treated for cellulitis with multiple lesions on arms and chest wall. Please continue antibiotic with keflex on discharge. Please also continue to use nystatin powder from the hospital twice a day. Pending Studies at Discharge: No Stand-Alone Forms: My [facility] [employer], Smoking Cessation Medications and DC Order Prescriptions: New cephalexin 500 mg capsule 500 mg PO QID 3 Days Qty: 12 0RF Continued (DME) blood-glucose meter [OneTouch Verio Meter] Misc See Rx Instructions .Route Qty: 1 0RF Rx Instructions: As directed Breo Ellipta 200-25 mcg/dose blister with device 1 inh INH QAM Qty: 60 5RF potassium chloride [Klor-Con M20] 20 mEq tablet,ER particles/crystals 20 meq PO HS Qty: 90 1RF (DME) OneTouch Verio test strips Strip See Rx Instructions .Route Qty: 200 5RF Rx Instructions: testing once per day lorazepam 0.5 mg tablet 0.5 mg PO DAILY PRN (Reason: anxiety) Qty: 10 0RF amitriptyline 100 mg tablet 100 mg PO HS Qty: 90 1RF atorvastatin 20 mg tablet 20 mg PO HS Qty: 90 1RF metoprolol succinate 25 mg tablet extended release 24 hr 25 mg PO QAM Qty: 90 1RF olanzapine 2.5 mg tablet 2.5 mg PO DAILY ondansetron 8 mg tablet,disintegrating 8 mg translingual Q8H PRN (Reason: Nausea And Vomiting) prochlorperazine maleate 10 mg tablet 10 mg PO Q6H PRN (Reason: Nausea And Vomiting) oxycodone 5 mg tablet 5 mg PO Q6H PRN (Reason: pain) Qty: 30 0RF cholecalciferol (vitamin D3) 2,000 unit tablet 2,000 units PO HS calcium carbonate [Calcium 600] 600 mg calcium (1,500 mg) tablet 600 mg PO QDL albuterol sulfate [Ventolin HFA] 90 mcg/actuation HFA aerosol inhaler 1 puff inhalation Q4H PRN (Reason: Other) Rx Instructions: INHALE 1 PUFF BY MOUTH EVERY 4 HOURS NEEDED. pantoprazole 40 mg tablet,delayed release (DR/EC) 40 mg PO QAM furosemide 20 mg tablet 20 mg PO QAM Ozempic 0.25 mg or 0.5 mg (2 mg/3 mL) pen injector 0.5 mg subcut WK ipratropium-albuterol 0.5 mg-3 mg(2.5 mg base)/3 mL solution for nebulization 3 ml inhalation Q4H PRN (Reason: wheezing) Qty: 90 0RF ondansetron 4 mg tablet,disintegrating 4 mg PO Q8H PRN (Reason: nausea and vomiting) Qty: 10 0RF Discontinued doxycycline hyclate 100 mg capsule 100 mg PO BID 7 Days Qty: 14 0RF prednisone 10 mg tablet 10 mg PO DIRECTED Rx Instructions: Take 5 tablets x 2 days. Then 4 tablets x 2 days. Then 3 tablets x 2 days. Then 2 tablets x 2 days. Then 1 tablet x 2 days. 5,5,4,4,3,3,2,2,1,1 No Action venlafaxine 150 mg capsule,extended release 24hr 150 mg PO QAM Qty: 90 1RF levothyroxine 50 mcg tablet 100 mcg PO DAILYBB Qty: 180 1RF Discharge Orders: Discharge Order (Routine); Ordered 12/28/24 Ordered By: John Conway/Other Patient Handouts: Managing Type 2 Diabetes Admission Data Admit Date/Time: 12/26/24 10:09 Attending Provider: John Major Admit Provider: John Major Primary Care Provider: Perla Carmen Other Interventions: Discharge Summary Assessment (RN) Last Done: 12/28/24 11:13 Hospital Stay Data Consultations 12/26/24 09:43 ED Decision to Admit Stat Diagnostic Imagining Performed 12/26/24 10:01 CT for pulmonary embolism PE [CT angio chest PE protocol] Stat 12/26/24 10:58 CT head/brain wo con Stat Pending Results Patient Have Any Pending Studies at Discharge: No Discharge Instructions Given to Patient (Per Discharging Provider) You were admitted to [facility] from December 26 - 2024 due to hypoxia and chest pain. Suspect your pain was due to the cancer as your bronchus was opening up and hypoxia (low oxygen) due to mucus plugging. Use duonebs 4 times a day for the next few days to stop this happening. You were also treated for cellulitis with multiple lesions on arms and chest wall. Please continue antibiotic with keflex on discharge. Please also continue to use nystatin powder from the hospital twice a day. Coding Diagnoses Small cell lung cancer in adult C34.90 Acute hypoxic respiratory failure J96.01 Cancer related pain G89.3 Cellulitis L03.90 T2DM (type 2 diabetes mellitus) E11.9 Diabetes mellitus complication status: without complication Diabetes mellitus ocean transportation intermediary insulin use: without jail use
[2024-12-28 11:15] VITALS: PULSE 84; RESP 17; O2SAT 94
== END 2024-12-28 11:40 | disposition home or self-care (01) | DRG 947 ==
LOC: ED 08:38 → 2E 10:09

== ENCOUNTER 2025-01-04 08:42 | Inpatient (IN) ==
--- NOTE | 2025-01-04 08:55 | Emergency Department Note ---
Impression & Plan Abdominal pain, Metastatic cancer, Weakness, Transaminitis ED Provider Note NAME: JM CUEVAS AGE: 64 SEX: F : 1960 ARRIVES VIA: Ambulance INFORMANT: Patient ED PROVIDER(S): Todd Frank DO CHIEF COMPLAINT: Multiple syncopal events HPI: Patient is a 64-year-old female with a past medical history of metastatic small cell cancer, acute hypoxic respiratory failure mediastinal mass who presents to the ER for syncopal episode times multiple events per EMS who provided additional history. Patient notes that she was at home when she was very dizzy. She was sick to her stomach and everything went black. She denies any new chest pain or shortness of breath. She admits to feeling sick to her stomach. No dysuria, urgency, or frequency. No new headache or neck pain. No new pain from the falls. She notes that she has pain all over. ADDITIONAL HISTORY OBTAINED: Per HPI Chronic Medical/Social Conditions Affecting Care: Per HPI PAST MEDICAL HISTORY:See Below PAST SURGICAL HISTORY:See Below FAMILY HISTORY:See Below SOCIAL HISTORY:See Below HOME MEDICATIONS:See Below ALLERGIES:See Below VITALS:See Below PHYSICAL EXAMINATION: GENERAL: Sitting up in bed, alert, chronically ill-appearing, moderately distressed HEAD:NC/AT EYE EXAM: normal conjunctiva. PERRL and EOM's grossly intact. OROPHARYNX: no exudate, no erythema, lips, buccal mucosa, and tongue normal and mucous membranes are moist NECK: supple, no nuchal rigidity, no adenopathy, non-tender LUNGS: Clear to auscultation. Normal chest wall mechanics HEART: no murmurs, S1 normal and S2 normal ABDOMEN: abdomen soft, non-tender, normo-active bowel sounds, no masses, no rebound or guarding. BACK: Back is symmetrical on inspection and there is no deformity, no midline tenderness, no CVA tenderness. UPPER EXTREMITIES: upper extremities are grossly normal. LOWER EXTREMITIES: No pitting edema. NEURO EXAM: Normal sensorium, cranial nerves II-XII intact, normal speech, no weakness of arms, no weakness of legs. MEDICAL DECISION MAKING: Patient is a 64-year-old female with metastatic cancer who presents to the ER initially for what was felt to be multiple syncopal episodes but this was eventually clarified once her presented at bedside. Patient did not have any syncopal episodes but rather was laid to the ground. She is complaining of pain throughout her entire body. She is taking oxycodone for it at home but notes it is not helping. She feels very weak and cannot get up and walk around. IVs were established and blood work was obtained. Labs show mild white count of 11,000. No significant anemia. BMP with mild hyponatremia 133. LFTs and bilirubin was fairly unremarkable. Troponin was negative. Lipase unremarkable. CTA of the chest was performed as the initial report was multiple syncopal episodes in combination with metastatic cancer and a chest mass. CT abdomen pelvis shows a large amount of constipation. CT of the chest was otherwise negative for any acute PE. Patient was updated bedside. She was given IV fluids and multiple dose of IV narcotics. She case was discussed with the hospitalist Dr. Rick Amato for further evaluation management treatment. Consults/Care Managements Discussions: Per [facility] Triage Nursing notes reviewed. Limited review of prior medical records performed Vital Signs: reviewed and remarkable for no significant abnormalities Differential diagnosis: Differential diagnosis includes etiologies such as vasovagal event, infection, hypoglycemia, electrolyte abnormalities, cardiac sources, intracerebral event, toxicologic, neurologic, as well as others were entertained. ER treatment provided: See below Diagnostics interpreted by me include EKG and cardiac monitoring as listed below: -Cardiac Monitoring: An order was placed for continuous cardiac monitoring. The monitor shows a rate of 90 with sinus rhythm. -ECG: Sinus rhythm rate of 92 Normal axis No PVCs QTc 445 -Laboratory studies:Interpreted by me as stated above in MDM and shown below. Imaging studies: Xrays: As interpreted by me: Portable AP upright 1 view of the chest shows left- sided lung opacity CTs show: CT of the chest and belly shows diffuse cancer which is improving and large amount of constipation Procedures:none Critical Care: None Past Med/Surg History Problem List (Updated 01/04/25 @ 11:06 by Todd Frank DO) Transaminitis (Acute) Weakness (Acute) Metastatic cancer (Acute) Abdominal pain (Acute) Cellulitis Small cell lung cancer (Acute) Acute hypoxic respiratory failure (Acute) Cancer related pain Small cell lung cancer in adult Mediastinal mass Hypoxia (Acute) Pleural effusion on left (Acute) Dyspnea (Acute) Chest pain (Acute) Fatty liver Diabetic neuropathy Vitamin D deficiency History of left breast cancer Hypercalcemia Mediastinal lymphadenopathy T2DM (type 2 diabetes mellitus) Osteopenia Irritable bowel syndrome Hypothyroidism Hypertension Dyslipidemia Anxiety and depression Chronic obstructive pulmonary disease Asthma well controlled w/ daily inhaler use; rarely uses rescue inhaler Arthritis Apnea, sleep no device Acid reflux Medical History Right facial swelling Colon cancer screening Breast cancer (04/06/16) "Self detected left breast mass Status post ultrasound-guided biopsy of the breast and axilla Invasive lobular carcinoma grade 1 biopsy of the node benign Estrogen receptor positive, progesterone receptor positive, and HER-2/abdelrahman negative Status post left mastectomy and sentinel lymph node biopsy 04/23/2016 Stage pT2 pN1mi M0" Surgical History Hx of colonoscopy Hx of tonsillectomy S/P wrist surgery (05/06/19) R wrist and thumb Status post evacuation of hematoma (04/2016) 09/[address] Mccormick; L chest wound hematoma S/P cardiac cath Jun 2014-no stents- [facility]- does not follow w/ cardio History of right salpingo-oophorectomy S/P left mastectomy (04/2016) w/ [facility] 04/23/[address] Mccormick S/P cholecystectomy S/P appendectomy Family History Father Kidney disease Kidney stones Congestive heart failure Myocardial infarction Mother Gallbladder disease Hypertension Aunt Breast cancer Denies family history of Ovarian cancer Prostate cancer Colorectal cancer Social History Smoking Status: Former smoker Tobacco Type: Cigarettes Age Started Using Tobacco: 29; Age Quit Using Tobacco: 59; packs per day: 1; Second Hand Exposure: No; Do You Dip or Chew Tobacco: No; Hx Alcohol Use: No Hx Substance Use: No Preferred Language: Maltese Communication Ability: Effective Visual Impairment: No Limitations 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: Normal 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 Beliefs That Will Affect Care: None marital status: Current Living Situation: Spouse current occupational status: disabled Feels Safe at Home: Yes Childhood Exposure to Second-Hand Smoke: No Diet: regular Diet Comment: regular caffeine: Yes (coffee) during the past year weight has: remained stable Dental Care, Regularly: Yes Physical Activity Frequency: Daily Physical Activity Frequency Comment: walking, house work Seatbelt Use: always Sunscreen Use: No Assistive Devices: Cane, Denture - Upper and Denture - Lower Allergies Allergies Allergy/AdvReac Type Severity Reaction Status Date / Time empagliflozin Allergy Severe Rash Verified 12/24/24 14:16 [From Jardiance] Penicillins Allergy Unknown Hives Verified 12/24/24 14:16 ranitidine Allergy Unknown Shakiness Verified 12/24/24 14:16 ddvap Allergy Severe SHORTNESS Uncoded 12/24/24 14:16 OF BREATH Home Meds Home Medications Medication Instructions Recorded Confirmed cholecalciferol (vitamin D3) 50 2,000 units PO HS 09/20/20 01/04/25 mcg (2,000 unit) tablet calcium carbonate (Calcium 600) 600 mg PO QDL 01/17/23 01/04/25 albuterol sulfate 90 mcg/actuation 1 puff inhalation Q4H PRN Other 09/26/23 01/04/25 aerosol inhaler (Ventolin HFA) furosemide 20 mg tablet 20 mg PO QAM 12/08/24 01/04/25 pantoprazole 40 mg tablet,delayed 40 mg PO QAM 12/08/24 01/04/25 release semaglutide 0.25 mg or 0.5 mg (2 0.5 mg subcut WK 12/08/24 01/04/25 mg/3 mL) subcutaneous pen injector (Ozempic) olanzapine 2.5 mg tablet 2.5 mg PO DAILY 12/24/24 01/04/25 ondansetron 8 mg disintegrating 8 mg translingual Q8H PRN Nausea 12/24/24 01/04/25 tablet And Vomiting prochlorperazine maleate 10 mg 10 mg PO Q6H PRN Nausea And 12/24/24 01/04/25 tablet Vomiting Previous Rx's Medication Instructions Recorded blood-glucose meter (OneTouch #1 ea 10/20/20 Verio Meter) fluticasone furoate 200 1 inh inhalation QAM #60 ea 11/22/20 mcg-vilanterol 25 mcg/dose inhalation powder (Breo Ellipta) potassium chloride 20 mEq 20 meq PO HS #90 tabs 01/15/24 tablet,extended release(part/cryst) (Klor-Con M) blood sugar diagnostic (OneTouch #200 ea 01/20/24 Verio test strips) lorazepam 0.5 mg tablet 0.5 mg PO DAILY PRN anxiety #10 07/13/24 tabs amitriptyline 100 mg tablet 100 mg PO HS #90 tabs 09/30/24 atorvastatin 20 mg tablet 20 mg PO HS #90 tabs 09/30/24 ipratropium 0.5 mg-albuterol 3 mg 3 ml inhalation Q4H PRN wheezing 12/14/24 (2.5 mg base)/3 mL nebulization #90 mL soln ondansetron 4 mg disintegrating 4 mg PO Q8H PRN nausea and 12/14/24 tablet vomiting #10 tabs metoprolol succinate 25 mg 25 mg PO QAM #90 tabs 12/21/24 tablet,extended release 24 hr oxycodone 5 mg tablet 5 mg PO Q6H PRN pain #30 tabs 12/24/24 levothyroxine 50 mcg tablet 100 mcg (2 x 50 mcg) PO DAILYBB 12/29/24 #180 tabs venlafaxine 150 mg 150 mg PO QAM #90 caps 12/29/24 capsule,extended release 24 hr Results & Data (ED) Vital Signs Vital Signs - 24 hr 01/04/25 08:43 01/04/25 09:06 01/04/25 09:30 Temperature 36.7 C Temperature Source Oral Pulse Rate 89 94 H Pulse Rate from SpO2 Sensor Respiratory Rate 22 Blood Pressure 156/93 H 139/87 Blood Pressure Mean 114 112 Blood Pressure Position Semi-fowlers Pulse Oximetry 96 Oxygen Delivery Method Room Air Sepsis Recent Fever Within 48 Hours No Sepsis New/Unexplained Change in Mental Status No Sepsis Action Taken by Nursing No Action Required 01/04/25 09:36 01/04/25 10:03 01/04/25 10:27 Temperature Temperature Source Pulse Rate 83 90 89 Pulse Rate from SpO2 Sensor 82 90 Respiratory Rate 17 21 21 Blood Pressure Blood Pressure Mean Blood Pressure Position Pulse Oximetry 94 94 Oxygen Delivery Method Sepsis Recent Fever Within 48 Hours Sepsis New/Unexplained Change in Mental Status Sepsis Action Taken by Nursing 01/04/25 10:30 Temperature Temperature Source Pulse Rate Pulse Rate from SpO2 Sensor Respiratory Rate Blood Pressure 160/103 H Blood Pressure Mean 131 Blood Pressure Position Pulse Oximetry Oxygen Delivery Method Sepsis Recent Fever Within 48 Hours Sepsis New/Unexplained Change in Mental Status Sepsis Action Taken by Nursing Laboratory Data 01/04/25 08:58 01/04/25 08:58 Lab Results 01/04/25 01/04/25 Range/Units 08:58 09:32 WBC 11.44 H (4.8-10.8) K/ul RBC 4.26 (4.20-5.40) M/uL Hgb 12.3 (12.0-16.0) g/dl POC Hgb 23.5 H* (12.0-16.0) g/dl Hct 38.4 (37.0-47.0) % POC Hct 69 H* (37-47) % MCV 90.1 (80.0-100.0) fL MCH 28.9 (25.0-34.0) pg MCHC 32.0 (32.0-36.0) g/dL RDW Std Deviation 48.3 H (36.4-46.3) fL RDW Coeff of Ronen 16.1 H (11.5-14.5) % Plt Count 561 H (130-400) K/uL MPV 9.4 (9.4-12.4) fL Immature Gran % (Auto) 1.2 % Neut % (Auto) 74.6 % Lymph % (Auto) 15.0 % Elbert % (Auto) 8.7 % Eos % (Auto) 0.2 % Baso % (Auto) 0.3 % Neut # (Auto) 8.54 H (1.40-6.50) K/uL Lymph # (Auto) 1.72 (1.20-3.40) K/uL Elbert # (Auto) 0.99 H (0.11-0.59) K/uL Eos # (Auto) 0.02 (0.00-0.50) K/uL Baso # (Auto) 0.03 (0.00-0.20) K/uL Immature Gran # (Auto) 0.14 (0.01-0.20) K/uL POC Sodium 135 (135-144) mmol/L Sodium 133 L (136-145) mmol/L POC Potassium 4.6 (3.3-5.0) mmol/L Potassium 4.5 (3.5-5.1) mmol/L POC Chloride 97 L (101-112) mmol/L Chloride 97 L (98-107) mmol/L Carbon Dioxide 31 (21-32) mmol/L POC Total CO2 29 (24-31) mmol/L Anion Gap 5 (3-11) POC Anion Gap 15.0 L (16-25) mmol/L POC BUN 19 H (7-18) mg/dl BUN 17 (6-23) mg/dl Creatinine 0.83 (0.6-1.2) mg/dl POC Creatinine 0.8 (0.6-1.3) mg/dl Est Cr Clr Drug Dosing 79.1 ml/min eGFR 77.70 BUN/Creatinine Ratio 20.5 H (10-20) Glucose 127 H (70-99(Fasting)) mg/dl POC Glucose (other) 128 H (70-99) mg/dl Calcium 10.1 (8.6-10.3) mg/dl POC Ioniz Calcium Zahra 1.19 (1.12-1.32) mmol/l Total Bilirubin 0.4 (0.2-1.0) mg/dl AST 66 H (13-39) U/L ALT 73 H (7-52) U/L Alkaline Phosphatase 128 H (34-104) U/L Troponin I High Sens 4.4 (0-14) pg/ml Total Protein 8.0 (6.0-8.3) gm/dl Albumin 4.2 (3.4-5.0) gm/dl Globulin 3.8 (2.5-4.0) gm/dl Albumin/Globulin Ratio 1.1 (0.9-2) Lipase 33 (11-82) U/L Administered Medications Discontinued Medications Sodium Chloride (Nss) 1,000 mls @ 999 mls/hr IV .Q1H1M ONE Stop: 01/04/25 10:00 Last Admin: 01/04/25 09:27 Dose: 999 mls/hr Documented By: CEF Ioversol (Optiray 320 125ml) 112 ml IV ONCE ONE Stop: 01/04/25 09:49 Last Admin: 01/04/25 09:48 Dose: 112 ml Documented By: NORA Morphine Sulfate (Morphine Sulfate 4 Mg/Ml 1 Ml Carp\\Vial) 4 mg IV NOW STA Stop: 01/04/25 09:01 Last Admin: 01/04/25 09:26 Dose: 4 mg Documented By: CEF Morphine Sulfate (Morphine Sulfate 4 Mg/Ml 1 Ml Carp\\Vial) 4 mg IV NOW STA Stop: 01/04/25 10:33 Last Admin: 01/04/25 10:49 Dose: 4 mg Documented By: CEF Ondansetron HCl (Ondansetron Inj 2 Mg/Ml 2 Ml Vial) 4 mg IV NOW STA Stop: 01/04/25 09:01 Last Admin: 01/04/25 09:24 Dose: 4 mg Documented By: CEF Imaging Data Radiologist's Impression: Chest X-Ray 01/04/25 08:43 XR chest 1V portable CLINICAL HISTORY: Chest pain, nonspecific COMPARISON STUDY: 12/26/2024 FINDINGS: Stable cardiomegaly without pulmonary vascular congestion. Stable mild atelectasis at the lingula. No new consolidation or pleural effusion. No pneumothorax. IMPRESSION: Stable exam. ACT 112: Negative or not required by law. Electronically signed by: Matthew Cruz M.D. 01/04/2025 10:11 AM Abdomen/Pelvis CT 01/04/25 09:00 CT SCAN OF THE ABDOMEN AND PELVIS WITH IV CONTRAST CLINICAL HISTORY: Multiple syncopal episodes. Metastatic small cell cancer. COMPARISON STUDY: CT of the abdomen and pelvis December 10, 2024. TECHNIQUE: Following the IV administration of 112 cc of Optiray 320, CT scan of the abdomen and pelvis is performed from the lung bases to the proximal femora. Images are reviewed in the axial, sagittal, and coronal planes. IV contrast was administered without complication. A dose lowering technique was utilized adhering to the principles of ALARA. FINDINGS: Please note that the chest CT will be reported separately. Left pleural effusion shown on CT of December 10, 2024 has markedly decreased in size. Lower thoracic lymphadenopathy has significantly improved as well. Abdominal lymphadenopathy shown on CT of December 10, 2024 has significantly improved. A lymph node adjacent to the right adrenal gland on image 116 measures 0.8 cm, previously 2.2 cm. Bilateral adrenal nodules have significantly decreased in size. The small 8 mm right hepatic dome lesion on prior CT is not evident. No new hepatic lesions are present. Slight nodularity of the liver surface is again noted. There is no biliary ductal dilatation status post cholecystectomy. The right retroperitoneal implant lateral to the right kidney on prior CT has nearly completely resolved. A tiny residual 3 mm nodule is present. There is bilateral renal cysts. There is no hydronephrosis. Left renal scarring is chronic. Spleen and pancreas are unremarkable. Is no evidence for a bowel obstruction. There is a moderate to large amount of stool within the colon and rectum. No new sites of lymphadenopathy are present. There are no fluid collections. No acute fractures within the lumbar spine, pelvis or hips are identified. There is no evidence for traumatic injury to the solid abdominal viscera. IMPRESSION: 1. No acute traumatic findings within the abdomen or pelvis. 2. Findings consistent with a significant treatment response since CT of December 10, 2024, as detailed above. 3. Moderate to large amount of stool within the colon and rectum. ACT 112: Negative or not required by law. Electronically signed by: Fady Restrepo M.D. 01/04/2025 10:14 AM Chest CTA 01/04/25 09:00 CT ANGIOGRAM OF THE CHEST CLINICAL HISTORY: Multiple syncopal episodes. Metastatic small cell cancer. COMPARISON STUDY: Chest CTs December 08, 2024 and December 26, 2024. TECHNIQUE: Following the IV administration of 112 cc of Optiray 320, CT angiogram of the chest was performed from the upper abdomen to the thoracic inlet utilizing the pulmonary embolus protocol. Images are reviewed in the axial, sagittal, and coronal planes. 3-D MIPS images are created and assessed. IV contrast was administered without complication. A dose lowering technique was utilized adhering to the principles of ALARA. CT DOSE: 2394.93 mGy.cm FINDINGS: No pulmonary emboli are identified. Size of the heart is normal. There is no thoracic aortic dissection. A trace pericardial effusion has decreased in size since CT of December 26, 2024. Trace left pleural effusion has also decreased in size. There is no pneumothorax. Scattered small alveolar opacities within the lower lobes have mildly improved since CT of December 26, 2024. The previously described anterior left hilar/upper lobe mass measures approximately 5.4 x 3.1 cm. This has continued to decrease in size. This measured 6.4 x 4.[address] of December 26, 2024. Left upper lobe aeration has mildly improved. Associated mediastinal and left axillary lymphadenopathy has improved. Index prevascular node on image 150 measures 1.6 x 1.2 cm, previously 1.9 x 1.3 cm. A left axillary lymph node on image 158 measures 1.2 x 0.9 cm, previously 1.5 x 1.3 cm. Abdomen and pelvis CT will be reported separately. There are no acute fractures within the bony thorax. IMPRESSION: 1. No pulmonary emboli identified. 2. No acute traumatic findings within the chest. 3. Findings consistent with a continued treatment response since CT of December 26, 2024. Decrease in size of the left hilar/upper lobe mass, associated mediastinal and left axillary lymphadenopathy and a trace left pleural effusion. 4. Mild decrease in bilateral lower lobe nodular alveolar opacities since prior CT. These favor an infectious process and can be assessed on follow-up exams to ensure continued resolution. ACT 112: Negative or not required by law. Electronically signed by: Fady Restrepo M.D. 01/04/2025 10:25 AM Discharge Plan Visit Data Chief Complaint: Chest Pain ED Provider: Todd Frank Discharge Problem: Abdominal pain, Metastatic cancer, Weakness, Transaminitis Condition: Fair Forms Stand Alone Forms: [facility] Prescriptions Prescriptions: No Action (DME) blood-glucose meter [OneTouch Verio Meter] Misc See Rx Instructions .Route Qty: 1 0RF Rx Instructions: As directed Breo Ellipta 200-25 mcg/dose blister with device 1 inh INH QAM Qty: 60 5RF potassium chloride [Klor-Con M20] 20 mEq tablet,ER particles/crystals 20 meq PO HS Qty: 90 1RF (DME) OneTouch Verio test strips Strip See Rx Instructions .Route Qty: 200 5RF Rx Instructions: testing once per day lorazepam 0.5 mg tablet 0.5 mg PO DAILY PRN (Reason: anxiety) Qty: 10 0RF amitriptyline 100 mg tablet 100 mg PO HS Qty: 90 1RF atorvastatin 20 mg tablet 20 mg PO HS Qty: 90 1RF metoprolol succinate 25 mg tablet extended release 24 hr 25 mg PO QAM Qty: 90 1RF venlafaxine 150 mg capsule,extended release 24hr 150 mg PO QAM Qty: 90 1RF levothyroxine 50 mcg tablet 100 mcg PO DAILYBB Qty: 180 1RF olanzapine 2.5 mg tablet 2.5 mg PO DAILY ondansetron 8 mg tablet,disintegrating 8 mg translingual Q8H PRN (Reason: Nausea And Vomiting) prochlorperazine maleate 10 mg tablet 10 mg PO Q6H PRN (Reason: Nausea And Vomiting) oxycodone 5 mg tablet 5 mg PO Q6H PRN (Reason: pain) Qty: 30 0RF cholecalciferol (vitamin D3) 2,000 unit tablet 2,000 units PO HS calcium carbonate [Calcium 600] 600 mg calcium (1,500 mg) tablet 600 mg PO QDL albuterol sulfate [Ventolin HFA] 90 mcg/actuation HFA aerosol inhaler 1 puff inhalation Q4H PRN (Reason: Other) Rx Instructions: INHALE 1 PUFF BY MOUTH EVERY 4 HOURS NEEDED. pantoprazole 40 mg tablet,delayed release (DR/EC) 40 mg PO QAM furosemide 20 mg tablet 20 mg PO QAM Ozempic 0.25 mg or 0.5 mg (2 mg/3 mL) pen injector 0.5 mg subcut WK ipratropium-albuterol 0.5 mg-3 mg(2.5 mg base)/3 mL solution for nebulization 3 ml inhalation Q4H PRN (Reason: wheezing) Qty: 90 0RF ondansetron 4 mg tablet,disintegrating 4 mg PO Q8H PRN (Reason: nausea and vomiting) Qty: 10 0RF Referrals Referrals: Perla Carmen DO [Primary Care Provider] - Discharge Problem: Abdominal pain Qualifiers: Abdominal location: unspecified location Qualified Code(s): R10.9 - Unspecified abdominal pain Metastatic cancer Qualifiers: Area of secondary neoplastic involvement: unspecified site Qualified Code(s): C 79.9 - Secondary malignant neoplasm of unspecified site
[2025-01-04 09:18] LABS: Hematocrit (blood only) 38.4 % (37.0-47.0); Hemoglobin 12.3 g/dl (12.0-16.0); Immature Granulocytes # (auto) 0.14 K/uL (0.01-0.20); Immature Granulocytes % (auto) 1.2 %; Mean Corpuscular Hemoglobin 28.9 pg (25.0-34.0); Mean Corpuscular Volume 90.1 fL (80.0-100.0); Platelet Count 561 K/uL (130-400); RDW Standard Deviation 48.3 fL (36.4-46.3); Red Blood Count 4.26 M/uL (4.20-5.40); White Blood Count 11.44 K/ul (4.8-10.8)
[2025-01-04] MEDS: ONDANSETRON INJ 2 MG/ML 2 ML VIAL IV STA (09:24)
[2025-01-04] MEDS: MoRPHine SULFATE 4 MG/ML 1 ML CARP\\VIAL IV STA ×2 (09:26→10:49)
[2025-01-04] MEDS: SODIUM CHLORIDE 0.9% 1,000 ML IV ONE (09:27)
[2025-01-04 09:37] LABS: Alanine Aminotransferase 73.0 U/L (7-52); Albumin Globulin Ratio 1.1 (0.9-2); Albumin Level 4.2 gm/dl (3.4-5.0); Alkaline Phosphatase 128.0 U/L (34-104); Anion Gap 5.0 (3-11); Bilirubin,Total 0.4 mg/dl (0.2-1.0); Blood Urea Nitrogen 17.0 mg/dl (6-23); Calcium 10.1 mg/dl (8.6-10.3); Carbon Dioxide 31.0 mmol/L (21-32); Chloride 97.0 mmol/L (98-107); Creatinine Clr Calc Pharmacy 79.1 ml/min; Globulin 3.8 gm/dl (2.5-4.0); Glucose 127.0 mg/dl (70-99(Fasting)); Lipase 33.0 U/L (11-82); Potassium 4.5 mmol/L (3.5-5.1); Sodium 133.0 mmol/L (136-145); Total Protein 8.0 gm/dl (6.0-8.3)
[2025-01-04] MEDS: OPTIRAY 320 125ml IV ONE (09:48)
--- NOTE | 2025-01-04 10:13 | XRay Report ---
XR chest 1V portable CLINICAL HISTORY: Chest pain, nonspecific COMPARISON STUDY: 12/26/2024 FINDINGS: Stable cardiomegaly without pulmonary vascular congestion. Stable mild atelectasis at the l ingula. No new consolidation or pleural effusion. No pneumothorax. IMPRESSION: Stable exam. ACT 112: Negative or not required by law. Electronically signed by: Matthew Cruz M.D. 01/04/2025 10:11 AM
--- NOTE | 2025-01-04 10:15 | CT Scan Report ---
CT SCAN OF THE ABDOMEN AND PELVIS WITH IV CONTRAST CLINICAL HISTORY: Multiple syncopal episodes. Metastatic small cell cancer. COMPARISON STUDY: CT of the abdomen and pelvis December 10, 2024. TECHNIQUE: Following the IV administration of 112 cc of Optiray 320, CT scan of the abdomen and pelv is is performed from the lung bases to the proximal femora. Images are reviewed in the axial, sagitta l, and coronal planes. IV contrast was administered without complication. A dose lowering technique w as utilized adhering to the principles of ALARA. FINDINGS: Please note that the chest CT will be reported separately. Left pleural effusion shown on C T of December 10, 2024 has markedly decreased in size. Lower thoracic lymphadenopathy has significant ly improved as well. Abdominal lymphadenopathy shown on CT of December 10, 2024 has significantly imp roved. A lymph node adjacent to the right adrenal gland on image 116 measures 0.8 cm, previously 2.2 cm. Bilateral adrenal nodules have significantly decreased in size. The small 8 mm right hepatic dome lesion on prior CT is not evident. No new hepatic lesions are present. Slight nodularity of the live r surface is again noted. There is no biliary ductal dilatation status post cholecystectomy. The righ t retroperitoneal implant lateral to the right kidney on prior CT has nearly completely resolved. A t iny residual 3 mm nodule is present. There is bilateral renal cysts. There is no hydronephrosis. Left renal scarring is chronic. Spleen and pancreas are unremarkable. Is no evidence for a bowel obstruct ion. There is a moderate to large amount of stool within the colon and rectum. No new sites of lympha denopathy are present. There are no fluid collections. No acute fractures within the lumbar spine, pe lvis or hips are identified. There is no evidence for traumatic injury to the solid abdominal viscera . IMPRESSION: 1. No acute traumatic findings within the abdomen or pelvis. 2. Findings consistent with a significant treatment response since CT of December 10, 2024, as detail ed above. 3. Moderate to large amount of stool within the colon and rectum. ACT 112: Negative or not required by law. Electronically signed by: Fady Restrepo M.D. 01/04/2025 10:14 AM
--- NOTE | 2025-01-04 10:27 | CT Scan Report ---
CT ANGIOGRAM OF THE CHEST CLINICAL HISTORY: Multiple syncopal episodes. Metastatic small cell cancer. COMPARISON STUDY: Chest CTs December 08, 2024 and December 26, 2024. TECHNIQUE: Following the IV administration of 112 cc of Optiray 320, CT angiogram of the chest was pe rformed from the upper abdomen to the thoracic inlet utilizing the pulmonary embolus protocol. Images are reviewed in the axial, sagittal, and coronal planes. 3-D MIPS images are created and assessed. I V contrast was administered without complication. A dose lowering technique was utilized adhering to the principles of ALARA. CT DOSE: 2394.93 mGy.cm FINDINGS: No pulmonary emboli are identified. Size of the heart is normal. There is no thoracic aorti c dissection. A trace pericardial effusion has decreased in size since CT of December 26, 2024. Trac e left pleural effusion has also decreased in size. There is no pneumothorax. Scattered small alveola r opacities within the lower lobes have mildly improved since CT of December 26, 2024. The previousl y described anterior left hilar/upper lobe mass measures approximately 5.4 x 3.1 cm. This has continu ed to decrease in size. This measured 6.4 x 4[address] of December 26, 2024. Left upper lobe aerat ion has mildly improved. Associated mediastinal and left axillary lymphadenopathy has improved. Index prevascular node on image 150 measures 1.6 x 1.2 cm, previously 1.9 x 1.3 cm. A left axillary lymph node on image 158 measures 1.2 x 0.9 cm, previously 1.5 x 1.3 cm. Abdomen and pelvis CT will be repor anjali separately. There are no acute fractures within the bony thorax. IMPRESSION: 1. No pulmonary emboli identified. 2. No acute traumatic findings within the chest. 3. Findings consistent with a continued treatment response since CT of December 26, 2024. Decrease i n size of the left hilar/upper lobe mass, associated mediastinal and left axillary lymphadenopathy an d a trace left pleural effusion. 4. Mild decrease in bilateral lower lobe nodular alveolar opacities since prior CT. These favor an in fectious process and can be assessed on follow-up exams to ensure continued resolution. ACT 112: Negative or not required by law. Electronically signed by: Fady Restrepo M.D. 01/04/2025 10:25 AM
--- NOTE | 2025-01-04 10:46 | Electrocardiogram Report ---
Test Reason : Blood Pressure : */* mmHG Vent. Rate : 92 BPM Atrial Rate : 92 BPM P-R Int : 180 ms QRS Dur : 86 ms QT Int : 360 ms P-R-T Axes : 30 -22 41 degrees QTcB Int : 445 ms Normal sinus rhythm Normal ECG When compared with ECG of 26-Dec-2024 08:43, No significant change was found Confirmed by Florin Andrew ([id number]) on 01/04/2025 10:46:43 AM Referred By: REFERRED SELF Confirmed By: Florin Andrew
--- NOTE | 2025-01-04 11:03 | History & Physical Report ---
Date of Service January 04, 2025 Assessment & Plan (1) Small cell lung cancer: (2) T2DM (type 2 diabetes mellitus): (3) Chronic obstructive pulmonary disease: Plan 60-year-old female with likely metastatic small cell carcinoma (including mets to brain) recently initiated chemotherapy on December 10, 2024. She presents with a presyncopal episode at home and uncontrolled cancer related pain with profound weakness. In the emergency department she has no initial significant infectious etiologies. There was some improvement of her chest imaging with some possible suggestion of infectious component. Urine is also pending at this time. #Metastatic small cell carcinoma with uncontrolled cancer pain at this time the patient be on scheduled Tylenol with as needed backup opioids. Consideration of a chronic low-level opioid patch may be undertaken versus tramadol. Patient a dministered cycle of chemotherapy which is scheduled for today. remains on #Presyncopal event. Certainly metabolic encephalopathy from urinary tract infection present admission could be a component of this. All likewise there are imaging changes suggestive of possible pneumonia. Clinically she is not exhibiting much pneumonia symptoms. She is placed on levaquin at this time pending cultures of blood and urine patient will be given additional fluid resuscitation and kept on monitored unit. #Diabetes. Patient will have her home medications held (Ozempic) and she will be on sliding scale insulin. A1c is pending #COPD. Patient continues on fluticasone vilanterol. She is on room air #Hypertension currently uncontrolled unclear if patient took medications at home. Patient will be maintained on furosemide therapy once she is hydrated today #DVT prevention is Lovenox therapy History of Present Illness Primary Care Provider: Perla Carmen DO 64-year-old female with a history of metastatic small cell cancer arrives to the ER via EMS where they responded to a near syncope call reportedly the patient has widespread metastatic cancer she got up this morning she felt dizzy she was eased to the ground by her . She did not feel well enough to get up. She has uncontrolled cancer related pain. She is reportedly to start her second round of chemotherapy today January 04, 2025. Chemotherapy is a carboplatin etoposide mixture initiated on December 10, 2024. CT scan from December 08 showed large mass in the left chest encasing the left hilum and extending into the mediastinum measuring 8.2 x 7.5 x 7.2. This mass narrows the left upper lobe and left lower lobe segmental pulmonary artery branches. Mass occludes the left main bronchus. CT scan on presentation shows the mass to reduce in size. With some response also noted in the midfoot on adenopathy noted in her chest. She is also not had a bowel movement in 4 days In the emergency department the patient did not have any identified focal signs of infection her urine however was not been collected. She was identified to be constipated by CT scan. There were some pulmonary related changes in the her chest CT with also possibility of mild infectious component Allergies Allergy/AdvReac Type Severity Reaction Status Date / Time citric acid [From DDAVP] Allergy Severe Shortness Verified 01/04/25 17:54 of Breath desmopressin [From DDAVP] Allergy Severe Shortness Verified 01/04/25 17:54 of Breath empagliflozin Allergy Severe Rash Verified 12/24/24 14:16 [From Jardiance] sodium phosphate [From DDAVP] Allergy Severe Shortness Verified 01/04/25 17:54 of Breath Penicillins Allergy Unknown Hives Verified 12/24/24 14:16 ranitidine Allergy Unknown Shakiness Verified 12/24/24 14:16 Home Medications Medication Instructions Recorded Confirmed Type cholecalciferol (vitamin D3) 50 2,000 units PO HS 09/20/20 01/04/25 History mcg (2,000 unit) tablet blood-glucose meter (OneTouch #1 ea 10/20/20 12/24/24 Rx Verio Meter) fluticasone furoate 200 1 inh inhalation QAM #60 ea 11/22/20 01/04/25 Rx mcg-vilanterol 25 mcg/dose inhalation powder (Breo Ellipta) calcium carbonate (Calcium 600) 600 mg PO QDL 01/17/23 01/04/25 History albuterol sulfate 90 mcg/actuation 1 puff inhalation Q4H PRN Other 09/26/23 01/04/25 History aerosol inhaler (Ventolin HFA) potassium chloride 20 mEq 20 meq PO HS #90 tabs 01/15/24 01/04/25 Rx tablet,extended release(part/cryst) (Klor-Con M) blood sugar diagnostic (OneTouch #200 ea 01/20/24 12/24/24 Rx Verio test strips) lorazepam 0.5 mg tablet 0.5 mg PO DAILY PRN anxiety #10 07/13/24 01/04/25 Rx tabs amitriptyline 100 mg tablet 100 mg PO HS #90 tabs 09/30/24 01/04/25 Rx atorvastatin 20 mg tablet 20 mg PO HS #90 tabs 09/30/24 01/04/25 Rx furosemide 20 mg tablet 20 mg PO QAM 12/08/24 01/04/25 History pantoprazole 40 mg tablet,delayed 40 mg PO QAM 12/08/24 01/04/25 History release semaglutide 0.25 mg or 0.5 mg (2 0.5 mg subcut WK 12/08/24 01/04/25 History mg/3 mL) subcutaneous pen injector (Ozempic) ipratropium 0.5 mg-albuterol 3 mg 3 ml inhalation Q4H PRN wheezing 12/14/24 01/04/25 Rx (2.5 mg base)/3 mL nebulization #90 mL soln ondansetron 4 mg disintegrating 4 mg PO Q8H PRN nausea and 12/14/24 01/04/25 Rx tablet vomiting #10 tabs metoprolol succinate 25 mg 25 mg PO QAM #90 tabs 12/21/24 01/04/25 Rx tablet,extended release 24 hr olanzapine 2.5 mg tablet 2.5 mg PO DAILY 12/24/24 01/04/25 History ondansetron 8 mg disintegrating 8 mg translingual Q8H PRN Nausea 12/24/24 01/04/25 History tablet And Vomiting oxycodone 5 mg tablet 5 mg PO Q6H PRN pain #30 tabs 12/24/24 01/04/25 Rx prochlorperazine maleate 10 mg 10 mg PO Q6H PRN Nausea And 12/24/24 01/04/25 History tablet Vomiting levothyroxine 50 mcg tablet 100 mcg (2 x 50 mcg) PO DAILYBB 12/29/24 01/04/25 Rx #180 tabs venlafaxine 150 mg 150 mg PO QAM #90 caps 12/29/24 01/04/25 Rx capsule,extended release 24 hr Past Med/Surg History Problem List (Updated 01/04/25 @ 11:06 by Todd Frank DO) Transaminitis (Acute) Weakness (Acute) Metastatic cancer (Acute) Abdominal pain (Acute) Cellulitis Small cell lung cancer (Acute) Acute hypoxic respiratory failure (Acute) Cancer related pain Small cell lung cancer in adult Mediastinal mass Hypoxia (Acute) Pleural effusion on left (Acute) Dyspnea (Acute) Chest pain (Acute) Fatty liver Diabetic neuropathy Vitamin D deficiency History of left breast cancer Hypercalcemia Mediastinal lymphadenopathy T2DM (type 2 diabetes mellitus) Osteopenia Irritable bowel syndrome Hypothyroidism Hypertension Dyslipidemia Anxiety and depression Chronic obstructive pulmonary disease Asthma well controlled w/ daily inhaler use; rarely uses rescue inhaler Arthritis Apnea, sleep no device Acid reflux Medical History Right facial swelling Colon cancer screening Breast cancer (04/06/16) "Self detected left breast mass Status post ultrasound-guided biopsy of the breast and axilla Invasive lobular carcinoma grade 1 biopsy of the node benign Estrogen receptor positive, progesterone receptor positive, and HER-2/abdelrahman negative Status post left mastectomy and sentinel lymph node biopsy 04/23/2016 Stage pT2 pN1mi M0" Surgical History Hx of colonoscopy Hx of tonsillectomy S/P wrist surgery (05/06/19) R wrist and thumb Status post evacuation of hematoma (04/2016) 09/[address] Mccormick; L chest wound hematoma S/P cardiac cath Jun 2014-no stents- [facility]- does not follow w/ cardio History of right salpingo-oophorectomy S/P left mastectomy (04/2016) w/ [facility] 04/23/[address] Mccomrick S/P cholecystectomy S/P appendectomy Family History Father Kidney disease Kidney stones Congestive heart failure Myocardial infarction Mother Gallbladder disease Hypertension Aunt Breast cancer Denies family history of Ovarian cancer Prostate cancer Colorectal cancer Social History Smoking Status: Former smoker Tobacco Type: Cigarettes Age Started Using Tobacco: 29; Age Quit Using Tobacco: 59; packs per day: 1; Second Hand Exposure: No; Do You Dip or Chew Tobacco: No; Hx Alcohol Use: No Hx Substance Use: No Preferred Language: Jamaican Communication Ability: Effective Visual Impairment: No Limitations 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: Normal News Agent Required: No Beliefs That Will Affect Care: None marital status: Current Living Situation: Spouse current occupational status: disabled Other Information That Helps Us Care for You: No Feels Safe at Home: Yes Safety Concerns: Feels Safe At This Time Childhood Exposure to Second-Hand Smoke: No Diet: regular Diet Comment: regular caffeine: Yes (coffee) during the past year weight has: remained stable Dental Care, Regularly: Yes Physical Activity Frequency: Daily Physical Activity Frequency Comment: walking, house work Seatbelt Use: always Sunscreen Use: No Assistive Devices: Cane, Denture - Upper and Denture - Lower Review of Systems Review of Systems: Mild distress and fatigue no headache, no visual changes no speech or swallowing issues no chest pain, pressure or palpitations no shortness of breath, cough with clear mucus constipation no dysuria, hematuria or frequency no focal joint pain or swelling no back pain, CVA tenderness or radicular pain no bruising, bleeding or rashes no focal signs of weakness or numbness or altered sensation no complaints of anxiety or depression.. Physical Exam Physical Exam: The patient appeared well nourished and normally developed. Vital signs as documented. Head exam is normocephalic atraumatic Neck is without JVD, thyromegaly, or carotid bruits. Lungs are clear to auscultation, no focal loss of breath sounds, poor air movement consistent with copd Cardiac exam, Rhythm is regular.. No murmurs, rubs or gallops. Abdominal exam reveals normal bowel sounds, soft LLQ pain, some suprapubic pain Extremities are nonedematous and both pedal pulses are present Neurologic exam is alert and oriented, no focal loss of strength or sensation Skin is without bruises or rashes Psychologically is without concerns for anxiety or depression.. Results & Data Results & Data Vital Signs (Past 12 Hours) Vital Signs Temp Pulse Resp BP Pulse Ox O2 Del Method 01/04/25 10:30 160/103 H 01/04/25 10:27 89 21 01/04/25 10:03 90 21 94 01/04/25 09:36 83 17 94 01/04/25 09:30 139/87 01/04/25 09:06 94 H 01/04/25 08:43 98.1 F 89 22 156/93 H 96 Room Air Laboratory Results review cbc, review chemistry mild hyponatremia transaminitis and liver nodularity seen on imaging ? humphrey, cirrhosis Code Status & VTE Plan VTE Prophylaxis Plan VTE Prophylaxis will be ordered: Yes PG Care Time/CCT Total # of Minutes Spent Total Time Spent with Patient: Total time spent is greater than 50% in coordination of care (as documented) at patient's floor/unit and/or counseling patient: Coding Level of Care Code 65262 INT INP/OBS CARE 375MIN Diagnoses Small cell lung cancer C34.92 Laterality: left Lung location: unspecified part of lung T2DM (type 2 diabetes mellitus) E11.9 Diabetes mellitus complication status: without complication Diabetes mellitus exterminator insulin use: without exterminator use Chronic obstructive pulmonary disease J44.9 COPD type: unspecified COPD (1) Small cell lung cancer Laterality: left Lung location: unspecified part of lung Qualified Code(s): C34.92 - Malignant neoplasm of unspecified part of left bronchus or lung (2) T2DM (type 2 diabetes mellitus) Diabetes mellitus complication status: without complication Diabetes mellitus exterminator insulin use: without exterminator use Qualified Code(s): E11.9 - Type 2 diabetes mellitus without complications (3) Chronic obstructive pulmonary disease COPD type: unspecified COPD Qualified Code(s): J44.9 - Chronic obstructive pulmonary disease, unspecified
[2025-01-04] MEDS ORDERED: GLUCOSE 10 TAB/TUBE PO PRN (13:40)
[2025-01-04] MEDS ORDERED: ALBUTEROL HFA 8 GM INHALER INH PRN (13:40)
[2025-01-04] MEDS ORDERED: CARBOHYDRATES FOR HYPOGLYCEMIA PO PRN (13:40)
[2025-01-04] MEDS ORDERED: DEXTROSE 50% 50 ML SYRINGE IV PRN (13:40)
[2025-01-04] MEDS ORDERED: ALBUT/IPRATROP 3MG/0.5MG NEB 3 ML VIAL INH PRN (13:40)
[2025-01-04] MEDS ORDERED: GLUCOSE 40% GEL 15 GM TUBE PO PRN (13:40)
[2025-01-04] MEDS ORDERED: GLUCAGON FOR INJ 1 MG VIAL SQ PRN (13:40)
[2025-01-04 13:55] LABS: Appearance Urine Clear (Clear); Bacteria Urine Automated None Seen (None Seen); Cast Urine Automated 0-2 /lpf (0-2); Epithelial Cell Urine Auto 0-2 /hpf (0-2); Glucose Urine UA Negative (Negative); RBC Urine Automated 0-2 /hpf (0-2); WBC Urine Automated 0-5 /hpf (0-5)
[2025-01-04] MEDS: POLYETHYLENE (MIRALAX) 17 GM PACK PO ONE (14:30)
[2025-01-04] MEDS: METHYLNALTREXONE BROMIDE 12 MG/0.6 ML VIAL SQ ONE (14:30)
[2025-01-04] MEDS: ACETAMINOPHEN 500 MG TAB PO SCH (14:31)
[2025-01-04] MEDS: ENOXAPARIN INJ 40 MG/0.4 ML SYR SQ SCH (14:31)
[2025-01-04] MEDS: INSULIN ASPART PER UNIT CHARGE SC SCH (14:51)
[2025-01-04] MEDS: SODIUM CHLORIDE 0.9% 1,000 ML IV SCH (15:41)
[2025-01-04] MEDS: MoRPHine SULFATE 4 MG/ML 1 ML CARP\\VIAL IV PRN (15:58)
[2025-01-04] MEDS: ONDANSETRON INJ 2 MG/ML 2 ML VIAL IV PRN (19:55)
[2025-01-04] MEDS: MINERAL OIL ENEMA 133 ML BTL PR STA (20:11)
--- NOTE | 2025-01-04 20:13 | Communication Note ---
Date of Service: January 04, 2025 Nurse alerted me via TT at 19:50 that pt in significant abdominal pain and very constipated straining a lot to have a BM. Went to bedside. Pt laying on side sobbing stating she is in pain and states it is from her belly and that she really needs to have a BM. She states she has not had one in 4 days. We will trial enema first given CT abd today noted moderate to large amount of stool in rectum. Also tried 51 gm dose of miralax and Dulcolax suppository. Pt lost IV access, no other access could be obtained without escalation to central line. Pt in notable pain and immensely anxious. Given low po dose ativan and IM dose toradol for symptom control. Pt was able to calm down and rest. No BM yet. Resident Activity Tracking Resident Involvement: Resident Care Provided Care Provided: Adult Hospital Medicine
[2025-01-04] MEDS: AMITRIPTYLINE HCL 50 MG TAB PO SCH (20:35)
[2025-01-04] MEDS: POLYETHYLENE (MIRALAX) 17 GM PACK PO STA (20:46)
[2025-01-04] MEDS: LORazepam 0.5 MG TAB PO STA (21:33)
[2025-01-04] MEDS: KETOROLAC TROMETHAMINE 15 MG/ML VIAL IM PRN (22:12)
[2025-01-04] MEDS: LORazepam 1 MG TAB PO STA (23:23)
[2025-01-05] MEDS: KETOROLAC TROMETHAMINE 15 MG/ML VIAL IM STA (04:07)
[2025-01-05] MEDS: POLYETHYLENE (MIRALAX) 17 GM PACK PO ONE ×2 (04:21)
[2025-01-05] MEDS: LEVOTHYROXINE SODIUM 100 MCG TABLET PO SCH (06:24)
[2025-01-05 06:39] LABS: Hematocrit (blood only) 35.5 % (37.0-47.0); Hemoglobin 11.7 g/dl (12.0-16.0); Mean Corpuscular Hemoglobin 29.5 pg (25.0-34.0); Mean Corpuscular Volume 89.6 fL (80.0-100.0); Platelet Count 454 K/uL (130-400); RDW Standard Deviation 50.9 fL (36.4-46.3); Red Blood Count 3.96 M/uL (4.20-5.40); White Blood Count 9.62 K/ul (4.8-10.8)
[2025-01-05 06:57] LABS: Anion Gap 7.0 (3-11); Blood Urea Nitrogen 22.0 mg/dl (6-23); Calcium 10.4 mg/dl (8.6-10.3); Carbon Dioxide 30.0 mmol/L (21-32); Chloride 98.0 mmol/L (98-107); Creatinine Clr Calc Pharmacy 77.1 ml/min; Glucose 119.0 mg/dl (70-99(Fasting)); Magnesium 2.2 mg/dl (1.7-2.4); Potassium 4.7 mmol/L (3.5-5.1); Sodium 135.0 mmol/L (136-145)
[2025-01-05 07:34] LABS: Hemoglobin A1C 6.8 % (4.5-5.6)
[2025-01-05] MEDS: OLANZAPINE 2.5 MG TAB PO SCH (10:01)
[2025-01-05] MEDS: VENLAFAXINE HCL XR 150 MG CAPXR PO SCH (10:02)
[2025-01-05] MEDS: METOPROLOL SUCC 25MG EXT REL TAB PO SCH (10:02)
--- NOTE | 2025-01-05 10:06 | Hospitalist Progress Note ---
Date of Service January 05, 2025 Assessment & Plan (1) Small cell lung cancer: (2) T2DM (type 2 diabetes mellitus): (3) Chronic obstructive pulmonary disease: (4) Constipation by delayed colonic transit: Plan 60-year-old female with likely metastatic small cell carcinoma (including mets to brain) recently initiated chemotherapy on December 10, 2024. She presents with a presyncopal episode at home and uncontrolled cancer related pain with profound weakness. In the emergency department she has no initial significant infectious etiologies. There was some improvement of her chest imaging with some possible suggestion of infectious component. Urine is also pending at this time. #Metastatic small cell carcinoma with uncontrolled cancer pain - Currently on scheduled Tylenol with as needed backup opioids (currently ordered both IV morphine based on pain scale & oxyIR) - would consider transition to fentanyl patch or buprenorphine. - Patient administered cycle of chemotherapy - follows with heme/onc #Presyncopal event. - Certainly metabolic encephalopathy from urinary tract infection present admission could be a component of this, all likewise there are imaging changes suggestive of possible pneumonia - Clinically she is not exhibiting much pneumonia symptoms. She is placed on Levaquin at this time pending cultures of blood and urine patient will be given additional fluid resuscitation and kept on monitored unit. #Constipation. - Moderate-large stool burden in the colon and rectum - Given mineral enema, Relistor SQ x1, and multiple doses of Miralax - Will attempt digital disimpaction either by RN or myself - Start senna 2 tabs daily +miralax 17g TID for maintenance given amount of opioids she is currently on #Diabetes. - Patient will have her home medications held (Ozempic) and she will be on sliding scale insulin. A1c 6.8% #COPD. - Patient continues on fluticasone vilanterol. She is on room air #Hypertension - currently uncontrolled unclear if patient took medications at home. - Patient will be maintained on furosemide therapy once she is hydrated today #DVT prevention - Lovenox therapy AM labs. Encourage ambulation/PT/OT eval. Admission and Anticipated Discharge Date Admission Date: January 04, 2025 Jose Salgado is a 64 yo F with a h/o small cell lung CA who was admitted with near syncope and uncontrolled pain. She is seen today on daily rounds, continues to endorse significant abdominal discomfort and rectal pressure from constipation. She had a CTAP which demonstrated mod-large stool burden in colon and rectum. She has failed to respond to multiple medications, most recently was given an enema this AM by residents w/o response. No cp or dyspnea. She denies n/v. Review of Systems 2 Review of Systems: All systems reviewed and are unremarkable except as noted in HPI and below. Denies fever, chills, fatigue, headache, nasal congestion, sore throat, cough, chest pain, shortness of breath, palpitations, orthopnea, PND, n/v/d, dysuria, hematuria, frequency, back pain, joint pain or swelling, easy bruising or bleeding, skin lesions or rashes. Physical Exam 2 Physical Exam: GENERAL: 64 yo obese WF. A&O x3. Mild distress from discomfort. LUNGS: Clear to auscultation bilaterally. No W/R/R. CARDIOVASCULAR: Mildly tachycardic but regular ABDOMEN: Soft, mild TTP, non-distended. BS normoactive x 4 quad. SKIN: Warm, dry, intact. No rashes or lesions. Results & Data Results & Data Vital Signs (Past 12 Hours) Vital Signs Temp Pulse Pulse Resp BP Pulse Ox O2 Del Method 01/05/25 08:26 36.6 C 102 H 18 113/73 95 Room Air 01/05/25 03:32 36.5 C 97 H 18 128/74 95 Room Air 01/04/25 23:48 36.3 C L 95 H 20 157/92 H 94 Room Air 01/04/25 22:10 102 H Laboratory Results 01/05/25 06:02 01/05/25 06:02 PG Care Time/CCT Total # of Minutes Spent Total Time Spent with Patient: Total time spent is greater than 50% in coordination of care (as documented) at patient's floor/unit and/or counseling patient: 38 minutes Coding Level of Care Code 33978 SUB INP/OBS CARE 2/35MIN Diagnoses Small cell lung cancer C34.92 Laterality: left Lung location: unspecified part of lung T2DM (type 2 diabetes mellitus) E11.9 Diabetes mellitus complication status: without complication Diabetes mellitus fci insulin use: without filler leaf cutter long use Chronic obstructive pulmonary disease J44.9 COPD type: unspecified COPD Constipation by delayed colonic transit K59.01 (1) Small cell lung cancer Laterality: left Lung location: unspecified part of lung Qualified Code(s): C34.92 - Malignant neoplasm of unspecified part of left bronchus or lung (2) T2DM (type 2 diabetes mellitus) Diabetes mellitus complication status: without complication Diabetes mellitus fci insulin use: without filler leaf cutter long use Qualified Code(s): E11.9 - Type 2 diabetes mellitus without complications (3) Chronic obstructive pulmonary disease COPD type: unspecified COPD Qualified Code(s): J44.9 - Chronic obstructive pulmonary disease, unspecified
[2025-01-05] MEDS: FLUTICASONE/VILANTEROL 200/25MCG 14 PUFFS/INHALER INH SCH (10:30)
[2025-01-05] MEDS: INFLUENZA VACC TS2025-26(65y+)/PF (IIV3) 0.5mL Syr IM ONE (10:30)
[2025-01-05] MEDS: ONDANSETRON ORAL SOLN 0.8 MG/1 ML PO PRN (13:24)
[2025-01-05] MEDS: POLYETHYLENE (MIRALAX) 17 GM PACK PO SCH (14:36)
[2025-01-05] MEDS: LORazepam 0.5 MG TAB PO PRN (20:09)
[2025-01-05] MEDS: MoRPHine SULFATE 2 MG/ML CARP IV PRN (22:21)
[2025-01-06 06:32] LABS: Hematocrit (blood only) 34.9 % (37.0-47.0); Hemoglobin 11.4 g/dl (12.0-16.0); Mean Corpuscular Hemoglobin 28.9 pg (25.0-34.0); Mean Corpuscular Volume 88.6 fL (80.0-100.0); Platelet Count 465 K/uL (130-400); RDW Standard Deviation 50.2 fL (36.4-46.3); Red Blood Count 3.94 M/uL (4.20-5.40); White Blood Count 8.53 K/ul (4.8-10.8)
[2025-01-06 06:46] LABS: Anion Gap 8.0 (3-11); Blood Urea Nitrogen 17.0 mg/dl (6-23); Calcium 9.8 mg/dl (8.6-10.3); Carbon Dioxide 26.0 mmol/L (21-32); Chloride 98.0 mmol/L (98-107); Creatinine Clr Calc Pharmacy 73.9 ml/min; Glucose 107.0 mg/dl (70-99(Fasting)); Magnesium 2.2 mg/dl (1.7-2.4); Potassium 4.7 mmol/L (3.5-5.1); Sodium 132.0 mmol/L (136-145)
[2025-01-06] MEDS: FUROSEMIDE 20 MG TAB PO SCH (08:39)
[2025-01-06] MEDS: SENNA 8.6 MG TAB PO SCH (08:42)
--- NOTE | 2025-01-06 11:45 | Surgery Consultation ---
Date of Consultation January 06, 2025 Assessment & Plan (1) Small cell lung cancer: (2) Metastatic cancer: Plan 64 yo female with metastatic small cell lung cancer who is in need for port placement for chemotherapy. Discussed aport placement via internal jugular vein . Discussed risks of procedure and informed consent obtained by Dr. Coon. Will plan for port placement tomorrow. Can have diet today. NPO after midnight. Continue medical management. History of Present Illness Reason for Consultation: port placement Requesting Physician: John Major MD Attending Physician: John Major MD History of Present Illness Naomi is a 64-year-old female with metastatic small cell carcinoma recently initiated chemotherapy on December 10, 2024. She presents with a presyncopal episode at home and uncontrolled cancer related pain with profound weakness. Our services have been consulted for port placement for chemotherapy given loss of IV Acess. She states that she had first treatment for 3 days via peripheral access but now has no access. No history of central venous access. No blood thinning agents. Allergies Allergy/AdvReac Type Severity Reaction Status Date / Time citric acid [From DDAVP] Allergy Severe Shortness Verified 01/04/25 17:54 of Breath desmopressin [From DDAVP] Allergy Severe Shortness Verified 01/04/25 17:54 of Breath empagliflozin Allergy Severe Rash Verified 12/24/24 14:16 [From Jardiance] sodium phosphate [From DDAVP] Allergy Severe Shortness Verified 01/04/25 17:54 of Breath Penicillins Allergy Unknown Hives Verified 12/24/24 14:16 ranitidine Allergy Unknown Shakiness Verified 12/24/24 14:16 Home Medications Medication Instructions Recorded Confirmed Type cholecalciferol (vitamin D3) 50 2,000 units PO HS 09/20/20 01/04/25 History mcg (2,000 unit) tablet blood-glucose meter (OneTouch #1 ea 10/20/20 12/24/24 Rx Verio Meter) fluticasone furoate 200 1 inh inhalation QAM #60 ea 11/22/20 01/04/25 Rx mcg-vilanterol 25 mcg/dose inhalation powder (Breo Ellipta) calcium carbonate (Calcium 600) 600 mg PO QDL 01/17/23 01/04/25 History albuterol sulfate 90 mcg/actuation 1 puff inhalation Q4H PRN Other 09/26/23 01/04/25 History aerosol inhaler (Ventolin HFA) potassium chloride 20 mEq 20 meq PO HS #90 tabs 01/15/24 01/04/25 Rx tablet,extended release(part/cryst) (Klor-Con M) blood sugar diagnostic (OneTouch #200 ea 01/20/24 12/24/24 Rx Verio test strips) lorazepam 0.5 mg tablet 0.5 mg PO DAILY PRN anxiety #10 07/13/24 01/04/25 Rx tabs amitriptyline 100 mg tablet 100 mg PO HS #90 tabs 09/30/24 01/04/25 Rx atorvastatin 20 mg tablet 20 mg PO HS #90 tabs 09/30/24 01/04/25 Rx furosemide 20 mg tablet 20 mg PO QAM 12/08/24 01/04/25 History pantoprazole 40 mg tablet,delayed 40 mg PO QAM 12/08/24 01/04/25 History release semaglutide 0.25 mg or 0.5 mg (2 0.5 mg subcut WK 12/08/24 01/04/25 History mg/3 mL) subcutaneous pen injector (Ozempic) ipratropium 0.5 mg-albuterol 3 mg 3 ml inhalation Q4H PRN wheezing 12/14/24 01/04/25 Rx (2.5 mg base)/3 mL nebulization #90 mL soln ondansetron 4 mg disintegrating 4 mg PO Q8H PRN nausea and 12/14/24 01/04/25 Rx tablet vomiting #10 tabs metoprolol succinate 25 mg 25 mg PO QAM #90 tabs 12/21/24 01/04/25 Rx tablet,extended release 24 hr olanzapine 2.5 mg tablet 2.5 mg PO DAILY 12/24/24 01/04/25 History ondansetron 8 mg disintegrating 8 mg translingual Q8H PRN Nausea 12/24/2401/04 History tablet And Vomiting oxycodone 5 mg tablet 5 mg PO Q6H PRN pain #30 tabs 12/24/24 01/04/25 Rx prochlorperazine maleate 10 mg 10 mg PO Q6H PRN Nausea And 09/18/25 09/29/25 History tablet Vomiting levothyroxine 50 mcg tablet 100 mcg (2 x 50 mcg) PO DAILYBB 12/29/24 01/04/25 Rx #180 tabs venlafaxine 150 mg 150 mg PO QAM #90 caps 12/29/24 01/04/25 Rx capsule,extended release 24 hr Patient History Medical History Right facial swelling Colon cancer screening Breast cancer (04/06/16) "Self detected left breast mass Status post ultrasound-guided biopsy of the breast and axilla Invasive lobular carcinoma grade 1 biopsy of the node benign Estrogen receptor positive, progesterone receptor positive, and HER-2/abdelrahman negative Status post left mastectomy and sentinel lymph node biopsy 04/23/2016 Stage pT2 pN1mi M0" Surgical History Hx of colonoscopy Hx of tonsillectomy S/P wrist surgery (05/06/19) R wrist and thumb Status post evacuation of hematoma (04/2016) 09/[address] Mccormick; L chest wound hematoma S/P cardiac cath Jun 2014-no stents- [facility]- does not follow w/ cardio History of right salpingo-oophorectomy S/P left mastectomy (04/2016) w/ [facility] 04/23/[address] Mccormick S/P cholecystectomy S/P appendectomy Family History Father Kidney disease Kidney stones Congestive heart failure Myocardial infarction Mother Gallbladder disease Hypertension Aunt Breast cancer Denies family history of Ovarian cancer Prostate cancer Colorectal cancer Social History Smoking Status: Former smoker Tobacco Type: Cigarettes Age Started Using Tobacco: 29; Age Quit Using Tobacco: 59; packs per day: 1; Second Hand Exposure: No; Do You Dip or Chew Tobacco: No; Hx Alcohol Use: No Hx Substance Use: No Preferred Language: Kazakh Communication Ability: Effective Visual Impairment: No Limitations 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: Normal 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 Required: No Beliefs That Will Affect Care: None marital status: Current Living Situation: Spouse current occupational status: disabled Feels Safe at Home: Yes Childhood Exposure to Second-Hand Smoke: No Diet: regular Diet Comment: regular caffeine: Yes (coffee) during the past year weight has: remained stable Dental Care, Regularly: Yes Physical Activity Frequency: Daily Physical Activity Frequency Comment: walking, house work Seatbelt Use: always Sunscreen Use: No Assistive Devices: Cane, Hospital Bed and Walker Review of Systems Review of Systems: All systems reviewed & are unremarkable except as noted in HPI & below Physical Exam Constitutional: cooperative and comfortable; no acute distress Respiratory: normal respiratory effort; no respiratory distress, no labored breathing and no retractions Cardiovascular: Rate/Rhythm: regular rate and regular rhythm Psychiatric: Orientation: alert and oriented x 3 Results & Data Vital Signs (Past 12 Hours) Vital Signs Temp Pulse Pulse Resp BP Pulse Ox O2 Del Method 01/06/25 08:01 36.5 C 85 18 118/81 92 Room Air 01/06/25 07:44 104 H 01/06/25 02:27 36.5 C 88 18 100/68 94 Room Air Laboratory Results 01/06/25 01/05/25 01/05/25 Range/Units 05:54 20:59 17:05 WBC 8.53 (4.8-10.8) K/ul RBC 3.94 L (4.20-5.40) M/uL Hgb 11.4 L (12.0-16.0) g/dl Hct 34.9 L (37.0-47.0) % MCV 88.6 (80.0-100.0) fL MCH 28.9 (25.0-34.0) pg MCHC 32.7 (32.0-36.0) g/dL RDW Std Deviation 50.2 H (36.4-46.3) fL RDW Coeff of Ronen 16.3 H (11.5-14.5) % Plt Count 465 H (130-400) K/uL MPV 9.7 (9.4-12.4) fL Sodium 132 L (136-145) mmol/L Potassium 4.7 (3.5-5.1) mmol/L Chloride 98 (98-107) mmol/L Carbon Dioxide 26 (21-32) mmol/L Anion Gap 8 (3-11) BUN 17 (6-23) mg/dl Creatinine 0.91 (0.6-1.2) mg/dl Est Cr Clr Drug Dosing 73.9 ml/min eGFR 69.58 BUN/Creatinine Ratio 18.7 (10-20) Glucose 107 H (70-99(Fasting)) mg/dl POC Glucose 140 H 180 H (70-99) mg/dl Calcium 9.8 (8.6-10.3) mg/dl Magnesium 2.2 (1.7-2.4) mg/dl (1) Small cell lung cancer Laterality: left Lung location: unspecified part of lung Qualified Code(s): C34.92 - Malignant neoplasm of unspecified part of left bronchus or lung (2) Metastatic cancer Area of secondary neoplastic involvement: unspecified site Qualified Code(s): C79.9 - Secondary malignant neoplasm of unspecified site
--- NOTE | 2025-01-06 11:50 | Hospitalist Progress Note ---
Date of Service January 06, 2025 Assessment & Plan (1) Small cell lung cancer: (2) T2DM (type 2 diabetes mellitus): (3) Chronic obstructive pulmonary disease: (4) Constipation by delayed colonic transit: Plan 60-year-old female with likely metastatic small cell carcinoma (including mets to brain) recently initiated chemotherapy on December 10, 2024. She presents with a presyncopal episode at home and uncontrolled cancer related pain with profound weakness. In the emergency department she has no initial significant infectious etiologies. There was some improvement of her chest imaging with some possible suggestion of infectious component. Urine is also pending at this time. #Metastatic small cell carcinoma with uncontrolled cancer pain - Currently on scheduled Tylenol with as needed backup opioids (currently ordered both IV morphine based on pain scale & oxyIR) - would consider transition to fentanyl patch or buprenorphine. - Patient administered cycle of chemotherapy - follows with heme/onc, discussed with Dr Summers today and recommending port placement as inpatient, contacted IR and recommended general surgery, contacted surgery and planning on doing this tomorrow. #Presyncopal event. - UTI and pneumonia ruled out, antibiotics discontinued, suspect vagal related to constipation +/- pain #Constipation. - Moderate-large stool burden in the colon and rectum - now resolved, will need bowel regimen on discharge to stop this happening again #Diabetes. - Patient will have her home medications held (Ozempic). A1c 6.8%. Given low HbA1C and lack of need for insulin will stop BSG checks #COPD. - Patient continues on fluticasone vilanterol. She is on room air #Hypertension - Patient will be maintained on furosemide therapy once she is hydrated today VTE Prophylaxis - Lovenox 40mg SQ daily Disposition - planning on port tomorrow Admission and Anticipated Discharge Date Admission Date: January 04, 2025 Subjective Feeling mostly back to her normal self. Enquiring about getting a port as needs this for chemotherapy and having poor IV access while here. Physical Exam Respiratory: normal respiratory effort, lungs clear to auscultation Cardiovascular: RRR, no murmur, no edema Results & Data Results & Data Vital Signs (Past 12 Hours) Vital Signs Temp Pulse Pulse Resp BP Pulse Ox O2 Del Method 01/06/25 08:01 36.5 C 85 18 118/81 92 Room Air 01/06/25 07:44 104 H 01/06/25 02:27 36.5 C 88 18 100/68 94 Room Air PG Care Time/CCT Total # of Minutes Spent Total Time Spent with Patient: Total time spent is greater than 50% in coordination of care (as documented) at patient's floor/unit and/or counseling patient: Coding Level of Care Code 31200 SUB INP/OBS CARE 2/35MIN Diagnoses Small cell lung cancer C34.92 Laterality: left Lung location: unspecified part of lung T2DM (type 2 diabetes mellitus) E11.9 Diabetes mellitus complication status: without complication 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 use: without correction use Chronic obstructive pulmonary disease J44.9 COPD type: unspecified COPD Constipation by delayed colonic transit K59.01 (1) Small cell lung cancer Laterality: left Lung location: unspecified part of lung Qualified Code(s): C34.92 - Malignant neoplasm of unspecified part of left bronchus or lung (2) T2DM (type 2 diabetes mellitus) Diabetes mellitus complication status: without complication Diabetes mellitus correction insulin use: without regional intermodal truck driver use Qualified Code(s): E11.9 - Type 2 diabetes mellitus without complications (3) Chronic obstructive pulmonary disease COPD type: unspecified COPD Qualified Code(s): J44.9 - Chronic obstructive pulmonary disease, unspecified
[2025-01-07 06:25] LABS: Hematocrit (blood only) 33.8 % (37.0-47.0); Hemoglobin 10.9 g/dl (12.0-16.0); Mean Corpuscular Hemoglobin 28.9 pg (25.0-34.0); Mean Corpuscular Volume 89.7 fL (80.0-100.0); Platelet Count 353 K/uL (130-400); RDW Standard Deviation 51.3 fL (36.4-46.3); Red Blood Count 3.77 M/uL (4.20-5.40); White Blood Count 5.51 K/ul (4.8-10.8)
[2025-01-07 06:55] LABS: Anion Gap 5.0 (3-11); Blood Urea Nitrogen 18.0 mg/dl (6-23); Calcium 9.7 mg/dl (8.6-10.3); Carbon Dioxide 29.0 mmol/L (21-32); Chloride 100.0 mmol/L (98-107); Creatinine Clr Calc Pharmacy 73.8 ml/min; Glucose 105.0 mg/dl (70-99(Fasting)); Magnesium 2.3 mg/dl (1.7-2.4); Potassium 4.4 mmol/L (3.5-5.1); Sodium 134.0 mmol/L (136-145)
--- NOTE | 2025-01-07 08:37 | History & Physical Bridge Note ---
Date of Service January 07, 2025 History & Physical Bridge Note I have examined the patient, reviewed the History & Physical and in the interval since the performance of the History & Physical I have noted the following changes of clinical significance: no changes noted
[2025-01-07] MEDS ORDERED: PROPOFOL IV EMULSION 10 MG/ML 20 ML VIAL IV ONE ×2 (10:29→11:41)
[2025-01-07] MEDS ORDERED: LIDOCAINE 2% 2 ML VIAL/AMP(20MG/ML) INFIL ONE (10:29)
[2025-01-07] MEDS ORDERED: ONDANSETRON INJ 2 MG/ML 2 ML VIAL ONE (10:29)
[2025-01-07] MEDS ORDERED: MIDAZOLAM HCL 1 MG/ML 2ML VIAL ONE (10:29)
--- NOTE | 2025-01-07 11:09 | Anesthesiology Consultation ---
Date of Service January 07, 2025 Assessment & Plan Chart Review Chart Review: Acceptable Risk for Surgery and Patient NOT seen in Pre Admission Testing Consults Requested none ASA ASA4 Proposed Anesthesia Anesthesia Type: MAC History Surgery Operation Date: 01/07/25 10:05 Proposed Procedures p Aport Insertion with Fluoroscopy - Cy Coon MD Height/Weight Height: 5 ft 6 in Weight: 103.2 kg Allergies Allergy/AdvReac Type Severity Reaction Status Date / Time citric acid [From DDAVP] Allergy Severe Shortness Verified 01/04/25 17:54 of Breath desmopressin [From DDAVP] Allergy Severe Shortness Verified 01/04/25 17:54 of Breath empagliflozin Allergy Severe Rash Verified 12/24/24 14:16 [From Jardiance] sodium phosphate [From DDAVP] Allergy Severe Shortness Verified 01/04/25 17:54 of Breath Penicillins Allergy Unknown Hives Verified 12/24/24 14:16 ranitidine Allergy Unknown Shakiness Verified 12/24/24 14:16 Medications Home Medications Medication Instructions Recorded Confirmed Last Taken cholecalciferol (vitamin D3) 50 2,000 units PO HS 09/20/20 01/04/25 09/19/20 mcg (2,000 unit) tablet blood-glucose meter (OneTouch #1 ea 10/20/20 12/24/24 Unknown Verio Meter) fluticasone furoate 200 1 inh inhalation QAM #60 ea 11/22/20 01/04/25 09/26/23 mcg-vilanterol 25 mcg/dose inhalation powder (Breo Ellipta) calcium carbonate (Calcium 600) 600 mg PO QDL 01/17/23 01/04/25 Unknown albuterol sulfate 90 mcg/actuation 1 puff inhalation Q4H PRN Other 09/26/23 01/04/25 Unknown aerosol inhaler (Ventolin HFA) potassium chloride 20 mEq 20 meq PO HS #90 tabs 01/15/24 01/04/25 Unknown tablet,extended release(part/cryst) (Klor-Con M) blood sugar diagnostic (OneTouch #200 ea 01/20/24 12/24/24 Unknown Verio test strips) lorazepam 0.5 mg tablet 0.5 mg PO DAILY PRN anxiety #10 07/13/24 01/04/25 Unknown tabs amitriptyline 100 mg tablet 100 mg PO HS #90 tabs 09/30/24 01/04/25 Unknown atorvastatin 20 mg tablet 20 mg PO HS #90 tabs 09/30/24 01/04/25 Unknown furosemide 20 mg tablet 20 mg PO QAM 12/08/24 01/04/25 Unknown pantoprazole 40 mg tablet,delayed 40 mg PO QAM 12/08/24 01/04/25 Unknown release semaglutide 0.25 mg or 0.5 mg (2 0.5 mg subcut WK 12/08/24 01/04/25 Unknown mg/3 mL) subcutaneous pen injector (Ozempic) ipratropium 0.5 mg-albuterol 3 mg 3 ml inhalation Q4H PRN wheezing 12/14/24 01/04/25 Unknown (2.5 mg base)/3 mL nebulization #90 mL soln ondansetron 4 mg disintegrating 4 mg PO Q8H PRN nausea and 12/14/24 01/04/25 Unknown tablet vomiting #10 tabs metoprolol succinate 25 mg 25 mg PO QAM #90 tabs 12/21/24 01/04/25 Unknown tablet,extended release 24 hr olanzapine 2.5 mg tablet 2.5 mg PO DAILY 12/24/24 01/04/25 Unknown ondansetron 8 mg disintegrating 8 mg translingual Q8H PRN Nausea 12/24/24 01/04/25 Unknown tablet And Vomiting oxycodone 5 mg tablet 5 mg PO Q6H PRN pain #30 tabs 12/24/24 01/04/25 Unknown prochlorperazine maleate 10 mg 10 mg PO Q6H PRN Nausea And 12/24/24 01/04/25 Unknown tablet Vomiting levothyroxine 50 mcg tablet 100 mcg (2 x 50 mcg) PO DAILYBB 12/29/24 01/04/25 Unknown #180 tabs venlafaxine 150 mg 150 mg PO QAM #90 caps 12/29/24 01/04/25 Unknown capsule,extended release 24 hr Active Medications Generic Name Dose Route Start Last Admin Trade Name Freq PRN Reason Stop Dose Admin Acetaminophen 1,000 mg 01/04/25 13:40 01/07/25 06:19 Acetaminophen 500 Mg Tab PO 02/03/25 13:39 1,000 mg Q8H CORNELIUS Administration Amitriptyline HCl 50 mg 01/04/25 21:00 01/06/25 20:22 Amitriptyline Hcl 50 Mg Tab PO 02/03/25 20:59 50 mg HS CORNELIUS Administration Enoxaparin Sodium 40 mg 01/04/25 13:40 01/06/25 12:35 Enoxaparin Inj 40 Mg/0.4 Ml Syr SQ 02/03/25 13:39 40 mg Q24H CORNELIUS Administration Fluticasone/Vilanterol 1 puffs 01/05/25 09:00 01/07/25 08:20 Fluticasone/Vilanterol 200/25mcg 14 Puffs/Inhaler INH 02/04/25 08:59 1 puffs QAM CORNELIUS Administration Furosemide 20 mg 01/06/25 09:00 01/07/25 08:18 Furosemide 20 Mg Tab PO 02/05/25 08:59 20 mg QAM CORNELIUS Administration Ketorolac Tromethamine 15 mg 01/04/25 22:02 01/06/25 22:13 Ketorolac Tromethamine 15 Mg/Ml Vial IM 01/09/25 22:01 15 mg Q8H PRN Administration Pain Levothyroxine Sodium 100 mcg 01/05/25 06:30 01/07/25 06:19 Levothyroxine Sodium 100 Mcg Tablet PO 02/04/25 06:29 100 mcg DAILYBB CORNELIUS Administration Lorazepam 0.5 mg 01/04/25 13:40 01/07/25 08:19 Lorazepam 0.5 Mg Tab PO 02/03/25 13:39 0.5 mg DAILY PRN Administration anxiety Metoprolol Succinate 25 mg 01/05/25 09:00 01/07/25 08:18 Metoprolol Succ 25mg Ext Rel Tab PO 02/04/25 08:59 25 mg QAM CORNELIUS Administration Morphine Sulfate 2 mg 01/04/25 13:40 01/05/25 22:21 Morphine Sulfate 2 Mg/Ml Carp IV 01/18/25 13:39 2 mg Q4 PRN Administration Moderate Pain (Scale 4, 5, 6) Morphine Sulfate 4 mg 01/04/25 13:40 01/07/25 07:20 Morphine Sulfate 4 Mg/Ml 1 Ml Carp\\Vial IV 01/18/25 13:39 4 mg Q4 PRN Administration Severe Pain (Scale 7, 8, 9,10) Ondansetron HCl 4 mg 01/04/25 13:40 01/07/25 07:44 Ondansetron Inj 2 Mg/Ml 2 Ml Vial IV 02/03/25 13:39 4 mg Q6H PRN Administration Nausea Ondansetron HCl 4 mg 01/05/25 12:47 01/05/25 13:24 Ondansetron Oral Soln 0.8 Mg/1 Ml PO 02/04/25 12:46 4 mg Q6H PRN Administration Nausea And Vomiting Oxycodone HCl 10 mg 01/04/25 13:40 01/05/25 12:51 Oxycodone Hcl Ir 5 Mg Tab (Immediate Release) PO 01/18/25 13:39 10 mg Q6H PRN Administration Moderate Pain (Scale 4, 5, 6) Pantoprazole Sodium 40 mg 01/05/25 09:00 01/07/25 08:18 Pantoprazole 40 Mg Tab PO 02/04/25 08:59 40 mg QAM CORNELIUS Administration Polyethylene Glycol 17 gm 01/05/25 14:00 01/07/25 08:19 Polyethylene (Miralax) 17 Gm Pack PO 02/04/25 13:59 Not Given TID CORNELIUS Sennosides 17.2 mg 01/06/25 09:00 01/07/25 08:19 Senna 8.6 Mg Tab PO 02/05/25 08:59 Not Given QAM CORNELIUS Venlafaxine HCl 150 mg 01/05/25 09:00 01/07/25 08:19 Venlafaxine Hcl Xr 150 Mg Capxr PO 02/04/25 08:59 150 mg QAM CORNELIUS Administration NPO Date Last Intake of Fluids: 01/07/25 Time Last Intake of Fluids: 07:00 Last Intake of Fluids Comment: ice chips Date Last Intake of Solids: 01/07/25 Time Last Intake of Solids: 00:00 Past Medical History Medical History Right facial swelling Colon cancer screening Breast cancer (04/06/16) "Self detected left breast mass Status post ultrasound-guided biopsy of the breast and axilla Invasive lobular carcinoma grade 1 biopsy of the node benign Estrogen receptor positive, progesterone receptor positive, and HER-2/abdelrahman negative Status post left mastectomy and sentinel lymph node biopsy 04/23/2016 Stage pT2 pN1mi M0" morbid obesity gerd asthma COPD IBS IRVIN Anemia metastatic lung cancer Exercise / Class Metabolic Activity III < 4 Walking/Shop/Light housework Past Family History Family History Father Kidney disease Kidney stones Congestive heart failure Myocardial infarction Mother Gallbladder disease Hypertension Aunt Breast cancer Denies family history of Ovarian cancer Prostate cancer Colorectal cancer Past Surgical History Surgical History Hx of colonoscopy Hx of tonsillectomy S/P wrist surgery (05/06/19) R wrist and thumb Status post evacuation of hematoma (04/2016) 09/[address] Mccormick; L chest wound hematoma S/P cardiac cath Jun 2014-no stents- [facility]- does not follow w/ cardio History of right salpingo-oophorectomy S/P left mastectomy (04/2016) w/ [facility] 04/23/[address] Mccormick S/P cholecystectomy S/P appendectomy Past Anesthesia History No Hx of Anesthesia Complications and No Family Hx of Anesthesia Complications History of PONV No Hx of PONV and No Hx of Motion Sickness Social History Smoking Status: Former smoker Do You Dip or Chew Tobacco: No Hx Alcohol Use: No Hx Substance Use: No substance use type: does not use Physical Exam Vital Signs Last Vital Signs Temp 36.7 C 01/07/25 10:44 Pulse 79 01/07/25 10:44 Resp 16 01/07/25 10:44 BP 131/79 01/07/25 10:44 Pulse Ox 94 01/07/25 10:44 O2 Del Method Room Air 01/07/25 10:44 Testing Laboratory Results 01/07/25 06:04 01/07/25 06:04 Hemoglobin A1c 6.8 % (4.5-5.6) H 01/05/25 06:02 Urine Color Cancelled 01/04/25 13:37 Urine Color Yellow 01/04/25 13:37 Urine Appearance Cancelled 01/04/25 13:37 Urine Appearance Clear (Clear) 01/04/25 13:37 Urine pH 8.0 (4.5-7.5) H 01/04/25 13:37 Urine pH Cancelled 01/04/25 13:37 Ur Specific [place] 1.037 (1.000-1.030) H 01/04/25 13:37 Ur Specific [place] Cancelled 01/04/25 13:37 Urine Protein Cancelled 01/04/25 13:37 Urine Protein Negative (Negative) 01/04/25 13:37 Urine Glucose (UA) Cancelled 01/04/25 13:37 Urine Glucose (UA) Negative (Negative) 01/04/25 13:37 Urine Ketones Cancelled 01/04/25 13:37 Urine Ketones Negative (Negative) 01/04/25 13:37 Urine Nitrite Cancelled 01/04/25 13:37 Urine Nitrite Negative (Negative) 01/04/25 13:37 Ur Leukocyte Esterase Cancelled 01/04/25 13:37 Ur Leukocyte Esterase Negative (Negative) 01/04/25 13:37 Urine WBC (Auto) 0-5 /hpf (0-5) 01/04/25 13:37 Urine WBC (Auto) Cancelled 01/04/25 13:37 Urine RBC (Auto) 0-2 /hpf (0-2) 01/04/25 13:37 Urine RBC (Auto) Cancelled 01/04/25 13:37 U Hyaline Cast (Auto) 0-2 /lpf (0-2) 01/04/25 13:37 U Hyaline Cast (Auto) Cancelled 01/04/25 13:37 U Epithel Cells (Auto) 0-2 /hpf (0-2) 01/04/25 13:37 U Epithel Cells (Auto) Cancelled 01/04/25 13:37 Urine Bacteria (Auto) Cancelled 01/04/25 13:37 Urine Bacteria (Auto) None Seen (None Seen) 01/04/25 13:37 01/04/25 14:23 Aerobic Blood Culture - Preliminary Blood No growth in Aerobic bottle after 48 hours. Anaerobic Blood Culture - Preliminary No growth in Anaerobic bottle after 48 hours. 01/04/25 14:23 Aerobic Blood Culture - Preliminary Blood No growth in Aerobic bottle after 48 hours. Anaerobic Blood Culture - Preliminary No growth in Anaerobic bottle after 48 hours. 01/04/25 13:37 Urine Culture - Final Urine,Straight Cath Three types of organisms present, all low counts probable skin bolivar. No further identifications or sensitivities to follow. 01/07/25 05:58 POC Glucose 116 H Electrocardiogram Date: 01/04/25 Findings: + NSR @ (@ 92) Chest X-Ray Date: 01/04/25 Findings: + NAD and + cardiomegaly Echocardiogram Date: 12/09/24 EF: 60% LV Function: normal RWMA: + none Other Findings: + LVH (mild) Valvular Disease: + no significant valvular disease
[2025-01-07] MEDS ORDERED: PROMETHAZINE HCL 6.25 MG in SODIUM CHLORIDE 0.9% 50 ML IV PRN (11:10)
[2025-01-07] MEDS ORDERED: ATROPINE SULFATE 0.1 MG/ML 10ML SYR IV PRN ×2 (11:10→11:21)
[2025-01-07] MEDS ORDERED: FLUMAZENIL 0.1 MG/1 ML 10 ML VIAL IV PRN (11:10)
[2025-01-07] MEDS ORDERED: NALOXONE HCL 0.4 MG/1 ML VIAL/CARP IV PRN (11:10)
[2025-01-07] MEDS ORDERED: KETAMINE HCL 10MG/ML SYR ONE (11:32)
[2025-01-07] MEDS ORDERED: ceFAZolin 330 MG/ML 1 GM VIAL ONE (11:49)
[2025-01-07] MEDS: HEPARIN 100 UNIT/ML 5ML FLUSH ONE (12:04)
[2025-01-07] MEDS: LIDOCAINE 1%/EPINEPHRINE 1:100,000 50 ML VIAL ONE (12:06)
--- NOTE | 2025-01-07 12:33 | Operative Report ---
Post Operative Report Pre & Post Diagnosis Operation Date: 01/07/25 10:05 Pre-Op Diagnosis: Lung Cancer Post-Op Diagnosis: Lung Cancer I identified the patient and participated in the time-out.: Yes Procedure Operation Date: 01/07/25 10:05 Actual Procedures p Right Intrajugular Aport Insertion with Fluoroscopy(Right) - Cy Coon MD Surgeon Cy Coon MD Elastic Assembler none Estimated Blood Loss 13 Findings Consistent with Post-Op Diagnosis patent right internal jugular vein Specimens none Drains none Anesthesia Type MAC Complications none Indications This is a 64-year-old female with lung cancer requiring chemotherapy for care. Will plan on putting an IV Aport. She stands all the risks and wishes to proceed. Description of Procedure The patient was taken to the OR and underwent excellent general anesthesia. Their neck and chest were prepped and draped in normal sterile fashion. They were placed in slight Trendelenburg position. The internal jugular vein was identified preoperatively with an ultrasound. The ultrasound was then draped sterilely and used to identify the vein. An incision was made and a 18-gauge seeker needle was inserted into her vein without difficulty. There was good backflow of dark venous blood. A wire was then inserted into their right internal jugular vein and confirmed with fluoroscopy to be in good position. The wire was then secured. After an incision was made a port cavity was then created below their collarbone using cautery. The catheter was then tunneled from the port site to the insertion site of the wire. The catheter was then fixed to the port and placed into the port cavity site. The port was secured with silk sutures. Fluoroscopy was then again used to measure the catheter to ensure a good position to just about the level of the right atrium in the superior vena cava. Once this was done a dilator and sheath were then placed using a Seldinger technique and advanced into their vein. The wire and the dilator were removed leaving the sheath in place. The catheter was then placed through the sheath. The sheath was then removed. The catheter was then checked with fluoroscopy showed to be in good position. The incision of the wire insertion site was closed with a Vicryl suture. The port cavity site was closed with deep Vicryl's and a running subcuticular Vicryl suture. Dermabond was used to reinforce the incisions. A sterile dressing was applied. The patient tolerated the procedure well and sent to the postop recovery for period of observation. A portable chest x-ray will be ordered to check placement I attest to the content of the Intraoperative Record and any orders documented therein. Any exceptions are noted below.
[2025-01-07] MEDS: ONDANSETRON INJ 2 MG/ML 2 ML VIAL IV PRN (12:35)
--- NOTE | 2025-01-07 13:05 | XRay Report ---
XR chest 1V portable CLINICAL HISTORY: Aport insertion COMPARISON STUDY: 01/04/2025 FINDINGS: Right chest port tip is in the region of the lower IJ or upper SVC. No pneumothorax seen. T here is mild atelectasis at the left lung base. IMPRESSION: No pneumothorax. ACT 112: Negative or not required by law. Electronically signed by: Matthew Cruz M.D. 01/07/2025 1:04 PM
--- NOTE | 2025-01-07 13:07 | Anesthesiology Progress Note ---
Date of Service January 07, 2025 Anesthesia Post Procedure Vital Signs Vital Signs: Temp Pulse Pulse Pulse Resp BP Pulse Ox 01/07/25 13:00 36.4 C L 73 22 127/90 96 01/07/25 12:50 86 23 135/67 98 01/07/25 12:40 81 18 137/88 98 01/07/25 12:30 80 15 131/64 99 01/07/25 12:24 36 C L 82 20 175/92 H 94 01/07/25 10:44 36.7 C 79 16 131/79 94 01/07/25 07:15 36.5 C 85 17 133/86 94 01/07/25 03:10 36.8 C 89 20 129/77 91 01/06/25 23:13 36.5 C 90 18 119/76 93 01/06/25 20:00 01/06/25 19:47 36.4 C L 91 H 20 114/75 92 01/06/25 15:32 36.4 C L 87 18 119/80 94 01/06/25 13:45 87 O2 Del Method O2 Flow Rate 01/07/25 13:00 Nasal Cannula 2 01/07/25 12:50 Nasal Cannula 2 01/07/25 12:40 Nasal Cannula 2 01/07/25 12:30 Oxymask 3 01/07/25 12:24 Oxymask 6 01/07/25 10:44 Room Air 01/07/25 07:15 Room Air 01/07/25 03:10 Room Air 01/06/25 23:13 Room Air 01/06/25 20:00 Room Air 01/06/25 19:47 Room Air 01/06/25 15:32 Room Air 01/06/25 13:45 Pain Intensity Generalized: Pain Intensity: 8 Head: Pain Intensity: 9 Abdomen: Pain Intensity: 6 Right Chest: Pain Intensity: 4 Transfer of Care Handoff Completed per policy Notes Mental Status: alert / awake / arousable Patient Amnestic to Procedure: Yes Nausea / Vomiting: adequately controlled Pain: adequately controlled Airway Patency, RR, SpO2: stable & adequate BP & HR: stable & adequate Hydration State: stable & adequate Anesthetic Complications: no major complications apparent
[2025-01-07 14:06] VITALS: TEMP 98.4; O2SAT 94
[2025-01-07 15:06] VITALS: PULSE 76; RESP 16
[2025-01-07 16:10] VITALS: BP 104/71
--- NOTE | 2025-01-07 16:33 | Discharge Summary ---
Discharge Summary Date of Service January 07, 2025 Principal Dx & Hospital Course #1 = Principal Diagnosis (1) Small cell lung cancer: (2) T2DM (type 2 diabetes mellitus): (3) Chronic obstructive pulmonary disease: (4) Constipation by delayed colonic transit: Plan Naomi Martinez is a 64 year old female admitted to [facility] from January 04 - January 07, 2025 due to syncopal episode. Initial concern for UTI was ruled out and antibiotics were discontinued. Suspect her syncopal episode was vasovagal related to pain and constipation. Constipation was treated with manual disimpaction, senna and MiraLAX. Recommend using MiraLAX 1-4 times a day as needed to aim for 1 bowel movement a day. Her stay was prolonged to establish better IV access with port placement on January 07, 2025 and she is now medically stable for discharge. Notes For Next Care Provider Follow up palliative care for ongoing pain control Follow up oncology for chemotherapy Medication Changes From Visit Oxycodone switched to Onyx for better pain control MiraLAX started for constipation Admission HPI Per Admitting Provider 64-year-old female with a history of metastatic small cell cancer arrives to the ER via EMS where they responded to a near syncope call reportedly the patient has widespread metastatic cancer she got up this morning she felt dizzy she was eased to the ground by her . She did not feel well enough to get up. She has uncontrolled cancer related pain. She is reportedly to start her second round of chemotherapy today January 04, 2025. Chemotherapy is a carboplatin etoposide mixture initiated on December 10, 2024. CT scan from December 08 showed large mass in the left chest encasing the left hilum and extending into the mediastinum measuring 8.2 x 7.5 x 7.2. This mass narrows the left upper lobe and left lower lobe segmental pulmonary artery branches. Mass occludes the left main bronchus. CT scan on presentation shows the mass to reduce in size. With some response also noted in the midfoot on adenopathy noted in her chest. She is also not had a bowel movement in 4 days In the emergency department the patient did not have any identified focal signs of infection her urine however was not been collected. She was identified to be constipated by CT scan. There were some pulmonary related changes in the her chest CT with also possibility of mild infectious component Discharge Exam Respiratory normal respiratory effort, lungs clear to auscultation Cardiovascular RRR, no murmur, no edema Discharge Plan Discharge Items Patient Disposition: Home - Self-Care Reason For Visit: CANCER PAIN UNCONTROLLED Discharge Diagnosis: Uncontrolled cancer related pain Vasovagal syncope Condition on Discharge: Fair Activity: Resume your previous activity Non-emergency contact: Primary Care Provider Call non-emergency contact if: you have any medication questions and your symptoms worsen Follow-up/Referrals: Perla Carmen DO [Primary Care Provider] - Diet: Regular Addtl Attending Provider Instructions: You were admitted to [facility] from January 04 - January 07, 2025 due to syncopal episode. Initial concern for UTI was ruled out and antibiotics were discontinued. Suspect your syncopal episode was vasovagal related to pain and constipation. Constipation was treated with manual dis impaction, senna and MiraLAX. Recommend using MiraLAX 1-4 times a day as needed to aim for 1 bowel movement a day. You stay was prolonged to establish better IV access with port placement on January 07, 2025 and you are now medically stable for discharge. Pending Studies at Discharge: No Stand-Alone Forms: My [facility], Smoking Cessation Medications and DC Order Prescriptions: New polyethylene glycol 3350 [Miralax] 17 gram Powder In Packet 17 g PO TID PRN (Reason: Constipation) Qty: 30 0RF hydrocodone-acetaminophen 5-325 mg tablet 1 - 2 tab PO Q6H PRN (Reason: pain) Qty: 30 0RF fentanyl 12 mcg/hr patch 72 hour 1 patch transdermal Q72H Qty: 5 0RF Continued (DME) blood-glucose meter [OneTouch Verio Meter] Misc See Rx Instructions .Route Qty: 1 0RF Rx Instructions: As directed Breo Ellipta 200-25 mcg/dose blister with device 1 inh INH QAM Qty: 60 5RF potassium chloride [Klor-Con M20] 20 mEq tablet,ER particles/crystals 20 meq PO HS Qty: 90 1RF (DME) OneTouch Verio test strips Strip See Rx Instructions .Route Qty: 200 5RF Rx Instructions: testing once per day lorazepam 0.5 mg tablet 0.5 mg PO DAILY PRN (Reason: anxiety) Qty: 10 0RF amitriptyline 100 mg tablet 100 mg PO HS Qty: 90 1RF atorvastatin 20 mg tablet 20 mg PO HS Qty: 90 1RF metoprolol succinate 25 mg tablet extended release 24 hr 25 mg PO QAM Qty: 90 1RF venlafaxine 150 mg capsule,extended release 24hr 150 mg PO QAM Qty: 90 1RF levothyroxine 50 mcg tablet 100 mcg PO DAILYBB Qty: 180 1RF ondansetron 8 mg tablet,disintegrating 8 mg translingual Q8H PRN (Reason: Nausea And Vomiting) prochlorperazine maleate 10 mg tablet 10 mg PO Q6H PRN (Reason: Nausea And Vomiting) cholecalciferol (vitamin D3) 2,000 unit tablet 2,000 units PO HS calcium carbonate [Calcium 600] 600 mg calcium (1,500 mg) tablet 600 mg PO QDL albuterol sulfate [Ventolin HFA] 90 mcg/actuation HFA aerosol inhaler 1 puff inhalation Q4H PRN (Reason: Other) Rx Instructions: INHALE 1 PUFF BY MOUTH EVERY 4 HOURS NEEDED. pantoprazole 40 mg tablet,delayed release (DR/EC) 40 mg PO QAM furosemide 20 mg tablet 20 mg PO QAM Ozempic 0.25 mg or 0.5 mg (2 mg/3 mL) pen injector 0.5 mg subcut WK ipratropium-albuterol 0.5 mg-3 mg(2.5 mg base)/3 mL solution for nebulization 3 ml inhalation Q4H PRN (Reason: wheezing) Qty: 90 0RF Changed olanzapine 2.5 mg tablet 2.5 mg PO DAILY PRN (Reason: nausea and vomiting) Qty: 0 0RF Rx Instructions: take as directed by your oncologist Discontinued oxycodone 5 mg tablet 5 mg PO Q6H PRN (Reason: pain) Qty: 30 0RF ondansetron 4 mg tablet,disintegrating 4 mg PO Q8H PRN (Reason: nausea and vomiting) Qty: 10 0RF Discharge Orders: Discharge Order (Routine); Ordered 01/07/25 Ordered By: John Conway/Other Patient Handouts: Polyethylene Glycol 3350 Powder For Oral Solution, Hydrocodone/Acetaminophen Oral Tablet, Cancer Constipation Tips Admission Data Admit Date/Time: 01/04/25 10:54 Attending Provider: John Major Admit Provider: Rick Goddard Primary Care Provider: Perla Carmen Other Providers: Debra Fernandez; Rick Goddard; Cy Coon Other Interventions: Discharge Summary Assessment (RN) Last Done: 01/07/25 16:08 Hospital Stay Data Consultations 01/04/25 10:48 ED Decision to Admit Stat 01/06/25 10:00 Consult General Surgery Routine Procedures Performed Operation Date: 01/07/25 10:05 Actual Procedures p Right Intrajugular Aport Insertion with Fluoroscopy(Right) - Cy Coon MD Diagnostic Imagining Performed 01/04/25 09:00 CT abd pelvis IV con only Stat CT angio chest PE protocol Stat 01/07/25 12:10 FL fluoro (infusaport) to 1 hr Routine Pending Results Patient Have Any Pending Studies at Discharge: No Discharge Instructions Given to Patient (Per Discharging Provider) You were admitted to [facility] from January 04 - January 07, 2025 due to syncopal episode. Initial concern for UTI was ruled out and antibiotics were discontinued. Suspect your syncopal episode was vasovagal related to pain and constipation. Constipation was treated with manual disimpaction, senna and MiraLAX. Recommend using MiraLAX 1-4 times a day as needed to aim for 1 bowel movement a day. You stay was prolonged to establish better IV access with port placement on January 07, 2025 and you are now medically stable for discharge. Total Time Total Time Spent Total Time Spent (In Minutes): 40 Coding Level of Care Code 36104 INP/OBS DISCH >30 MIN Diagnoses Small cell lung cancer C34.92 Laterality: left Lung location: unspecified part of lung T2DM (type 2 diabetes mellitus) E11.9 Diabetes mellitus complication status: without complication Diabetes mellitus terminal operator insulin use: without terminal operator use Chronic obstructive pulmonary disease J44.9 COPD type: unspecified COPD Constipation by delayed colonic transit K59.01
--- NOTE | 2025-01-09 12:42 | Communication Note ---
Date of Service: January 09, 2025 Called patient yesterday to check on how she was doing but couldn't get through however I did talk to her who said she was doing ok. Patient called switchboard today to talk to me. Reportedly having difficulty getting around due to pain. Taking [place] 5/325 3 pills 3-4 times a day. Pain is all the time. Discussed options and will start a Fentanyl patch at 12 mcg/hr which should take care of about half her opiate need for pain. Advised to cut back on [place] to maximum of 1-2 tabs at a time.
== END 2025-01-07 17:20 | disposition home or self-care (01) | DRG 947 ==
LOC: ED 08:42 → EDINP 10:54 → SUATTDRO 10:54 → 4W 16:46